=== PATIENT | male | born 2000 | race Caucasian/White ===

== ENCOUNTER 2020-04-12 01:48 | Emergency (ER) | payer OTHER ==
[~2020-04-12] VITALS: Ht 175.3 cm; Wt 77.1 kg
--- OUTSIDE RECORDS SUMMARY | ~2020-04-12 | XMS | Encounter Summary ---
Demographics + + + | Address | [address] | | | [place] [address] | + + + | Home Phone | | + + + | Preferred Language | Unknown | + + + | Marital Status | Single | + + + | Anabaptism Affiliation | Unknown | + + + | Race | White | + + + | Ethnic Group | Not or | + + + Author + + + | Author | [facility] | + + + | Organization | [facility] | + + + | Address | Unknown | + + + | Phone | Unavailable | + + + Support + + +---------+ + | Name | Relationship | Address | Phone | + + +---------+ + | Amanda Monique | ECON | Unknown | | + + +---------+ + | Sterling Radabah Sr. | ECON | Unknown | | + + +---------+ + | Soco Salguero | ECON | Unknown | | + + +---------+ + | Rhina Pleitez | ECON | Unknown | | + + +---------+ + Care Team Providers + +------+ + | Care Staff Rn Name | Role | Phone | + +------+ + | Lexx Schrader DO | PCP | | + +------+ + Reason for Visit + +--------+ + | Reason | Onset | Comments | | | Date | | + +--------+ + | Refill Request | 09/25/ | | | | 2017 | | + +--------+ + Encounter Details +--------+--------+ + + + | Date | Type | Department | Care Team | Description | +--------+--------+ + + + | 09/25/ | Refill | [facility] | Rosey Pope | Refill Request | | 2017 | | [facility] | [address] | | | | | [place] | [address] [place], | | | | | [address] | [place] [address] | | | | | [address] | | | | | | Mailcode: [id number] | | | | | | [facility] | | | | | | [address], | | | | | | [place] [address] | | | | | | [phone] | | | +--------+--------+ + + + Social History + +-------+ +--------+ + | Tobacco Use | Types | Packs/Day | Years | Date | | | | | Used | | + +-------+ +--------+ + | Former Smoker | | | | Quit: 04/06/2015 | + +-------+ +--------+ + + + +---------+ + | Alcohol Use | Drinks/Week | oz/Week | Comments | + + +---------+ + | Not Asked | 0 Standard drinks | 0.0 | | | | or equivalent | | | + + +---------+ + + + + | Sex Assigned at | Date Recorded | | | | + + + | Not on file | | + + + documented as of this encounter Plan of Treatment Not on filedocumented as of this encounter Visit Diagnoses Not on filedocumented in this encounter"
--- OUTSIDE RECORDS SUMMARY | ~2020-04-12 | XMS | Encounter Summary ---
Demographics + + + | Address | [address] | | | [place] [address] | + + + | Home Phone | | + + + | Preferred Language | Unknown | + + + | Marital Status | Single | + + + | Scientology Affiliation | Unknown | + + + | Race | White | + + + | Ethnic Group | Not or | + + + Author + + + | Author | [facility] | + + + | Organization | [facility] | + + + | Address | Unknown | + + + | Phone | Unavailable | + + + Support + + +---------+ + | Name | Relationship | Address | Phone | + + +---------+ + | Amanda Monique | ECON | Unknown | | + + +---------+ + | Brayden Monique Sr. | ECON | Unknown | | + + +---------+ + | Soco Salguero | ECON | Unknown | | + + +---------+ + | Rhina Pleitez | ECON | Unknown | | + + +---------+ + Care Team Providers + +------+ + | Care Entry Level Software Engineer Name | Role | Phone | + +------+ + | Lia Pérez | PCP | | + +------+ + Reason for Visit + + + | Reason | Comments | + + + | Diabetes mellitus | | | type 1 | | + + + Consultation (Routine) +--------+ + + + + + | Status | Reason | Specialty | Diagnoses / | Referred By | Referred To | | | | | Procedures | Contact | Contact | +--------+ + + + + + | Closed | Specialty | Endocrinology | Diagnoses | [facility], | [facility] | | | Services | Diabetes & | Type I | MD Saida | [facility] | | | Required | Metabolism | (juvenile | [address] | | | | | type) | [address] | | | | | diabetes | Street | Physician's | | | | | mellitus | [address] | [place], | | | | | without | [place], | [address] | | | | | mention of | [place] [address] | [place], [place] | | | | | complication | Phone: | [phone] | | | | | , not stated | [phone] | Phone: | | | | | as | Fax: | [phone] | | | | | uncontrolled | [phone] | Fax: | | | | | | | [phone] | +--------+ + + + + + Encounter Details +--------+---------+ + + + | Date | Type | Department | Care Team | Description | +--------+---------+ + + + | 11/17/ | Office | [facility] | Mindy Jaeger MD | Type I (juvenile | | 2014 | Visit | [facility] | | type) diabetes | | | | [facility] | | mellitus without | | | | [address] | | mention of | | | | [address] | | complication, not | | | | Physician[facility] | | stated as | | | | [address] | | uncontrolled | | | | [place], [place] | | (Primary Dx) | | | | [address] | | | | | | [phone] | | | +--------+---------+ + + + Social History + +-------+ +--------+------+ | Tobacco Use | Types | Packs/Day | Years | Date | | | | | Used | | + +-------+ +--------+------+ | Current Some Day | | | | | | Smoker | | | | | + +-------+ +--------+------+ + + +---------+ + | Alcohol Use | Drinks/Week | oz/Week | Comments | + + +---------+ + | Not Asked | | | | + + +---------+ + + + + | Sex Assigned at | Date Recorded | | | | + + + | Not on file | | + + + documented as of this encounter Last Filed Vital Signs + + + + + | Vital Sign | Reading | Time Taken | Comments | + + + + + | Blood Pressure | 124/83 | 11/17/2014 3:05 PM | | | | | PDT | | + + + + + | Pulse | 106 | 11/17/2014 3:05 PM | | | | | PDT | | + + + + + | Temperature | - | - | | + + + + + | Respiratory Rate | - | - | | + + + + + | Oxygen Saturation | - | - | | + + + + + | Inhaled Oxygen | - | - | | | Concentration | | | | + + + + + | Weight | 54.4 kg (119 lb 14.4 | 11/17/2014 3:05 PM | | | | oz) | PDT | | + + + + + | Height | 170.2 cm (5' 7") | 11/17/2014 3:05 PM | | | | | PDT | | + + + + + | Body Mass Index | 18.78 | 11/17/2014 3:05 PM | | | | | PDT | | + + + + + documented in this encounter Progress Notes Orestes Hawley MD - 11/18/2014 4:56 PM PDTPediatric Endocrinology Attending [facility] 11/17/2014 I have seen and examined patient with Dr. Jaeger. I agree with his note and plan. I have pa rticipated in patients care. ORESTES HAWLEY MD Professor, Pediatric Endocrinology [facility] [place] Chief, Division of Pediatric Endocrinology [facility] 4:5 6 PM PDTAdaMadeleine sheldon MA - 11/17/2014 3:05 PM PDT Finger stick performed by patient in clinic for capillary A1c test. indy Jaeger MD - 11/17/2014 3:01 PM PDTForma tting of this note might be different from the original. [facility] Clinic Note Clinic Date:11/17/14 Current Insulin Regimen: Lantus 35 units CR: 1 for 8 grams of carbohydrates High Blood Sugar Correction Factor: 150-200: 5 units 200-250: 6 units 251-300: 7 units 301-350: 8 units 351-400: 9 units > 400: 10 units Brayden is a 13 year 4 month male with Type 1 diabetes here for follow-up. His diabetes tolbert s been under very poor control with a HA1C > or just below 14. Interval History: Brayden is a 13 year 4 month male with Type 1 diabetes who presents today for ongoing foll ow-up. He is accompanied to clinic today by his mother. Brayden reports that he has been do ing well since his last visit. He has not had any significant illnesses, ketosis, or severe hypoglycemia requiring intervention with glucagon. Brayden has no new complaints at today's visit. He has not been checking blood sugar for a couple weeks as most of the time his glu cometer has not been working. He notes he has sometimes felt low at night but does not check his blood sugar and just empirically will eat or take in juice and go back to bed. He feels low at night a couple times a week. He counts carbohydrates at meals regularly by report. H e does not regularly correct his blood sugar unless he feels unwell and "knows" that it is h igh. He often feels like his blood sugar is "high" before bed and will randomly give about 1 0 units of insulin to correct his blood sugar before he goes to bed. Blood glucose monitoring: Brayden reports checking his blood sugar at least 0-6 times a day with no clear pattern of checking blood sugars consistently. He claims his glucometer is no t working and does not have any blood sugar data. Hypoglycemia: Brayden's target range for his glucose levels is 80-180. He reports 4 episodes of low blood sugars a week at night as discussed above. He states that he is frequently abl e to recognize these episodes. Brayden states that he has a current glucagon kit and has a [employer] dic alert bracelet which he currently wearing. Meal plan: He likes to eat meals in the middle of the night and often does not dose insulin at this guero. He often sleeps through the day and has an irregular daytime feeding pattern. Exercise: Brayden like to ride a dirt bike. He likes to ride his skateboard and scooter. He never takes an extra snack prior to vigorous exercise. ROS: Baryden denies any headaches or visual changes. He notes some diffuse chest pain which occurs and is relieved with ibuprofen and he notes that it rojas and it feels like he has so mething in his throat. He denies abdominal pain, constipation/diarrhea or dry skin. + signif icant polydipsia or polyuria. He notes nausea when his blood sugars are high. He reports a n ormal energy level. The review of systems is otherwise negative for all systems. Social history: Brayden lives at home with his mother. He feels like he has ADHD and family reports that his older brother was diagnosed with this condition. Of note his older brother committed suicide at 19 years of age. Dad lives in [place] and Mom and Dad are currentl y in the process of obtaining a divorce. Of note his DHS letter reports that Brayden has a hi story of making comments about committing suicide and overdosing himself on insulin. Mom and Brayden recently moved to [place], [place]. School: Brayden is not currently going to school. Mom notes he is generally refusing to alondra g to school. Mom notes he has been staying home night. Mom feels like he is also using less drugs. Health Care Maintenance: Last eye check: Eye check demonstrated retinopathy in May 2014 Last urine for microalbumin below: Results for BRAYDEN MONIQUE ( ) as of 07/29/2013 12:00 Ref. Range 06/17/2013 11:12 CREATININE, URINE No range found 25.50 MICROALBUMIN, URINE TIMED Latest Range: <=20 mg/L 9 MICROALBUMIN/CREAT RATIO Latest Range: <=30 mg/gm 35 (H) June 2013 Thyroid studies normal, negative celiac screen Lipids: High triglycerides noted Results for BRAYDEN MONIQUE ( ) as of 07/29/2013 12:00 Ref. Range 06/17/2013 15:58 CHOLESTEROL (LAB) Latest Range: <200 mg/dL 140 TRIGLYCERIDES Latest Range: <150 mg/dL 259 (H) HDL CHOLESTEROL Latest Range: >40 mg/dL 45 HDL CMNT No range found No Hemo LDL CHOLEST Latest Range: <100 mg/dL 43 VLDL CHOLESTEROL Latest Range: <31 mg/dL 52 (H) NON-HDL CHOLESTEROL Latest Range: <130 mg/dL 95 TSH Latest Range: 0.34 - 5.60 mcIU/mL 2.19 FREE T4, SERUM Latest Range: 0.6 - 1.2 ng/dL 1.0 Results for BRAYDEN MONIQUE ( ) as of 07/29/2013 12:00 Ref. Range 06/17/2013 15:58 TTG, IGA Latest Range: 0 - 19 Units 5 IGA SERUM Latest Range: 70 - 400 mg/dL 241 Vitals: There were no vitals taken for this visit.. General: well-appearing, no apparent distress. HEENT: NC/AT, PERRL, EOMI. OP clear, good dentition. neck: supple, no LAD. no thyromegaly. chest: CTA bilaterally. heart: RRR, no murmurs. Good perfusion abdomen: soft/NT/ND, no hepatosplenomegaly. normal BS. ext: feet well cared for with no ingrown toenails. skin: no rashes, no lipodystrophy at shot sites. neuro: grossly normal Laboratory studies: Lab Results Component Value Date A1C >14.0 06/17/2013 Results for BRAYDEN MONIQUE ( ) as of 11/17/2014 15:26 Ref. Range 04/21/2014 14:27 08/04/2014 14:38 11/17/2014 15:00 HEMOGLOBIN A1C Latest Range: 4.0 - 5.7 % 13.9 (H) 13.3 (A) >14.0 (A) Assessment: Type 1 diabetes under extremely poor control. HA1C > 14. He admitted that he i s missing about half of his Lantus doses, rarely checks his blood sugar (with no blood sugar today), low blood sugar at nights secondary to random insulin injections before bed, skips insulin doses at lunch and dinner about 40% of the time, and continues to use tobacco regula rly. 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 He does not check in with me between visits. [facility] is involved and it is my opinion that their involvement should be escalated to consider isaura reginald from his current home environement. I discussed this with our social work therapist who will sahil base with [facility]> I have discusse I am deeply concerned that Brayden is at significant risk of complications, including DKA and related morbidity and morality as well as high risk for early diabetes relates complications including vision loss, kidney disease, and neuropathy. Attempts are also going to be made to try to include him in [facility]. He was given new meters to day and lantus as he forgot to bring this with him and will not be returning home for a coup le days. The family has agree to check in with me with blood sugar numbers in two weeks. Recommendations: Lantus 35 units CR: 1 for 8 grams of carbohydrates High Blood Sugar Correction Factor: 150-200: 5 units 200-250: 6 units 251-300: 7 units 301-350: 8 units 351-400: 9 units > 400: 10 units -Do not randomly give insulin doses before dinner to avoid unsafe lows at night. -Will attempt to see if he can be added to JOELLEN -Continue Parent supervision for all Lantus doses, Give the Lantus dose within the same jus r each night. Do not use exercise to help his blood sugars come down, he should get a high b lood sugar correction as often as every three hours. -Always check ketones if his blood sugar is > 300 twice in a row. If he has moderate to lar ge ketones he needs to call the loss prevention specialist pediatric air pollution auditor to discuss management. -Obtain care with a local primary care doctor. -As much as possible avoid overnight meals, ensure that his snacks are about 15 grams or le ss in between meals. -Meet with Psychology at every visit -Follow up in in our clinic in 3 months and establish care with a new provider. The family has been offered the opportunity to call into our service between visits for ass istance in making insulin adjustments. MINDY JAEGER MD [facility] [address] [place] [address] [facility] [address], [facility] [address] [place] [address] documented in this encou nter Plan of Treatment Not on filedocumented as of this encounter Procedures + +--------+ + + + | Procedure Name | Priori | Date/Time | Associated Diagnosis | Comments | | | ty | | | | + +--------+ + + + | HEMOGLOBIN A1C, POC | Routin | 11/17/2014 | Type I (juvenile | Results for this | | | e | 3:00 PM | type) diabetes | procedure are in the | | | | PDT | mellitus without | results section. | | | | | mention of | | | | | | complication, not | | | | | | stated as | | | | | | uncontrolled | | + +--------+ + + + documented in this encounter Results HEMOGLOBIN A1C,POC (11/17/2014 3:00 PM PDT) + + + + + + | Component | Value | Ref Range | Performed | Pathologist | | | | | At | Signature | + + + + + + | HEMOGLOBIN | >14.0 (A) | 4.0 - 5.7 % | [facility] - | | | A1C,POC | | | [place] | | | | | | [facility] | | | | | | OF CARE | | | | | | TESTS | | + + + + + + + + | Specimen | + + | Blood | + + + + + + + | Performing | Address | City/State/Zipcode | Phone Number | | Organization | | | | + + + + + | [facility] | [address] | [place], [place] | | | [facility] | [address] | [address] | | | TESTS | | | | + + + + + documented in this encounter Visit Diagnoses + + | Diagnosis | + + | Type I (juvenile type) diabetes mellitus without mention of complication, not stated | | as uncontrolled - Primary | + + documented in this encounter
--- OUTSIDE RECORDS SUMMARY | ~2020-04-12 | XMS | Encounter Summary ---
Demographics + + + | Address | [address] | | | [place] [address] | + + + | Home Phone | | + + + | Preferred Language | Unknown | + + + | Marital Status | Single | + + + | Episcopal Affiliation | Unknown | + + + | Race | White | + + + | Ethnic Group | Not or | + + + Author + + + | Author | [facility] | + + + | Organization | [facility] | + + + | Address [...] Team Providers + +------+ + | Care Director Of Home Care Hospice Name | Role | Phone | + +------+ + | Lexx Schrader DO | PCP | | + +------+ + Reason for Visit + +--------+ + | Reason | Onset | Comments | | | Date | | + +--------+ + | Refill Request | 05/07/ | | | | 2018 | | + +--------+ + Encounter Details +--------+ + + + + | Date | Type | Department | Care Team | Description | +--------+ + + + + | 05/07/ | Telephone | [facility] | Orestes Quinn MD | Refill Request | | 2017 | | [facility] | [address] | | | | | [place] [facility] | [address] [facility], | | | | | [address] | [place] [address] | | | | | [address] | [phone] | | | | | Physician's | | | | | | [address] | | | | | | [place], [place] | | | | | | [address] | | | | | | [phone] | | | +--------+ + + + + Social History + +-------+ [...] + + documented as of this encounter Miscellaneous Notes Telephone Encounter - Ria Bravo MA - 05/07/2018 5:42 PM PDTSigned refill request for all prescriptions per Prescription authorized per [facility] Re fill Protocol [id number] Last Appointment in [facility] was on 09/25/17 at 10:10 am with Orestes Quinn MD. Next Appointment in [facility] is on 05/17/18 at 9:45 am with Orestes Quinn MD. elephone Encounter - Denise Etienne - 05/07/2018 4:22 PM PDTRobert Mario Monique : 2000 Last Appointment in [facility] was on 09/25/17 at 10:10 am with Orestes Quinn MD. Next Appointment in [facility] is on 05/17/18 at 9:45 am with Orestes Quinn MD. Medication: novolog flexpen Strength: Dose: Up to 150 units Quantity: 3 month Additional Medication: Yes Medication: Lantus pen Strength: Dose: Up to 34 units at night Quantity: 3 month Additional Medication: Yes Medication: Pen needles Strength: 4mm Dose: Up to 15 times a day Quantity: 3 month Additional Medication: Yes Medication: Glucagon kit Strength: Dose: 1 kit Quantity: 1 time only Additional Medication: Yes Medication: Contour next meter Strength: Dose: 1 meter Quantity: 1 time only Additional Medication: Yes Medication: Contour next test strips Strength: Dose: Up to 10 times day Quantity: 3 month Additional Medication: No Pharmacy Updated: [facility][id number] [address] [place] [address] Prescription Routing: Retail order: Fax or call in to pharmacy Patient/caller advised of department's 72 hour turnaround for refill requests Patient/caller advised of department's turnaround time for refill requests. Advised to fol low-up with pharmacy regarding status of refill. Electronically signed by Denise Patricia at 0 05/07/2018 4:30 PM PDTdocumented in this encounter Plan of Treatment Not on filedocumented as of this encounter Visit Diagnoses + + | Diagnosis | + + | Type 1 diabetes mellitus without complication (HCC) - Primary Type I (juvenile type) | | diabetes mellitus without mention of complication, not stated as uncontrolled | + + documented in this encounter"
--- OUTSIDE RECORDS SUMMARY | ~2020-04-12 | XMS | Encounter Summary ---
Demographics + + + | Address | [address] | | | [place] [address] | + + + | Home Phone | | + + + | Preferred Language | Unknown | + + + | Marital Status | Single | + + + | Quaker Affiliation | Unknown | + + + | Race | White | + + + | Ethnic Group | Not or | + + + Author + + + | Author | [facility] | + + + | Organization | [facility] | + + + | [...] Team Providers + +------+ + | Care Patient Information Coordinator Name | Role | Phone | + +------+ + | Saida Alegria MD | PCP | | + +------+ + Reason for Visit Other (Routine) +--------+--------+ + + + + | Status | Reason | Specialty | Diagnoses / | Referred By | Referred To | | | | | Procedures | Contact | Contact | +--------+--------+ + + + + | Closed | | Endocrinology | Diagnoses | Jaeger, | Dbt Diab Ed | | | | Diabetes & | Diabetes | MD Mark | [address] | | | | Metabolism | type 1, | [address] | [address] | | | | | uncontrolled | [address] | [address] | | | | | (HCC) | Rd | Mailcode: | | | | | Procedures | [place], [place] | [address] | | | | | CONSULT TO | [address] | Physician's | | | | | PEDS | | [address] | | | | | DIABETES - | | [address] | | | | | EDUCATION | | [place], [place] | | | | | AND | | [address] | | | | | NUTRITION | | Phone: | | | | | | | [phone] | | | | | | | Fax: | | | | | | | [phone] | +--------+--------+ + + + + Encounter Details +--------+---------+ + + + | Date | Type | Department | Care Team | Description | +--------+---------+ + + + | 06/17/ | Office | Marvin Singer | Karyna Kaufman, | Type I (juvenile | | 2012 | Visit | Diabetes Health | RD [address] | type) diabetes | | | | [facility] at [facility] | [facility] [address] | mellitus without | | | | [address] | [place], [place] | mention of | | | | [address] | [address] | complication, not | | | | Mailcode: [address] | | stated as | | | | [facility] | | uncontrolled | | | | [address] [place], | | (Primary Dx) | | | | [place] [address] | | | | | | [phone] | | | +--------+---------+ + + + Social History + +-------+ +--------+------+ | Tobacco Use | Types | Packs/Day | Years | Date | | | | | Used | | + +-------+ +--------+------+ | Never Smoker | | | | | + [...] + + documented as of this encounter Patient Instructions Patient Instructions Karyna Kaufman, RD - 06/17/2013 11:20 AM PSTFor: Sterling Monique Date: 06/17/2013 Thanks for coming in today Oliver. We will support you to your goal of blood herrera gars under 250 Sterling so you can feel better. Welcome to our clinic and enjoy the tram ride!! Blood Glucose Monitoring: Please continue to test blood sugars. Aim for always testing prior to meals, bedtime, when feeling signs of low blood sugar and post treatment of low blood sugar. Blood sugars should be checked overnight when at risk for Hypoglycemia. Change your lancet pokers every 1-2 days . Rinse your hands before testing. Check at 2 am only if: - If Lantus insulin is increased - You had a low blood sugar at bedtime or several lows that day - You were more active than usual that day - If Sick Record Keeping: Please consider keeping a daily record of your blood sugar, insulin and carbohydrate intake to bring to your next visit. Insulin: per Dr. Jaeger: Parent supervision for all Lantus doses and when possible supervising meal time insulin dos ing and blood sugar checks. Meals/Snack: 1 unit of Humalog/Novolog for every 10 grams of carbohydrate High blood sugar correction dose: 150-200: 5 units 200-250: 6 units 251-300: 7 units 301-350: 8 units 351-400: 9 units > 400: 10 units Lantus: 30 units aim at the same time each night within 1 hour and then get to sleep by 11p m. Make sure there is 2-3 hours between Humalog/Novolog doses. You may use a syringe only one time before putting in a safe place for sharps. Sites: Continue to use at least 2 different sites for injections. Meal Planning: Meals: continue the "flexible" meal plan where you eat what you like at each meal. There is no limit on the amount of carbohydrates to eat, but you have to cover them with Humalog/Nov olog. Snacks: make sure there is 2 hours between snacks and meals. You may have 15 grams of carbo hydrate or less at your snacks without Humalog/Novolog. For snacks >15 grams of carbohydrate you can dose your Humalog/Novolog insulin to carb ratio, but do not give a correction dose if has not been 3 hours since last meal. Activity/Play: Refer to your carbohydrate replacement handout. Low Blood Sugar: Treat blood sugars below 80 with fast-acting carbohydrate only to begin with: Use 6-8 oz regular soda or 6-8 ounces of juice or 20-30 grams of carbohydrate Recheck blood sugar in 15 minutes - If still below 80 treat again. Once above 80, if it is more than an hour to your next meal then you need to have a 15 gram carbohydrate + protein snack to keep blood sugars from dropping again. Urine Ketone Testing: Test for ketones whenever: - sick, nausea/vomiting, signs or symptoms of infection: Test every 4 hours - If blood sugar above 300 mg/dl for 2 routine tests If ketones are moderate or large contact the on-call diabetes doctor right away: [place] Prescriptions: Your Lantus, Ketone Strips and Glucagon will be ready for flower picker [facility]. Your strips, syringes, Lantus, Humalog, and 2nd Glucagon will be ordered today to [facility] in [place] as needed. School Orders: Dr. Jaeger updated your school orders. Enjoy being at school all day each school day! Resources: Read your new diabetes binder! Follow-up: Schedule an appt with Dr. Jaeger, an Educator and Dr. Lester in 6 weeks Nephrology consult: [phone] Evaluation by local doctor for consideration for likely ADHD Hawa documented in this encounter Progress Notes Karyna Kaufman, JENNIFER - 06/17/2013 11:41 AM PSTFormatting of this note might be different f rom the original. Progress Notes: Pediatric Diabetes Outpatient Clinic Appt Length: 90 minutes total; we did not complete all topics as they left during the visit for lunch and came back late Appt Type: Individual 11:05am : they expressed that they are starving and need to eat. Santa Gomez [employer] provide d meal cars and they were instructed to return to clinic within 30 minutes. Sterling asked how long they would be here today and when we told him ~4pm he said "I am not staying here unti l then.". As one 12:10pm they have not returned to clinic. Mom provided the following # for contact [phone]. 12:25pm: returned to clinic and Sterling's mood was improved. Identifying Information: Sterling Monique is a 12 y.o. male with Type 1 Diabetes diagnose d 08/2010. Sterling Monique is presenting to clinic today for diabetes management with his Mother, Amanda. Sterling Monique and his family were previously educated in [place]. He w as living with his Dad in [place] until 03/2013, when he moved to [place] with his Mom . He states he'd rather live in [place] and has been taking pictures while he has been here . His parents are currently in the process of getting a divorce. Mom states Dad is more savv y with his Medtronic pump and as they are not talking it makes it difficult to use the pump. The pump doses were not accurate and so he has been using the vial & syringe for the past 3 weeks. They brought the pump but it was not able to be downloaded. They state they have se en an Radar Engineer closer to home, but feels he needs a pediatric freight flow sales leader. Mom hayley aggarwalks from 5:30am-2:30pm, some days as late as 10:30pm. She works for [employer]. Of note, 3 weeks ago he went to a local doctor for a UTI and had +ketones. We recei barby a letter from both the principal of his school and [facility] prior to today's visit. Per MA: flu shot, A1c, vital and urinalysis Barriers to Learning: None identified and Psychosocial Method of Instruction: individual instruction, printed material and demonstration/return de monstration Home Glucose Monitoring: Sterling Monique is using the Accucheck Angela and the One Touch m eters (4 total) for testing blood sugars. Blood sugars are being tested ~4 times daily, prio r to meals bedtime and 2 am, with signs of low blood sugars and after treating low blood sug ars. They are not changing the lancet and were given a new lancet device. They are not keep ing daily records of BG, insulin and carbohydrates. The 4 meters were downloaded and is avai lable under the media tab. He states that he tests fasting ~40-50% of the time, before lunch 50% of the time, before dinner 25% of the time and "most of the time" HS. Mom states that h e "functions fine at high BGs in the 500s, as he plays, watches TV and climbs the stairs" Blood Sugar over the past 2 weeks show: Breakfast:138-"high" Lunch:63-"high" Dinner:335- "high" Bedtime:275--"high" 2 am:"high" when they tested once; Mom states they would test with any increases to insuli n and/or if "he was running high" Target Range: 80-180 A1C: %, 13 to 18 years: <7.5% 06/17/13: >14% 04/2013: 14.3% 08/2012: 10% Insulin Dosages: Sterling Monique and his Mom state that he is on a basal bolus insulin r egimen using Lantus and Humalog/Novolog (whatever they have been given sample of). They are using vial & syringe and he does not like pens. Humalog/Novolog is given after or prior to m eals or not at all. Current insulin doses are: Lantus: When I first asked Sterling his Lantus does he stated "I have no idea", then he and has Mom confirmed that it is 30 units between 6pm-12am; Mom reminds him to give it all adria shannon, but he doesn't want to give the injection; states he takes it 98% of the time; has o nly Levemir in his bag and has not in fact been taking Lantus Meals: Humalog/Novolog 1:10 High Blood Sugar Correction Factor: 150-200: 5 units 200-250: 6 units 251-300: 7 units 301-350: 8 units 351-400: 9 units > 400: 10 units Snacks < ? g carbohydrate are given without insulin. Insulin Draw and Inject: Sterling gives all of his own injections. Mom states that she would like him to resume the pump so that he would dose insulin when he eats in the middle of the night. He states that he doesn't want to as his site hurts, but will to make his Mom happy. He demonstrated insulin administration. He is not holding the syringe in after injection and leak back is happening. He was instructed to hold the syringe in for 5 seconds He states he uses each syringe five times and was told to use a syringe once only. Proper sharps disposa l was provided in writing. Injection Sites: Injection sites are consisting of: arms, legs and abdomen. Meal Plan: Sterling Monique is currently following a flexible meal plan. It seems that he responsible for calculating carbohydrates. Resources that he uses are primarily food label s and "guessing- which I am pretty good at". Sterling Monique states that he does not foll ow a schedule, as he "never stops eating". For example, he states that he wakes up at ~ 7:30 am, checks BG 40-50% of the time, has no idea what he carb intake is and may dose. He was ab le to state that he had 4 burritos today and figures that the tortillas are worth 2 slices o f bread each, ~ 30grams, for which he would dose a total of 12 units (120g carb). With the h igh BG correction he total dose was 14 units, which may be fairly accurate. When asked when he would eat next he states "5 minutes later". Mom reports sneaking food and eating all nigh t, including in his room. Growth: Vitals 06/17/2013 Weight 45.768 kg (100 lb 14.4 oz) Height (cm) 162.6 cm BMI 17.31 BMI/age 10-25%ile Noted per Dr. Jaeger that He notes that he feels fat and that he wants to be skinnier, but de nies intentionally keeping his blood sugars high in order to lose weight. Sterling did not men tion this during our visit. Exercise: Sterling like to ride a dirt bike. Carbohydrate replacement was not covered verball y. I provided information per binder and AVS. Hypoglycemia Management: not covered- but written out for them; provided a pink ID bracelet . Glucagon Emergency Kit: They do not have Glucagon and so it was ordered. Sick Day Management: When asked about ketones Mom said "I have never worried about that". S he stated that previous doctors had told them that it was " a waste of money" to test ketone s as if the BG is high you are just going to give more insulin. She states that he has never been hospitalized, even at diagnosis, but has +ketones. He had - ketones today, but did hav e urine glucose >1000. We reviewed basic sickday guidelines, signs, symptoms, and preventio n of Ketoacidosis. Sterling Monique have ketone strips. Reviewed when to be testing for k etones and when to contact MD for assistance. Ketone strips were provided today per our [facility]. School: Sterling Monique [employer] and is in the 8th grade. We recei barby a letter of concern from his principal, that as of 06/08/13 he had attended fewer than 3 days of school due to diabetes and his behavior. When I asked Sterling and his Mo about schoo l they state that the school will not allow him to be there with a BG>400. He states that ov er the past week he attended 1/2 day Thursday, 1 hour on Thursday, 1 hour on Thursday, none ye and is here today. When I asked who decides if he is to go home he states "the teach er". When he is not at school he is home alone most of the day. Prescriptions: Explained to Mom that we would order ketones strips to be covered per our do nor fund. , which were ordered to [facility]. Additional prescriptions will be ordered. Family Adaptation to Diabetes: Santa Gomez [employer] and Deepak Lester PhD both spent time with Elise linder and his Mom. There are multiple barriers to care, as evidenced by today's visit, and t he letter from both the principal of his school and [facility]. Assessment: Francs diabetes care is currently poorly managed in all areas. He was easily distracted during our visit and expressed his dissatisfaction with being here. He noman on de s arm and on scars, which his Mom continuously asked him to stop. When asked if his challeng es with focusing and paying attention have been addressed Sterling stated that he thinks he tolbert s ADHD. He stated that his friends with ADHD have told him what it feels like and he can rel ate to those symptoms such as "can't sit still and feeling jittery". He would like help with it. Mom states he is just "hyper" like her, her brother, his cousins and his broth nathaly- who had been on medication for ADHD. Mom states she is willing to discuss ADHD but is co ncerned about medications for Sterling. Coordinated care with Dr. Jaeger and Dr. Morrell and edvin jackson agree with their plan for increased supervision for Sterling at school and at home with [facility]. Recommendations/ Pt. Instructions per AVS (supplement to the Pediatric Diabetes Binder): For: Sterling Monique Date: 06/17/2013 Thanks for coming in today Oliver. We will support you to your goal of blood herrera gars under 250 Sterling so you can feel better. Welcome to our clinic and enjoy the tram ride!! Blood Glucose Monitoring: Please continue to test blood sugars. Aim for always testing prior to meals, bedtime, when feeling signs of low blood sugar and post treatment of low blood sugar. Blood sugars should be checked overnight when at risk for Hypoglycemia. Change your lancet pokers every 1-2 days . Rinse your hands before testing. Check at 2 am only if: - If Lantus insulin is increased - You had a low blood sugar at bedtime or several lows that day - You were more active than usual that day - If Sick Record Keeping: Please consider keeping a daily record of your blood sugar, insulin and carbohydrate intake to bring to your next visit. Insulin: per Dr. Jaeger: Parent supervision for all Lantus doses and when possible supervising meal time insulin dos ing and blood sugar checks. Meals/Snack: 1 unit of Humalog/Novolog for every 10 grams of carbohydrate High blood sugar correction dose: 150-200: 5 units 200-250: 6 units 251-300: 7 units 301-350: 8 units 351-400: 9 units > 400: 10 units Lantus: 30 units aim at the same time each night within 1 hour and then get to sleep by 11p m. Make sure there is 2-3 hours between Humalog/Novolog doses. You may use a syringe only one time before putting in a safe place for sharps. Sites: Continue to use at least 2 different sites for injections. Meal Planning: Meals: continue the "flexible" meal plan where you eat what you like at each meal. There is no limit on the amount of carbohydrates to eat, but you have to cover them with Humalog/Nov olog. Snacks: make sure there is 2 hours between snacks and meals. You may have 15 grams of carbo hydrate or less at your snacks without Humalog/Novolog. For snacks >15 grams of carbohydrate you can dose your Humalog/Novolog insulin to carb ratio, but do not give a correction dose if has not been 3 hours since last meal. Activity/Play: Refer to your carbohydrate replacement handout. Low Blood Sugar: Treat blood sugars below 80 with fast-acting carbohydrate only to begin with: Use 6-8 oz regular soda or 6-8 ounces of juice or 20-30 grams of carbohydrate Recheck blood sugar in 15 minutes - If still below 80 treat again. Once above 80, if it is more than an hour to your next meal then you need to have a 15 gram carbohydrate + protein snack to keep blood sugars from dropping again. Urine Ketone Testing: Test for ketones whenever: - sick, nausea/vomiting, signs or symptoms of infection: Test every 4 hours - If blood sugar above 300 mg/dl for 2 routine tests If ketones are moderate or large contact the on-call diabetes doctor right away: [place] Prescriptions: Your Lantus, Ketone Strips and Glucagon will be ready for flower picker [facility]. Your strips, syringes, Lantus, Humalog, and 2nd Glucagon will be ordered today to [facility] in [place] as needed. School Orders: Dr. Jaeger updated your school orders. Enjoy being at school all day each school day! Resources: Read your new diabetes binder! Follow-up: Schedule an appt with Dr. Jaeger, an Educator and Dr. Lester in 6 weeks Nephrology consult: [phone] Evaluation by local doctor for consideration for likely ADHD Hawa Kaufman MS, RD, LD, CDE Technical Communication Teacher, Dietitian [facility] Mail Code: [address] [place] [address] documented in this encounter Plan of Treatment Not on filedocumented as of this encounter Procedures + +--------+ + + + | Procedure Name | Priori | Date/Time | Associated Diagnosis | Comments | | | ty | | | | + +--------+ + + + | GA DIAB MANAGE TRN | Routin | 06/21/2013 | Type I (juvenile | | | PER INDIV | e | 4:24 PM | type) diabetes | | | | | PST | mellitus without | | | | | | mention of [...]
--- OUTSIDE RECORDS SUMMARY | ~2020-04-12 | XMS | Encounter Summary ---
Demographics + + + | Address | [address] | | | [place] [address] | + + + | Home Phone | | + + + | Preferred Language | Unknown | + + + | Marital Status | Single | + + + | Restoration Affiliation | Unknown | + + + | Race | White | + + + | Ethnic Group | Not or | + + + Author + + + | Author | [facility] | + + + | Organization | [facility] | + + + | [...] Team Providers + +------+ + | Care Clothing Sorter Name | Role | Phone | + +------+ + | Saida Alegria MD | PCP | | + +------+ + Reason for Visit Consultation (Routine) +--------+--------+ + + + + | Status | Reason | Specialty | Diagnoses / | Referred By | Referred To | | | | | Procedures | Contact | Contact | +--------+--------+ + + + + | Closed | | Pediatric | Diagnoses | Jaeger, | Ped | | | | Nephrology | Type I | MD Mark | Nephrology | | | | | (juvenile | [address] | [address] | | | | | type) | [facility] | [address] | | | | | diabetes | Rd | [place] | | | | | mellitus | [place], [place] | Children's | | | | | without | [address] | [address] | | | | | mention of | | floor | | | | | complication | | [place], [place] | | | | | , not stated | | [address] | | | | | as | | Phone: | | | | | uncontrolled | | [phone] | | | | | Procedures | | Fax: | | | | | CONSULT TO | | [phone] | | | | | PEDS | | | | | | | NEPHROLOGY | | | +--------+--------+ + + + + Encounter Details +--------+---------+ + + + | Date | Type | Department | Care Team | Description | +--------+---------+ + + + | 07/29/ | Office | Pediatric | Deb Duarn, | Microalbuminuria | | 2012 | Visit | Nephrology at | SCHOOL ADMINISTRATOR [address] [facility] | (Primary Dx); DM | | | | [place] | [address] | type 1 (diabetes | | | | [facility] | [place], [place] | mellitus, type 1) | | | | [address] | [address] | ([facility]); Adjustment | | | | [place] | [phone] | disorder with | | | | [facility], | | depressed mood | | | | 7th floor | | | | | | [place], [place] | | | | | | [address] | | | | | | [phone] | | | +--------+---------+ + + + [...] + + + | Blood Pressure | 108/67 | 07/29/2013 3:38 PM | | | | | PST | | + + + + + | Pulse | 89 | 07/29/2013 3:38 PM | | | | | PST | | + + + + + [...] + + + + | Weight | 47.4 kg (104 lb 8 | 07/29/2013 3:38 PM | | | | oz) | PST | | + + + + + | Height | 162.8 cm (5' 4.09") | 07/29/2013 3:38 PM | | | | | PST | | + + + + + | Body Mass Index | 17.88 | 07/29/2013 3:38 PM | | | | | PST | | + + + + + documented in this encounter Patient Instructions Patient Instructions Deb Duran FNP - 07/29/2013 4:03 PM PSTMasoodjung Martin has had Microa lbumin in his urine which could indicate some Effect of the diabetes on his kidney's. Do labs today. Will call you with results Thursday Please do a first morning urine to check for microablumin and take to [facility] Based on these results of the urine will help determine if he needs medication to help mireya t the microalbumin in his urine. Return in 6 months. documented in this encounter Progress Notes Roger Deb WellsWARREN - 08/01/2013 8:50 AM PSTCalled and left message Renal Function Panel N ormal. WARREN MELENDREZ rjazzy, Deb WellsWARREN - 07/27/2013 4:40 PM PST PEDIATRIC NEPHROLOGY CLINIC NEW PATIENT PROGRESS NOTE SUBJECTIVE: Today I had the pleasure of seeing Brayden Monique in our Pediatric Nephrolo gy clinic for evaluation of microscopic hematuria. Brayden is a 12 year 9 month male with t ype 1 diabetes. I reviewed the patient's records. Pertinent details include: History of Type 1 diabetes diagnosed 08/2010 without episodes of DKA since diagnosis. Recent ly moved to [facility] from [place] and established care with Endocrine. Not wagner ging his diabetes well and frequently misses glucose monitoring and poor understanding of hi s insulin. Has missed much of his school because of his elevated blood glucose During this visit UA done with Trace intact blood and Negative Protein. Glucose >1000 Urine Microalbumin/Creatinine ratio: 35 mg/gm (normal <30) INTERVAL: Normally prior to diagnosis of diabetes I in August 2010. 2 months ago while living and [facility] and 6 months ago when visiting in [place] diag nosed with a UTI with symptoms of urinary frequency, hematuria and urgency without fever. Re sponded to antibiotics with resolution of symptoms. No prior UTIs before this time. No prior history of HTN. Lives with Mom. Goes to middle school rarely. Identifies significant stressors over the last 2 years of being diagnosed with diabetes, br other committing suicide, sister having a premature child, and parents . Since the diagnosis of diabetes has not been attending school consistently and attributes this to his Diabetes. REVIEW OF SYSTEM: General: No constitutional symptoms of fatigue, fevers, dizziness. ENT: No nasal discharge or congestion. Respiratory: No cough, wheezing Cardiovascular: No high blood pressure, no chest pain. Gastrointestinal: No abdominal or flank pain, nausea or vomiting, or diarrhea. Genitourinary: No dysuria, no gross hematuria . Musculoskeletal: No joint pain or swelling. No back pain. Neurological: No numbness or headache. Psychological: No anxiety, depression, insomnia. SOCIAL HISTORY: he was accompanied by mom and Sister FAMILY HISTORY: No pertinent family history of Kidney Disease, dialysis or kidney transplan tation. ALLERGIES: Review of patient's allergies indicates no known allergies. Current Outpatient Prescriptions Medication Sig Acetone, Urine, Test (KETONE URINE TEST) Strip Test for ketones when blood sugar has be en >300 twice in a row and/or with illness. One bottle for home and one for school. Indicat ions: Diagnostic Test for Ketonuria glucagon 1 mg injection kit As directed insulin glargine (LANTUS) 100 unit/mL subcutaneous solution Inject 30 units at the same time each evening. Indications: TYPE 1 DIABETES MELLITUS insulin lispro (HUMALOG) 100 unit/mL subcutaneous solution For use at home and and scho ol, per insulin to carb ratio and high blood glucose correction. Indications: TYPE 1 DIABET ES MELLITUS Insulin Syringe-Needle U-100 (BD INSULIN SYRINGE HALF UNIT) 0.3 mL 31 x 5/16" syringe U se to administer insulin up to 5 per day. No current facility-administered medications for this visit. PHYSICAL EXAM: Ht 162.8 cm (5' 4.09") (52%, Z = 0.05), Wt 47.4 kg (104 lb 8 oz) (39%, Z = -0.27), BP 108/6 7, Pulse 89, BMI 17.88 kg/(m^2). BP percentile (39.0% systolic and 62.5% diastolic of BP percentile by age, sex, and height. ). Body surface area is 1.46 meters squared.. Pain Level 0 General: The patient is alert, active and in no apparent distress. Clothes are dirty, does not look like he has bathed recently. HEENT: Grossly within normal limits. Fundoscopic exam WNL. Neck:Supple without lymphadenopathy. Chest:Clear to auscultation bilaterally. CV:Heart has regular rate and rhythm with normal S1 and S2. No murmurs Abdomen: soft with no hepatosplenomegaly, no tender areas. Back:No CVAT Genitalia; deferred Extremities:Warm, well perfused, and without edema. Skin: Good turgor, no bruising or petechiae. LABS: Results for BRAYDEN MONIQUE ( ) as of 07/31/2013 16:44 Ref. Range 07/29/2013 16:29 SODIUM, PLASMA (LAB) Latest Range: 136-145 mmol/L 137 POTASSIUM, PLASMA (LAB) Latest Range: 3.4-5.0 mmol/L 4.1 POTASSIUM CMNT No range found No Hemo CHLORIDE, PLASMA (LAB) Latest Range: 97-108 mmol/L 100 TOTAL CO2, PLASMA (LAB) Latest Range: 21-32 mmol/L 31 ANION GAP No range found 6 ANION GAP(ALB CORRECTED) Latest Range: 4-11 mmol/L 6 BUN, PLASMA (LAB) Latest Range: 6-20 mg/dL 11 CREATININE PLASMA (LAB) Latest Range: 0.46-0.81 mg/dL 0.53 GLUCOSE, PLASMA (LAB) Latest Range: 60-99 mg/dL 163 (H) CALCIUM, PLASMA (LAB) Latest Range: 8.6-10.2 mg/dL 9.4 PHOSPHORUS, PLASMA (LAB) Latest Range: 2.5-5.0 mg/dL 5.1 (H) ALBUMIN, PLASMA (LAB) Latest Range: 3.5-4.7 g/dL 4.0 Results for BRAYDEN MONIQUE ( ) as of 07/29/2013 16:53 Ref. Range 06/17/2013 11:12 MICROALBUMIN/CREAT RATIO Latest Range: <=30 mg/gm 35 (H) IMAGING: US KIDNEY & BLADDER (no units) Date Value Range Status 07/29/2013 Final Value: EXAM: Renal/Bladder Ultrasound HISTORY: History of UTI COMPARISON: None FINDINGS: The kidneys are normal in location, morphology, and echogenicity. Corticomedullary differentiation is preserved. The right kidney measures 10.8 cm x 4.1 cm x 4.7 cm and has a volume of 108 mL. The left kidney measures 11.7 cm x 4.6 cm x 4.2 cm and has a volume of 120 mL. Right length is between 50th and 95th percentiles and left renal length above the 95th percentile for patient age. No renal stones, cysts, or solid masses are seen. No abnormal perinephric collections are evident. There is no pelvocaliectasis or ureterectasis. The bladder is unremarkable. Bladder volume measures up to 63 mL during the examination. Patient voided completely. IMPRESSION: Normal renal ultrasound. END IMPRESSION ASSESSMENT: Microalbminuria- Presence of elevated microalbuminuria creatinine ratio in the context of p oorly managed diabetes is concerning. Would like to repeat the urine microalbumin to creatin ine ratio on a first morning specimen to confirm presence. In the event he still is above ra nge in addition to glycemic control the use of an OZIEL inhibitor would be considered to preve nt the progression to increased albuminuria. Will wait for results of Urine before initiatin g treatment. Renal Function panel ordered today; Results WNL. Estimated Creatinine Clearance using the S chwartz formula (with K= 0.413) was 126 ml/min/ 1.73m2. Normal blood pressure and normal growth are reassuring for stable kidney function. Will attempt to get records from Treatment in [facility] 2 months ago for UTI. Would like to look at results of Urine culture to confirm he had a UTI. His renal Ultrasound is normal wi th complete bladder emptying which makes reflux less likely. Diabetes type I- Encouraged Brayden Martin to continue to work with Endocrine on managing his d iabetes and following through with the home treatment plans. Reiterated adequate diabetes co ntrol will help protect his kidneys. Depressed mood- Encouraged Mom and Brayden Martin to follow through with plans for counseling a ppointment next week. PLAN:as reviewed with family Brayden Martin has had Microalbumin in his urine which could indicate some Effect of the diabet es on his kidney's. Do labs today. Will call you with results Thursday Please do a first morning urine to check for microablumin and take to [facility] Based on these results of the urine will help determine if he needs medication to help mireya t the microalbumin in his urine. Return in 6 months. I've spent a total time of 40 minutes with the patient. More than 50% of this time was fo r counseling the patient and family regarding microalbuminuria, diabetes affect on kidney fu nction. If you have any questions or concerns related to Brayden medical issues including assessment & plan, please call the Pediatric Nephrology office at . WARREN MELENDREZ [facility] NEPHROLOGY [facility] Mailcode: [address] [place] [address] documented in this en counter Plan of Treatment Not on filedocumented as of this encounter Procedures + +--------+ + + + | Procedure Name | Priori | Date/Time | Associated Diagnosis | Comments | | | ty | | | | + +--------+ + + + | UA DIPSTICK 10 DIP | Routin | 07/29/2013 | DM type 1 | Results for this | | W/O MICRO | e | 3:46 PM | (diabetes mellitus, | procedure are in the | | (AUTOMATED), POC | | PST | type 1) ([facility]) | results section. | | | | | Adjustment disorder | | | | | | with depressed mood | | + +--------+ + + + documented in this encounter Results RENAL FUNCTION SET (NA,K,CL,CO2,BUN,CREAT,GLUC,CA,PHOS,ALB ) (07/29/2013 4:29 PM PST) + +---------+ + + + | Component | Value | Ref Range | Performed | Pathologist | | | | | At | Signature | + +---------+ + + + | GLUCOSE, | 163 (H) | 60 - 99 mg/dL | [facility] | | | PLASMA | | | LABORATORY | | | (LAB) | | | SERVICES, | | | | | | CORE | | + +---------+ + + + | BUN, PLASMA | 11 | 6 - 20 mg/dL | [facility] | | | (LAB) | | | LABORATORY | | | | | | SERVICES, | | | | | | CORE | | + +---------+ + + + | CREATININE | 0.53 | 0.46 - 0.81 | [facility] | | | PLASMA | | mg/dL | LABORATORY | | | (LAB) | | | SERVICES, | | | | | | CORE | | + +---------+ + + + | SODIUM, | 137 | 136 - 145 | [facility] | | | PLASMA | | mmol/L | LABORATORY | | | (LAB) | | | SERVICES, | | | | | | CORE | | + +---------+ + + + | POTASSIUM, | 4.1 | 3.4 - 5.0 | [facility] | | | PLASMA | | mmol/L | LABORATORY | | | (LAB) | | | SERVICES, | | | | | | CORE | | + +---------+ + + + | CHLORIDE, | 100 | 97 - 108 mmol/L | [facility] | | | PLASMA | | | LABORATORY | | | (LAB) | | | SERVICES, | | | | | | CORE | | + +---------+ + + + | TOTAL CO2, | 31 | 21 - 32 mmol/L | [facility] | | | PLASMA | | | LABORATORY | | | (LAB) | | | SERVICES, | | | | | | CORE | | + +---------+ + + + | CALCIUM, | 9.4 | 8.6 - 10.2 | [facility] | | | PLASMA | | mg/dL | LABORATORY | | | (LAB) | | | SERVICES, | | | | | | CORE | | + +---------+ + + + | ALBUMIN, | 4.0 | 3.5 - 4.7 g/dL | [facility] | | | PLASMA | | | LABORATORY | | | (LAB) | | | SERVICES, | | | | | | CORE | | + +---------+ + + + | PHOSPHORUS, | 5.1 (H) | 2.5 - 5.0 mg/dL | [facility] | | | PLASMA | | | LABORATORY | | | (LAB) | | | SERVICES, | | | | | | CORE | | + +---------+ + + + | POTASSIUM | No Hemo | | [facility] | | | CMNT | | | LABORATORY | | | | | | SERVICES, | | | | | | CORE | | + +---------+ + + + | ANION GAP | 6 | mmol/L | [facility] | | | | | | LABORATORY | | | | | | SERVICES, | | | | | | CORE | | + +---------+ + + + | ANION | 6 | 4 - 11 mmol/L | [facility] | | | GAP(ALB | | | LABORATORY | | | CORRECTED) | | | SERVICES, | | | | | | CORE | | + +---------+ + + + + + | Specimen | + + | Blood - Blood | + + + + + + + | Performing | Address | City/State/Zipcode | Phone Number | | Organization | | | | + + + + + | [facility] | [address] | [place] [address] | | | SERVICES, CORE | [address] | | | + + + + + UA 10 DIP POC (07/29/2013 3:46 PM PST) + + + + + + | Component | Value | Ref Range | Performed | Pathologist | | | | | At | Signature | + + + + + + | COLOR (UA | Yellow | | [facility] - | | | DIP), POC | | | [facility] | | | | | | [facility] | | | | | | OF CARE | | | | | | TESTS | | + + + + + + | APPEARANCE | Clear | | [facility] - | | | (UA DIP), | | | [facility] | | | POC | | | [facility] | | | | | | OF CARE | | | | | | TESTS | | + + + + + + | LEUKOCYTES | Negative | Negative | [facility] - | | | (UA DIP), | | | [facility] | | | POC | | | [facility] | | | | | | OF CARE | | | | | | TESTS | | + + + + + + | NITRITES | Negative | Negative | [facility] - | | | (UA DIP), | | | [facility] | | | POC | | | [facility] | | | | | | OF CARE | | | | | | TESTS | | + + + + + + | UROBILINOGE | 0.2 | 0.2 - 1.0 | [facility] - | | | N (UA DIP), | | E.U./dL | [facility] | | | POC | | | [facility] | | | | | | OF CARE | | | | | | TESTS | | + + + + + + | PROTEIN (UA | Negative | Neg - Trace | [facility] - | | | DIP), POC | | mg/dL | [facility] | | | | | | [place] | | | | | | OF CARE | | | | | | TESTS | | + + + + + + | PH (UA | 5.5 | 5.0 - 8.0 | [facility] - | | | DIP), POC | | | [facility] | | | | | | [place] | | | | | | OF CARE | | | | | | TESTS | | + + + + + + | BLOOD (UA | Negative | Negative | [facility] - | | | DIP), POC | | | [facility] | | | | | | [place] | | | | | | OF CARE | | | | | | TESTS | | + + + + + + | SPECIFIC | >=1.030 (A) | 1.005 - 1.030 | [facility] - | | | GRAVITY (UA | | | [facility] | | | DIP), POC | | | [place] | | | | | | OF CARE | | | | | | TESTS | | + + + + + + | KETONES (UA | Negative | Negative mg/dL | [facility] - | | | DIP), POC | | | [place] | | | | | | [place] | | | | | | OF CARE | | | | | | TESTS | | + + + + + + | BILIRUBIN | Negative | Negative | [facility] - | | | (UA DIP), | | | [facility] | | | POC | | | [place] | | | | | | OF CARE | | | | | | TESTS | | + + + + + + | GLUCOSE (UA | 500 (A) | Negative - 100 | [facility] - | | | DIP), POC | | mg/dL | [facility] | | | | | | [place] | | | | | | OF CARE | | | | | | TESTS | | + + + + + + + + | Specimen | + + | Urine - Urine | + + + + + + + | Performing | Address | City/State/Zipcode | Phone Number | | Organization | | | | + + + + + | [facility] | [address] | [place], [place] | | | [place] [place] [facility] [place] | [address] | [address] | | | TESTS | | | | + + + + + documented in this encounter Visit Diagnoses + + | Diagnosis | + + | Microalbuminuria - Primary Proteinuria | + + | DM type 1 (diabetes mellitus, type 1) ([facility]) Type I (juvenile type) diabetes mellitus | | without mention of complication, not stated as uncontrolled | + + | Adjustment disorder with depressed mood | + + documented in this encounter
--- OUTSIDE RECORDS SUMMARY | ~2020-04-12 | XMS | Encounter Summary ---
Demographics + + + | Address | [address] | | | [place] [address] | + + + | Home Phone | | + + + | Preferred Language | Unknown | + + + | Marital Status | Single | + + + | Mormonism Affiliation | Unknown | + + + | Race | White | + + + | Ethnic Group | Not or | + + + Author + + + | Author | [facility] | + + + | Organization | [facility] | + + + | Address | Unknown | + + + | Phone | Unavailable | + + + Support + + +---------+ + | Name | Relationship | Address | Phone | + + +---------+ + | Amanda Monique | ECON | Unknown | | + + +---------+ + | Sterling Monique Sr. | ECON | Unknown | | + + +---------+ + | Soco Salguero | ECON | Unknown | | + + +---------+ + | Rhina Pleitez | ECON | Unknown | | + + +---------+ + Care Team Providers + +------+ + | Care Rubber Moulding Machine Operator Name | Role | Phone | + +------+ + | Lia Pérez | PCP | | + +------+ + Reason for Visit + +--------+ + | Reason | Onset | Comments | | | Date | | + +--------+ + | Other | 05/07/ | | | | 2014 | | + +--------+ + | Advice About Blood | 05/07/ | | | Glucose Control | 2014 | | + +--------+ + Encounter Details +--------+ + + + + | Date | Type | Department | Care Team | Description | +--------+ + + + + | 05/07/ | Telephone | Pediatric | Ludy Diamond, | Other; Advice About | | 2014 | | Endocrinology at | MD Lucia [address] | Blood Glucose | | | | [place] | [address] | Control | | | [facility] | [place], [place] | | | | | [address] | [address] | | | | | [place] | [phone] | | | | | [place], [place] | | | | | | [address] | | | | | | [phone] | | | +--------+ + + + [...] this encounter Miscellaneous Notes Telephone Encounter - Lucia Huynh MD - 05/07/2015 4:07 PM PDTPt is in treatment facility for drug addiction [facility] (phone [phone]) and will stay there for at least 4 months. Mom calling to discuss care plan. Patient has limit of 75 units a day on his Humalog rx, and mom is concerned that is not enough. In the past, freeman mathews was not eating regularly and has not been using any particular dosing ratio. Mom thinks he needs 1:8g CHO ratio now that he is eating regularly. Right now he is on following insulin regimen: Lantus 33 before bed Humalog 20 units at meals, 15 units?snack time. [place] allegedly faxed numbers to review [facility], but I have not had a chance to see any. Plan: I will forward this message to Endo Refills Pool and Diabetes Educators Pool Refill: can approve up to 100 units of Humalog daily if needed Diab Educators: can review numbers if available; discuss with MD appropriate insulin adjust ment if deemed necessary. Lucia Diamond MD [facility] AT [address] Mailcode: [facility] [place] [address] documented in this encounter Plan of Treatment Not on filedocumented as of this encounter Visit Diagnoses Not on filedocumented in this encounter"
--- OUTSIDE RECORDS SUMMARY | ~2020-04-12 | XMS | Encounter Summary ---
Demographics + + + | Address | [address] | | | [place] [address] | + + + | Home Phone | | + + + | Preferred Language | Unknown | + + + | Marital Status | Single | + + + | Uatsdin Affiliation | Unknown | + + + | Race | White | + + + | Ethnic Group | Not or | + + + Author + + + | Author | [facility] | + + + | Organization | [facility] | + + + | Address [...] Team Providers + +------+ + | Care Customer Facilities Supervisor Name | Role | Phone | + +------+ + | Lexx Schrader DO | PCP | | + +------+ + Reason for Visit + +--------+ + | Reason | Onset | Comments | | | Date | | + +--------+ + | Refill Request | 04/15/ | annabellestyle litlyubov meter kit and strips | | | 2019 | | + +--------+ + Encounter Details +--------+--------+ + + + | Date | Type | Department | Care Team | Description | +--------+--------+ + + + | 04/15/ | Refill | Marvin Singer | Orestes Quinn MD | Refill Request | | 2019 | | Diabetes Health | [address] | (freestyle lite | | | | [facility] | [address] [place], | meter kit and | | | | [address] | [place] [address] | strips) | | | | [address] | [phone] | | | | | Physician's | | | | | | [address] | | | | | | [place], [place] | | | | | | [address] | | | | | | [phone] | | | +--------+--------+ + + + [...] Telephone Encounter - Ria Bravo MA - 04/18/2019 1:26 PM PDTIncoming refill request re ceived from pt via left VM. Pended refill request for freestyle lite meter kit and strips an d routed to MD to review. Last Appointment in [facility] was on 09/25/17 at 3:41 pm with Orestes Quinn MD. No future appointments scheduled in Endocrinology, Diabetes & Metabolism. No future appointments scheduled. Routing to END Scheduling Pool to please assist patient in scheduling return visit with pro vider or confirm transfer of care. elephone Encounter - Regis Leiva - 04/18/2019 1:02 PM PDTPt LVM requesting a Kit, a testing a kit because he hasn't been able to check his sugars. PAS LVM to have Pt call back to be more specific of his needs. elephone Encounter - Regis Leong - 04/18/2019 1 2:58 PM PDTLVM for Pt to call back documented in this enco unter Plan of Treatment Not on filedocumented as of this encounter Visit Diagnoses Not on filedocumented in this encounter"
--- OUTSIDE RECORDS SUMMARY | ~2020-04-12 | XMS | Encounter Summary ---
Demographics + + + | Address | [address] | | | [place] [address] | + + + | Home Phone | | + + + | Preferred Language | Unknown | + + + | Marital Status | Single | + + + | Sabianist Affiliation | Unknown | + + + [...] + +------+ + | Care Director Of Customer Acquisition Name | Role | Phone | + +------+ + | No Pcp Per Patient | PCP | Unavailable | + +------+ + Reason for Visit +--------+--------+ + | Reason | Onset | Comments | | | Date | | +--------+--------+ + | Other | 11/13/ | pump | | | 2020 | | +--------+--------+ + Encounter Details +--------+ + + + + | Date | Type | Department | Care Team | Description | +--------+ + + + + | 11/13/ | Telephone | Marvin Singer | Orestes Quinn MD | Other (pump) | | 2020 | | [facility] | [address] [facility] | | | | | [facility] | [facility], | | | | | [address] | [place] [address] | | | | | [address] | [phone] | | | | | Physician's | | | | | | [address] | | | | | | [place], [place] | | | | | | [address] | | | | | | [phone] | | | +--------+ + + + [...] this encounter Miscellaneous Notes Telephone Encounter - Orestes Quinn MD - 11/18/2019 5:02 PM PDTDiscussed pump therapy evette Katz. He has an old medtronic pump. I want to be sure that he is back on his feet agai n and that he reviews new pumps before going to pump therapy yet. Will get him set up with pump evaluation visit when the COVID dust clears... elephone Encounter - Rosey Pope - 11/14/2019 8:59 AM PDT This educator returned call to facility where Sterling is residing. Left message with his cou ncilor ?name. He reporting that Sterling was in class at the time I returned his call. He is aware they are needing to set up My Chart acct and asked them to contact the My Chart help line for assistance with that. Also, once they have set up My Chart account if they could take a photo of Wood logs the n Dr Quinn would have them for visit on Thursday. Hoop Bending Machine Operator was not aware of the visit on . Sterling also called asking to get back on to pump and sensor. This is something that will n eed to be discussed with Dr Quinn. Sterling has not been seen since September 2017. Routing to Dr Quinn so he is aware. Rosey Pope RN, CDE TTelephone Encounter - Donell Ruiz - 11/14/2019 8:23 AM PDTPt called clinic wanting to s peak with an educator about getting back on his pump, he needs assistance ordering his pump. Pt was advised to by his rehab to also order a CGM. He would love to discuss this please call [phone] signed by Donell Ruiz at 11/14/2019 8:25 AM PDTdocumented in this encounter Plan of Treatment Not on filedocumented as of this encounter Visit Diagnoses Not on filedocumented in this encounter"
--- OUTSIDE RECORDS SUMMARY | ~2020-04-12 | XMS | Encounter Summary ---
Demographics + + + | Address | [address] | | | [place] [address] | + + + | Home Phone | | + + + | Preferred Language | Unknown | + + + | Marital Status | Single | + + + | Episcopalian Affiliation | Unknown | + + + | Race | White | + + + | Ethnic Group | Not or | + + + Author + + + | Author | [facility] | + + + | Organization | [facility] | + + + | Address | [...] Team Providers + +------+ + | Care Manager Php Name | Role | Phone | + +------+ + | Lia Pérez | PCP | | + +------+ + Encounter Details +--------+------+ + + + | Date | Type | Department | Care Team | Description | +--------+------+ + + + | 06/26/ | Lab | [facility] at [facility] | | Diabetes type 1, | | 2014 | | [address] | | uncontrolled (HCC) | | | | Loop Physician's | | | | | | [address], 3rd floor | | | | | | [place], [place] | | | | | | [address] | | | | | | [phone] | | | +--------+------+ + + + Social History + +-------+ [...] | + +--------+ + + + | ALBUMIN URINE, | Routin | 06/26/2015 | Diabetes type 1, | Results for this | | RANDOM | e | 1:26 PM | uncontrolled (HCC) | procedure are in the | | | | PST | | results section. | + +--------+ + + + | TISSUE | Routin | 06/26/2015 | Diabetes type 1, | Results for this | | TRANSGLUTAMINASE | e | 1:26 PM | uncontrolled (HCC) | procedure are in the | | IGA, SERUM | | PST | | results section. | + +--------+ + + + | FREE T4 | Routin | 06/26/2015 | Diabetes type 1, | Results for this | | | e | 1:26 PM | uncontrolled (HCC) | procedure are in the | | | | PST | | results section. | + +--------+ + + + | TSH | Routin | 06/26/2015 | Diabetes type 1, | Results for this | | | e | 1:26 PM | uncontrolled (HCC) | procedure are in the | | | | PST | | results section. | + +--------+ + + + documented in this encounter Results ALBUMIN URINE, RANDOM (06/26/2015 1:26 PM PST) + +---------+ + + + | Component | Value | Ref Range | Performed | Pathologist | | | | | At | Signature | + +---------+ + + + | ALBUMIN | 302 (H) | <24 mg/L | [facility] | | | URINE, | | | LABORATORY | | | RANDOM | | | SERVICES, | | | | | | CORE | | + +---------+ + + + | CREATININE | 305.00 | mg/dL | [facility] | | | CONC UR | | | LABORATORY | | | | | | SERVICES, | | | | | | CORE | | + +---------+ + + + | ALBUMIN/CRE | 99 (H) | <=30 mg/gm | [facility] | | | ATININE | | | LABORATORY | | | RATIO, URI* | | | SERVICES, | | | | | | CORE | | + +---------+ + + + + + | Specimen | + + | Urine - Urine | | (substance) | + + + + + | Narrative | Performed At | + + + | Test now performed at [facility]. New method effective 01/24/2014. | [facility] | | | LABORATORY | | | SERVICES, CORE | + + + + + + + + | Performing | Address | City/State/Zipcode | Phone Number | | Organization | | | | + + + + + | [facility] | [address] | [place] [address] | | | SERVICES, CORE | [address] | | | + + + + + TISSUE TRANSGLUTAMINASE IGA, SERUM (06/26/2015 1:26 PM PST) + + + + + + | Component | Value | Ref Range | Performed | Pathologist | | | | | At | Signature | + + + + + + | TTG, IGA | 0Comment: INTERPRETIVE | 0 - 3 U/mL | [facility] | | | | INFORMATION: Tissue | | REG UNIV | | | | Transglutaminase (tTG) | | PTH - INT[facility] | | | | Antibody, IgA 3 U/mL or | | | | | | less: Negative4-10 U/mL: | | | | | | Weak Ceiregbg45 U/mL or | | | | | | greater: Positive | | | | | | Presence of the tissue | | | | | | transglutaminase (tTG) | | | | | | IgA antibody is | | | | | | associated with | | | | | | gluten-sensitive | | | | | | enteropathies such as | | | | | | celiac disease and | | | | | | dermatitis | | | | | | herpetiformis. tTG IgA | | | | | | antibody concentrations | | | | | | greater than 40 U/mL | | | | | | usually correlate with | | | | | | results of duodenal | | | | | | biopsies consistent with | | | | | | a diagnosis of celiac | | | | | | disease. For antibody | | | | | | concentrations greater | | | | | | than 3 U/mL but less | | | | | | than 41 U/mL, additional | | | | | | testing for endomysial | | | | | | (DEMARCUS) IgA concentrations | | | | | | may improve the | | | | | | positive predictive | | | | | | value for | | | | | | disease.Performed by | | | | | | [facility],[address] | | | | | [address], [facility] | | | | | | [address] | | | | | | [phone] | | | | | | Delon haney, | | | | | | , Lab. Director | | | | + + + + + + + + | Specimen | + + | Blood - Blood | + + + + + + + | Performing | Address | City/State/Zipcode | Phone Number | | Organization | | | | + + + + + | [facility] | [address] | [place], [place] | | | UNIV PTH - INTFC | | [address] | | + + + + + TSH (06/26/2015 1:26 PM PST) + +-------+ + + + | Component | Value | Ref Range | Performed | Pathologist | | | | | At | Signature | + +-------+ + + + | TSH | 2.08 | 0.40 - 3.98 | [facility] | | | | | mIU/L | LABORATORY | | | | | | SERVICES, | | | | | | CORE | | + +-------+ + + + + + | Specimen | + + | Blood - Blood | | (substance) | + + + + + | Narrative | Performed At | + + + | TSH reference ranges are influenced by a variety of environmental | [facility] | | influences, age, gender and ethnicity. The supplied reference limits | LABORATORY | | are based on published values utilizing a similar TSH assay, and | SERVICES, CORE | | should be interpreted with caution. | | + + + + + + + + | Performing | Address | City/State/Zipcode | Phone Number | | Organization | | | | + + + + + | [facility] | [address] | [place] [address] | | | SERVICES, CORE | [address] | | | + + + + + FREE T4 (06/26/2015 1:26 PM PST) + +-------+ + + + | Component | Value | Ref Range | Performed | Pathologist | | | | | At | Signature | + +-------+ + + + | FREE T4 | 0.8 | 0.6 - 1.2 ng/dL | [facility] | | | | | | LABORATORY | | | | | | SERVICES, | | | | | | CORE | | + +-------+ + + + + + | Specimen | + + | Blood - Blood | | (substance) | + + + + + + + | Performing | Address | City/State/Zipcode | Phone Number | | Organization | | | | + + + + + | [facility] | [address] | [place] [address] | | | SERVICES, CORE | [address] | | | + + + + + documented in this encounter Visit Diagnoses + + | Diagnosis | + + | Diabetes type 1, uncontrolled (HCC) Type I (juvenile type) diabetes mellitus without | | mention of complication, uncontrolled | + + documented in this encounter"
--- OUTSIDE RECORDS SUMMARY | ~2020-04-12 | XMS | Encounter Summary ---
Demographics + + + | Address | [address] | | | [place] [address] | + + + | Home Phone | | + + + | Preferred Language | Unknown | + + + | Marital Status | Single | + + + | Christian Affiliation | Unknown | + + + [...] | | + + +---------+ + | Streling Radabah Sr. | ECON | Unknown | | + + +---------+ + | Soco Salguero | ECON | Unknown | | + + +---------+ + | Rhina Pleitez | ECON | Unknown | | + + +---------+ + Care Team Providers + +------+ + | Care Computer Help Desk Specialist Name | Role | Phone | + +------+ + | Emmanuelle Noe MD | PCP | | + +------+ + Encounter Details +--------+ + + + + | Date | Type | Department | Care Team | Description | +--------+ + + + + | 11/13/ | MyChart | Marvin Singer | | Virtual Visit | | 2020 | Encounter | [facility] | | Instructions | | | | [facility] | | | | | | [address] | | | | | | [address] | | | | | | Physician's Pavilion | | | | | | [address] [place], | | | | | | [place] [address] | | | | | | [phone] | | | +--------+ + + + [...]
--- OUTSIDE RECORDS SUMMARY | ~2020-04-12 | XMS | Encounter Summary ---
Demographics + + + | Address | [address] | | | [place] [address] | + + + | Home Phone | | + + + | Preferred Language | Unknown | + + + | Marital Status | Single | + + + | Bahai Affiliation | Unknown | + + + | Race | White | + + + | Ethnic Group | Not or | + + + Author + + + | Author | [facility] | + + + | Organization | [facility] | + + + | Address [...] Team Providers + +------+ + | Care Change Control Specialist Name | Role | Phone | + +------+ + | Lexx Schrader DO | PCP | | + +------+ + Reason for Visit + +--------+ + | Reason | Onset | Comments | | | Date | | + +--------+ + | Refill Request | 07/25/ | Contour meter, test strips, microlet lancets | | | 2016 | | + +--------+ + Encounter Details +--------+--------+ + + + | Date | Type | Department | Care Team | Description | +--------+--------+ + + + | 07/25/ | Refill | Marvin Singer | Orestes Quinn MD | Refill Request | | 2015 | | [facility] | [address] | (Contour meter, test | | | | [facility] | [address] [place], | strips, microlet | | | | [address] | [place] [address] | lancets) | | | | [address] | [phone] | | | | | Physician's Pavilion | | | | | | [address] [place], | | | | | | [place] [address] | | | | | | [phone] | | | +--------+--------+ + + + [...] Telephone Encounter - Ria Bravo MA - 07/25/2016 1:34 PM PSTPended refill request for Contour meter, test strips, microlet lancets and routed to MD to review. Last Appointment in [facility] was on 11/23/15 at 1:[address]. No future appointments scheduled in Endocrinology, Diabetes & Metabolism. documented in this enco unter Plan of Treatment Not on filedocumented as of this encounter Visit Diagnoses Not on filedocumented in this encounter"
--- OUTSIDE RECORDS SUMMARY | ~2020-04-12 | XMS | Encounter Summary ---
Demographics + + + | Address | [address] | | | [place] [address] | + + + | Home Phone | | + + + | Preferred Language | Unknown | + + + | Marital Status | Single | + + + | Rastafari Affiliation | Unknown | + + + | Race | White | + + + | Ethnic Group | Not or | + + + Author + + + | Author | [facility] | + + + | Organization | [facility] | + + + | Address | [...] Team Providers + +------+ + | Care Hardening Machine Operator Name | Role | Phone | + +------+ + | Lia Pérez | PCP | | + +------+ + Encounter Details +--------+ + + + + | Date | Type | Department | Care Team | Description | +--------+ + + + + | 06/05/ | Telephone | Marvin Singer | Jeffry Rice, | | | 2014 | | [facility] | [address] | | | | | [facility] | [address] | | | | | [address] | [place], [place] | | | | | [address] | [address] | | | | | Mailcode: [id number] | | | | | | Physician's Pavilion | | | | | | [address], | | | | | | [place] [address] | | | | | | [phone] | | | +--------+ + + + [...] this encounter Miscellaneous Notes Telephone Encounter - Julieth Lilly RN - 06/05/2015 8:08 AM PDTFormatting of this no te might be different from the original. Pediatric Diabetes Care Coordination This educator spoke to Gissel, [facility] facility counselor who has been working with Sterling. She reported the following blood sugar, insulin doses and carb amounts. Sterling is currently taking 33 units Lantus at bedtime. He has not been using a specific ins ulin to carb ratio or HSC. Blood sugars: (BG=blood glucose; C=Carb Estimate; H=Humalog) Date Breakfast Lunch PM Snack Dinner Bedtime 05/26 BG 312 C ? H 20u BG 328 C 120g H 20u BG 210 C 50g H 6u BG ? C ? H 20u BG 206 C 40g H 5u 10:42pm BG 250 H 5u 05/27 BG 363 C ? H 16u BG ? C ? H 20u BG 396 C ? H 25u BG 90 C ? H 20u 05/28 BG 308 C ? H 20u BG 299 C ? H 20u BG 260 C ? H 10u 4:00pm BG 155 C ? H 12u 5:25pm BG 210 C ? H 20u BG 129 C ? H 10u 05/29 BG C H BG 340 C 120g H 15u BG 189 C ? H ? 4:30pm BG 314 C ? H 10u 7:00pm BG 332 C ? H 15u BG 219 C ? H 10u 05/30 BG 294 C 100g H 15u 268 BG 268 C 115g H 15u 4:00pm BG 209 C 80g H 10u 5:35pm BG 276 C 100g H 20u BG 138 C 60g H 7u 05/31 BG 294 C 150g H 20u 10:55am BG 427 H 10u BG 352 C 110g H 15u 3:45pm BG 237 C 70g H 10u BG 276 C 100g H 20u BG 171 C 70g H 10u 06/01 BG 355 C 130g H 20u BG 257 C 110g H 15u These numbers were discussed with Dr. Quinn who advised changes that resulted in new facil ity orders. Sterlingjean is scheduled in clinic on : currently not scheduled in clinic Reception Centre Manager [facility] documented in this encounter Plan of Treatment Not on filedocumented as of this encounter Visit Diagnoses Not on filedocumented in this encounter"
--- OUTSIDE RECORDS SUMMARY | ~2020-04-12 | XMS | Encounter Summary ---
Demographics + + + | Address | [address] | | | [place] [address] | + + + | Home Phone | | + + + | Preferred Language | Unknown | + + + | Marital Status | Single | + + + | Gnosticism Affiliation | Unknown | + + + | Race | White | + + + | Ethnic Group | Not or | + + + Author + + + | Author | [facility] | + + + | Organization | [facility] | + + + | [...] Team Providers + +------+ + | Care Records Analysis Manager Name | Role | Phone | + +------+ + | Lia Pérez | PCP | | + +------+ + Reason for Visit + +--------+ + | Reason | Onset | Comments | | | Date | | + +--------+ + | Referral to social | 04/23/ | | | worker | 2015 | | + +--------+ + Encounter Details +--------+ + + + + | Date | Type | Department | Care Team | Description | +--------+ + + + + | 04/23/ | Telephone | Marvin Singer | Santa Gomez, | Referral to social | | 2014 | | Diabetes [facility] | [facility] [address] | worker | | | | Center at Physicians | [facility] | | | | | [address] | [place], [place] | | | | | [address] | [address] | | | | | Physician's | [phone] | | | | | [address] | | | | | | [place], [place] | | | | | | [address] | | | | | | [phone] | | | +--------+ + + + [...] this encounter Miscellaneous Notes Telephone Encounter - Patricia Santa - 04/23/2015 1:23 PM Emerson Singer Diabetes [facility] ([facility]) health and social care teacher (FIDE) note: SW left a message with [employer] Salesperson (PO) Johanna Booker [phone] to get updates on [place] [address] and to coordinate diabetes care and follow up. No other SW needs identified at this time. Santa Gomez [facility] Diabetes clinic health and social care teacher pager [phone] documented in this encoun ter Plan of Treatment Not on filedocumented as of this encounter Visit Diagnoses Not on filedocumented in this encounter"
--- OUTSIDE RECORDS SUMMARY | ~2020-04-12 | XMS | Encounter Summary ---
Demographics + + + | Address | [address] | | | [place] [address] | + + + | Home Phone | | + + + | Preferred Language | Unknown | + + + | Marital Status | Single | + + + | Worship Affiliation | Unknown | + + + | Race | White | + + + | Ethnic Group | Not or | + + + Author + + + | Author | [facility] | + + + | Organization | [facility] | + + + | Address [...] Team Providers + +------+ + | Care Public Health Clinical Nurse Specialist Name | Role | Phone | + +------+ + | Saida Alegria MD | PCP | | + +------+ + Reason for Visit + +--------+ + | Reason | Onset | Comments | | | Date | | + +--------+ + | Refill Request | 07/29/ | | | | 2012 | | + +--------+ + Encounter Details +--------+--------+ + + + | Date | Type | Department | Care Team | Description | +--------+--------+ + + + | 07/29/ | Refill | Marvin Singer | Karyna Kaufman, | Refill Request | | 2012 | | [facility] | [address] | | | | | [facility] | [facility] | | | | | [address] | [place], [place] | | | | | [address] | [address] | | | | | Mailcode: [id number] | | | | | | Physician's Pavilion | | | | | | [address], | | | | | | [place] [address] | | | | | | [phone] | | | +--------+--------+ + + + [...]
--- OUTSIDE RECORDS SUMMARY | ~2020-04-12 | XMS | Encounter Summary ---
Demographics + + + | Address | [address] | | | [place] [address] | + + + | Home Phone | | + + + | Preferred Language | Unknown | + + + | Marital Status | Single | + + + | Oriental Orthodox Affiliation | Unknown | + + + | Race | White | + + + | Ethnic Group | Not or | + + + Author + + + | Author | [facility] | + + + | Organization | [facility] | + + + | [...] Team Providers + +------+ + | Care Shank Archer Name | Role | Phone | + +------+ + | Lia Pérez | PCP | | + +------+ + Encounter Details +--------+ + + + + | Date | Type | Department | Care Team | Description | +--------+ + + + + | 06/19/ | Telephone | Marvin Singer | Jeffry Rice, | | | 2014 | | Diabetes [facility] | [address] | | | | | [facility] | [address] | | | | | [address] | [place], [place] | | | | | [address] | [address] | | | | | Physician's | | | | | | [address] | | | | | | [place], [place] | | | | | | [address] | | | | | | [phone] | | | +--------+ + + + [...] Telephone Encounter - Julieth Lilly RN - 06/22/2015 5:02 PM PSTRoberts tevin, Amanda, returned this educators call from earlier today. An appt was originally scheduled for pt on for follow up. At the time, Mom stated s he would not be able to bring pt to the appt. It was then arranged to have pt's PO provide t ransportation to the appt. PO transportation isn't available on Fridays so the appt was eleuterio gary to with Dr. Quinn. Mom called today to say she can transport pt to an appt on but has to work and is u nable to come to the appt on . It was explained to Mom that there is no longer an ap pt available on . Mom agreed to have the PO transport pt to the appt on . This educator agreed to call Mom that afternoon to fill her in on how the appt went and any changes made. Julieth Rice RN, BSN, CDE Registered Nurse, Design Technology Professor elephone Julieth [facility] RN - 06/22/2015 9:47 AM PSTPhoned mom and left voicemail regarding Sterling's appt next week, . We are unable to reschedule this appt. Sterling's PO, Junaid gonzalez, stated they do not have medical transportation available on Fridays. I spoke with Benja' cage supervisor this morning to confirm Sterling will be here on for his appt. She confirmed he will be here. Sterling must be seen in order to establish with his new provider who will then be able to of emely guidance for care while Sterling is at [facility]. An appt can always be set up, to include m dianna, later on or when Sterling is back home. Msg for mom stated she is to ask for a peds educator or FIDE Hernandez. Julieth Rice RN, BSN, CDE Registered Nurse, Design Technology Professor eleIsael Soler MA - 06/19/2015 4:39 PM PSTRobjung's mother called, she can't get Masood ert to his appointment on Thursday, she can only do Thursday the . She asked that she be called back [phone]. documented in this encounter Plan of Treatment Not on filedocumented as of this encounter Visit Diagnoses Not on filedocumented in this encounter"
--- OUTSIDE RECORDS SUMMARY | ~2020-04-12 | XMS | Encounter Summary ---
Demographics + + + | Address | [address] | | | [place] [address] | + + + | Home Phone | | + + + | Preferred Language | Unknown | + + + | Marital Status | Single | + + + | Lutheran Affiliation | Unknown | + + + [...] Team Providers + +------+ + | Care Warp Knitter Helper Name | Role | Phone | + +------+ + | Lexx Schrader DO | PCP | | + +------+ + Reason for Visit +--------+--------+ + | Reason | Onset | Comments | | | Date | | +--------+--------+ + | Other | 12/04/ | facility order | | | 2017 | | +--------+--------+ + Encounter Details +--------+ + + + + | Date | Type | Department | Care Team | Description | +--------+ + + + + | 12/04/ | Telephone | Marvin Singer | Orestes Quinn MD | Other (facility | | 2017 | | [facility] | [address] | order) | | | | [facility] | [address] [place], | | | | | [address] | [place] [address] | | | | | [address] | [phone] | | | | | Physician's | | | | | | [address] | | | | | | [place], [place] | | | | | | [address] | | | | | | [phone] | | | +--------+ + + + [...] this encounter Miscellaneous Notes Telephone Encounter - Pavel Suazo MD - 12/04/2017 4:56 PM PDTReturned called at unsuccessfully. Let was faxed to [phone] with confirmation dosages based on Sterling' s last visit with Dr. Orestes Quinn on Sep 2017. Pavel Suazo MD Pediatric Endocrinology Fellow 12/04/17 elephone Encounter - Jada King - 12/04/2017 4:37 PM PDTPatient called to inform that they just started treat ment at [facility] in [place], [place]. Patient stated that they need a confir mation of their medication dosages for the program. There is no onsite nurse, so they will be self managing their diabetic medications. Patient will be kicked out of program if there is not a confirmation of their medication/dosages sent today. Contact at program Gissel Fong PH: [phone] FAX: [phone] Routing to provider and production control pegboard clerk in case anyone is unavailable. Paged Bowdon: PT Sterling Monique patient in facility, in need of urgent medication dose veri fication, please see routed encounter, also routing to production control pegboard clerk in case unavailable. Jada [id number] Paged Gabriele: PT Sterling Monique patient in facility, in need of urgent medication dose veri fication, please see routed encounter, routing to production control pegboard clerk in case their provider is unavaila ble due to urgency. Needed by end of day. Jada [id number] documented in this encou nter Plan of Treatment Not on filedocumented as of this encounter Visit Diagnoses Not on filedocumented in this encounter"
--- OUTSIDE RECORDS SUMMARY | ~2020-04-12 | XMS | Encounter Summary ---
Demographics + + + | Address | [address] | | | [place] [address] | + + + | Home Phone | | + + + | Preferred Language | Unknown | + + + | Marital Status | Single | + + + | Orthodox Affiliation | Unknown | + + + | Race | White | + + + | Ethnic Group | Not or | + + + Author + + + | Author | [facility] | + + + | Organization | [facility] | + + + | Address [...] Team Providers + +------+ + | Care Leasing Property Manager Name | Role | Phone | + +------+ + | No Pcp Per Patient | PCP | Unavailable | + +------+ + Reason for Visit + +--------+ + | Reason | Onset | Comments | | | Date | | + +--------+ + | Refill Request | 11/09/ | glucagon emergency kit | | | 2020 | | + +--------+ + Encounter Details +--------+--------+ + + + | Date | Type | Department | Care Team | Description | +--------+--------+ + + + | 11/09/ | Refill | Marvin Singer | BurlingtonOrestes MD | Refill Request | | 2020 | | [facility] | [address] | (glucagon emergency | | | | [facility] | [address]ana [address], | kit) | | | | [address] | [place] [address] | | | | | [address] | [phone] | | | | | Physician's | | | | | | [address] | | | | | | [place], [place] | | | | | | [address] | | | | | | [phone] | | | +--------+--------+ + + + [...] Telephone Encounter - Ria Bravo MA - 11/10/2019 11:31 AM PDTIncoming refill request re ceived from pt via inbound call. Pended refill request for glucagon kit and routed to to review. Last Appointment in [facility] was on 09/25/17 at 3:33 pm with Orestes Quinn MD. Next Appointment in [facility] is on 11/22/19 at 10:10 am with Orestes Quinn MD. elephone Encounter - Lester Davila - 11/10/2019 10:59 AM PDTPt requests 2 glucagon (GLUCAGON EMERGENCY KIT (HUMAN)) 1 mg injection kits be sent to [id number] - [place], [place] - [address] [phone] Pt phone [phone] [id number] signed by Lester York at 11/10/2019 11:01 AM PDTd ocumented in this encounter Plan of Treatment Not on filedocumented as of this encounter Visit Diagnoses Not on filedocumented in this encounter"
--- OUTSIDE RECORDS SUMMARY | ~2020-04-12 | XMS | Encounter Summary ---
Demographics + + + | Address | [address] | | | [place] [address] | + + + | Home Phone | | + + + | Preferred Language | Unknown | + + + | Marital Status | Single | + + + | Voodoo Affiliation | Unknown | + + + | Race | White | + + + | Ethnic Group | Not or | + + + Author + + + | Author | [facility] | + + + | Organization | [facility] | + + + | [...] Team Providers + +------+ + | Care Tanning Consultant Name | Role | Phone | + +------+ + | Lexx Schrader DO | PCP | | + +------+ + Reason for Visit +--------+--------+ + | Reason | Onset | Comments | | | Date | | +--------+--------+ + | Other | 10/25/ | insulin orders | | | 2019 | | +--------+--------+ + Encounter Details +--------+ + + + + | Date | Type | Department | Care Team | Description | +--------+ + + + + | 10/25/ | Telephone | Marvin Singer | Orestes Quinn MD | Other (insulin | | 2019 | | [facility] | [address] | orders) | | | | [facility] | [facility], | | | | | [address] | [place] [address] | | | | | [address] | [phone] | | | | | Physician's | | | | | | [address] | | | | | | [place], [place] | | | | | | [address] | | | | | | [phone] | | | +--------+ + + + [...] this encounter Miscellaneous Notes Telephone Encounter - Donell Ruiz - 11/04/2019 4:04 PM PDTPt called clinic requesting w e re-fax order, PAS faxed to [phone], Electronically signed by Donell Ruiz at 020 4:05 PM PDTTelephone Encounter - Jada Duran RN - 10/26/2019 4:23 PM PDTReturned call to Sterling at [phone]. He is currently at the [facility]. Last seen by Dr. Quinn on 09/25/2017 He states he needs orders that he can dose when he needs to. He states the facility physicadrian byrne wrote orders that state he can only dose before meals, which are 4 times a day. He says h lyubov is grazing between meals and they won't let him take insulin between meals which ends up c ausing him to have elevated BG. States he was in [facility] last week for DKA. Stephane hale he will be able to make the appointment on December 22. 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 Current Insulin Doses per Sterling: Lantus/Basaglar: 32 units Insulin to carb ratio: 1:7 High sugar correction: 2:50>150- He is not in agreement with this, states they made this ch jesus without his consent. He says they changed it to this because they thought it would help bring his blood sugar down from the extra carbs when he snacks. He states before he had been doing 1:50>150 Date Last Adjustment: unsure Plan: -Routed to and paged Sultana Bains MD for review and dose adjustments as she is flowers salesperson for Dr. Quinn. School orders will need to be updated if any changes. Clinic follow-up: Future Appointments 12/23/2019 1:35 PM Orestes Drain Jaad Duran, RN, BSN Pediatric Is Technician [facility] Pager #[phone] elephone Encounter - Lester York - 10/26/2019 4:04 PM PDTPt called and said he was at [facility]. He states that the center needs insulin orders for a sliding scales as well as TRN for novolog. He says that he wants to self administer with no limitations because he is type one, becaus e the Clinic he is at is limiting him. documented in this encounter Plan of Treatment Not on filedocumented as of this encounter Visit Diagnoses Not on filedocumented in this encounter"
--- OUTSIDE RECORDS SUMMARY | ~2020-04-12 | XMS | Encounter Summary ---
Demographics + + + | Address | [address] | | | [place] [address] | + + + | Home Phone | | + + + | Preferred Language | Unknown | + + + | Marital Status | Single | + + + | Buddhist Affiliation | Unknown | + + + | Race | White | + + + | Ethnic Group | Not or | + + + Author + + + | Author | [facility] | + + + | Organization | [facility] | + + + | Address [...] Team Providers + +------+ + | Care Wildlife Biology Technician Name | Role | Phone | + +------+ + | Emmanuelle Noe MD | PCP | | + +------+ + Encounter Details +--------+ + + + + | Date | Type | Department | Care Team | Description | +--------+ + + + + | 12/02/ | Pharmacy | [facility]patient [facility] | | | | 2014 | Visit | [facility] | | | | | | [address] | | | | | | [address] [place], [place] | | | | | | [address] | | | | | | [phone] | | | +--------+ + + + [...]
--- OUTSIDE RECORDS SUMMARY | ~2020-04-12 | XMS | Encounter Summary ---
Demographics + + + | Address | [address] | | | [place] [address] | + + + | Home Phone | | + + + | Preferred Language | Unknown | + + + | Marital Status | Single | + + + | Sikhism Affiliation | Unknown | + + + | Race | White | + + + | Ethnic Group | Not or | + + + Author + + + | Author | [facility] | + + + | Organization | [facility] | + + + | Address [...] Team Providers + +------+ + | Care Ed Manager Name | Role | Phone | + +------+ + | Saida Alegria MD | PCP | | + +------+ + Reason for Visit + + + | Reason | Comments | + + + | Consultation | | + + + Encounter Details +--------+---------+ + + + | Date | Type | Department | Care Team | Description | +--------+---------+ + + + | 07/29/ | Office | Marvin Singer | Deepak Lester, PhD | DM type 1 (diabetes | | 2012 | Visit | [facility] | [address] | mellitus, type 1) | | | | [facility] | [place], [place] | ([facility]) (Primary Dx); | | | | [address] | [address] | Adjustment disorder | | | | [address] | [phone] | with depressed mood | | | | Physician's | | | | | | [address] | | | | | | [place], [place] | | | | | | [address] | | | | | | [phone] | | | +--------+---------+ + + + [...] + + documented as of this encounter Progress Notes Deepak Lester, PhD - 08/29/2013 8:26 AM PST Clinic: Diabetes Discipline: Psychology Consultation/Treatment Note Pediatric Psychology Session: 1 Date: 07/29/2013 Duration: I spent 45 minutes providing direct face to face services to this patient Presentation and Psychosocial Status: Sterling Monique is a 12-year 8-month-old male with type 1 diabetes who presented at clinic accompanied by his mother (Amanda) and adult krystal bolivar. Sterling was referred by Dr. Mark Jaeger to assess and provide recommendations to optimize his adjustment to diagnosis and adherence to treatment recommendations. Sterling was alert and engaged and his affect appropriately varied from neutral to bright during the session. Masood feng smiled occasionally and seemed open and forthcoming during the assessment. Sterling was no isreal to be fidgety and easily distractible during the assessment. Pertinent Background & History: Sterling was diagnosed with diabetes at approximately 10 year s-of-age. He reported he has been only partially adherent to the insulin regimen, BGL testi ng, exercise recommendations, and the dietary plan. Sterling has been primarily responsible f or managing the treatment regimen. Sterling has a history of suboptimal control. Sterling hwang lived with his father in [place] until 03/22 when he moved to [place], [place] w ith his mother. Reportedly, Sterling's 19 year-old brother committed suicide, which had a sig nificant impact on the family. The family noted that Sterling's parents /seperated jc bessie 5 months ago. The family noted an immediate family history of Attention-Deficit/ Hyperactivity Disorder (ADHD). Laboratory studies: Component Latest Reference Range 08/201206/17/2013 HbA1C 3.9 - 5.8 % 10.0% 14.3% >14.0% Session Description: General and diabetes related functioning was discussed. Sterling reporte d symptoms of mild depression that included feeling sad, anhedonia, and being pandey and irri table. Sterling stated that he has experienced difficulty adjusting to the move to [place]. Masood feng endorsed symptoms congruent with ADHD, while his mother denied that Sterling has not exper ienced any notable prior difficulties with attention, focus, impulsivity, and distractibilit y. She related that Sterling has a history of being manipulative. Sterling acknowledged a histor y of illicit substance use (marijuana). A values-based discussion was conducted and an exerc ise recommended to help accelerate development of intrinsic motivation. Diabetes management was reframed to encourage acceptance of the diagnosis and it management. Recommendations wer e again provided to establish contact with a therapist/psychologist in their community. Alon tionally, means of addressing depression were reviewed i.e., behavioral activation and cogni tive reframing. Additional services to help the family improve family functioning and diabetes management w ere offered, i.e. pediatric psychological services. Diagnosis: Bentonia I 309.0 Adjustment Disorder with Depressed Mood Rule out: 314.01 Attention-Deficit/Hyperactivity Disorder Bentonia II No Diagnosis Bentonia III Type 1 Diabetes Mellitus (250.01) Bentonia IV Psychosocial problems related to having chronic medical condition. Bentonia V GAF = 64 Progress: Sterling and his mother expressed understanding of the materials presented and stat ed their intent to implement treatment recommendations. Plan: 1. Address barriers to diabetes management (i.e., depression and ADHD symptoms) Approach: Individual CBT to address maladaptive behaviors 2. Further discuss the value of an ADHD evaluation to optimize educational and psychosocia l outcomes Approach: Educational and functional (conduct the eval) 3. Facilitate Sterling's engagement in school. Approach: Provide the family education regarding the importance to Sterling's adjustment an d ultimate outcomes. 4. Increase family and social support around diabetes care. Approach: Communication training to increase family support to better manage diabetes. 5. Optimize adherence to the diabetes treatment regimen. Approach: Problem solving to improve diabetes care. 6. Improve adjustment to new environment, parental divorce, loss of a sibling. Approach: Individual therapy to optimize Sterling's adjustment and coping. 7. Rectify problems with "miscarried helping" related to diabetes management. Approach: Identify miscarried helping and establish new plan for helping. 6. Address non-diabetes problems that are impacting both diabetes management and health st atus. Approach: Training in cognitive, behavioral, psychological, social skills training. 7. Follow up with psychology during the next scheduled clinic appointment. Deepak Lester, Ph.D. Licensed Psychologist documented in this enc ounter Plan of Treatment Not on filedocumented as of this encounter Visit Diagnoses + + | Diagnosis | + + | DM type 1 (diabetes mellitus, type 1) (HCC) - Primary Type I (juvenile type) diabetes | | mellitus without mention of complication, not stated as uncontrolled | + + | Adjustment disorder with depressed mood | + + documented in this encounter
--- OUTSIDE RECORDS SUMMARY | ~2020-04-12 | XMS | Encounter Summary ---
Demographics + + + | Address | [address] | | | [place] [address] | + + + | Home Phone | | + + + | Preferred Language | Unknown | + + + | Marital Status | Single | + + + | Tenriism Affiliation | Unknown | + + + [...] Team Providers + +------+ + | Care Fur Machine Operator Name | Role | Phone | + +------+ + | Saida Alegria MD | PCP | | + +------+ + Reason for Visit + +--------+ + | Reason | Onset | Comments | | | Date | | + +--------+ + | Prescription | 08/18/ | needles | | | 2013 | | + +--------+ + Encounter Details +--------+ + + + + | Date | Type | Department | Care Team | Description | +--------+ + + + + | 08/18/ | Telephone | Marvin Singer | Mark Jaeger MD | Prescription | | 2013 | | [facility] | | (needles) | | | | [facility] | | | | | | [address] | | | | | | [address] | | | | | | Physician's | | | | | | [address] | | | | | | [place], [place] | | | | | | [address] | | | | | | [phone] | | | +--------+ + + + [...] this encounter Miscellaneous Notes Telephone Encounter - Mark Jaeger MD - 08/18/2013 3:15 PM PSTI left a detailed message w roxanne Oliveira. I indicated that his PCP would need to prescribe a medication for sleep and that if a medication was prescribed we could certainly review any issues related to taking the medi cation in the setting of his diabetes. I recommended that the family consider Melatonin whic h is over the counter prior to the use of other sleep agents which might run the risk of sed ating him to the point that he would not recognize a low overnight. elephone Encounter - Boyd Munoz MA - 08/18/19 12:28 PM PSTPended ultra-Fine Syringe/needle and routed to provider to review. Electronic ally signed by Boyd Munoz MA at 08/18/2013 12:30 PM PSTTelephone Encounter - Eugene Vernon - 08/18/2013 11:38 AM PSTPt is requesting new rx for finer gauge needle on rx for syringe needles, To [facility] on . documen isreal in this encounter Plan of Treatment Not on filedocumented as of this encounter Visit Diagnoses Not on filedocumented in this encounter"
--- OUTSIDE RECORDS SUMMARY | ~2020-04-12 | XMS | Encounter Summary ---
Demographics + + + | Address | [address] | | | [place] [address] | + + + | Home Phone | | + + + | Preferred Language | Unknown | + + + | Marital Status | Single | + + + | Jain Affiliation | Unknown | + + + | Race | White | + + + | Ethnic Group | Not or | + + + Author + + + | Author | [facility] | + + + | Organization | [facility] | + + + | [...] Team Providers + +------+ + | Care Tobacco Sorter Name | Role | Phone | + +------+ + | Saida Alegria MD | PCP | | + +------+ + Reason for Visit + +--------+ + | Reason | Onset | Comments | | | Date | | + +--------+ + | Referral to social | 09/30/ | | | worker | 2013 | | + +--------+ + Encounter Details +--------+ + + + + | Date | Type | Department | Care Team | Description | +--------+ + + + + | 09/30/ | Telephone | Marvin Singer | Santa Gomez, | Referral to social | | 2013 | | [facility] | [facility] [address] | worker | | | | Center at [facility] | [facility] | | | | | [address] | [place], [place] | | | | | [address] | [address] | | | | | Physician's | [phone] | | | | | [address] | | | | | | [place], [place] | | | | | | [address] | | | | | | [phone] | | | +--------+ + + + [...] this encounter Miscellaneous Notes Telephone Encounter - Santa Gomez - 09/30/2013 4:39 PM Madison Singer Diabetes [facility] note: Telephone SW left a message with both mother and DHS worker Samantha Sellers regarding Sterling being a no show for todays' appointment to the diabetes clinic. Dr. Jaeger is also concerned that there has been no communication, as previously requested, r jeri Wood' diabetes management. Plan: [facility] will coordinate with family and DHS to ensure follow up for Sterling's diabetes care. VEL Hernandez pager [phone] signed by Santa Gomez at 09/30/2013 4:44 PM PSTdocument ed in this encounter Plan of Treatment Not on filedocumented as of this encounter Visit Diagnoses Not on filedocumented in this encounter"
--- OUTSIDE RECORDS SUMMARY | ~2020-04-12 | XMS | Encounter Summary ---
Demographics + + + | Address | [address] | | | [place] [address] | + + + | Home Phone | | + + + | Preferred Language | Unknown | + + + | Marital Status | Single | + + + | Buddhism Affiliation | Unknown | + + + | Race | White | + + + | Ethnic Group | Not or | + + + Author + + + | Author | [facility] | + + + | Organization | [facility] | + + + | [...] Team Providers + +------+ + | Care Physical Testing Supervisor Name | Role | Phone | + +------+ + | Lia Pérez | PCP | | + +------+ + Reason for Visit + +--------+ + | Reason | Onset | Comments | | | Date | | + +--------+ + | Referral to social | 11/28/ | | | worker | 2016 | | + +--------+ + Encounter Details +--------+ + + + + | Date | Type | Department | Care Team | Description | +--------+ + + + + | 11/28/ | Telephone | Marvin Singer | Santa Gomez, | Referral to social | | 2015 | | [facility] | [facility] [address] | worker | | | | [facility] | [facility] | | | | | [address] | [place], [place] | | | | | [address] | [address] | | | | | Physician's | [phone] | | | | | [address] | | | | | | [place], [place] | | | | | | [address] | | | | | | [phone] | | | +--------+ + + + [...] Notes Telephone Encounter - Santa Gomez - 11/29/2015 4:25 PM Emerson Singer [facility] ([facility] Licensed Clinical Induction Machine Operator (FIREBOAT OPERATOR) note: telephone Mother called to request assistance with Tucker Blair. Application sent, and pending, and FIREBOAT OPERATOR reviewed 211 information helpline. No other FIREBOAT OPERATOR needs identified at this time. Santa Gomez LCSW Diabetes clinic social science instructor pager [phone] documented in this encoun ter Plan of Treatment Not on filedocumented as of this encounter Visit Diagnoses Not on filedocumented in this encounter"
--- OUTSIDE RECORDS SUMMARY | ~2020-04-12 | XMS | Encounter Summary ---
Demographics + + + | Address | [address] | | | [place] [address] | + + + | Home Phone | | + + + | Preferred Language | Unknown | + + + | Marital Status | Single | + + + | Hoahaoism Affiliation | Unknown | + + + | Race | White | + + + | Ethnic Group | Not or | + + + Author + + + | Author | [facility] | + + + | Organization | [facility] | + + + | Address | [...] Team Providers + +------+ + | Care Pillow Cleaner Name | Role | Phone | + +------+ + | Saida Alegria MD | PCP | | + +------+ + Reason for Visit + +--------+ + | Reason | Onset | Comments | | | Date | | + +--------+ + | Prior Authorization | 07/19/ | TS/AC:OPEN | | Request | 2012 | | + +--------+ + Encounter Details +--------+ + + + + | Date | Type | Department | Care Team | Description | +--------+ + + + + | 07/19/ | Telephone | Marvin Singer | Mark Jaeger MD | Prior Authorization | | 2012 | | [facility] | | Request (TS/AC:OPEN) | | | | [facility] | | | | | | [address] | | | | | | [address] | | | | | | Physician's | | | | | | [address] | | | | | | [place], [place] | | | | | | [address] | | | | | | [phone] | | | +--------+ + + + [...] this encounter Miscellaneous Notes Telephone Encounter - Fazal, Jessica - 07/25/2013 10:57 AM PSTForm completed and faxed. E lectronically signed by Jessica Diehl at 07/25/2013 10:57 AM PSTTelephone Encounter - Jessica Montalvo - 07/19/2013 2:20 PM PSTPA request received for: Medication: AccuChek Test strips PBM: [employer] Form: Completed and placed in MD folder for signature. documented in this encou nter Plan of Treatment Not on filedocumented as of this encounter Visit Diagnoses Not on filedocumented in this encounter"
--- OUTSIDE RECORDS SUMMARY | ~2020-04-12 | XMS | Encounter Summary ---
Demographics + + + | Address | [address] | | | [place] [address] | + + + | Home Phone | | + + + | Preferred Language | Unknown | + + + | Marital Status | Single | + + + | Nondenominational Affiliation | Unknown | + + + | Race | White | + + + | Ethnic Group | Not or | + + + Author + + + | Author | [facility] | + + + | Organization | [facility] | + + + | [...] Providers + +------+ + | Care Manager Pipeline Name | Role | Phone | + +------+ + | Saida Alegria MD | PCP | | + +------+ + Reason for Visit + +--------+ + | Reason | Onset | Comments | | | Date | | + +--------+ + | Refill Request | 06/22/ | | | | 2012 | | + +--------+ + Encounter Details +--------+--------+ + + + | Date | Type | Department | Care Team | Description | +--------+--------+ + + + | 06/22/ | Refill | Marvin Singer | Karyna Kaufman, | Refill Request | | 2012 | | [facility] | [address] | | | | | [place] [facility] | [facility] | | | | | [address] | [place], [place] | | | | | [address] | [address] | | | | | Mailcode: [id number] | | | | | | [facility] | | | | | | [address], | | | | | | [place] [address] | | | | | | [phone] | | | +--------+--------+ + + + [...]
--- OUTSIDE RECORDS SUMMARY | ~2020-04-12 | XMS | Encounter Summary ---
Demographics + + + | Address | [address] | | | [place] [address] | + + + | Home Phone | | + + + | Preferred Language | Unknown | + + + | Marital Status | Single | + + + | Religion Affiliation | Unknown | + + + [...] Team Providers + +------+ + | Care Land Acquisition Analyst Name | Role | Phone | + +------+ + | Lexx Schrader DO | PCP | | + +------+ + Reason for Visit + +--------+ + | Reason | Onset | Comments | | | Date | | + +--------+ + | Nursing Facility | 05/05/ | Rehab Facility | | Orders | 2018 | | + +--------+ + Encounter Details +--------+ + + + + | Date | Type | Department | Care Team | Description | +--------+ + + + + | 05/05/ | Telephone | Marvin Singer | Orestes Quinn MD | Nursing Facility | | 2018 | | [facility] | [address] | Orders (Rehab | | | | [facility] | [facility] [place], | Facility) | | | | [address] | [place] [address] | | | | | [address] | [phone] | | | | | Physician's | | | | | | [address] | | | | | | [place], [place] | | | | | | [address] | | | | | | [phone] | | | +--------+ + + + [...] this encounter Miscellaneous Notes Telephone Encounter - Adelita Brown RD - 05/05/2018 12:00 PM PDTEducator spoke with dior salguero and learned that [facility] will be staying there beginning today. Reviewed plan and will send diabetes orders to facility. Then, spoke with [facility] to confirm most recent doses. Discusse d with and sent orders to [facility]. [facility] may not have all supplies needed and will call back with a local pharmacy to send Rx to. Adelita Brown, MS, RD, LD, CDE Consumer Studies Professor [facility] elephone Encounter - Jimy Ruiz - 05/05/2018 10:22 AM PDTCare Facility or Home Health Order Request [facility] (pt) called requesting orders [facility] of facility[facility] What type of order is needed: facility orders When is order needed by: 05/05/18 at 1:00 pm Is this a secured voicemail, is it ok to leave a message? Yes documented in this encounter Plan of Treatment Not on filedocumented as of this encounter Visit Diagnoses Not on filedocumented in this encounter"
--- OUTSIDE RECORDS SUMMARY | ~2020-04-12 | XMS | Encounter Summary ---
Demographics + + + | Address | [address] | | | [place] [address] | + + + | Home Phone | | + + + | Preferred Language | Unknown | + + + | Marital Status | Single | + + + | Baptist Affiliation | Unknown | + + + | Race | White | + + + | Ethnic Group | Not or | + + + Author + + + | Author | [facility] | + + + | Organization | [facility] | + + + | [...] Team Providers + +------+ + | Care Internal Controls Analyst Name | Role | Phone | + +------+ + | Lia Pérez | PCP | | + +------+ + Reason for Visit + +--------+ + | Reason | Onset | Comments | | | Date | | + +--------+ + | [facility] | 12/09/ | | | Equipment (DME) | 2015 | | | Orders | | | + +--------+ + Encounter Details +--------+ + + + + | Date | Type | Department | Care Team | Description | +--------+ + + + + | 12/09/ | Telephone | Marvin Singer | Orestes Quinn MD | [facility] | | 2016 | | [facility] | [address] | Equipment (DME) | | | | [facility] | [address] [place], | Orders | | | | [address] | [place] [address] | | | | | [address] | [phone] | | | | | Physician's | | | | | | [address] | | | | | | [place] | | | | | | [address] | | | | | | [phone] | | | +--------+ + + + [...] this encounter Miscellaneous Notes Telephone Encounter - Boyd Munoz MA - 01/03/2016 8:14 AM PDTForm signed and faxed to [facility] at [phone] with last chart note. Completed form uploaded into pt chart. elephone Encounter - Katelyn Tate RD - 12/14/2015 11:52 AM PDTCalled mom today and left VM letting her know that I received her messages, got the lab work and other paperwork and have submitted for the TSLI M insulin pump. She should be hearing from the company next week and to call back if not. Asked her to call back if she has any other questions. Katelyn Dick RD, CDE Porcelain Enameling Supervisor, Dietitian [facility] Mail Code: [id number] [address] [place] [address] elephone Encounter - Rosey Willis - 12/10/2015 4:29 PM PDTCalled Mom back. Let her know Katelyn Dick will con tact her on to discuss. Rosey Pope RN, CDE elephone Encounter - Isael Pineda MA - 12/10/2015 4:21 PM PDTRobert's mother called f or an update in regards to where he is in the pump start process Call back at [phone] signed by Isael Pineda MA at 12/10/2015 4:22 PM PDTdocumented in this encounter Plan of Treatment Not on filedocumented as of this encounter Visit Diagnoses Not on filedocumented in this encounter"
--- OUTSIDE RECORDS SUMMARY | ~2020-04-12 | XMS | Encounter Summary ---
Demographics + + + | Address | [address] | | | [place] [address] | + + + | Home Phone | | + + + | Preferred Language | Unknown | + + + | Marital Status | Single | + + + | Hinduism Affiliation | Unknown | + + + | Race | White | + + + | Ethnic Group | Not or | + + + Author + + + | Author | [facility] | + + + | Organization | [facility] | + + + | Address | Unknown | + + + | Phone | Unavailable | + + + Support + + +---------+ + | Name | Relationship | Address | Phone | + + +---------+ + | Amanda Monique | ECON | Unknown | | + + +---------+ + | Brayden Radabah Sr. | ECON | Unknown | | + + +---------+ + | Soco Salguero | ECON | Unknown | | + + +---------+ + | Rhina Pleitez | ECON | Unknown | | + + +---------+ + Care Team Providers + +------+ + | Care Pharmaceutical Specialty Representative Name | Role | Phone | + +------+ + | Saida Alegria MD | PCP | | + +------+ + Reason for Referral Other (Routine) +--------+--------+ + + + + | Status | Reason | Specialty | Diagnoses / | Referred By | Referred To | | | | | Procedures | Contact | Contact | +--------+--------+ + + + + | Closed | | Endocrinology | Diagnoses | Jaeger, | [facility] | | | | Diabetes & | DM type 1 | MD Mindy | [facility] | | | | Metabolism | (diabetes | [address] | [address] | | | | | mellitus, | [place] | [address] | | | | | type 1) | Rd | Physician's | | | | | (HCC) | [place], [place] | [address], | | | | | Procedures | [address] | [address] | | | | | CONSULT TO | | [place], [place] | | | | | DIABETES | | [address] | | | | | CENTER | | Phone: | | | | | (PEDIATRIC) | | [phone] | | | | | | | Fax: | | | | | | | [phone] | +--------+--------+ + + + + Reason for Visit + + + [...] | | mellitus | [address] | [address], | | | | | without | [place], | [address] | | | | | mention of | [place] [address] | [place], [place] | | | | | complication | Phone: | [address] | | | | | , not stated | [phone] | Phone: | | | | | as | Fax: | [phone] | | | | | uncontrolled | [phone] | Fax: | | | | | | | [phone] | +--------+ + + + + + Encounter Details +--------+---------+ + + + | Date | Type | Department | Care Team | Description | +--------+---------+ + + + | 04/21/ | Office | Marvin Singer | Mindy Jaeger MD | DM type 1 (diabetes | | 2014 | Visit | [facility] | | mellitus, type 1) | | | | Center at [facility] | | ([facility]) (Primary Dx) | | | | [address] | | | | | | [address] | | | | | | Physician's | | | | | | [address] | | | | | | [place], [place] | | | | | | [address] | | | | | | [phone] | | | +--------+---------+ + + + [...] + + + | Blood Pressure | 125/94 | 04/21/2014 2:29 PM | | | | | PDT | | + + + + + | Pulse | 98 | 04/21/2014 2:29 PM | | | | | PDT [...] + + + + | Weight | 50 kg (110 lb 3.2 | 04/21/2014 2:29 PM | | | | oz) | PDT | | + + + + + | Height | 168.9 cm (5' 6.5") | 04/21/2014 2:29 PM | | | | | PDT | | + + + + + | Body Mass Index | 17.52 | 04/21/2014 2:29 PM | | | | | PDT | | + + + + + documented in this encounter Patient Instructions Patient Instructions Mindy Jaeger MD - 04/21/2014 3:20 PM PDT-Insulin: no changes -Continue parental supervision for all Lantus doses, Give the Lantus dose within the same h our each night. Do not use exercise to help his blood sugars come down, he should get a high blood sugar correction as often as every three hours. -As much as possible avoid overnight meals, ensure that his snacks are about 15 grams or le ss in between meals. -Please reduce your use of tobacco by half (try to smoke as few cigarettes as possible a da y) -Please check your blood sugar at least 3 times a day -Please have his eyes checked, this is a dilated exam where they look for signs of damage i n the back of the eye from diabetes. -Meet with Psychology and nutrition at next visits -Follow up in in our clinic in 2 months. Electronically signed by Mindy Jaeger MD at 04/21 3:20 PM PDT documented in this encounter Progress Notes Sultana Cortes MD - 04/21/2014 3:52 PM PDTI have seen and examined this patient. I have discussed the case with Dr. Jaeger and agree with the assessment and plan. I have participat ed in the care of this patient. SULTANA CORTES MD [facility] Pediatric Endocrinology [address] [place] [address] Mindy Huerta MD - 04/21/2014 8:51 AM PDT [facility] Clinic Note Clinic Date: 04/21/14 Current Insulin Regimen: Lantus 40 units CR: 1 for 10 grams of carbohydrates High Blood Sugar Correction Factor: 150-200: 5 units 200-250: 6 units 251-300: 7 units 301-350: 8 units 351-400: 9 units > 400: 10 units Brayden is a 13 year 4 month male with Type 1 diabetes here for follow-up. His diabetes tolbert s been under very poor control with a HA1C > 14. Interval History: Brayden is a 13 [...] complaints at today's visit. He has not yet started school, this starts next week. He will be starting 9th grade . He is somewhat excited to start but it worried it will be a lot of work. He missed a lot o f school during 8th grade and they are trying to make special accommodations for him. He not es he is now taking his lantus every morning. He notes that he has been struggling to check his blood sugar. He is sometimes only checking his blood sugar about once a week. He bases h is insulin doses on whether he "feels" high or low. [facility] is helping him to get counseling for his anger management and behavioral issues. He is also supposed to be getting psychological testing. Blood glucose monitoring: Brayden reports checking his blood sugar at least 0-2 times a day rarely. He has brought no written records, nor is a glucometer available to retrieve gluco se readings. In general, the records are sparse. Review of the records reveals blood suga r values as follows: Blood sugars all above target: He has check his blood sugar about 11 times in the past 14 d ays, so less than once a day on average. His blood sugars are typically in the 300-500+ rang e, with a very occasional 200. No morning checks. Random afternoon and evening checks which are all above target. Hypoglycemia: Brayden's target range for his glucose levels is 80-180. He reports 0-1 episod es of low blood sugars a week. He notes one low 2-3 weeks ago where he had a low and almost "passed out" and had a low blood sugar into the 30s after guessing his insulin dose at lunch . He states that he is frequently able to recognize these episodes. Brayden states that he h as a current glucagon kit and has a medic alert bracelet which he currently wearing. Meal plan: He likes to eat meals in the middle of the night and often does not dose insulin at this time. Mom reports that he is sneaking food and eating all night. He often sleeps th rough the day and has an irregular daytime feeding pattern. Exercise: Brayden like to ride a dirt bike. He likes to ride his skateboard and scooter. He never takes an extra snack prior to vigorous exercise. ROS: Brayden denies any headaches or visual changes. He [...] Brayden lives at home with his mother. H He feels like he has ADHD and angi mcfadden reports that his older brother was diagnosed with this condition. Of note his older broth er committed suicide at 19 years of age. Dad lives in [place] and Mom and Dad are curre ntly in the process of obtaining a divorce. Of note his DHS letter reports that Brayden has a history of making comments about committing suicide and overdosing himself on insulin. Mom and Brayden recently moved to [place], [place]. School: Brayden Monique will be starting [employer] in the 9th grade . See ad ditional discussion regarding school absence above. Health Care Maintenance: Last eye check: Eye check, not completed, Mom to complete next month by her report Last urine for microalbumin below: Results for BRAYDEN MONIQUE ( ) as of 07/29/2013 12:00 Ref. Range 06/17/2013 11:12 CREATININE, URINE No range found 25.50 MICROALBUMIN, URINE TIMED Latest Range: <=20 mg/L 9 MICROALBUMIN/CREAT RATIO Latest Range: <=30 mg/gm 35 (H) Repeat morning urine without protein Results for BRAYDEN MONIQUE ( ) as of 04/21/2014 15:35 Ref. Range 04/17/2014 00:00 UR COLLECTION TIME No range found random CREATININE CONC UR No range found 26 MICROALBUMIN, URINE TIMED No range found <0.5 PROTEIN CONC URINE No range found <4 PROTEIN/CREATININE RATIO No range found <0.15 URINE VOLUME(REF) No range found spot June 2013 Thyroid studies normal, negative celiac [...] Range: 70 - 400 mg/dL 241 Vitals: Filed Vitals 04/21/2014 2:33 PM Height: 168.9 cm (5' 6.5") (58%, Z = 0.19) Weight: 49.986 kg (110 lb 3.2 oz) (34%, Z = -0.41) BP: 125/94 Pulse: 98 PainSc: 0 - Zero BMI: 17.52 kg/(m^2) General: well-appearing, no apparent distress. HEENT: NC/AT, [...] for BRAYDEN MONIQUE ( ) as of 04/21/2014 15:09 Ref. Range 04/21/2014 14:27 HEMOGLOBIN A1C Latest Range: 4.0-5.7 % 13.9 (H) Assessment: Type 1 diabetes under extremely poor control, though he is at least taking his lantus more regularly and technically his HA1C has improved, though it unclear how much abo ve 14 his prior HA1C was. His BMI is down and I am concerned that Brayden is losing a lot of calories. He continues to have anger issues and drug abuse issues. I am very concerned that Brayden's future health is in jeopardy if his diabetes control does not improve. We tried to set achievable goals today with the hope that we can make incremental steps towards improvem ent. We are likely overdosing his basal insulin slightly to prevent him from going into DKA and I have emphasized the importance of checking his blood sugar when he feels low and in th e morning. Recommendations: -Insulin: no changes -Continue parental supervision for all Lantus doses, Give the Lantus dose within the same h our each night. Do not use exercise to help his blood sugars come down, he should get a high blood sugar correction as often as every three hours. -As much as possible avoid overnight meals, ensure that his snacks are about 15 grams or le ss in between meals. -Please reduce your use of tobacco by half (try to smoke as few cigarettes as possible a da y) -Please check your blood sugar at least 3 times a day -Please have his eyes checked, this is a dilated exam where they look for signs of damage i n the back of the eye from diabetes. -Meet with Psychology and nutrition at next visits -Follow up in in our clinic in 2 months. The family has been offered the opportunity to call into our service between visits for ass istance in making insulin adjustments. MINDY JAEGER MD [facility] [address] [facility] [place] [phone] documented in this en counter Miscellaneous Notes Addendum Note - Sultana Cortes MD - 04/21/2014 3:53 PM PDT Addended by: SULTANA CORTES MD on: 04/21/2014 03:53 PM Modules accepted: Level of Service documented in this encounter Plan of Treatment Not on filedocumented as of this encounter Procedures + +--------+ + + + | Procedure Name | Priori | Date/Time | Associated Diagnosis | Comments | | | ty | | | | + +--------+ + + + | HEMOGLOBIN A1C, POC | Routin | 04/21/2014 | DM type 1 | Results for this | | | e | 2:27 PM | (diabetes mellitus, | procedure are in the | | | | PDT | type 1) ([facility]) | results section. | + +--------+ + + + documented in this encounter Results HEMOGLOBIN A1C,POC (04/21/2014 2:27 PM PDT) + + + + + + | Component | Value | Ref Range | Performed | Pathologist | | | | | At | Signature | + + + + + + | HEMOGLOBIN | 13.9 (H) | 4.0 - 5.7 % | [facility] - | | | A1C,POC | | | [place] | | | [...] + + + + + | [facility] | [address] | [place], [place] | | | [address] | [address] | [address] | | | TESTS | | | | + + + + + documented in this encounter Visit Diagnoses + + | Diagnosis | + + | DM type 1 (diabetes mellitus, type 1) ([facility]) - Primary Type I (juvenile type) diabetes | | mellitus without mention of complication, not stated as uncontrolled | + + documented in this encounter
--- OUTSIDE RECORDS SUMMARY | ~2020-04-12 | XMS | Encounter Summary ---
Demographics + + + | Address | [address] | | | [place] [address] | + + + | Home Phone | | + + + | Preferred Language | Unknown | + + + | Marital Status | Single | + + + | Evangelical Affiliation | Unknown | + + + [...] | | + + +---------+ + | Rihna Pleitez | ECON | Unknown | | + + +---------+ + Care Team Providers + +------+ + | Care Expediter Name | Role | Phone | + +------+ + | No Pcp Per Patient | PCP | Unavailable | + +------+ + Reason for Visit + +--------+ + | Reason | Onset | Comments | | | Date | | + +--------+ + | Appointment | 01/15/ | | | | 2020 | | + +--------+ + Encounter Details +--------+ + + + + | Date | Type | Department | Care Team | Description | +--------+ + + + + | 01/15/ | Dylan | Marvin Singer | Orestes Quinn MD | 01/17 pre-visit check | | 2020 | Encounter | [facility] | [address] | in | | | | [facility] | [address] [place], | | | | | [address] | [place] [address] | | | | | [address] | [phone] | | | | | Physician's | | | | | | [address] | | | | | | [place], [place] | | | | | | [address] | | | | | | [phone] | | | +--------+ + + + [...]
--- OUTSIDE RECORDS SUMMARY | ~2020-04-12 | XMS | Encounter Summary ---
Demographics + + + | Address | [address] | | | [place] [address] | + + + | Home Phone [...] Author + + + | Author | [facility] | + + + | Organization | [facility] | + + + | Address | [...] | + + +---------+ + | Soco Salugero | ECON | Unknown | | + + +---------+ + | Rhina Pleitez | ECON | Unknown | | + + +---------+ + Care Team Providers + +------+ + | Care Seat Joiner Chainstitch Name | Role | Phone | + +------+ + | Lia Pérez | PCP | | + +------+ + Reason for Referral Consultation (Routine) + +--------+ + + + + | Status | Reason | Specialty | Diagnoses / | Referred By | Referred To | | | | | Procedures | Contact | Contact | + +--------+ + + + + | Canceled | | Endocrinology | Diagnoses | Kai | Laura Diab Ed | | | | Diabetes & | Diabetes | MD Orestes | [address] | | | | Metabolism | type 1, | [address] | Pavilion | | | | | uncontrolled | [place] [address] | Loop | | | | | (HCC) | Rd | Mailcode: | | | | | Procedures | [place], [place] | [address] | | | | | CONSULT TO | [address] | Physician's | | | | | PEDS | Phone: | [address] | | | | | DIABETES - | [phone] | [address] | | | | | EDUCATION | Fax: | [place], [place] | | | | | AND | [phone] | [address] | | | | | NUTRITION | | Phone: | | | | | | | [phone] | | | | | | | Fax: | | | | | | | [phone] | + +--------+ + + + + Reason for Visit + + + | Reason | Comments | + + + | Type 1 diabetes | | | mellitus | | + + + Office Visit - E/M Services (Routine) +--------+--------+ + + + + | Status | Reason | Specialty | Diagnoses / | Referred By | Referred To | | | | | Procedures | Contact | Contact | +--------+--------+ + + + + | Denied | | Endocrinology | Diagnoses | Elisa, | [place], | | | | Diabetes & | Type 1 | Lia Rawls, | MD Orestes | | | | Metabolism | diabetes | [place] [address] | [address] | | | | | mellitus | Mary [place]ma | [facility] | | | | | without | Chris, | [address] [place], | | | | | complication | [place] [address] | [place] | | | | | s | Phone: | [address] | | | | | | [phone] | Phone: | | | | | | Fax: | [phone] | | | | | | [phone] | Fax: | | | | | | | [phone] | +--------+--------+ + + + + Encounter Details +--------+---------+ + + + | Date | Type | Department | Care Team | Description | +--------+---------+ + + + | 11/22/ | Office | Marvin Singer | Orestes Quinn MD | Diabetes type 1, | | 2015 | Visit | [facility] | [address] | uncontrolled (HCC) | | | | [facility] | [address] [place], (Primary Dx) | | | | [address] | [place] [address] | | | | | [address] | [phone] | | | | | Physician's | | | | | | [address] | | | | | | [place], [place] | | | | | | [address] | | | | | | [phone] | | | +--------+---------+ + + + [...] + + + | Blood Pressure | 145/76 | 11/23/2015 12:33 PM | | | | | PDT | | + + + + + | Pulse | 99 | 11/23/2015 12:33 PM | | | | | PDT [...] + + + + | Weight | 71.9 kg (158 lb 8 | 11/23/2015 12:33 PM | | | | oz) | PDT | | + + + + + | Height | 172.7 cm (5' 8") | 11/23/2015 12:33 PM | | | | | PDT | | + + + + + | Body Mass Index | 24.1 | 11/23/2015 12:33 PM | | | | | PDT | | + + + + + documented in this encounter Patient Instructions Patient Instructions Orestes Quinn MD - 11/23/2015 1:07 PM PDTIncrease to 1 unit for ever y 5 grams CHO at breakfast. Continue 1 unit for every 7 grams CHO at lunch and dinner. Continue 38 units of lantus daily. Check at least 4 times a day but not within 2 hours of eating. documented in this encounter Progress Notes Orestes Quinn MD - 11/23/2015 12:40 PM PDT [facility] Clinic Note Clinic Date: 11/23/2015 Sterling is a 15 year 1 month male with Type 1 diabetes here for follow-up. Interval History: Sterling is a 15 year 1 month male with Type 1 diabetes who presents today for ongoing foll ow-up. He is accompanied to clinic today by his mother. Sterling has been doing well since his last visit. He has not had any significant illnesses, ketosis, or severe hypoglycemia r equiring intervention with glucagon. Sterling recently was released from rehabilitation. Heidi mcarthur in rehabilitation, he reports that his diabetes was very regimented and easier to control. He has more difficulty with diabetes out of rehab than he did in rehab. Skips lunch often as he doesn't like to eat in front of people. Will take an injection, however, in front of other people. Sterling was previously on an insulin pump prior to having issues with substance abuse. He was able to manage his diabetes very well while on a pump. He understands the stanley efits and risks of pump therapy well. Since entering rehabilitation, Sterling has done a very good job of diabetes management and is very motivated to maintaining good diabetes care. Patient Active Problem List Diagnosis Date Noted Adjustment disorder with depressed mood 07/29/2013 DM type 1 (diabetes mellitus, type 1) ([facility]) 07/29/2013 Insulin: He manages his diabetes with a Basal-bolus regimen as follows: Lantus 38 units prior to bedtime. Fbcovatavwwn-rx-ifwrzuy ratio of 1 unit Novolog for every 7 grams CHO at breakfast, lunch a nd dinner. He always takes his insulin shots before eating. Misses approximately 0/14 kitty kfast, 0/14 lunch and 2/14 dinner shots in past 2 weeks. If snack is over 7 grams, he takes shots with snacks. Misses 0 lantus shots per month. Correction factor of 1 unit for every 50 mg/dL > 150.. Blood glucose monitoring: Sterling checks his blood sugar at least 5 times a day most of the time. He has brought no written records, but does have a meter available to retrieve gluco se readings. See details of the blood sugars in the glucose records under media tab. Revi ew of meter download indicates 4.0 test per day with a summary of blood sugars 98/157/239 (2 5%ile/median/75%ile). ROS: Sterling denies any headaches or visual changes. He denies abdominal pain, constipati on/diarrhea or dry skin. No significant polydipsia or polyuria. He reports a normal energy level. The review of systems is otherwise negative for all systems. Social history: Sterling lives at home with his mother. Family does struggle socially. [employer] car broke down in [place] on the way to this clinic visit. However, they were able to ta [employer] transit to come to this visit as they felt this was an extremely important diabetes visit. Hypoglycemia: He reports 2-3 episodes of low blood sugars a week. He is always able to r ecognize these episodes. Sterling has a current glucagon kit and has a medic alert bracelet. Meal plan: Patient has a flexible meal plan using a carb to insulin ratio. In general, pat ient responsible for counting carbohydrates and generally seems to estimate well the actual amount. Health Care Maintenance: Last eye check 11/2015. Last urine for microalbumin 06/2015. Vitals: Ht 1.727 m (5' 8") (44 %*, Z = -0.14), Wt 71.895 kg (158 lb 8 oz) (81 %*, Z = 0.86) , Weight for age(%) 81% (Z=0.86) , BP 145/76, Pulse 99, BMI 24.11 kg/(m^2).. Blood pressure 99.6% systolic and 80.9% diastolic of BP percentile by age, sex, and height General: well-appearing, no apparent distress. HEENT: NC/AT, PERRL, EOMI. OP clear, good dentition. neck: supple, no LAD. no thyromegaly. chest: CTA bilaterally. heart: RRR, no murmurs. Good perfusion abdomen: soft/NT/ND, no hepatosplenomegaly. normal BS. ext: feet well cared for with no ingrown toenails. skin: no rashes. no lipodystrophy at abdomen injection sites. neuro: grossly normal Laboratory studies: Lab Results Component Value Date A1C 7.6* 11/23/2015 A1C 8.3* 06/26/2015 A1C >14.0* 11/17/2014 Assessment: Type 1 diabetes under excellent control. The current HbA1c is slightly more th an the ADA recommend HbA1c in High School/College students (less than 7.5%). Sterling has don e an outstanding job in managing his diabetes, particularly since leaving [facility] there is less supervision. I briefly reviewed his "pump knowledge" and feel that he could do a good job transitioning back to the insulin pump. However, his previous pump is rather o ld and needs updating. Recommendations: -Insulin: Increase to 1 unit for every 5 grams CHO at breakfast. Continue 1 unit for adria ry 7 grams CHO at lunch and dinner. Continue 38 units of lantus daily. -Check at least 4 times a day but not within 2 hours of eating. - Consults to diabetes education to review pump management and drafter assistant getting a new pump . -Follow up in in our clinic in 3-4 months. Orestes Quinn MD Professor, Pediatric Endocrinology Madeleine Francois MA - 12:33 PM PDT Finger stick performed by patient in clinic for capillary A1c test. documented in this encounter Plan of Treatment Not on filedocumented as of this encounter Procedures + +--------+ + + + | Procedure Name | Priori | Date/Time | Associated Diagnosis | Comments | | | ty | | | | + +--------+ + + + | LAB REPORTS | | 12/03/2015 | | Results for this | | | | 12:00 AM | | procedure are in the | | | | PDT | | results section. | + +--------+ + + + | HEMOGLOBIN A1C, POC | Routin | 11/23/2015 | Diabetes type 1, | Results for this | | | e | 12:41 PM | uncontrolled (HCC) | procedure are in the | | | | PDT | | results section. | + +--------+ + + + documented in this encounter Results LAB REPORTS (12/03/2015 12:00 AM PDT) + + + | Narrative | Performed At | + + + | | | + + + HEMOGLOBIN A1C,POC (11/23/2015 12:41 PM PDT) + +---------+ + + + | Component | Value | Ref Range | Performed | Pathologist | | | | | At | Signature | + +---------+ + + + | HEMOGLOBIN | 7.6 (A) | 4.0 - 5.7 % | [facility] - | | | A1C,POC | | | [facility] | | | | | | [facility] | | | | | | OF CARE | | | | | | TESTS | | + +---------+ + + + + + | Specimen | + + | Blood | + + + + + + + | Performing | Address | City/State/Zipcode | Phone Number | | Organization | | | | + + + + + | [facility] | [address] | [place], [place] | | | [facility] | [address] | [address] | | | TESTS | | | | + + + + + documented in this encounter Visit Diagnoses + + | Diagnosis | + + | Diabetes type 1, uncontrolled (HCC) - Primary Type I (juvenile type) diabetes | | mellitus without mention of complication, uncontrolled | + + documented in this encounter
--- OUTSIDE RECORDS SUMMARY | ~2020-04-12 | XMS | Encounter Summary ---
Demographics + + + | Address | [address] | | | [place] [address] | + + + | Home Phone [...] + + + | Author | [facility] | + + + | Organization | [facility] | + + + [...] Team Providers + +------+ + | Care Feller Operator Name | Role | Phone | + +------+ + | Lia Pérez | PCP | | + +------+ + Reason for Visit + +--------+ + | Reason | Onset | Comments | | | Date | | + +--------+ + | Refill Request | 08/06/ | Delores [place]o | | | 2014 | | + +--------+ + Encounter Details +--------+--------+ + + + | Date | Type | Department | Care Team | Description | +--------+--------+ + + + | 08/06/ | Refill | Marvin Singer | Orestes Quinn MD | Refill Request | | 2014 | | Diabetes [facility] | [address] | ([place]o) | | | | [facility] | [facility], | | | | | [address] | [place] [address] | | | | | [address] | [phone] | | | | | Physician's | | | | | | [address] [facility] | | | | | | [place], [place] | | | | | | [address] | | | | | | [phone] | | | +--------+--------+ + + + [...] this encounter Miscellaneous Notes Telephone Encounter - Annita Ricks - 08/08/2015 3:52 PM PSTPharmacy called and states pt is wanting to make sure this is done before the new year. elephone Encounter - Yamile Garrison MA - 08/06/2015 12 :24 PM PSTPended refill request for [facility] [place]o and routed to MD to review. Last Appointment in [facility] was on 06/26/15 at 12:00 pm with Julieth Rice RN. Next Appointment in [facility] is on 11/23/15 at 9:05 am with Orestes Quinn MD. documented in this enc ounter Plan of Treatment Not on filedocumented as of this encounter Visit Diagnoses Not on filedocumented in this encounter"
--- OUTSIDE RECORDS SUMMARY | ~2020-04-12 | XMS | Encounter Summary ---
Demographics + + + | Address | [address] | | | [place] [address] | + + + | Home Phone | | + + + | Preferred Language | Unknown | + + + | Marital Status | Single | + + + | Hindu Affiliation | Unknown | + + + | Race | White | + + + | Ethnic Group | Not or | + + + Author + + + | Author | [facility] | + + + | Organization | [facility] | + + + | Address [...] Team Providers + +------+ + | Care Prime Broker Name | Role | Phone | + [...] [address] | | | | | [place] [facility] | [address] [place], | | | | | [address] | [place] [address] | | | | | [address] | | | | | | Mailcode: [address]05 | | | | | | Physician's Pavilion | | | | | | [address], | | | | | | [place] [address] | | | | | | [phone] | | | +--------+--------+ + + + [...]
--- OUTSIDE RECORDS SUMMARY | ~2020-04-12 | XMS | Encounter Summary ---
Demographics + + + | Address | [address] | | | [place] [address] | + + + | Home Phone [...] Author + + + | Author | [facility] | + + + | Organization | [facility] | + + + | Address [...] Team Providers + +------+ + | Care Diesel Technician Mechanic Name | Role | Phone | + [...] | | | | | Procedures | [facility] [place] | [address] | | | | | CONSULT TO | [address] | Physician's | | | | | PEDS | | [address] | | | | | DIABETES - | | [address] | | | | | EDUCATION | | [place], [place] | | | | | AND | | [address] | | | | | NUTRITION | | Phone: | | | | | | | [phone] | | | | | | | Fax: | | | | | | | [phone] | +--------+--------+ + + + + Reason for Visit + +--------+ + | Reason | Onset | Comments | | | Date | | + +--------+ + | Refill Request | 06/21/ | | | | 2012 | | + +--------+ + Encounter Details +--------+--------+ + + + | Date | Type | Department | Care Team | Description | +--------+--------+ + + + | 06/21/ | Refill | Pediatric | Mark Jaeger MD | Refill Request | | 2012 | | Endocrinology at | | | | | | [place] | | | | | | [facility] | | | | | | [address] | | | | | | [place] | | | | | | [place], [place] | | | | | | [address] | | | | | | [phone] | | | +--------+--------+ + + + [...]
--- OUTSIDE RECORDS SUMMARY | ~2020-04-12 | XMS | Encounter Summary ---
Demographics + + + | Address | [address] | | | [place] [address] | + + + | Home Phone | | + + + | Preferred Language | Unknown | + + + | Marital Status | Single | + + + | Yazdanism Affiliation | Unknown | + + + | Race | White | + + + | Ethnic Group | Not or | + + + Author + + + | Author | [facility] | + + + | Organization | [facility] | + + + | Address [...] Team Providers + +------+ + | Care Batt Machine Operator Name | Role | Phone | + +------+ + | Saida Alegria MD | PCP | | + +------+ + Reason for Visit + +--------+ + | Reason | Onset | Comments | | | Date | | + +--------+ + | Referral to social | 06/14/ | | | worker | 2012 | | + +--------+ + Encounter Details +--------+ + + + + | Date | Type | Department | Care Team | Description | +--------+ + + + + | 06/14/ | Telephone | Marvin Singer | Santa Gomez, | Referral to social | | 2012 | | Diabetes Health | WHITE SUGAR PAN TANK OPERATOR [address] | worker | | | | Center at [facility] | [facility] | | | | | [address] | [place], [place] | | | | | [address] | [address] | | | | | Physician's | [phone] | | | | | [address] | | | | | | [place], [place] | | | | | | [address] | | | | | | [phone] | | | +--------+ + + + + Social History + +-------+ +--------+------+ | Tobacco Use | Types | Packs/Day | Years | Date | | | | | Used | | + +-------+ +--------+------+ | Never Assessed | | | | | + +-------+ +--------+------+ + + + | Sex Assigned at | Date Recorded | | | | + + + | Not on file | | + + + documented as of this encounter Miscellaneous Notes Telephone Encounter - Santa Gomez - 06/14/2013 9:29 AM [facility] FIDE note:telephone SW spoke with principal Adrian Diggs [phone] who is concerned about Sterling's health a nd missing school due to poor diabetes management. He also relayed challenging behaviors pa rticularly when his blood sugar level is high. Sterling is establishing care at the [facility] on 06/17/13 and will be meeting with Dr. Jaeger and bisi hassan RD CDE. FIDE also recommending psychology. Plan: FIDE will check in with family during their appointment to provide support, resource informat ion and to help determine a plan for school. [facility] pager [phone] signed by Santa Gomez at 06/14/2013 9:34 A M PSTdocumented in this encounter Plan of Treatment Not on filedocumented as of this encounter Visit Diagnoses Not on filedocumented in this encounter"
--- OUTSIDE RECORDS SUMMARY | ~2020-04-12 | XMS | Encounter Summary ---
Demographics + + + | Address | [address] | | | [place] [address] | + + + | Home Phone | | + + + | Preferred Language | Unknown | + + + | Marital Status | Single | + + + | Sikh Affiliation | Unknown | + + + | Race | White | + + + | Ethnic Group | Not or | + + + Author + + + | Author | [facility] | + + + | Organization | [facility] | + + + | Address [...] Team Providers + +------+ + | Care Vegetable Harvest Machine Operator Name | Role | Phone | + +------+ + | Emmanuelle Noe MD | PCP | | + +------+ + Reason for Visit + +--------+ + | Reason | Onset | Comments | | | Date | | + +--------+ + | Prior Authorization | 04/08/ | [facility] | | Request | 2019 | | + +--------+ + Encounter Details +--------+ + + + + | Date | Type | Department | Care Team | Description | +--------+ + + + + | 04/08/ | Telephone | Pediatric | Orestes Quinn MD | Prior Authorization | | 2018 | | Endocrinology at | [address] | Request (Delores | | | | [place] | [address], | [place]) | | | | [facility] | [place] [address] | | | | | [address] | [phone] | | | | | [place] | | | | | | [place], [place] | | | | | | [address] | | | | | | [phone] | | | +--------+ + + + [...] this encounter Miscellaneous Notes Telephone Encounter - Jada Solorzano MA - 04/12/2019 9:01 AM PDTEPA Through Cover My M eds states that [facility] is not the PA Processor for this patient. Redid ePA with CX and once again was guided to [facility] is no the PA proc essor. [facility] [place] [facility] [phone], line was busy . Will try to reach pharmacy again in between rooming patients. elephone Encounter - Jada Solorzano MA - 6:09 PM PDTPrior Authorization request received for: Medication: Lantus Solostar Insurance: [employer] Received Via: [employer] Form: Completed PA Faxed to Insurance via cover my meds documented in this encounter Plan of Treatment Not on filedocumented as of this encounter Visit Diagnoses Not on filedocumented in this encounter"
--- OUTSIDE RECORDS SUMMARY | ~2020-04-12 | XMS | Encounter Summary ---
Demographics + + + | Address | [address] | | | [place] [address] | + + + | Home Phone | | + + + | Preferred Language | Unknown | + + + | Marital Status | Single | + + + | Amish Affiliation | Unknown | + + + [...] Team Providers + +------+ + | Care Learning Coach Name | Role | Phone | + +------+ + | Saida Alegria MD | PCP | | + +------+ + Reason for Visit + +--------+ + | Reason | Onset | Comments | | | Date | | + +--------+ + | Referral to social | 06/02/ | | | worker | 2013 | | + +--------+ + Encounter Details +--------+ + + + + | Date | Type | Department | Care Team | Description | +--------+ + + + + | 06/02/ | Telephone | Marvin Singer | Santa Gomez, | Referral to social | | 2013 | | Diabetes Health | LUGGAGE MAKER [address] | worker | | | | Center at [facility] | [facility] | | | | | [address] | [place], [place] | | | | | [address] | [address] | | | | | Physician's | [phone] | | | | | [address] | | | | | | [place], [place] | | | | | | [address] | | | | | | [phone] | | | +--------+ + + + [...] Notes Telephone Encounter - Santa Gomez - 06/02/2014 12:29 PM Emerson Singer [facility] FIDE note: FIDE left a message for mother amanda Katz to return SW call, per Dr. Jaeger request. VEL Hernandez pager [phone] signed by Santa Gomez at 06/02/2014 12:30 PM PDTdocumented in this encounter Plan of Treatment Not on filedocumented as of this encounter Visit Diagnoses Not on filedocumented in this encounter"
--- OUTSIDE RECORDS SUMMARY | ~2020-04-12 | XMS | Encounter Summary ---
Demographics + + + | Address | [address] | | | [place] [address] | + + + | Home Phone | | + + + | Preferred Language | Unknown | + + + | Marital Status | Single | + + + | Holiness Affiliation | Unknown | + + + [...] Team Providers + +------+ + | Care Rig Site Engineer Name | Role | Phone | + +------+ + | Lia Pérez | PCP | | + +------+ + Encounter Details +--------+ + + + + | Date | Type | Department | Care Team | Description | +--------+ + + + + | 05/07/ | Documentati | Marvin Singer | Mark Jaeger MD | | | 2014 | on | Diabetes [facility] | | | | | | [place] at [facility] | | | | | | [address] | | | | | | [address] | | | | | | Physician's Pavilion | | | | | | [address] [place], | | | | | | [place] [address] | | | | | | [phone] | | | +--------+ + + + [...] Telephone Encounter - Boyd Munoz MA - 05/07/2015 8:42 AM PDTBlood [facility] logs [facility] into pt chart and routed to Dr. Quinn. documented in this encoun ter Plan of Treatment Not on filedocumented as of this encounter Visit Diagnoses Not on filedocumented in this encounter"
--- OUTSIDE RECORDS SUMMARY | ~2020-04-12 | XMS | Encounter Summary ---
Demographics + + + | Address | [address] | | | [place] [address] | + + + | Home Phone | | + + + | Preferred Language | Unknown | + + + | Marital Status | Single | + + + | Moravian Affiliation | Unknown | + + + [...] Team Providers + +------+ + | Care Supervisor [employer] Name | Role | Phone | + +------+ + | Saida Alegria MD | PCP | | + +------+ + Reason for Visit + + + | Reason | Comments | + + + | Prior Authorization | Accu check test strip | | Request | | + + + Encounter Details +--------+ + + + + | Date | Type | Department | Care Team | Description | +--------+ + + + + | 10/24/ | Documentati | Marvin Singer | Mark Jaeger MD | Prior Authorization | | 2014 | on | [facility] | | Request (Accu check | | | | [facility] | | test strip) | | | | [address] | | | | | | [address] | | | | | | Physician's | | | | | | [address] | | | | | | [place], [place] | | | | | | [address] | | | | | | [phone] | | | +--------+ + + + [...] Telephone Encounter - Boyd Munoz MA - 10/26/2014 9:46 AM PDTPA Approval letter received for Accu-Chek Smartview Test strips for effective dates of 10/25/2014-10/26/2015 Approval upl oaded into pt chart under media tab. Qty: 250/30 days elephon e Encounter - Holli Su - 10/24/2014 9:40 AM PDTPA for accu check ts initiated and faxe d to [facility] elephone Encounter - Holli Lauren - 10/24/2014 8:59 AM PDTPA for Accu check ts initiated and faxed placed in provider folder to be completed and signed. documented in this encounte r Plan of Treatment Not on filedocumented as of this encounter Visit Diagnoses Not on filedocumented in this encounter"
--- OUTSIDE RECORDS SUMMARY | ~2020-04-12 | XMS | Encounter Summary ---
Demographics + + + | Address | [address] | | | [place] [address] | + + + | Home Phone | | + + + | Preferred Language | Unknown | + + + | Marital Status | Single | + + + | Jainism Affiliation | Unknown | + + + | Race | White | + + + | Ethnic Group | Not or | + + + Author + + + | Author | [facility] | + + + | Organization | [facility] | + + + | Address [...] Team Providers + +------+ + | Care Transmitter Operator Name | Role | Phone | + +------+ + | Saida Alegria MD | PCP | | + +------+ + Reason for Visit + +--------+ + | Reason | Onset | Comments | | | Date | | + +--------+ + | Refill Request | 01/05/ | ACCU-CHEK | | | 2013 | | + +--------+ + Encounter Details +--------+--------+ + + + | Date | Type | Department | Care Team | Description | +--------+--------+ + + + | 01/05/ | Refill | Marvin Singer | Mark Jaeger MD | Refill Request | | 2013 | | [facility] | | (ACCU-CHEK) | | | | [place] [facility] | | | | | | [address] | | | | | | [address] | | | | | | Physician's | | | | | | [address] | | | | | | [place], [place] | | | | | | [address] | | | | | | [phone] | | | +--------+--------+ + + + [...] Telephone Encounter - Boyd Munoz MA - 01/05/2014 9:33 AM PDTLast Office Visit in [facility] was on 07/29/13 at 1:00 pm with Deepak Lester, PHD. No future appointments scheduled in Endocrinology, Diabetes & Metabolism. documented in this encou nter Plan of Treatment Not on filedocumented as of this encounter Visit Diagnoses Not on filedocumented in this encounter"
--- OUTSIDE RECORDS SUMMARY | ~2020-04-12 | XMS | Encounter Summary ---
Demographics + + + | Address | [address] | | | [place] [address] | + + + | Home Phone | | + + + | Preferred Language | Unknown | + + + | Marital Status | Single | + + + | Anglican Affiliation | Unknown | + + + [...] Team Providers + +------+ + | Care Naval Aircrewman Mechanical Name | Role | Phone | + +------+ + | Lexx Schrader DO | PCP | | + +------+ + Reason for Visit + + + | Reason | Comments | + + + | Letter Encounter To | No Show/Short Notice Letter | | Patient | | + + + Encounter Details +--------+ + + + + | Date | Type | Department | Care Team | Description | +--------+ + + + + | 02/16/ | Documentati | Marvin Singer | Orestes Quinn MD | Letter Encounter To | | 2018 | on | [facility] | [address] | Patient (No | | | | [facility] | [address] [place], | Show/Short Notice | | | | [address] | [place] [address] | Letter) | | | | [address] | [phone] | | | | | Physician's | | | | | | [address] | | | | | | [place], [place] | | | | | | [address] | | | | | | [phone] | | | +--------+ + + + [...]
--- OUTSIDE RECORDS SUMMARY | ~2020-04-12 | XMS | Encounter Summary ---
Demographics + + + | Address | [address] | | | [place] [address] | + + + | Home Phone [...] + + + | Author | [facility] | + + + | Organization | [facility] | + + + | [...] Team Providers + +------+ + | Care Clerk Television Production Name | Role | Phone | + +------+ + | Lia Pérez | PCP | | + +------+ + Reason for Visit + +--------+ + | Reason | Onset | Comments | | | Date | | + +--------+ + | Refill Request | 04/11/ | Lancets | | | 2014 | | + +--------+ + Encounter Details +--------+--------+ + + + | Date | Type | Department | Care Team | Description | +--------+--------+ + + + | 04/11/ | Refill | Marvin Singer | Salbador Resendiz MD | Refill Request | | 2014 | | [facility] | | (Lancets) | | | | [place] [facility] | | | | | | [address] | | | | | | [address] | | | | | | Physician's | | | | | | [address] | | | | | | [place], [place] | | | | | | [address] | | | | | | [phone] | | | +--------+--------+ + + + [...] this encounter Miscellaneous Notes Telephone Encounter - Madeleine Au MA - 04/11/2015 1:36 PM PDTLast Office Visit in [facility] was on 11/17/14 at 2:50 pm with Mark Jaeger MD. No future appointments scheduled in [facility]. documented in this enc ounter Plan of Treatment Not on filedocumented as of this encounter Visit Diagnoses Not on filedocumented in this encounter"
--- OUTSIDE RECORDS SUMMARY | ~2020-04-12 | XMS | Encounter Summary ---
Demographics + + + | Address | [address] | | | [place] [address] | + + + | Home Phone [...] Team Providers + +------+ + | Care Lithographic Plate Maker Name | Role | Phone | + +------+ + | Lia Pérez | PCP | | + +------+ + Reason for Visit + +--------+ + | Reason | Onset | Comments | | | Date | | + +--------+ + | Referral to social | 06/25/ | | | worker | 2015 | | + +--------+ + Encounter Details +--------+ + + + + | Date | Type | Department | Care Team | Description | +--------+ + + + + | 06/25/ | Telephone | Marvin Singer | Santa Gomez, | Referral to social | | 2014 | | [facility] | [facility] [address] | worker | | | | [facility] | [facility] | | | | | [address] | [place], [place] | | | | | [address] | [address] | | | | | Physician's | [phone] | | | | | [address] | | | | | | [place], [place] | | | | | | [address] | | | | | | [phone] | | | +--------+ + + + [...] this encounter Miscellaneous Notes Telephone Encounter - Patricia, Santa - 06/25/2015 11:18 AM Madison Singer [facility] public health social worker (SW) note: telephone PO J[place] confirmed appointment for tomorrow, and although mother can't attend this appointme nt, will ensure that next follow up in 3 months is a time that works for mother's schedule t oo. No other SW needs identified at this time. Santa Gomez [facility] Diabetes clinic public health social worker pager [phone] documented in this encoun ter Plan of Treatment Not on filedocumented as of this encounter Visit Diagnoses Not on filedocumented in this encounter"
--- OUTSIDE RECORDS SUMMARY | ~2020-04-12 | XMS | Encounter Summary ---
Demographics + + + | Address | [address] | | | [place] [address] | + + + | Home Phone | | + + + | Preferred Language | Unknown | + + + | Marital Status | Single | + + + | Yarsanism Affiliation | Unknown | + + + | Race | White | + + + | Ethnic Group | Not or | + + + Author + + + | Author | [facility] | + + + | Organization | [facility] | + + + | Address | [...] Team Providers + +------+ + | Care Product Distribution Specialist Name | Role | Phone | + +------+ + | Lia Pérez | PCP | | + +------+ + Encounter Details +--------+ + + + + | Date | Type | Department | Care Team | Description | +--------+ + + + + | 06/08/ | Telephone | Marvin Singer | Jeffry Rice, | | | 2014 | | [facility] | [address] | | | | | [facility] | [address] | | | | | [address] | [place], [place] | | | | | [address] | [address] | | | | | Mailcode: [id number] | | | | | | Phys[facility]ilion | | | | | | [address], | | | | | | [place] [address] | | | | | | [phone] | | | +--------+ + + + [...] this encounter Miscellaneous Notes Telephone Encounter - Luis E Bradford MD - 06/08/2015 3:38 PM PDTI attempted to call Gissel back. Would recommend checking 0200 sugar next couple days and call back with values to assess need for insulin changes. I was unable to leave message as there was no option to do so and I did not know the extension. Luis E Bradford MD Clinical Fellow Pediatric Endocrinology [facility] Pager [phone] elephone [facility] - Julieth Lilly RN - 06/08/2015 2:37 PM PDTFormatting of this note might be differ ent from the original. Pediatric Diabetes Care Coordination Patient Sterling is currently residing at [facility] for substanc e abuse treatment. >Please contact Gissel, facility counselor with any dosing changes: [phone] Insulin dosing: Lantus: 35 Units H/NL ICR: 1:8 H/NLHigh BG Correction: 1:50>150 Last dose change: Lantus increased from 33 units on 06/06 Blood sugars: Carb amounts are estimations, as the facility does not have access to this da ta. Date Breakfast Lunch PM Snack Dinner Bedtime 06/02 BG 310 Carb 100g Insulin 20u BG 259 Carb 100g Insulin 15u BG 254 Carb 50g Insulin 6u BG 154 Carb 120g Insulin 15u BG 96 Carb 50g Insulin 6u 06/03 BG 238 Carb 150g Insulin 20u BG 216 Carb 100g Insulin 15u BG 220 Carb 80g Insulin 15u BG 129 Carb ? Insulin 9 u 06/04 BG 294 Carb 100g Insulin 20u BG 318 Carb 80g Insulin 20u BG 278 Carb 60g Insulin 7u BG 300 Carb 70g Insulin 10u BG 282 Carb ? Insulin 12u 06/05 BG 379 Carb 130g Insulin 25u BG 324 Carb 100g Insulin 15u 12:30 took 7u more. Realized underdosed BG 120 Carb 30g Insulin 7u BG 130 Carb 180g Insulin 20u BG 126 Carb 60g Insulin 6u 06/06 BG 313 Carb 200g Insulin 25u BG 308 Carb 100g Insulin 16u BG 253 Carb 60u Insulin 7u BG 380 Carb 170g Insulin 25u BG 74 gave juice 27 mins later 111 Carb 60g Insulin 5u 06/07 BG 319 Carb 230g Insulin 30u BG 385 Carb 140g Insulin 22u Low Blood Sugars: Frequency: Once in the past several months Treatment: juice Routed to Luis E Bradford MD. Sterling's is scheduled in clinic on 06/29/[address] Resendiz. Clothing Patternmaker [facility] documented in this encounter Plan of Treatment Not on filedocumented as of this encounter Visit Diagnoses Not on filedocumented in this encounter"
--- OUTSIDE RECORDS SUMMARY | ~2020-04-12 | XMS | Encounter Summary ---
Demographics + + + | Address | [address] | | | [place] [address] | + + + | Home Phone | | + + + | Preferred Language | Unknown | + + + | Marital Status | Single | + + + | Islam Affiliation | Unknown | + + + [...] Team Providers + +------+ + | Care Talent Development Coordinator Name | Role | Phone | [...] | Specialty | Endocrinology | Diagnoses | Raji, | Ludy | | | Services | Diabetes & | Type I | MD Saida | Lucia Diamond, | | | Required | Metabolism | (juvenile | [address] | | | | | type) | [address] | | | | | diabetes | Street | [address] | | | | | mellitus | [facility] [address] | [place], [place] | | | | | without | [place], | [address] | | | | | mention of | [place] [address] | Phone: | | | | | complication | Phone: | [phone] | | | | | , not stated | [phone] | Fax: | | | | | as | Fax: | [phone] | | | | | uncontrolled | [phone] | | +--------+ + + + + + Encounter Details +--------+---------+ + + + | Date | Type | Department | Care Team | Description | +--------+---------+ + + + | 06/26/ | Office | Marvin Singer | Orestes Quinn MD | Diabetes type 1, | | 2014 | Visit | [facility] | [address] | uncontrolled (HCC) | | | | [facility] | [address] [place], | (Primary Dx) | | | | [address] | [place] [address] | | | | | [address] | [phone] | | | | | Physician's | | | | | | [address] | | | | | | [place], [place] | | | | | | [address] | | | | | | [phone] | | | +--------+---------+ + + + [...] + + + | Blood Pressure | 130/75 | 06/26/2015 11:05 AM | | | | | PST | | + + + + + | Pulse | 101 | 06/26/2015 11:05 AM | | | | | PST | [...] + + + + | Weight | 66.8 kg (147 lb 3.2 | 06/26/2015 11:05 AM | | | | oz) | PST | | + + + + + | Height | 171.2 cm (5' 7.42") | 06/26/2015 11:05 AM | | | | | PST | | + + + + + | Body Mass Index | 22.77 | 06/26/2015 11:05 AM | | | | | PST | | + + + + + documented in this encounter Patient Instructions Patient Instructions Fabiola Rg DO - 06/26/2015 11:51 AM PSTToday's recommendation s: Get Flu shot today Check urine microalbumin and Thyroid studies Dilated eye exam (this can be done at a local facility in [place], [place]) Recommendation for insulin regimen: Increase Lantus to 38 units every night Continue current carbohydrate ratio of 1 unit for 7 grams of carbohydrates High sugar correction: 1 unit : 40 > 160Electronically signed by Fabiola Rg DO at 1 08/26/2014 11:58 AM PST documented in this encounter Progress Notes Orestes Quinn MD - 06/27/2015 2:54 PM PSTPediatric Endocrinology Attending [facility] 06/26/2015 I have seen and examined patient with Dr. Rg. I agree with her note and plan. I have participated in patients care. Orestes Quinn MD Professor, Pediatric Endocrinology [facility] Ramey Chief, Division of Pediatric Endocrinology [facility] Fabiola Harrison DO - 06/26/2015 11:12 AM PST [facility] Pediatric Endocrinology Clinic Clinic Date: 06/26/2015 Identification: Sterling Monique is a 14 year 8 month old male with a past medical histor y of T1DM diagnosed in 2010, significant substance abuse history, and high risk social situa tion. Is here for pediatric endocrinology follow up of his T1DM. His last visit was on [address] Jaeger. Interval history: Sterling reports significant personal and medical improvement in the interi stating sobriety has made the biggest impact. States he is currently in an inpatient treat ment facility and has been sober for close to 80 days now. Was previously abusing drugs on a daily basis including methamphetamine, marijuana, prescription medication, etc. At last vis it, he was not routinely taking his insulin, would rarely check his blood sugar and myrna glover had a HbA1c in the double digits. Now that he is sober, Sterling has taken control of his medical management- is routinely checking his blood sugars and giving himself insulin . Is in a treatment program now- inpatient treatment facility ([facility]). Started pr lizbeth April 23. Has 2 months left. Blood glucose monitoring: reports target blood sugars of <200 (used to run in the 400-500s all day), still has highs but much less frequently. Blood sugars are usually under 200. [facility] angie blood sugars prior to eating and on an as needed basis(approximately 6-7 times per day) . Facility enforces this rule. Feels aggrevated, increased thirst when he is hyperglycemic. Hypoglycemia: reports incidences of hypoglycemia if he overcorrects for his carbs, thinks t his occurs a couple times per week. Typically in the 60's. Glucagon is up to date and always accessible. Insulin regimen: current regimen consists of a basal-bolus regimen. Was previously on an in sulin pump and is interested in this option in the future. Current regimen is as follows: Lantus 35 units at nighttime at 2000 1:7 carbohydrate coverage Corrects for high blood sugars at meal times, but cannot recall the exact numbers. Meal plan: is on a flexible meal plan, is always dosing prior to meals (10-15 minutes prior ). Exercise: works out at gym daily (thu-thu), runs on treadmill, bike HCM: last dilated eye exam was a year ago (had some retinopathy). Urine microalbumin, thyro id studies, and lipids checked in 2012. Past Medical History: -T1DM diagnosed in 2010 -history of polysubstance abuse -high risk social situation given the above Medications: Current Outpatient Prescriptions Medication Acetone, Urine, Test (KETONE URINE TEST) strip Blood Sugar Diagnostic (ACCU-CHEK SMARTVIEW TEST STRIP) strip Blood Sugar Diagnostic (FREESTYLE LITE STRIPS) strip FREESTYLE LANCETS 28 gauge misc Insulin Glargine (LANTUS SOLOSTAR) 100 unit/mL (3 mL) subcutaneous insulin pen Insulin Lispro, Human, (HUMALOG KWIKPEN) 100 unit/mL subcutaneous insulin pen insulin needles, Disposable, (BD ULTRA-FINE LUCILLE PEN NEEDLE 4 MM X 32 G) 32 gauge x 5/3 2" ndle insulin syr/ndl U100 half dulce maria (BD INSULIN SYRINGE HALF UNIT) 0.3 mL 31 x 15/64" syring e Lancets (ACCU-CHEK FASTCLIX) [facility] No current facility-administered medications for this visit. Allergies: NKDA Family History: No new family history. Mother denies any family history of thyroid disease or T1DM. Social history: Sterling lives [facility] in [place], [place]. Star isreal program April 23 and has approximately 2-3 additional months. Mother lives in [place], [place]. Does attend school at the facility is in his 10th grade, doing ok. Patient will b e returning to mother's home in [place] when he is discharged from the treatment facility. Physical Exam: Ht 171.2 cm (5' 7.42") (42 %*, Z = -0.19), Wt 66.769 kg (147 lb 3.2 oz) (73 %*, Z = 0.61), BMI 22.78 kg/(m^2). General: Alert, interactive, pleasant male in no distress. HEENT: Pupils equal, round, reactive to light. Extraoccular movements grossly intact. Muco us membranes moist with no mucosal lesions. Neck: Supple, with no lymphadenopathy or thyromegaly. Chest: Normal work of breathing without tachypnea, retractions, or accessory muscle use. Cl ear to auscultation bilaterally. CV: Regular rate and rhythm with no murmurs. Abdomen: Soft, nontender, nondistended. No masses or hepatosplenomegaly. Back: Normal contour. Extremities: warm, pink and well perfused. No edema or clubbing Skin: No rashes or lesions appreciated. Neurologic: alert, baseline mental status, no focal deficits. Laboratory Studies: Lab Results Component Value Date A1C 8.3 06/26/2015 A1C >14.0 11/17/2014 A1C 13.3 08/04/2014 A1C 13.9 04/21/2014 Impression: Sterling Monique is a 14 year 8 month old male with a past medical history of T1DM diagnosed in 2010, significant substance abuse history, and high risk social situation who is here for a diabetes follow up. Clinically, Sterling is doing very well and has made si gnificant changes in his personal life as well as his diabetes management. His hemoglobin A1 c is 8.3% and the lowest it has ever been since his diagnosis in 2010. Sterling identified hig her blood sugars in the morning when he first wakes up and thinks his lantus should be incre ased which is consistent with our recommendations- will increase by about 10% to 38 units ni ghtly. Will maintain the same carbohydrate ratio and high sugar correction. Even though he w as diagnosed with diabetes <5 years ago will still obtain urine microalbumin given abnormal results on last evaluation and will recommend a dilated eye exam in the setting of previous retinopathy findings. Plan: 1. Increase Lantus to 38 units nightly 2. Continue 1unit:7gram of carbohydrates 3. Recommend high sugar correction of 1unit: 40>160 4. Health maintenance and monitoring: *dilated eye exam (can be done in [place]) *Free T4, TSH *urine microalbumin *TTG, IgA 5. Seasonal flu shot today 6. Follow up in 4 months Fabiola Rg DO Pediatric Resident, PGY-2 Pager [phone] Madeleine Bragg MA - 06/26/2015 10:43 AM PST Finger stick performed by patient in clinic for capillary A1c test. The patient was screened for the following contraindications to influenza vaccine and respo nses were as follows: Febrile illness today? No Allergy to eggs? No Prior history of a reaction to flu vaccine? No Prior history of Guillain-Renwick syndrome? No (For patients receiving Fluarix): Allergy or sensitivity to Latex? Not applicable documented in this enc ounter Plan of Treatment Not on filedocumented as of this encounter Procedures + +--------+ + + + | Procedure Name | Priori | Date/Time | Associated Diagnosis | Comments | | | ty | | | | + +--------+ + + + | HEMOGLOBIN A1C, POC | Routin | 06/26/2015 | Diabetes type 1, | Results for this | | | e | 11:11 AM | uncontrolled (HCC) | procedure are in [...] | 99 (H) | <=30 mg/gm | [facility] | | | ATININE | | | [...] + + | Test now performed at [facility]. New method effective 01/24/2014. | [facility] | | | LABORATORY | | | [place] | + + + + + + + + | Performing | Address | City/State/Zipcode | Phone Number | | Organization | | | | + + + + + | [facility] | [address] | [place] [address] | | | [place] | [address] | | | + [...] | | | | | | Weak [id number] U/mL or | | | | | [...] by | | | | | | Splinter.[address] | | | | | | Shirley Faustino, [facility] | | | | | | [address] | | | | | | [phone]. | | | | | | Delon haney, | | | | | | Priyanka ANGULO. Director | | | | + + + + + + + + | Specimen | + + | Blood - Blood | + + + + + + + | Performing | Address | City/State/[facility] | Phone Number | | Organization | | | | + + + + + | [facility] | [address] | [place], [place] | | | [facility] | | [address] | | + + + + + [...] | + + + + + | [facility] | [address] | [place] [address] | | | [place] | [address] | | | + [...] | + + + + + | [facility] | [address] | [place] [address] | | | SERVICES, [facility] | [address] | | | + + + + + HEMOGLOBIN A1C,POC (06/26/2015 11:11 AM PST) + +---------+ + + + | Component | Value | Ref Range | Performed | Pathologist | | | | | At | Signature | + +---------+ + + + | HEMOGLOBIN | 8.3 (A) | 4.0 - 5.7 % | [facility] - | | | A1C,POC | | [...] | [address] | [place], [place] | | | ROXANNA MENON OF AXEL | [facility] | [address] | | | TESTS | | | | + + + + + documented in this encounter Visit Diagnoses + + | Diagnosis | + + | Diabetes type 1, uncontrolled (HCC) - Primary Type I (juvenile type) diabetes | | mellitus without mention of complication, uncontrolled | + + documented in this encounter
--- OUTSIDE RECORDS SUMMARY | ~2020-04-12 | XMS | Encounter Summary ---
Demographics + + + | Address | [address] | | | [place] [address] | + + + | Home Phone | | + + + | Preferred Language | Unknown | + + + | Marital Status | Single | + + + | Druze Affiliation | Unknown | + + + | Race | White | + + + | Ethnic Group | Not or | + + + Author + + + | Author | [facility] | + + + | Organization | [facility] | + + + | Address | [...] Team Providers + +------+ + | Care Group Leader Name | Role | Phone | + +------+ + | Lia Pérez | PCP | | + +------+ + Encounter Details +--------+ + + + + | Date | Type | Department | Care Team | Description | +--------+ + + + + | 05/22/ | Telephone | Marvin Singer | Jeffry Rice, | | | 2014 | | [facility] | [address] | | | | | [facility] | [address] | | | | | [address] | [place], [place] | | | | | [address] | [address] | | | | | Mailcode: [id number] | | | | | | [facility] | | | | | | [address], | | | | | | [place] [address] | | | | | | [phone] | | | +--------+ + + + [...] Telephone Encounter - Julieth Lilly RN - 05/22/2015 5:08 PM PDTLeft voicemail with Tonia mason, treatment facility counselor, to call and verify if Sterling will be able to attend his s cheduled appt tomorrow. Asked that she call clinic first thing tomorrow morning and ask for Kimmy Roper RN, CDE or myself. Julieth Rice RN, BSN, CDE Registered Nurse, [employer] [facility] Mail code [id number] [address] [facility] [place] [address] (tel) [phone] (fax) documented in this encounter Plan of Treatment Not on filedocumented as of this encounter Visit Diagnoses Not on filedocumented in this encounter"
--- OUTSIDE RECORDS SUMMARY | ~2020-04-12 | XMS | Encounter Summary ---
Demographics + + + | Address | [address] | | | [place] [address] | + + + | Home Phone [...] Author + + + | Author | [facility] | + + + | Organization | [facility] | + + + | [...] Team Providers + +------+ + | Care Quenching Car Operator Name | Role | Phone | + +------+ + | No Pcp Per Patient | PCP | Unavailable | + +------+ + Encounter Details +--------+ + + + + | Date | Type | Department | Care Team | Description | +--------+ + + + + | 01/19/ | Abstract | Pediatric | Orestes Quinn MD | | | 2020 | | Endocrinology at | [address] | | | | | [place] | [facility], | | | | | [facility] | [place] [address] | | | | | [address] | [phone] | | | | | [place] | | | | | | [place], [place] | | | | | | [address] | | | | | | [phone] | | | +--------+ + + + [...] + +--------+ + + + | LAB OTHER | Routin | 01/19/2020 | | Results for this | | | e | 7:11 AM | | procedure are in the | | | | PDT | | results section. | + +--------+ + + + | FREE T4 | Routin | 01/19/2020 | | Results for this | | | e | 7:11 AM | | procedure are in the | | | | PDT | | results section. | + +--------+ + + + | TSH | Routin | 01/19/2020 | | Results for this | | | e | 7:11 AM | | procedure are in the | | | | PDT | | results section. | + +--------+ + + + documented in this encounter Results LAB OTHER (01/19/2020 7:11 AM PDT) + +--------+ + + + | Component | Value | Ref Range | Performed | Pathologist | | | | | At | Signature | + +--------+ + + + | MICROALBUMI | 0.7 | 0.0 - 2.0 mg/L | [facility] | | | N URINE, | | | LAB - | | | POC | | | [place] | | + +--------+ + + + | CREATININE, | 114.67 | mg/dL | [facility] | | | URINE | | | LAB - | | | | | | [place] | | + +--------+ + + + + + | Specimen | + + | Urine | + + + + + + + | Performing | Address | City/State/Zipcode | Phone Number | | Organization | | | | + + + + + | [facility] - | [address] | [place], [place] | [phone] | | [place] | | | | + + + + + TSH (01/19/2020 7:11 AM PDT) + +-------+ + + + | Component | Value | Ref Range | Performed | Pathologist | | | | | At | Signature | + +-------+ + + + | TSH | 1.84 | 0.270 - 4.20 | [facility] | | | | | uIU/ml | LAB - | | | | | | [place] | | + +-------+ + + + + + | Specimen | + + | Blood - Blood | | (substance) | + + + + + + + | Performing | Address | City/State/Zipcode | Phone Number | | Organization | | | | + + + + + | [facility] - | [address] | [place], [place] | [phone] | | [place] | | | | + + + + + FREE T4 (01/19/2020 7:11 AM PDT) + +-------+ + + + | Component | Value | Ref Range | Performed | Pathologist | | | | | At | Signature | + +-------+ + + + | FREE T4, | 1.20 | 0.71 - 1.7 | [facility] | | | SERUM | | ng/dL | LAB - | | | | | | [place] | | + +-------+ + + + + + | Specimen | + + | Blood - Blood | | (substance) | + + + + + + + | Performing | Address | City/State/Zipcode | Phone Number | | Organization | | | | + + + + + | [facility] - | [address] | [place], [place] | [phone] | | [facility] | | | | + + + + + documented in this encounter Visit Diagnoses Not on filedocumented in this encounter"
--- OUTSIDE RECORDS SUMMARY | ~2020-04-12 | XMS | Encounter Summary ---
Demographics + + + | Address | [address] | | | [place] [address] | + + + | Home Phone | | + + + | Preferred Language | Unknown | + + + | Marital Status | Single | + + + | Taoist Affiliation | Unknown | + + + | Race | White | + + + | Ethnic Group | Not or | + + + Author + + + | Author | [facility] | + + + | Organization | [facility] | + + + | Address | Unknown | + + + | Phone | Unavailable | + + + Support + + +---------+ + | Name | Relationship | Address | Phone | + + +---------+ + | Amnada Monique | ECON | Unknown | | + + +---------+ + | Sterling Monique Sr. | ECON | Unknown | | + + +---------+ + | Soco Salguero | ECON | Unknown | | + + +---------+ + | Rhina Pleitez | ECON | Unknown | | + + +---------+ + Care Team Providers + +------+ + | Care Multiple Punch Press Operator Name | Role | Phone | + +------+ + | No Pcp Per Patient | PCP | Unavailable | + +------+ + Encounter Details +--------+--------+ + + + | Date | Type | Department | Care Team | Description | +--------+--------+ + + + | 11/17/ | Refill | Marvin Singer | Orestes Quinn MD | | | 2020 | | [facility] | [address] | | | | | [facility] | [facility], | | | | | [address] | [place] [address] | | | | | [address] | [phone] | | | | | Physician's | | | | | | [address] | | | | | | [place], [place] | | | | | | [address] | | | | | | [phone] | | | +--------+--------+ + + + [...] Telephone Encounter - Ria Bravo MA - 11/18/2019 4:52 PM PDTFormatting of this note mi ght be different from the original. MD Ria Hanson MA Can you check to see if his insurance needs prior auth or prescription for CGM G6? Insurance: [employer] [place] is under [employer] benefits program. [employer] allows pharmacy fill/coverag e for G6. Pended refill request for Dexcom G6 and routed to to review. Last Appointment in [facility] was on 09/25/17 at 3:33 pm with Orestes Quinn MD. Next Appointment in [facility] is on 12/23/19 at 1:15 pm with Orestes Quinn MD. documented in this enco unter Plan of Treatment Not on filedocumented as of this encounter Visit Diagnoses Not on filedocumented in this encounter"
--- OUTSIDE RECORDS SUMMARY | ~2020-04-12 | XMS | Encounter Summary ---
Demographics + + + | Address | [address] | | | [place] [address] | + + + | Home Phone | | + + + | Preferred Language | Unknown | + + + | Marital Status | Single | + + + | Adventism Affiliation | Unknown | + + + | Race | White | + + + | Ethnic Group | Not or | + + + Author + + + | Author | [facility] | + + + | Organization | [facility] | + + + | Address [...] Providers + +------+ + | Care Customer Strategy Manager Name | Role | Phone | + +------+ + | Saida Alegria MD | PCP | | + +------+ + Reason for Visit + + + | Reason | Comments | + + + | Referral To | Multiple episodes of UTI and trace blood on UA today, poorly | | Pediatric Nephrology | controlled type one diabetes | + + + Encounter Details +--------+ + + + + | Date | Type | Department | Care Team | Description | +--------+ + + + + | 06/21/ | Documentati | Pediatric | Shaan Del Angel | Referral To | | 2012 | on | Nephrology at | MD John [address] | Pediatric Nephrology | | | | [place] | [address] | (Multiple episodes | | | | [facility] | [place], [place] | of UTI and trace | | | | [address] | [address] | blood on UA today, | | | | [place] | [phone] | poorly controlled | | | | [facility], | | type one diabetes) | | | | 7th floor | | | | | | [place], [place] | | | | | | [address] | | | | | | [phone] | | | +--------+ + + + [...] this encounter Miscellaneous Notes Telephone Encounter - Samantha Cervantes RN - 06/22/2013 8:41 AM PSTReceived referral to [facility] from [facility] Endocrinology for 12yo male with trace hematuria, Type 1 DM (poorly c ontrolled), ADHD. h/o UTI 3wks ago. Recently moved from [place] where he was living wit h his father, now lives with his mother in [place]. (note: older brother committed suicide at age 19yo). 45.77Kg, 17.31 BMI UA 06/17/13 Neg pro, trace blood, glu >1000, SG 1.010 microalbumin 9 Creatinine 25.5 Labs: 06/17/13 TSH 2.19 T4 1 Trig 259 documented in this e ncounter Plan of Treatment Not on filedocumented as of this encounter Visit Diagnoses Not on filedocumented in this encounter"
--- OUTSIDE RECORDS SUMMARY | ~2020-04-12 | XMS | Encounter Summary ---
Demographics + + + | Address | [address] | | | [place] [address] | + + + | Home Phone [...] Team Providers + +------+ + | Care Case Management Associate Name | Role | Phone | + +------+ + | Saida Alegria MD | PCP | | + +------+ + Reason for Visit +--------+--------+ + | Reason | Onset | Comments | | | Date | | +--------+--------+ + | Other | 05/26/ | help paying a bill | | | 2013 | | +--------+--------+ + Encounter Details +--------+ + + + + | Date | Type | Department | Care Team | Description | +--------+ + + + + | 05/26/ | Telephone | Marvin Singer | Mark Jaeger MD | Other (help paying a | | 2013 | | [facility] | | bill) | | | | [facility] | | | | | | [address] | | | | [address] | | | | | | Physician's | | | | | | [address] | | | | | | [place], [place] | | | | | | [address] | | | | | | [phone] | | | +--------+ + + + [...] Telephone Encounter - Mark Jaeger MD - 06/12/2014 10:40 AM PSTI received a call from [place] office. He is nauseated, ill appearing, and breathing fast and deeply. He also s eems confused. Apparently he was at a local ED last night and was found to be in DKA but bec rambo combative and angry and refused treatment. He denies skipping his lantus dose but he als o indicated yesterday that he was not going to take care of his diabetes anymore. I indicate d that Sterling needed to get to the nearest emergency room as soon as possible. I discussed t he exigent urgency of the current situation with his sister who expressed understanding. Masood feng is currently willing to accept medical care by report. The family is currently heading t o a local emergency room. elephone Encounter - Holli Schulte - 05/26/2014 2:33 PM Mary stated that Dr. Jaeger told her at the last offic e visit to call us once she receives the bill for son's care and we will help her pay the re maining balance. I told her that I would get a message to [place] and have her call her back with the information. documented in this encounter Plan of Treatment Not on filedocumented as of this encounter Visit Diagnoses Not on filedocumented in this encounter"
--- OUTSIDE RECORDS SUMMARY | ~2020-04-12 | XMS | Encounter Summary ---
Demographics + + + | Address | [address] | | | [place] [address] | + + + | Home Phone | | + + + | Preferred Language | Unknown | + + + | Marital Status | Single | + + + | Latter Day Affiliation | Unknown | + + + | Race | White | + + + | Ethnic Group | Not or | + + + Author + + + | Author | [facility] | + + + | Organization | [facility] | + + + | [...] Team Providers + +------+ + | Care Elderly Caregiver Name | Role | Phone | + +------+ + | Lia Pérez | PCP | | + +------+ + Reason for Visit + +--------+ + | Reason | Onset | Comments | | | Date | | + +--------+ + | Nursing Facility | 04/18/ | | | Orders | 2015 | | + +--------+ + Encounter Details +--------+ + + + + | Date | Type | Department | Care Team | Description | +--------+ + + + + | 04/18/ | Telephone | Marvin Singer | Mark Jaeger MD | Nursing Facility | | 2014 | | [facility] | | Orders | | | | [facility] | | | | | | [address] | | | | | | [address] | | | | | | Physician's | | | | | | [address] | | | | | | [place], [place] | | | | | | [address] | | | | | | [phone] | | | +--------+ + + + [...] this encounter Miscellaneous Notes Telephone Encounter - Kimmy Roper CNS - 04/20/2015 2:28 PM PDTReturned call and erich young questions she had regarding orders sent.Electronically signed by SWETHA Anguiano at 04/20 2:28 PM PDTTelephone Encounter - Christiano Ernst MA - 04/19/2015 11:33 AM Mike called and would like to speak with Kimmy regarding diabetes care. Please call Sandra at [phone]. elephone Encounter - Kimmy Roper CNS - 04/18/2015 4:59 PM PDTFormatting of this note might be diff erent from the original. Contacted Sandra Garcia RN at the [facility] where Sterling has been incarcerated since 04/09/2015 and expected to be there until mid next week when he returns t o court. It is possible he will be released to home or return to the center Reason for Call: . Sandra is concerned with Sterling's blood sugars and wondering if insulin dose adjustments are needed. Per RN Sterling has had two hospitalizations in the [facility] for DKA in the last 6 months. Last Seen: 11/17/[address] Jaeger. Advised follow up with new provider (unspecified) in 4 months - no pending visits. Current Doses: Lantus 30 units taken at bedtime Humalog 1:10 grams carbohydrate at meals HBS Correction: using at meals, whenever blood sugar checked and high and bedtime 151 - 200 5 units 201 - 250 6 units 251 - 300 7 units 301 - 350 8 units 351 - 400 9 units >400 10 units Meal Plan: Meal trays are fixed at the facility and all detainees eat the same. RN unable to tell me how many grams of carbohydrate are on tray and kitchen facility does not provide carb counts. Getting a bedtime snack, but per report the carb content may vary from 15-45g ms (ie; full sandwich and milk or few crackers and cheese). Last evening snack was full adrian t sandwich and carton of milk, but night before cheese and crackers. Low Blood Sugar: Sterling has access to his meter, but not tx items. If feeling low tells s taff and they provide juice or milk. Current Blood Sugars: Not all insulin doses known at meals. Date 12-2am 3-5am Breakfast Post-Brkfst Lunch Mid-pm Dinner Post-dinner pre-snack Bedtime ~11pm 04/18/2015 53/82 tx juice 192 1030 158 118 04/17/2015 44/64/82 tx with juice 76 173 ? 152 had correction 5 units and snack 51/96 04/16/2015 56/83 87 51/134 147 155 had correction 5 units and snack 44/? 04/15/2015 55/85 207 202 74/120 147 131 45/53/[address] Morrell and facility orders drafted and faxed to RN at [facility]. Plan: Lantus decrease to 28 units Humalog 1:10 Correction: Change to 1:50 > 150 Left voicemail for Sandra Garcia RN to let her know orders were faxed as she had already le ft for the day. elephone Encounter - Jada Vernon - 04/18/2015 12:42 PM Sandra COY with [facility] mike gutierrez requesting facility orders for Sterling [place] [id number], phone [phone] ask [place] to medical [place] [id number] Paged Martha Flores to leave detailed msg if after 2 12: 44 PM PDTdocumented in this encounter Plan of Treatment Not on filedocumented as of this encounter Visit Diagnoses Not on filedocumented in this encounter"
--- OUTSIDE RECORDS SUMMARY | ~2020-04-12 | XMS | Encounter Summary ---
Demographics + + + | Address | [address] | | | [place] [address] | + + + | Home Phone | | + + + | Preferred Language | Unknown | + + + | Marital Status | Single | + + + | Catholic Affiliation | Unknown | + + + | Race | White | + + + | Ethnic Group | Not or | + + + Author + + + | Author | [facility] | + + + | Organization | [facility] | + + + | [...] Team Providers + +------+ + | Care Marketing Developer Name | Role | Phone | + +------+ + | Lia Pérez | PCP | | + +------+ + Reason for Visit + +--------+ + | Reason | Onset | Comments | | | Date | | + +--------+ + | blood sugar | 05/11/ | | | management | 2015 | | + +--------+ + Encounter Details +--------+ + + + + | Date | Type | Department | Care Team | Description | +--------+ + + + + | 05/11/ | Telephone | Marvin Singer | Ludy Diamond, | blood sugar | | 2015 | | [facility] | MD [address] | management | | | | [facility] | [facility] | | | | | [address] | [place], [place] | | | | | [address] | [address] | | | | | Physician's | [phone] | | | | | [address] | | | | | | [place], [place] | | | | | | [address] | | | | | | [phone] | | | +--------+ + + + [...] this encounter Miscellaneous Notes Telephone Encounter - Karyna Kaufman RD - 05/14/2015 2:34 PM PDTAdditional Information : - BG log is available under the media tab 05/07/15 - Team visit requested to be scheduled and will need to be confirmed with Gissel when she stacy ls back: Wednesday 05/23: Lo 12:30- 1pm Mandeep, return education: 1-2pm Ludy Diamond: 2:15 pm Hawa Kaufman MS, RD, LD, CDE [employer], Dietitian [facility] Mail Code: [id number] [address] [place] [address] elephone Encounter - Karyna Kaufman RD - 05/14/2015 2:14 PM PDTPediatric Diabetes: LM for Gissel to call back and speak with pediatric application integrator or attending religion teacher. Hawa Kaufman MS, RD, LD, CDE [employer], Dietitian [facility] Mail Code: [id number] [address] [place] [address] elephone Encounter - Annita Ricks - 05/11/2015 3:54 PM PDTGissel called again still waiting for a return ca ll. See message below. e lephone Encounter - Jada Vernon - 05/11/2015 1:14 PM PDTJotenisha with pt's treatment facilit y requesting call back to review cbg's and insulin dosage, previous note from Dr Ludy marshall refers pt to educators. Recent cbg logs were faxed to clinic on 05/04. Please call Gissel at [phone]. documented in this encounter Plan of Treatment Not on filedocumented as of this encounter Visit Diagnoses Not on filedocumented in this encounter"
--- OUTSIDE RECORDS SUMMARY | ~2020-04-12 | XMS | Encounter Summary ---
Demographics + + + | Address | [address] | | | [place] [address] | + + + | Home Phone [...] Team Providers + +------+ + | Care Geropsychologist Name | Role | Phone | + +------+ + | Lexx Schrader DO | PCP | | + +------+ + Reason for Visit + +--------+ + | Reason | Onset | Comments | | | Date | | + +--------+ + | Refill Request | 12/21/ | Novolog flexpenDelores | | | 2018 | | + +--------+ + Encounter Details +--------+--------+ + + + | Date | Type | Department | Care Team | Description | +--------+--------+ + + + | 12/21/ | Refill | Marvin Singer | Orestes Quinn MD | Refill Request | | 2017 | | [facility] | [address] | (Novolog flexpen, | | | | [facility] | [address] [place], | [place] [address]) | | | | [address] | [place] [address] | | | | | [address] | [phone] | | | | | Physician's | | | | | | [address], [address] [address] | | | | | | [place], [place] | | | | | | [address] | | | | | | [phone] | | | +--------+--------+ + + + [...] Telephone Encounter - Boyd Munoz MA - 12/22/2017 8:20 AM PDTLantus and Novolog Prescrip tion authorized per [facility] Urgent Out of Insulin Refill Pro tocol [id number] Last Appointment in [facility] was on 09/25/17 at 10:10 am with Orestes Quinn MD. Next Appointment in [facility] is on 01/22/18 at 3:20 pm with Orestes Quinn MD. elephone Encounter - Jada Golden - 12/21/2017 4:15 PM PDTPharmacy called to inform that patient is out of med ication. elephone Encounter - Ria Hernandez MA - 12/21/2017 11:10 AM PDTPended refill request for Novolog flexpen, Lantus S olostar and routed to to review. Last Appointment in [facility] was on 09/25/17 at 10:10 am with Orestes Quinn MD. Next Appointment in [facility] is on 01/22/18 at 3:20 pm with Orestes Quinn MD. elephone Encounter - P Jada thomas - 12/21/2017 10:11 AM PDTRobert Mario Monique : 2000 Pt is out of Novolog. Paged MAs Last Appointment in [facility] was on 09/25/17 at 10:10 am with Orestes Quinn MD. Next Appointment in [facility] is on 01/22/18 at 3:20 pm with Orestes Quinn MD. Medication: Novolog Pens Strength: Dose: Up to 200 units per day Quantity: 3 month Additional Medication: Yes Medication: Lantus Solostar Strength: Dose: 38 units per day Quantity: 3 month Additional Medication: No Pharmacy Updated: [facility] [place] Prescription Routing: Retail order: Fax or call in to pharmacy Patient/caller advised of department's 72 hour turnaround for refill requests documented in this enco unter Plan of Treatment Not on filedocumented as of this encounter Visit Diagnoses Not on filedocumented in this encounter"
--- OUTSIDE RECORDS SUMMARY | ~2020-04-12 | XMS | Encounter Summary ---
Demographics + + + | Address | [address] | | | [place] [address] | + + + | Home Phone | | + + + | Preferred Language | Unknown | + + + | Marital Status | Single | + + + | Yarsani Affiliation | Unknown | + + + [...] Team Providers + +------+ + | Care Mainspring Strip Gauger Name | Role | Phone | + +------+ + | Lexx Schrader DO | PCP | | + +------+ + Encounter Details +--------+ + + + + | Date | Type | Department | Care Team | Description | +--------+ + + + + | 05/07/ | Documentati | Marvin Singer | Orestes Quinn MD | | | 2018 | on | [facility] | [address] [facility] | | | | | [facility] | [facility], | | | | | [address] | [place] [address] | | | | | [address] | [phone] | | | | | Physician's | | | | | | [address] | | | | | | [place], [place] | | | | | | [address] | | | | | | [phone] | | | +--------+ + + + [...]
--- OUTSIDE RECORDS SUMMARY | ~2020-04-12 | XMS | Encounter Summary ---
Demographics + + + | Address | [address] | | | [place] [address] | + + + | Home Phone [...] Team Providers + +------+ + | Care Key Person Name | Role | Phone | + +------+ + | Lia Pérez | PCP | | + +------+ + Encounter Details +--------+ + + + + | Date | Type | Department | Care Team | Description | +--------+ + + + + | 06/28/ | Telephone | Marvin Singer | Jeffry Rice, | | | 2014 | | [facility] | S[address]U Clancy [address] | | | | | [facility] | [address] | | | | | [address] | [place], [place] | | | | | [address] | [address] | | | | | Mailcode: [id number] | | | | | | Physician's Pavilion | | | | | | [address], | | | | | | [place] [address] | | | | | | [phone] | | | +--------+ + + + [...] Telephone Encounter - Julieth Lilly RN - 06/28/2015 3:30 PM PSTLeft msg for Gissel to call paging double ending machine operator and ask to page me to discuss new facility orders sent today. Julieth Rice RN, BSN, CDE Registered Nurse, [place] documented in this encounter Plan of Treatment Not on filedocumented as of this encounter Visit Diagnoses Not on filedocumented in this encounter"
--- OUTSIDE RECORDS SUMMARY | ~2020-04-12 | XMS | Encounter Summary ---
Demographics + + + | Address | [address] | | | [place] [address] | + + + | Home Phone | | + + + | Preferred Language | Unknown | + + + | Marital Status | Single | + + + | Caodaism Affiliation | Unknown | + + + | Race | White | + + + | Ethnic Group | Not or | + + + Author + + + | Author | [facility] | + + + | Organization | [facility] | + + + | Address [...] Team Providers + +------+ + | Care Tube Room Cashier Name | Role | Phone | + +------+ + | Lexx Schrader DO | PCP | | + +------+ + Encounter Details +--------+ + + + + | Date | Type | Department | Care Team | Description | +--------+ + + + + | 05/18/ | Documentati | Marvin Singer | Orestes Quinn MD | | | 2018 | on | [facility] | [address] [facility] | | | | | [facility] | [facility], | | | | | [address] | [place] [address] | | | | | [address] | [phone] | | | | | Physician's | | | | | | [address] | | | | | | [place], [place] | | | | | | [address] | | | | | | [phone] | | | +--------+ + + + [...]
--- OUTSIDE RECORDS SUMMARY | ~2020-04-12 | XMS | Encounter Summary ---
Demographics + + + | Address | [address] | | | [place] [address] | + + + | Home Phone | | + + + | Preferred Language | Unknown | + + + | Marital Status | Single | + + + | Jewish Affiliation | Unknown | + + + | Race | White | + + + | Ethnic Group | Not or | + + + Author + + + | Author | [facility] | + + + | Organization | [facility] | + + + | Address [...] Team Providers + +------+ + | Care Oil Spreader Operator Name | Role | Phone | + +------+ + | Emmanuelle Noe MD | PCP | | + +------+ + Encounter Details +--------+ + + + + | Date | Type | Department | Care Team | Description | +--------+ + + + + | 06/17/ | Pharmacy | Outpatient Retail | | | | 2012 | Visit | [facility] | | | | | | [address] | | | | | | [place], [place] | | | | | | [address] | | | | | | [phone] | | | +--------+ + + + [...]
--- OUTSIDE RECORDS SUMMARY | ~2020-04-12 | XMS | Encounter Summary ---
Demographics + + + | Address | [address] | | | [place] [address] | + + + | Home Phone | | + + + | Preferred Language | Unknown | + + + | Marital Status | Single | + + + | Latter-Day Affiliation | Unknown | + + + | Race | White | + + + | Ethnic Group | Not or | + + + Author + + + | Author | [facility] | + + + | Organization | [facility] | + + + | Address [...] Team Providers + +------+ + | Care Fence Installer Name | Role | Phone | + +------+ + | Lia Pérez | PCP | | + +------+ + Encounter Details +--------+ + + + + | Date | Type | Department | Care Team | Description | +--------+ + + + + | 06/05/ | Documentati | [facility] | Jeffry Rice, | | | 2015 | on | [facility] | Julieth RN [address] | | | | | [facility] | [address] | | | | | [address] | [place], [place] | | | | | [address] | [address] | | | | | Mailcode: [id number] | | | | | | [facility] | | | | | | [address] [place], | | | | | | [place] [address] | | | | | | [phone] | | | +--------+ + + + [...]
--- OUTSIDE RECORDS SUMMARY | ~2020-04-12 | XMS | Encounter Summary ---
Demographics + + + | Address | [address] | | | [place] [address] | + + + | Home Phone [...] Author + + + | Author | [facility] | + + + | Organization | [facility] | + + + | Address [...] Team Providers + +------+ + | Care Clinical Cytopathologist Name | Role | Phone | + +------+ + | Lia Pérez | PCP | | + +------+ + Reason for Visit + + + | Reason | Comments | + + + | Diabetes patient | | | education type I | | + + + Other (Routine) +--------+--------+ + + + + [...] | | | | | Procedures | [place], [place] | [id number] | | | | | CONSULT TO | [address] | Physician's | | | | | PEDS | | [address] | | | | | DIABETES - | | [address] | | | | | EDUCATION | | [place], [place] | | | | | AND | | [address] | | | | | NUTRITION | | Phone: | | | | | | | [phone] | | | | | | | Fax: | | | | | | | [phone] | +--------+--------+ + + + + Encounter Details +--------+---------+ + + + | Date | Type | Department | Care Team | Description | +--------+---------+ + + + | 11/22/ | Office | [facility] | Kately[address] | Type 1 diabetes | | 2016 | Visit | [facility] | [address] | mellitus without | | | | [facility] | Ilana Dubon [place], | complication (HCC) | | | | [address] | [place] [address] | (Primary Dx) | | | | [address] | | | | | | Mailcode: [id number] | | | | | | [facility] | | | | | | [facility] [address] [place], | | | | | | [place] [address] | | | | | | [phone] | | | +--------+---------+ + + + [...] of this encounter Patient Instructions Patient Instructions Katelyn Dick RD - 01/31/2016 9:47 AM PDT documented in this encounter Progress Notes Katelyn Dick RD - 01/31/2016 10:04 AM PDTFormatting of this note might be different from t he original. [facility] Education Progress Note Diagnosis: Type 1 Diabetes Referring Provider: Dr. Quinn Visit type: MNT - New Length of visit: 60 minutes Appointment Type: Individual Type of Education: Comprehensive &/or Initial Notes Sterling is a 15 year 1 month male with Type 1 diabetes who presents today for ongoing follow -up/education and is accompanied to clinic today by his mother. Sterling recently was released from rehabilitation. While in rehabilitation, he reports that his diabetes was very regimen isreal and easier to control. He has more difficulty with diabetes out of rehab than he did in rehab. Sterling was previously on a Medtronic Revel insulin pump prior to having issues with s ubstance abuse. He was able to manage his diabetes very well while on a pump. He understands the benefits and risks of pump therapy well. Since entering rehabilitation, Sterling has done a very good job of diabetes management and is very motivated to maintaining good diabetes c are. He now lives at home with his mom. Nutrition/Routine: Sterling follows a flexible meal plan using ICR. He reports no issues in calculating his carbohydrates. An in depth look at his nutritional intake/routine/carbohydr ate counting skills was not done at today's visit. Insulin: He manages his diabetes with a Basal-bolus regimen as follows: Lantus 38 units prior to bedtime. Humalog - IC Ratio 1:7 all meals - takes insulin before eating Correction factor of 1 unit for every 50 mg/dL > 150. Snacks < 7 grams Blood glucose monitoring: Sterling checks his blood sugar at least 5 times a day most of the time. He has brought no written records, but does have a meter available to retrieve glucose readings. See details of the blood sugars in the glucose records under media tab. Target Range: 80-180 Target A1C: <7.5% Lab Results Component Value Date A1C 7.6 11/23/2015 A1C 8.3 06/26/2015 A1C >14.0 11/17/2014 Growth: Wt Readings from Last 2 Encounters: 11/23/15 71.895 kg (158 lb 8 oz) 06/26/15 66.769 kg (147 lb 3.2 oz) Ht Readings from Last 2 Encounters: 11/23/15 1.727 m (5' 8") (44 %*, Z = -0.14) 06/26/15 171.2 cm (5' 7.42") (42 %*, Z = -0.19) * Growth percentiles are based on [facility] 2-20 Years data. Last 2 Encounter BMI Readings: Date BMI 11/23/2015 24.11 kg/m2 06/26/2015 22.78 kg/m2 No unique date with height and weight on file. BMI/age: 75-85 %ile Notes: Sterling was on the Medtronic Revel pump before he was in rehab. His pump is now out of warranty and he has no supplies. Assessment Individuals Assessed: patient and mom Barriers:none identified. Learning Needs Assessed: Diabetes Disease Process, Nutritional Management, Physical Activit y, Medication, Monitoring BG, Acute complications, Chronic complications, Psychosocial Issue s and Promote Health & Behavior Change Learning Needs Evaluated: -- Pump readiness/evaluation: Sterling is not on pump therapy, but appears ready to learn abo ut pump therapy -- Pump Therapy: Identified areas for education Pump Initiation Process, Features and benef its of pumps, Documentation / Communication with Diabetes Care Team, Insulin on Board, Behav ior Change/Problem Solving, Acute Complications including hypo/hyperglycemia management on p ump therapy, Pump malfunction, Troubleshooting insulin pump, Product support contact informa tion and How to obtain insulin pump supplies/reorders. Education Intervention Commended patient/family for coming in today despite car issues. Learner: patient and mom Provided education using the following materials: Supporting pump materials for Me iman Martinez [place] -- Pump readiness/evaluation: Provided the following education: Pump Therapy: overview of i nsulin pump therapy, unique challenges with pump therapy age, features and benefits of pump therapy, integrated pump/CGM therapy and stand-alone CGM with pump, per the following techno logies Medtronic 530G with Enlite, Medtronic Revel, [place], Tslim and Tsli m with G4, reviewed infusion set options using the Inset infusion set with the following con siderations body type and activity, site uses, pump initiation process including general cos ts and initial/ongoing, insurance preauthorization, training visits required and expected co mmunication with the team via SpectraLinearhart Pump management considerations: Ketones/DKA: how/why ketones may develop, potential evoluti on to DKA if ketones left untreated, when to check ketones and when to contact the team Supplies: mail order/DME, how to obtain pump supplies vs. insulin and what to keep on hand Preferred pump choice: TSlim Preferred pump set: Inset -- Pump Therapy: Provided the following education: Pump Initiation Process, Features and be nefits of pumps, Documentation / Communication with Diabetes Care Team, Insulin on Board, Be havior Change/Problem Solving, Items to Carry, Acute Complications including hypo/hyperglyce kyrie management on pump therapy, Pump malfunction, Travel with pump, Troubleshooting insulin pump, Product support contact information and How to obtain insulin pump supplies/reorders. Evaluation of Learning Patient / Family Response to Teaching: Yes - Verbalizes understanding of education provided. Yes - Demonstrates ability to perform skill. Yes - Patient was active participant/motivated. Behavioral Goal Goal chosen by patient/family: Using Medications Safely. Goal Specific: To get back on pump therapy Behavior Change Objective: To better manage my blood glucose Progress towards the goal(s) the patient/family chose: Using Medications Safely 0% Education Plan Follow-Up Plan: MNT DSMT Pump: saline start, insulin start and follow up Additional education needed: Continued diabetes education; assessment of carbohydrate count ing skills; pump initiation/start once received Patient Instructions (AVS) Per Dr. Quinn. . . 1. Obtain cpeptide and fasting glucose labs so we can submit these along with your pump pa curtis paperwork, when you have decided on a pump 2. Review pump materials and let us know when you have decided on a pump. Right now, you are the most interested in the TSLIM pump. Once you have decided on a pump and have complet ed your labwork, we will submit your paperwork. 3. Start keeping a logbook with BG and dosing information. This will make your transition to pump logbooks easier. Katelyn Dick RD [facility] [address] [address] FLOOR [address] [facility] Mailcode: [id number] [place] [address] [phone] signed by Katelyn Dick RD at 01/31/2016 10:05 AM PDTdocumented i n this encounter Plan of Treatment Not on filedocumented as of this encounter Procedures + +--------+ + + + | Procedure Name | Priori | Date/Time | Associated Diagnosis | Comments | | | ty | | | | + +--------+ + + + | MA DIAB MANAGE TRN | Routin | 01/31/2016 | Type 1 diabetes | | | PER INDIV | e | 10:05 AM | mellitus without | | | | | PDT | complication (HCC) | | + +--------+ + + + documented in this encounter Visit Diagnoses + + | Diagnosis | + + | Type 1 diabetes mellitus without complication (HCC) - Primary Type I (juvenile type) | | diabetes mellitus without mention of complication, not stated as uncontrolled | + + documented in this encounter
--- OUTSIDE RECORDS SUMMARY | ~2020-04-12 | XMS | Encounter Summary ---
Demographics + + + | Address | [address] | | | [place] [address] | + + + | Home Phone [...] Team Providers + +------+ + | Care Clinic Business Manager Name | Role | Phone | + +------+ + | Saida Alegria MD | PCP | | + +------+ + Encounter Details +--------+ + + + + | Date | Type | Department | Care Team | Description | +--------+ + + + + | 09/18/ | Document-Sc | UNKNOWN DEPARTMENT | Unknown . | | | 2015 | anned | [address] | | | | | | [address] | | | | | | [place], [place] | | | | | | [address] | | | +--------+ + + + [...] documented as of this encounter Miscellaneous Notes Scan - Ghanshyam Mann - 09/19/2014 8:17 AM PSTElectronically signed by Ghanshyam Mann at 8:17 AM PSTdocumented in this encounter Plan of Treatment Not on filedocumented as of this encounter Visit Diagnoses Not on filedocumented in this encounter"
--- OUTSIDE RECORDS SUMMARY | ~2020-04-12 | XMS | Encounter Summary ---
Demographics + + + | Address | [address] | | | [place] [address] | + + + | Home Phone | | + + + | Preferred Language | Unknown | + + + | Marital Status | Single | + + + | Mandaeism Affiliation | Unknown | + + + | Race | White | + + + | Ethnic Group | Not or | + + + Author + + + | Author | [facility] | + + + | Organization | [facility] | + + + | Address | [...] Team Providers + +------+ + | Care Apartment Rental Agent Name | Role | Phone | + +------+ + | No Pcp Per Patient | PCP | Unavailable | + +------+ + Reason for Visit + +--------+ + | Reason | Onset | Comments | | | Date | | + +--------+ + | Medication Question | 12/05/ | insulin dosing | | | 2020 | | + +--------+ + Encounter Details +--------+ + + + + | Date | Type | Department | Care Team | Description | +--------+ + + + + | 12/05/ | Telephone | Marvin Singer | Orestes Quinn MD | Medication Question | | 2019 | | [facility] | [address] | (insulin dosing) | | | | Center at [facility] | [facility], | | | | | [address] | [place] [address] | | | | | [address] | [phone] | | | | | Physician's | | | | | | [address] | | | | | | [place], [place] | | | | | | [address] | | | | | | [phone] | | | +--------+ + + + [...] Telephone Encounter - Orestes Quinn MD - 12/07/2019 8:42 AM PDTFax orders to split dose.E lectronically signed by Orestes Quinn MD at 12/07/2019 8:42 AM PDTTelephone Encounter - Donell Vivar - 12/06/2019 10:04 AM PDTPt called clinic requesting that his insulin doses are "broken up into 2 different times" so it doesn't wear off overnight. Pt states he is waking up in the 300s and 400s every morning. Pt states he isn't comfortable with increasing the d ose just yet, he would rather split doses. Pt also says if it is ok to split doses, his [facility] facility will need order. Please call pt to advise. Call [phone] ext [phone] [id number] signed by Donell Ruiz at 12/06/2019 10:08 AM PDTdocumented in this encounter Plan of Treatment Not on filedocumented as of this encounter Visit Diagnoses Not on filedocumented in this encounter
--- OUTSIDE RECORDS SUMMARY | ~2020-04-12 | XMS | Encounter Summary ---
Demographics + + + | Address | [address] | | | [place] [address] | + + + | Home Phone | | + + + | Preferred Language | Unknown | + + + | Marital Status | Single | + + + | Presybeterian Affiliation | Unknown | + + + [...] Team Providers + +------+ + | Care Ophthalmic Medical Assistant Name | Role | Phone | + +------+ + | No Pcp Per Patient | PCP | Unavailable | + +------+ + Reason for Referral Consultation (Routine) +--------+--------+ + + + + | Status | Reason | Specialty | Diagnoses / | Referred By | Referred To | | | | | Procedures | Contact | Contact | +--------+--------+ + + + + | Closed | | | Diagnoses | Dewey, | Debbi, | | | | | Type 1 | MD Orestes | MD Jada | | | | | diabetes | [address] | [address] | | | | | mellitus | [facility] | | | | | | with | Rd | [address] | | | | | hyperglycemi | [place], [place] | [place] | | | | | miguel a ([facility]) | [address] | [address] | | | | | Procedures | Phone: | Phone: | | | | | CONSULT TO | [phone] | [phone] | | | | | NON - [facility] | Fax: | Fax: | | | | | PROVIDER | [phone] | [phone] | +--------+--------+ + + + + Reason for Visit + +--------+ + | Reason | Onset | Comments | | | Date | | + +--------+ + | Referral | 12/06/ | New Endo | | | 2020 | | + +--------+ + Encounter Details +--------+ + + + + | Date | Type | Department | Care Team | Description | +--------+ + + + + | 12/06/ | Telephone | Marvin Singer | Orestes Quinn MD | Referral (New Endo) | | 2020 | | [facility] | [address] [facility] | | | | | Center at [facility] | [facility], | | | | | [address] | [place] [address] | | | | | [address] | [phone] | | | | | Physician's | | | | | | [address] [facility] | | | | | | [place], [place] | | | | | | [address] | | | | | | [phone] | | | +--------+ + + + [...] this encounter Miscellaneous Notes Telephone Encounter - Connie Leongchavez - 12/07/2019 2:52 PM PDTPt requesting a referral to a new Journeyman Machinist due to distance. Please refer patient to: [facility] [address]. [place] Werner [phone] phone. Pt did not have fax number. documented in this encounter Plan of Treatment Not on filedocumented as of this encounter Visit Diagnoses + + | Diagnosis | + + | Type 1 diabetes mellitus with hyperglycemia (HCC) - Primary Type I (juvenile type) | | diabetes mellitus without mention of complication, not stated as uncontrolled | + + documented in this encounter"
--- OUTSIDE RECORDS SUMMARY | ~2020-04-12 | XMS | Encounter Summary ---
Demographics + + + | Address | [address] | | | [place] [address] | + + + | Home Phone | | + + + | Preferred Language | Unknown | + + + | Marital Status | Single | + + + | Restorationism Affiliation | Unknown | + + + | Race | White | + + + | Ethnic Group | Not or | + + + Author + + + | Author | [facility] | + + + | Organization | [facility] | + + + | Address [...] Team Providers + +------+ + | Care Pediatrics Teacher Name | Role | Phone | + +------+ + | No Pcp Per Patient | PCP | Unavailable | + +------+ + Encounter Details +--------+ + + + + | Date | Type | Department | Care Team | Description | +--------+ + + + + | 01/16/ | [facility] | Marvin Singer | Joyce Perez, | share blood sugar | | 2020 | Encounter | [facility] | [address] | data for appointment | | | | [facility] | [place] | tomorrow | | | | [address] | [place], [place] | | | | | [address] | [address] | | | | | Mailcode: [id number] | | | | | | [facility] | | | | | | [address] [place], | | | | | | [place] [address] | | | | | | [phone] | | | +--------+ + + + [...]
--- OUTSIDE RECORDS SUMMARY | ~2020-04-12 | XMS | Encounter Summary ---
Demographics + + + | Address | [address] | | | [place] [address] | + + + | Home Phone | | + + + | Preferred Language | Unknown | + + + | Marital Status | Single | + + + | Jehovah'S Witness Affiliation | Unknown | + + + [...] Team Providers + +------+ + | Care Seasonal Tax Preparer Name | Role | Phone | + +------+ + | Emmanuelle Noe MD | PCP | | + +------+ + Reason for Visit + +--------+ + | Reason | Onset | Comments | | | Date | | + +--------+ + | Care Questions | Called and let referring provider's office know that pt | | | 2019 | no showed his appt with Dr. Figueroa on 03/01/20. Was | | | | unable to get ahold of pt to confirm this appt. | + +--------+ + Encounter Details +--------+ + + + + | Date | Type | Department | Care Team | Description | +--------+ + + + + | Telephone | [facility] | Rickey Figueroa, | Care Questions | | 2019 | | [facility] | [address] | (Called and let | | | | Carissa [address] | [address] | referring provider's | | | | [facility] | [place], [place] | office know that pt | | | | Clinic [facility] [place], | [address] | no showed his appt | | | | [place] [address] | [phone] | with Dr. Figueroa on | | | | [phone] | | 03/01/20. Was | | | | | | unable to get ahold | | | | | | of pt to confirm | | | | | | this appt.) | +--------+ + + + + Social [...]
--- OUTSIDE RECORDS SUMMARY | ~2020-04-12 | XMS | Encounter Summary ---
Demographics + + + | Address | [address] | | | [place] [address] | + + + | Home Phone [...] Team Providers + +------+ + | Care Wet Cleaner Machine Name | Role | Phone | + +------+ + | Saida Alegria MD | PCP | | + +------+ + Encounter Details +--------+ + + + + | Date | Type | Department | Care Team | Description | +--------+ + + + + | 04/18/ | Abstract | Pediatric | Deb Duran Russell, | | | 2013 | | Nephrology at | PICKED EDGE SEWING MACHINE OPERATOR [address] [facility] | | | | | P[place]y | [facility] | | | | | [facility] | [place], [place] | | | | | [address] | [address] | | | | | [address]y | [phone] | | | | | [facility], | | | | | | [address] [place] [address] | | | | | | [place], [place] | | | | | | [address] | | | | | | [phone] | | | +--------+ + + + [...] | + +--------+ + + + | PED NEPHROLOGY | Routin | 04/17/2014 | | Results for this | | EXTERNAL RESULTS | e | | | procedure are in the | | PANEL | | | | results section. | + +--------+ + + + documented in this encounter Results PED NEPHROLOGY EXTERNAL RESULTS PANEL (04/17/2014) + +--------+ + + + | Component | Value | Ref Range | Performed | Pathologist | | | | | At | Signature | + +--------+ + + + | MICROALBUMI | <0.5 | mg/dL | [facility] | | | N URINE, | | | LAB - | | | POC | | | [place] | | + +--------+ + + + | PROTEIN | <4 | mg/dL | [facility] | | | CONC URINE | | | LAB - | | | | | | [place] | | + +--------+ + + + | CREATININE | 26 | mg/dL | [facility] | | | CONC UR | | | LAB - | | | | | | [place] | | + +--------+ + + + | PROTEIN/CRE | <0.15 | mg/mg | [facility] | | | ATININE | | | LAB - | | | RATIO | | | [place] | | + +--------+ + + + | UR | random | hr | [facility] | | | COLLECTION | | | LAB - | | | TIME | | | [place] | | + +--------+ + + + | URINE | spot | mL | [facility] | | | VOLUME(REF) | | | LAB - | | | | | | [place] | | + +--------+ + + + + + | Specimen | + + | Blood - Blood | + + + + + + + | Performing | Address | City/State/Zipcode | Phone Number | | Organization | | | | + + + + + | [facility] | [address] | [place] | [phone] | | [place] | | | | + + + + + documented in this encounter Visit Diagnoses Not on filedocumented in this encounter"
--- OUTSIDE RECORDS SUMMARY | ~2020-04-12 | XMS | Encounter Summary ---
Demographics + + + | Address | [address] | | | [place] [address] | + + + | Home Phone [...] + + + | Author | [facility] | + + + | Organization | [facility] | + + + | [...] Team Providers + +------+ + | Care Technology Services Manager Name | Role | Phone | + +------+ + | Saida Alegria MD | PCP | | + +------+ + Encounter Details +--------+------+ + + + | Date | Type | Department | Care Team | Description | +--------+------+ + + + | 06/17/ | Lab | [facility] at [facility] | | Type I (juvenile | | 2012 | | [address] | | type) diabetes | | | | Loop Physician's | | mellitus without | | | | [address], [address] floor | | mention of | | | | [place], [place] | | complication, not | | | | [address] | | stated as | | | | [phone] | | uncontrolled | +--------+------+ + + + Social History [...] + + | TISSUE | Routin | 06/17/2013 | Type I (juvenile | Results for this | | TRANSGLUTAMINASE | e | 3:58 PM | type) diabetes | procedure are in the | | IGA, SERUM | | PST | mellitus without | results section. | | | | | mention of | | | | | | complication, not | | | | | | stated as | | | | | | uncontrolled | | + +--------+ + + + | IGA, SERUM | Routin | 06/17/2013 | Type I (juvenile | Results for this | | | e | 3:58 PM | type) diabetes | procedure are in the | | | | PST | mellitus without | results section. | | | | | mention of | | | | | | complication, not | | | | | | stated as | | | | | | uncontrolled | | + +--------+ + + + | FREE T4 | Routin | 06/17/2013 | Type I (juvenile | Results for this | | | e | 3:58 PM | type) diabetes | procedure are in the | | | | PST | mellitus without | results section. | | | | | mention of | | | | | | complication, not | | | | | | stated as | | | | | | uncontrolled | | + +--------+ + + + | TSH | Routin | 06/17/2013 | Type I (juvenile | Results for this | | | e | 3:58 PM | type) diabetes | procedure are in the | | | | PST | mellitus without | results section. | | | | | mention of | | | | | | complication, not | | | | | | stated as | | | | | | uncontrolled | | + +--------+ + + + | LIPID SET (TRIG, T | Routin | 06/17/2013 | Type I (juvenile | Results for this | | CHOL, HDL, CALC LDL) | e | 3:58 PM | type) diabetes | procedure are in the | | | | PST | mellitus without | results section. | | | | | mention of | | | | | | complication, not | | | | | | stated as | | | | | | uncontrolled | | + +--------+ + + + documented in this encounter Results LIPID SET (TRIG, T CHOL, HDL, CALC LDL) (06/17/2013 3:58 PM PST) + +---------+ + + + | Component | Value | Ref Range | Performed | Pathologist | | | | | At | Signature | + +---------+ + + + | CHOLESTEROL | 140 | <200 mg/dL | [facility] | | | (LAB) | | | LABORATORY | | | | | | SERVICES, | | | | | | CORE | | + +---------+ + + + | TRIGLYCERID | 259 (H) | <150 mg/dL | [facility] | | | ES | | | LABORATORY | | | | | | SERVICES, | | | | | | CORE | | + +---------+ + + + | HDL | 45 | >40 mg/dL | [facility] | | | CHOLESTEROL | | | LABORATORY | | | | | | SERVICES, | | | | | | CORE | | + +---------+ + + + | HDL CMNT | No Hemo | | [facility] | | | | | | LABORATORY | | | | | | SERVICES, | | | | | | CORE | | + +---------+ + + + | LDL | 43 | <100 mg/dL | [facility] | | | CHOLESTEROL | | | LABORATORY | | | , | | | SERVICES, | | | CALCULATED | | | CORE | | + +---------+ + + + | VLDL | 52 (H) | <31 mg/dL | [facility] | | | CHOLESTEROL | | | LABORATORY | | | , | | | SERVICES, | | | CALCULATED | | | CORE | | + +---------+ + + + | NON-HDL | 95 | <130 mg/dL | [facility] | | | CHOLESTEROL | | | LABORATORY | | | | | | SERVICES, | | | | | | CORE | | + +---------+ + + + + + | Specimen | + + | Blood - Blood | + + + + + | Narrative | Performed At | + + + | Cholesterol Reference Range: Desirable: <200 | [facility] | | mg/dL Borderline High: 200 - 239 mg/dL | LABORATORY | | High: >=240 mg/dL LDL Cholesterol | SERVICES, CORE | | Reference Range: Optimal: <100 mg/dL | | | Near Optimal: 100-129 mg/dL Borderline High: 130-159 | | | mg/dL High: 160-189 mg/dL | | | Very High: >=190 mg/dL non-HDL Cholesterol Reference Range: | | | Optimal: <130 mg/dL Near Optimal: | | | 130-159 mg/dL Borderline High: 160-189 mg/dL | | | High: 190-209 mg/dL Very High: | | | >=210 mg/dL Triglyceride Reference Range: | | | Normal: <150 mg/dL Borderline High: 150-199 mg/dL | | | High: 200-499 mg/dL Very High: >=500 mg/dL | | | HDL Reference Range: High Risk: <40 mg/dL | | | Desirable: >=60 mg/dL | | + + + + + + + + | Performing | Address | City/State/Zipcode | Phone Number | | Organization | | | | + + + + + | [facility] | [address] | [place] [address] | | | SERVICES, CORE | [address] | | | + + + + + TISSUE TRANSGLUTAMINASE IGA, SERUM (06/17/2013 3:58 PM PST) + + + + + + | Component | Value | Ref Range | Performed | Pathologist | | | | | At | Signature | + + + + + + | TTG, IGA | 5Comment: INTERPRETIVE | 0 - 19 Units | [facility] | | | | INFORMATION: Tissue | | REG UNIV | | | | Transglutaminase | | PTH - INTFC | | | | (tTG)Antibody, IgA 19 | | | | | | Units or less: | | | | | | [id number] Units: | | | | | | Weak [id number] Units or | | | | | | greater: Moderate to | | | | | | Strong Positive Presence | | | | | | of the tissue | | | | | | transglutaminase (tTG) | | | | | | IgA antibodyis | | | | | | associated with | | | | | | gluten-sensitive | | | | | | enteropathies such | | | | | | asceliac disease and | | | | | | dermatitis | | | | | | herpetiformis. tTG | | | | | | IgAantibody | | | | | | concentrations greater | | | | | | than or equal to 100 | | | | | | Unitsusually correlate | | | | | | with results of duodenal | | | | | | biopsiesconsistent with | | | | | | a diagnosis of celiac | | | | | | disease. For | | | | | | antibodyconcentrations | | | | | | greater than 20 Units | | | | | | but less than 100Units, | | | | | | additional testing for | | | | | | endomysial (DEMARCUS) | | | | | | IgAconcentrations may | | | | | | improve the positive | | | | | | predictive valuefor | | | | | | disease.Performed by | | | | | | [facility],[address] | | | | | | [address], [facility] [place] | | | | | | [address] | | | | | | [phone].[employer]. | | | | | | Delon [...] [facility] | [address] | [place], [place] | | | UNIV PTH - INTFC | | [address] | | + + + + + IGA, SERUM (06/17/2013 3:58 PM PST) + +-------+ + + + | Component | Value | Ref Range | Performed | Pathologist | | | | | At | Signature | + +-------+ + + + | IGA SERUM | 241 | 70 - 400 mg/dL | [facility] | | | | | | [facility] - | | | | | | [place] | | + +-------+ + + + + + | Specimen | + + | Blood - Blood | + + + + + + + | Performing | Address | City/State/Zipcode | Phone Number | | Organization | | | | + + + + + | [facility] | [address] | [place] [address] | | | [place] | | | | + + + + + FREE T4, SERUM (06/17/2013 3:58 PM PST) + +-------+ + + + | Component | Value | Ref Range | Performed | Pathologist | | | | | At | Signature | + +-------+ + + + | FREE T4, | 1.0 | 0.6 - 1.2 ng/dL | [facility] | | | SERUM | | | [facility] | | | | | | [place] | | + +-------+ + + + + + | Specimen | + + | Blood - Blood | + + + + + + + | Performing | Address | City/State/Zipcode | Phone Number | | Organization | | | | + + + + + | [facility] | [address] | [place] [address] | | | [place] | | | | + + + + + TSH (06/17/2013 3:58 PM PST) + + + + + + | Component | Value | Ref Range | Performed | Pathologist | | | | | At | Signature | + + + + + + | TSH | 2.19Comment: Normal TSH | 0.34 - 5.60 | [facility] | | | | value in : | mcIU/mL | [facility] - | | | | 0.5-2.5. uIU/ml | | [facility] | | + + + + + + + + | Specimen | + + | Blood - Blood | + + + + + + + | Performing | Address | City/State/Zipcode | Phone Number | | Organization | | | | + + + + + | [facility] - | [address] | [place] [address] | | | [place] | | | | + + + + + documented in this encounter Visit Diagnoses + + | Diagnosis | + + | Type I (juvenile type) diabetes mellitus without mention of complication, not stated | | as uncontrolled | + + documented in this encounter"
--- OUTSIDE RECORDS SUMMARY | ~2020-04-12 | XMS | Encounter Summary ---
Demographics + + + | Address | [address] | | | [place] [address] | + + + | Home Phone | | + + + | Preferred Language | Unknown | + + + | Marital Status | Single | + + + | Mu-Ism Affiliation | Unknown | + + + [...] Team Providers + +------+ + | Care Disbursement Clerk Name | Role | Phone | + +------+ + | Lexx Schrader DO | PCP | | + +------+ + Reason for Visit + +--------+ + | Reason | Onset | Comments | | | Date | | + +--------+ + | Refill Request | 11/01/ | test strip | | | 2019 | | + +--------+ + | Prior Authorization | 11/01/ | Free Style Lite Test Strips | | Request | 2019 | | + +--------+ + | Refill Request | 11/08/ | | | | 2020 | | + +--------+ + Encounter Details +--------+--------+ + + + | Date | Type | Department | Care Team | Description | +--------+--------+ + + + | 11/01/ | Refill | Marvin Singer | Orestes Quinn MD | Refill Request (test | | 2020 | | [facility] | [address] | strip); Prior | | | | [facility] | [address] [place], | Authorization | | | | [address] | [place] [address] | Request (Free Style | | | | [address] | [phone] | Lite Test Strips ); | | | | Physician's | | Refill Request | | | | [address] | | | | | | [place], [place] | | | | | | [address] | | | | | | [phone] | | | +--------+--------+ + + + [...] Telephone Encounter - Jada Solorzano MA - 11/09/2019 4:44 PM PDT Called every # on file. Nothing is a working #. One work # was to a detox center and patilyle t is not there. The last # they had for patient I called and that led to a Neto. Neto then gave me a # to Selam who is apparently the caregiver at a facility where Sterling is at. Th at # is [phone]. She said Sterling was eating dinner and couldn't be bothered but would take a message. Asked that Sterling call clinic back and he needs to update his new insurance with registration and provided that #. el ephone Encounter - Jada Solorzano MA - 11/09/2019 8:59 AM PDT Prior Authorization request received for: Medication: Test strips Insurance: [facility] Received Via: pharmacy Form: Completed PA Faxed to Insurance via cover my meds Please note that patient hasn't been seen by provider in over 2 years. Chart notes from 09/11 018 were attached to PA. elephone Encounter - Boyd Barrow MA - 11/02/2019 2:23 PM PDTIncoming refill request received from Sterling via Telephone communication. Pended refill request for Freestyle Test strips (w/ qty increas e) and routed to MD to review. In regards to Gabapentin Rx - medication not current on med list routing to provider to adv ise if this is appropriate medication to prescribe and dosing. Last Appointment in [facility] was on 09/25/17 at 3:33 pm with Orestes Quinn MD. Next Appointment in [facility] is on 12/23/19 at 1:15 pm with Orestes Quinn MD. elephone Encounter - Lester York - 11/02/2019 1:58 PM PDTPt called in about Blood Sugar Diagnostic (FREESTYLE L ITE STRIPS) miscellaneous (misc) strip He states that he is trying to get his diabetes back under control, and test upwards of 10- 15 times per day. He states he is only approved for 4 times a day right now, and was wonderi ng if he could get approval for for a lot more test strips. He would like the strips sent to [id number] - [place], [place] - [address] [phone] He states he has test strips till Thursday Also: Pt says he is out of gabapentin (300mg three times a day) and was wondering if we could get a 90 day [facility] [place] [facility] pharmacyElectronically signed by Lester York at 2:03 PM PDTdocumented in this encounter Plan of Treatment Not on filedocumented as of this encounter Visit Diagnoses Not on filedocumented in this encounter"
--- OUTSIDE RECORDS SUMMARY | ~2020-04-12 | XMS | Encounter Summary ---
Demographics + + + | Address | [address] | | | [place] [address] | + + + | Home Phone [...] Team Providers + +------+ + | Care Aerophysics Engineer Name | Role | Phone | + +------+ + | Lia Pérez | PCP | | + +------+ + Reason for Visit + +--------+ + | Reason | Onset | Comments | | | Date | | + +--------+ + | Refill Request | 06/13/ | | | | 2014 | | + +--------+ + Encounter Details +--------+--------+ + + + | Date | Type | Department | Care Team | Description | +--------+--------+ + + + | 06/13/ | Refill | Marvin Singer | Ludy Diamond, | Refill Request | | 2014 | | [facility] | [address] | | | | | [facility] | [facility] | | | | | [address] | [place], [place] | | | | | [address] | [address] | | | | | Physician's | [phone] | | | | | [address] | | | | | | [place], [place] | | | | | | [address] | | | | | | [phone] | | | +--------+--------+ + + + [...] Telephone Encounter - Boyd Munoz MA - 06/13/2015 2:57 PM PSTPended refill request for F reestyle lite test strips, lancets and routed to MD to review. Last Appointment in [facility] was on 11/17/14 at 2:50 pm with Mark Jaeger MD. Next Appointment in [facility] is on 06/29/15 at 1:00 pm with Salbador Resendiz MD. elephone Encounter - Annita Morley - 06/13/2015 2:15 PM PSTRobert Mario Monique : 2000 Last Appointment in [facility] was on 11/17/14 at 2:50 pm with Mark Jaeger MD. Next Appointment in [facility] is on 06/29/15 at 1:00 pm with Salbador Resendiz MD. Medication: Free style lite test strips Dose: 8 times a day 750 strips Quantity: 3 month Additional Medication: Yes Medication: lancets Dose: 8 times a day testing Quantity: 1 month Additional Medication: No Pharmacy Updated: Pharmacy Preferences: [id number] [place] [address] Hours: 9am-8pm Mon-fri / 9am-6pm Sat / 10am-4pm Sun documented in this enco unter Plan of Treatment Not on filedocumented as of this encounter Visit Diagnoses Not on filedocumented in this encounter"
--- OUTSIDE RECORDS SUMMARY | ~2020-04-12 | XMS | Encounter Summary ---
Demographics + + + | Address | [address] | | | [place] [address] | + + + | Home Phone [...] Team Providers + +------+ + | Care Digital Solution Architect Name | Role | Phone | + +------+ + | Lexx Schrader DO | PCP | | + +------+ + Reason for Visit + +--------+ + | Reason | Onset | Comments | | | Date | | + +--------+ + | High Blood Sugar | 01/06/ | | | | 2017 | | + +--------+ + Encounter Details +--------+ + + + + | Date | Type | Department | Care Team | Description | +--------+ + + + + | 01/06/ | Telephone | Marvin Singer | Orestes Quinn MD | High Blood Sugar | | 2018 | | [facility] | [address] [facility] | | | | | [facility] | [place] [facility], | | | | | [address] | [place] [address] | | | | | [address] | [phone] | | | | | Physician's | | | | | | [address] | | | | | | [place], [place] | | | | | | [address] | | | | | | [phone] | | | +--------+ + + + [...] encounter Miscellaneous Notes Telephone Encounter - Jada Balbuena - 01/11/2018 1:52 PM PDTPt called clinic, states t hat CBGs have returned to Normal, states that he increased his Lantus from 38 to 40. Request ing new rx to reflect new dosage. Pt never received phone call from [facility] on Thu. Pt has a couple of days of Lantus left. Will also need new facility order reflecting change to dosage. [facility], fax [phone]. Pt phone [phone]. [facility] pharmacy in [place] elephone Encounter - Soco Olvera MA - 01/06/2018 2:25 PM PDTPatient is yony mckinley experiencing high blood glucose associated with no symptoms. Patient is on insulin pump: no Please recheck your blood and someone will call you back shortly. Paged: no Encounter routed to provider. Pt reports blood sugars have been bouncing from high to low. Requests call back at . documented in this encounter Plan of Treatment Not on filedocumented as of this encounter Visit Diagnoses Not on filedocumented in this encounter"
--- OUTSIDE RECORDS SUMMARY | ~2020-04-12 | XMS | Encounter Summary ---
Demographics + + + | Address | [address] | | | [place] [address] | + + + | Home Phone | | + + + | Preferred Language | Unknown | + + + | Marital Status | Single | + + + | Confucianism Affiliation | Unknown | + + + | Race | White | + + + | Ethnic Group | Not or | + + + Author + + + | Author | [facility] | + + + | Organization | [facility] | + + + | Address [...] Team Providers + +------+ + | Care Corporate Executive Chef Name | Role | Phone | + +------+ + | Lia Pérez | PCP | | + +------+ + Encounter Details +--------+ + + + + | Date | Type | Department | Care Team | Description | +--------+ + + + + | 12/12/ | Abstract | Pediatric | Ludy Diamond, | | | 2016 | | Endocrinology at | [address] | | | | | [address] | [address] | | | | | [facility] | [place], [place] | | | | | [address] | [address] | | | | | [place] | [phone] | | | | | [place], [place] | | | | | | [address] | | | | | | [phone] | | | +--------+ + + + [...] | + +--------+ + + + | C-PEPTIDE, SERUM | Routin | 12/03/2015 | Type 1 diabetes | Results for this | | | e | 7:50 AM | mellitus without | procedure are in the | | | | PDT | complication (HCC) | results section. | + +--------+ + + + | GLUCOSE, PLASMA | Routin | 12/03/2015 | Type 1 diabetes | Results for this | | | e | 7:50 AM | mellitus without | procedure are in the | | | | PDT | complication (HCC) | results section. | + +--------+ + + + documented in this encounter Results GLUCOSE, PLASMA (12/03/2015 7:50 AM PDT) + +---------+ + + + | Component | Value | Ref Range | Performed | Pathologist | | | | | At | Signature | + +---------+ + + + | GLUCOSE | 204 (A) | 70 - 100 mg/dL | [facility] | | | | | | LAB - | | | | | | [place] | | + +---------+ + + + + + | Specimen | + + | Blood - Blood | + + + + + + + | Performing | Address | City/State/Zipcode | Phone Number | | Organization | | | | + + + + + | [facility] - | [address] | [place], [place] | | | [place] | [address] | [address] | | + + + + + C-PEPTIDE, SERUM (12/03/2015 7:50 AM PDT) + +--------+ + + + | Component | Value | Ref Range | Performed | Pathologist | | | | | At | Signature | + +--------+ + + + | C-PEPTIDE, | <0.010 | 1.1 - 4.4 ng/mL | [facility] | | | SERUM | | | LAB - | | | | | | [place] | | + +--------+ + + + + + | Specimen | + + | Blood - Blood | + + + + + + + | Performing | Address | City/State/Zipcode | Phone Number | | Organization | | | | + + + + + | [facility] - | [address] | [place] | [phone] | | [place] | | | | + + + + + documented in this encounter Visit Diagnoses + + | Diagnosis | + + | Type 1 diabetes mellitus without complication (HCC) Type I (juvenile type) diabetes | | mellitus without mention of complication, not stated as uncontrolled | + + documented in this encounter"
--- OUTSIDE RECORDS SUMMARY | ~2020-04-12 | XMS | Encounter Summary ---
Demographics + + + | Address | [address] | | | [place] [address] | + + + | Home Phone | | + + + | Preferred Language | Unknown | + + + | Marital Status | Single | + + + | Church Affiliation | Unknown | + + + [...] Providers + +------+ + | Care Diesel Truck Crane Operator Name | Role | Phone | + +------+ + | Saida Alegria MD | PCP | | + +------+ + Encounter Details +--------+ + + + + | Date | Type | Department | Care Team | Description | +--------+ + + + + | 07/29/ | Hospital | Radiology at [facility] | | | | 2012 | Encounter | [address] | | | | | | [place] | | | | | | [facility], | | | | | | [address] [facility] | | | | | | [place], [place] | | | | | | [address] | | | | | | [phone] | | | +--------+ + + + [...] + + documented as of this encounter Medications at Time of Discharge + + + +---------+ + + | Medication | Sig | Dispensed | Refills | Start | End Date | | | | | | Date | | + + + +---------+ + + | Insulin | Use to administer | 200 | 11 | 06/22/20 | | | Syringe-Needle U-100 | insulin up to 5 per | each | | 13 | 3 | | (BD INSULIN SYRINGE | day. | | | | | | HALF UNIT) 0.3 mL | | | | | | | 31 x 12/23" syringe | | | | | | + + + +---------+ + + documented as of this encounter Plan of Treatment Not on filedocumented as of this encounter Procedures + +--------+ + + + | Procedure Name | Priori | Date/Time | Associated Diagnosis | Comments | | | ty | | | | + +--------+ + + + | KIDNEY & BLADDER | Routin | 07/29/2013 | History of urinary | Results for this | | | e | 3:28 PM | tract infection | procedure are in the | | | | PST | | results section. | + +--------+ + + + documented in this encounter Results US KIDNEY & BLADDER (07/29/2013 3:28 PM PST) + + + + + + | Component | Value | Ref Range | Performed | Pathologist | | | | | At | Signature | + + + + + + | US KIDNEY & | EXAM: Renal/Bladder | | | | | BLADDER | Ultrasound HISTORY: | | | | | | History of UTI | | | | | | COMPARISON: None | | | | | | FINDINGS:The kidneys are | | | | | | normal in location, | | | | | | morphology, and | | | | | | echogenicity.Corticomedu | | | | | | llary differentiation is | | | | | | preserved. The right | | | | | | kidney measures 10.8 cm | | | | | | x 4.1 cm x 4.7 cm and | | | | | | has a volume of 108 | | | | | | mL.The left kidney | | | | | | measures 11.7 cm x 4.6 | | | | | | cm x 4.2 cm and has a | | | | | | volume of 120 mL. Right | | | | | | length is between 50th | | | | | | and 95th percentiles and | | | | | | left renal length | | | | | | abovethe 95th percentile | | | | | | for patient age. No | | | | | | renal stones, cysts, or | | | | | | solid masses are seen. | | | | | | No abnormal | | | | | | perinephriccollections | | | | | | are evident. There is | | | | | | no pelvocaliectasis or | | | | | | ureterectasis. The | | | | | | bladder is unremarkable. | | | | | | Bladder volume | | | | | | measures up to 63 mL | | | | | | during theexamination. | | | | | | Patient voided | | | | | | completely. IMPRESSION: | | | | | | Normal renal ultrasound. | | | | | | END IMPRESSION | | | | | | Attending Radiologists: | | | | | | LUIS ANTONIO WINCHESTER MDAuthor: | | | | | | LUIS ANTONIO WINCHESTER MD I | | | | | | have personally viewed | | | | | | this procedure/exam, | | | | | | reviewed this report, | | | | | | and madechanges to it | | | | | | where appropriate. | | | | | | Final/Electronically | | | | | | signed / LUIS ANTONIO | | | | | | RANULFO 07/29/2013 15:29 | | | | | | PM | | | | + + + + + + + + | Specimen | + + | | + + + +---------+ + + | Performing | Address | City/State/Zipcode | Phone Number | | Organization | | | | + +---------+ + + | [facility] | | | | [facility] | | | | + +---------+ + + documented in this encounter Visit Diagnoses + + | Diagnosis | + + | History of urinary tract infection Personal history of urinary (tract) infection | + + documented in this encounter
--- OUTSIDE RECORDS SUMMARY | ~2020-04-12 | XMS | Encounter Summary ---
Demographics + + + | Address | [address] | | | [place] [address] | + + + | Home Phone | | + + + | Preferred Language | Unknown | + + + | Marital Status | Single | + + + | Alevism Affiliation | Unknown | + + + | Race | White | + + + | Ethnic Group | Not or | + + + Author + + + | Author | [facility] | + + + | Organization | [facility] | + + + | Address | [...] Team Providers + +------+ + | Care Grader Patrol Name | Role | Phone | + +------+ + | Saida Alegria MD | PCP | | + +------+ + Reason for Visit + + + | Reason | Comments | + + + | Referral to social | | | worker | | + + + Encounter Details +--------+ + + + + | Date | Type | Department | Care Team | Description | +--------+ + + + + | 07/15/ | Documentati | Marvin Singer | Santa Gomez, | Referral to social | | 2012 | on | Diabetes Health | [facility] [address] | worker | | | | [facility] | [facility] | | | | | [address] | [place], [place] | | | | | [address] | [address] | | | | | Physician's | [phone] | | | | | [address] | | | | | | [place], [place] | | | | | | [address] | | | | | | [phone] | | | +--------+ + + + [...] Notes Telephone Encounter - Santa Gomez - 07/15/2013 10:27 AM Madison Pratt [facility] SW note for 06/17/13: FIDE met with 12 year old Sterling and his mother who are here from [place] to establish care with Dr. Jaeger and the diabetes team. Social History: Sterling was diagnosed with type 1 diabetes August 2010. He was treated and educated in [facility] where they were living at the time. Israel' older brother committed suicide when [place] was 10, and he was wearing bracelets today in honor of his brother. Both Sterling and his mother were able to talk about positive memories of his brother. 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 He said he does practice some of the skills learned like taking a time out when he is mad. Parents are and Israel father is continuing to live in [place]. Sterling att ends [employer] (8th grade) and the principal has significant concerns about his poorly managed diabetes and lack of school attendance. [facility] is involved, and FIDE left a message with the [facility] worker Samantha Sellers [phone] [facility]. Sterling initially expressed frustration, and stated he was not going to stay at the clinic a ll day for the appointment. He was more cooperative following lunch and a break, although ирина mcarthur was easily distracted. He met with the psychologist Dr. Lester today today. Plan: Mother will communicate with Dr. Jaeger weekly to review blood sugar numbers and make insulin adjustments as needed. Sterling will attend counseling locally, and mother will contact if she needs assistance w [facility] resources. Sterling and his mother will follow up with the diabetes team and nephrology in July. FIDE will coordinate with [facility] and [facility] as needed. Santa Gomez [facility] Diabetes Clinic FIDE pager [phone] ter Plan of Treatment Not on filedocumented as of this encounter Visit Diagnoses Not on filedocumented in this encounter"
--- OUTSIDE RECORDS SUMMARY | ~2020-04-12 | XMS | Encounter Summary ---
Demographics + + + | Address | [address] | | | [place] [address] | + + + | Home Phone [...] + + + | Author | [facility] | + + + | Organization | [facility] | + + + | Address [...] Team Providers + +------+ + | Care Mold Press Operator Name | Role | Phone [...] | | | | | Procedures | [place], [place] | [address] | | | | | CONSULT TO | [address] | Physician's | | | | | PEDS | | [address] | | | | | DIABETES - | | [address] | | | | | EDUCATION | | [place], [place] | | | | | AND | | [address] | | | | | NUTRITION | | Phone: | | | | | | | [phone] | | | | | | | Fax: | | | | | | | [phone] | +--------+--------+ + + + + Encounter Details +--------+---------+ + + + | Date | Type | Department | Care Team | Description | +--------+---------+ + + + | 06/26/ | Office | Marvin Singer | Jeffry Rice, | Diabetes mellitus | | 2015 | Visit | Diabetes Health | Julieth, RN [address] | type 1, | | | | [place] [facility] | [address] | uncomplicated (HCC) | | | | [address] | [place], [place] | (Primary Dx) | | | | [address] | [address] | | | | | Mailcode: [address] | | | | | | Physician's Pavilion | | | | | | [address] [place], | | | | | | [place] [address] | | | | | | [phone] | | | +--------+---------+ + + + [...] of this encounter Patient Instructions Patient Instructions Julieth Lilly RN - 06/26/2015 12:23 PM PSTFormatting of this not e might be different from the original. For: Sterling Monique Date: 06/26/2015 Thanks for coming in today Shruthi Blood Glucose Monitoring: Continue to test blood sugars routinely: Prior to meals, bedtime, when feeling signs of low blood sugar and post treatment of low blood sugar. Blood sugars should be checked overnight when at risk for Hypoglycemia. Rinse and dry your hands before testing. Check at 2 am only if: - If Lantus insulin is increased - You had a low blood sugar at bedtime or several lows that day - You were more active than usual that day - If Sick HEMOGLOBIN A1C,POC (%) Date Value 06/26/2015 8.3* Record Keeping: Continue with the record keeping! Insulin: Meals/Snack: 1 unit Humalog per 7 grams of carbohydrate when you eat >15 grams of carbohyd rate, as long as it has been 2 hours since last dose High blood sugar correction: 1 unit of Humalog for every 50 points above 150 at meals, as long as it has been 3 hours since last dose and it is not bedtime. Lantus: 35 units each evening at bedtime. Sites: Continue to use at least 2 different sites for injections. Meal Planning: Meals: continue the "flexible" meal plan where you eat what you like at each meal. There is no limit on the amount of carbohydrates to eat. Snacks: make sure there is 2 hours between snacks and meals. You may have 15 grams of carbo hydrate or less at your snacks or dose Humalog for carbohydrates. Activity/Play: Enjoy being active! Refer to handout on Carbohydrate Replacement Low Blood Sugar: Treat blood sugars below 80 with fast-acting carbohydrate only to begin with: Use 4-6 ounces of juice or 15 grams of carbohydrate Recheck blood sugar in [...] 300 mg/dl for 2 routine tests If you have ketones contact the on-call diabetes doctor right away: [phone] Prescriptions: Your Freestyle Lite strips, lancets, syringes, pen needles, Lantus Pen, Kellee log Pens, Ketone Strips, Glucagon will be ordered today. School/Daycare Orders: Please let us know when you need new orders. Resources: Analyze your recipes by creating a free account with the [place] "My Food Navigator" HedgeChatter Cuco: www.Blackboard and book Camps: Basketball camp: [email or web address] registration starts 08/09/14 AliciaMyClasses Weld camp: [email or web address] Registration: August 2014 Follow-up: With Dr. Quinn in months. Increase Lantus from 35 to 38 units at bedtime No changes to your insulin to carb ratio Change your high blood sugar correction from 1 unit per 50 above 150 mg/dL to 1 unit per 40 above 160 mg/dL Great job on working to bring your A1C down!!! It was really nice meeting you and your mom today. Please make sure you are signed up for MyChart. If questions or concerns arise, please contact the [facility] at [phone] Julieth Rice RN, BSN, CDE Registered Nurse, Vice Principal [facility] Mail code [address] [place] [address] (tel) [phone] (fax) documented in this encounter Progress Notes Julieth Lilly RN - 07/20/2015 3:17 PM PST Progress Notes: Pediatric Diabetes Education Appt Length: 60 minutes Appt Type: Individual Provider: Orestes Quinn MD Identifying Information: Sterling Monique is a 14 y.o. male with Type 1 Diabetes diagnose d on 08/2010. Sterling is returning to clinic today for diabetes management with Dr. Quinn. Elise linder and his family were previously educated at [facility]. They also met with Orestes Quinn MD today. Barriers to Learning: None identified Method of Instruction: individual instruction Social: Sterling lives [facility] in [place], [place]. Started prog jeny April 23 and has approximately 2-3 additional months. Mother lives in [place] Does attend school at the facility is in his 10th grade, doing ok. Patient will be return ing to mother's home in [place] when he is discharged from the treatment facility. Home Glucose Monitoring: Sterling is using the Freestyle Lite meter for testing blood sugars. Blood sugars are being tested 5-7 times daily, prior to meals bedtime and 2 am if blood sug ar was low at bedtime, with signs of low blood sugars and after treating low blood sugars. Niurka webster are keeping daily records of BG, insulin and carbohydrates. The meter was not downloaded and is available under the media tab. Target Range: 80-180 A1C: <7.5% for children of all ages Lab Results Component Value Date A1C 8.3 06/26/2015 A1C >14.0 11/17/2014 A1C 13.3 08/04/2014 Insulin Dosages: Sterling is on a basal bolus insulin regimen using Humalog. Current insulin doses are: Lantus: 35 units at bedtime Meals: 1:7 High Blood Sugar Correction Factor: 1:50>150 Snacks < 15 g carbohydrate are given without insulin. Insulin Draw and Inject: They are using vial & syringe. Humalog is given prior to meals. I njection sites consist of arms, thighs and abdomen. Meal Plan: Sterling is currently following a flexible meal plan. Sterling os responsible for ca lculating carbohydrates with periodic assistance from facility staff. Resources used are [email or web address]. Sterling typically eats per the following schedule on a school day: Wake: 7:30 Breakfast: 8:00 am Lunch: 12:00 pm Snack: 3:30 pm Dinner: 5:30 pm Snack: 8:00 pm Bed:10:00 Physical Activity: Sterling currently lifts weights for an hour M-F. Sterling has infrequently experienced hypoglycemia with exercise. Hypoglycemia Management: Low blood sugars are occuring infrquently. Treatment includes 8 oz juice, with a recheck in 15 minutes, and is followed by a snack if not meal time. It typic ally takes 1-2 treatments to correct lows. Sterling was not wearing diabetes ID Glucagon Emergency Kit: Sterling has not had a severe low requiring intervention with glucag on. They have current kit(s). Ketones & Sick Day Management: Sterling has ketone strips. They test for ketones when BG > 3 00 x 2, with illness and vomiting. School: Sterling attends [employer] and is in the 10th grade. School orders are current. Prescriptions: Are current Additional Notes: None Interventions: Commended family for coming in today and to Sterling for his great change in a ttitude about caring for himself and managing his diabetes. He is doing much better than in the past . Provided eduction per the following areas per our pediatric diabetes notebook: - Home Glucose Monitoring: - Insulin: action, storage, dosing, sharps disposal and pattern management. Proper techniqu e was reviewed. - Meal Plan: flexible diet - Routine: continue with your routine and discussed the kumari points that need to be followed (Lantus at the same time daily, 3 hours between high BG correction & 2 hours between carb s nack and next meal time BG check) - Physical Activity: Carbohydrate replacement was reviewed. - School: N/A - Supplies: prescriptions are current. Coordinated care with our diabetes team. Recommendations/ Pt. Instructions: 1. Increase Lantus to 38 units nightly 2. Continue 1unit:7gram of carbohydrates 3. Recommend high sugar correction of 1unit: 40>160 4. Health maintenance and monitoring: *dilated eye exam (can be done in [place]) *Free T4, TSH *urine microalbumin *TTG, IgA 5. Seasonal flu shot today 6. Follow up in 4 months Hawa Kaufman MS, RD, LD, CDE Vice Principal, Dietitian [facility] Mail Code: [address] [place] [address] For: Sterling Martin [place]ne[place] Date: 06/26/2015 Thanks for coming in today Sterling! Blood Glucose Monitoring: Continue to test blood sugars routinely: Prior to meals, bedtime, when feeling signs of low blood sugar and post treatment of low blood sugar. Blood sugars should be checked overnight when at risk for Hypoglycemia. Rinse and dry your hands before testing. Check at 2 am only if: - If Lantus insulin is increased - You had a low blood sugar at bedtime or several lows that day - You were more active than usual that day - If Sick HEMOGLOBIN A1C,POC (%) Date Value 06/26/2015 8.3* Record Keeping: Continue with the record keeping! Insulin: Meals/Snack: 1 unit Humalog per 7 grams of carbohydrate when you eat >15 grams of carbohyd rate, as long as it has been 2 hours since last dose High blood sugar correction: 1 unit of Humalog for every 50 points above 150 at meals, as long as it has been 3 hours since last dose and it is not bedtime. Lantus: 35 units each evening at bedtime. Sites: Continue to use at least 2 different sites for injections. Meal Planning: Meals: continue the "flexible" meal plan where you eat what you like at each meal. There is no limit on the amount of carbohydrates to eat. Snacks: make sure there is 2 hours between snacks and meals. You may have 15 grams of carbo hydrate or less at your snacks or dose Humalog for carbohydrates. Activity/Play: Enjoy being active! Refer to handout on Carbohydrate Replacement Low Blood Sugar: Treat blood sugars below 80 with fast-acting carbohydrate only to begin with: Use 4-6 ounces of juice or 15 grams of carbohydrate Recheck blood sugar in [...] 300 mg/dl for 2 routine tests If you have ketones contact the on-call diabetes doctor right away: [phone] Prescriptions: Your Freestyle Lite strips, lancets, syringes, pen needles, Lantus Pen, Kellee log Pens, Ketone Strips, Glucagon will be ordered today. School/Daycare Orders: Please let us know when you need new orders. Resources: Analyze your recipes by creating a free account with the [employer] "My Food Navigator" Viblio: www.Blackboard and book Camps: Basketball camp: [email or web address] registration starts 08/09/14 [employer] Weld camp: [email or web address] Registration: August 2014 Follow-up: With Dr. Quinn in months. Increase Lantus from 35 to 38 units at bedtime No changes to your insulin to carb ratio Change your high blood sugar correction from 1 unit per 50 above 150 mg/dL to 1 unit per 40 above 160 mg/dL Great job on working to bring your A1C down!!! It was really nice meeting you and your mom today. Please make sure you are signed up for MyChart. If questions or concerns arise, please contact the [facility] at [phone] Julieth Rice, RN, BSN, CDE Registered Nurse, Vice Principal [facility] Mail code [address] [place] [address] (tel) [phone] (fax) documented in this encounter Plan of Treatment Not on filedocumented as of this encounter Procedures + +--------+ + + + | Procedure Name | Priori | Date/Time | Associated Diagnosis | Comments | | | ty | | | | + +--------+ + + + | [place] DIAB MANAGE TRN | Routin | 07/20/2015 | Diabetes mellitus | | | PER INDIV | e | 3:54 PM | type 1, | | | | | PST | uncomplicated (HCC) | | + +--------+ + + + documented in this encounter Visit Diagnoses + + | Diagnosis | + + | Diabetes mellitus type 1, uncomplicated (HCC) - Primary Type I (juvenile type) | | diabetes mellitus without mention of complication, not stated as uncontrolled | + + documented in this encounter
--- OUTSIDE RECORDS SUMMARY | ~2020-04-12 | XMS | Encounter Summary ---
Demographics + + + | Address | [address] | | | [place] [address] | + + + | Home Phone [...] Team Providers + +------+ + | Care Pottery Striper Name | Role | Phone | + +------+ + | Lia Pérez | PCP | | + +------+ + Encounter Details +--------+ + + + + | Date | Type | Department | Care Team | Description | +--------+ + + + + | 05/14/ | Telephone | Marvin Singer | Ludy Diamond, | | | 2014 | | Diabetes Health | MD Lucia [address] | | | | | [facility] | [address] | | | | | [address] | [place], [place] | | | | | [address] | [address] | | | | | Physician's | [phone] | | | | | [address] | | | | | | [place], [place] | | | | | | [address] | | | | | | [phone] | | | +--------+ + + + [...] Telephone Encounter - Lucia Huynh MD - 05/15/2015 3:[address] ated concerns with Julieth Rice. Patient has a long history of poor adherence to his diabetes care plan and of poor control (last A1c >14 in November of 2014). It is unclear what the appropriate dosing for him may be. The current facility lacks staff that is appropriately trained to assist with diabetes wagner yuan, and they were directed to ADA resources by Ms Jeffry Rice. I instructed her to fax the facility the standard set of orders, [facility]. Those orders should suffice for now, and I wi ll advise the staff with more specifics once I meet the patient at the appointment, which is scheduled for 05/23. Lucia Diamond MD [facility] [address] FLOOR [address] [place] [address] elephone Enc Julieth Zarco RN - 05/15/2015 1:52 PM PDTReturned call to crow Chauhan cou gabriel. Gissel states there is no medical staff on site. The facility is overseen by a medica l doctor, but he does not remain on site. They also do not have a nurse on site. The facilit y is across the street from an ER. Gissel reports brief hx that Sterling had been using meth for about 7 months. "He was taking so much (meth) that he almost ." His blood sugars had been running in the 600s and 700s pr ior to his being incarcerated in April. Sterling is currently located at the [facility] in [place], [place]. Facility pone: [phone]; facility fax: [phone] Gissel reports Sterling is taking 33 units Lantus before bed. Before breakfast, about 8:00 am, he checks blood sugar and takes insulin (it sounds like his doses are not really based on bl ood sugar or meal time carb amount). After breakfast Sterling goes to school at the facility. Routinely Sterling will come out of class and say he "feels funny," and checks his blood sugar , which is typically high. Sterling will then say he needs to correct his blood sugar. If [facility] staff tells him he cannot take insulin at that time he will "through a tantrum." Luis mcarthur facility staff is not knowledgeable about type 1 diabetes and do not want to manage the "t antrum" they will typically allow Sterling to take insulin. He typically takes about 30 units Humalog. At lunch time, 12:00, Sterling tells the staff he doesn't need to check his blood sug ar because he just took insulin and hour ago. He will then eat his lunch, which Gissel reports is typically 2-3 plates of food (we did not go into what he fills his plate with). Gissel expresses concern about [facility] ability to keep Sterling safe with regards to his diabe jeannie. She reports Sterling is fairly manipulative with his diabetes. Gissel also stated Sterling's insurance, [employer], won't allow Sterling to see an Informatics Nurse in the [facility] in which the facility is located. CDE advised Gissel to contact the ADA Safe at School Program to see if they have someone that can come out and do education with staff members. Tentative appts have been set up for Sterling on with Hawa Kaufman RD, CDE; Patric Lo, PhD; and Lucia Hernadez MD. Gissel stated it would be difficult to get him he re for that appt. She believes if he's given a pass to leave the facility he will "use again ." CDE suggested a staff member accompany Sterling to the clinic appt and the possibility of [employer] transportation drive them here; possibly having Mom meet then here for the jc t. Gissel is requesting new more detailed facility orders. She is requesting the orders spacific ally state when Sterling is supposed to be taking Humalog insulin and when he should not be ta angie Humalog insulin (e.g. 11:00am blood sugar check, one hour before lunch). Routing to Dr. Hernadez. Paging Dr. Hernadez to request she contact Gissel to hannah gorman further, the needs for facility orders. Julieth Rice, RN, BSN, CDE elephone Encounter - Faizan Jacob - 05/14/2015 4:27 PM Esau calling back . Says that you can call her tomorrow (05/15/15) after 10am documented in this encounter Plan of Treatment Not on filedocumented as of this encounter Visit Diagnoses Not on filedocumented in this encounter
--- OUTSIDE RECORDS SUMMARY | ~2020-04-12 | XMS | Encounter Summary ---
Demographics + + + | Address | [address] | | | [place] [address] | + + + | Home Phone | | + + + | Preferred Language | Unknown | + + + | Marital Status | Single | + + + | Restorationist Affiliation | Unknown | + + + [...] Team Providers + +------+ + | Care Tie Knitter Helper Name | Role | Phone | + +------+ + | Lexx Schrader DO | PCP | | + +------+ + Reason for Visit + +--------+ + | Reason | Onset | Comments | | | Date | | + +--------+ + | Refill Request | 07/11/ | Novolog | | | 2015 | | + +--------+ + Encounter Details +--------+--------+ + + + | Date | Type | Department | Care Team | Description | +--------+--------+ + + + | 07/11/ | Refill | Pediatric | Orestes Quinn MD | Refill Request | | 2015 | | Endocrinology at | [address] | (Novolog) | | | | [place] | [address] [facility] | | | | | [facility] | [place] [address] | | | | | [address] | [phone] | | | | | [place] | | | | | | [place], [place] | | | | | | [address] | | | | | | [phone] | | | +--------+--------+ + + + [...] this encounter Miscellaneous Notes Telephone Encounter - Soco Olvera MA - 07/11/2016 8:38 AM PSTPended refill request for Novolog and routed to MD to review. Ins. Formulary Switch No past encounter found in Pediatric Endocrinology. No future appointments scheduled in Pediatric Endocrinology. documented in this encounter Plan of Treatment Not on filedocumented as of this encounter Visit Diagnoses Not on filedocumented in this encounter"
--- OUTSIDE RECORDS SUMMARY | ~2020-04-12 | XMS | Encounter Summary ---
Demographics + + + | Address | [address] | | | [place] [address] | + + + | Home Phone [...] Team Providers + +------+ + | Care Ink Printer Name | Role | Phone | + [...] | +--------+ + + + + | 11/22/ | Documentati | Marvin Singer | Santa Gomez, | Referral to social | | 2016 | on | Diabetes Health | [facility] [address] | worker | | | | Center at Physicians | [facility] | | | | | [address] | [place], [place] | | | | | [address] | [address] | | | | | Physician's | [phone] | | | | | [address] | | | | | | [place], [place] | | | | | | [address] | | | | | | [phone] | | | +--------+ + + + [...] Notes Telephone Encounter - Santa Gomez - 11/23/2015 4:04 PM Emerson Singer Diabetes [facility] ([facility]) Licensed Clinical Process Improvement Consultant (ENGRAVER OPTICAL FRAMES) note: ENGRAVER OPTICAL FRAMES met with patient Sterling and his mother as part of the diabetes team. Sterling is doing well overall. His diabetes care has improved significantly, and both Sean mathews and mother report that they are doing well living together. Counseling and living in a [facility] has reportedly helped their relationship and keep him on the path of recovery. Mother's car broke down on the way to clinic this morning, but they took public transportat ion to be able make the appointment. ENGRAVER OPTICAL FRAMES positively reinforced how hard they have been wor angie, including today to make it to the appointment. ENGRAVER OPTICAL FRAMES reviewed support and resource information. Gas and meal cards provided (given by a pr ivate donor) due to the financial hardship of coming from out of town. No other ENGRAVER OPTICAL FRAMES needs identified at this time. Santa Gomez LCSW Diabetes clinic social work supervisor pager [phone] documented in this encoun ter Plan of Treatment Not on filedocumented as of this encounter Visit Diagnoses Not on filedocumented in this encounter"
--- OUTSIDE RECORDS SUMMARY | ~2020-04-12 | XMS | Encounter Summary ---
Demographics + + + | Address | [address] | | | [place] [address] | + + + | Home Phone [...] Author + + + | Author | [facility] | + + + | Organization | [facility] | + + + | Address | [...] Team Providers + +------+ + | Care Complex Case Manager Name | Role | Phone | + +------+ + | Saida Alegria MD | PCP | | + +------+ + Reason for Visit + +--------+ + | Reason | Onset | Comments | | | Date | | + +--------+ + | Referral to social | 07/03/ | | | worker | 2013 | | + +--------+ + Encounter Details +--------+ + + + + | Date | Type | Department | Care Team | Description | +--------+ + + + + | 07/03/ | Telephone | Marvin Singer | Santa Gomez, | Referral to social | | 2013 | | Diabetes Health | [facility] [address] | worker | | | | Center at [facility] | [facility] | | | | | [address] | [place], [place] | | | | | [address] | [address] | | | | | Physician's | [phone] | | | | | [address] | | | | | | [place], [place] | | | | | | [address] | | | | | | [phone] | | | +--------+ + + + [...] Notes Telephone Encounter - Santa Gomez - 07/03/2014 2:24 PM PSTSW returned phone call to frederic soares of Sterling and left a message. She had left a message for FIDE to call her regarding [place] assistance. Sterling was also a no show to his recent appointment with Dr. Jaeger, and Dr. Jaeger requested S W follow up to check in with family. Plan: FIDE left a message with mother to contact [facility] billing [phone] regarding out of pocket costs and patient assistance program. FIDE also recommended mother contact Dr. Jaeger, or provider contracts manager, to give update regarding diabetes care since Sterling has had a recent history of local hospital ED visits. FIDE left a message with DHS worker listed to determine if open case. FIDE will follow as needed. VEL Hernandez pager [phone] signed by Santa Gomez at 07/03/2014 2:32 PM PSTdocumented in this encounter Plan of Treatment Not on filedocumented as of this encounter Visit Diagnoses Not on filedocumented in this encounter"
--- OUTSIDE RECORDS SUMMARY | ~2020-04-12 | XMS | Encounter Summary ---
Demographics + + + | Address | [address] | | | [place] [address] | + + + | Home Phone | | + + + | Preferred Language | Unknown | + + + | Marital Status | Single | + + + | Gnosticist Affiliation | Unknown | + + + | Race | White | + + + | Ethnic Group | Not or | + + + Author + + + | Author | [facility] | + + + | Organization | [facility] | + + + | Address [...] Team Providers + +------+ + | Care Rehab Spec Name | Role | Phone | + +------+ + | Lia Pérez | PCP | | + +------+ + Reason for Visit + +--------+ + | Reason | Onset | Comments | | | Date | | + +--------+ + | Refill Request | 05/04/ | ACCU-[employer] SMARTVIEW TEST STRIP | | | 2014 | | + +--------+ + Encounter Details +--------+--------+ + + + | Date | Type | Department | Care Team | Description | +--------+--------+ + + + | 05/04/ | Refill | Marvin Singer | Mark Jaeger MD | Refill Request | | 2014 | | Diabetes Health | | (ACCU-CHEK SMARTVIEW | | | | [facility] | | TEST STRIP) | | | | [address] | | | | | | [address] | | | | | | Physician's | | | | | | [address] | | | | | | [place], [place] | | | | | | [address] | | | | | | [phone] | | | +--------+--------+ + + + [...] Notes Telephone Encounter - Annita Ricks - 05/04/2015 4:05 PM PDTPt Mom called and still bradley ting for pt refill to be done. elephone Encounter - Soco Olvera MA - 05/04/2015 1:43 PM PDTPended refill req uest for ACCU-CHEK SMARTVIEW TEST STRIP and routed to MD to review. Last Office Visit in [facility] was on 11/17/14 at 2:50 pm with Mark Jaeger MD. No future appointments scheduled in Endocrinology, Diabetes & Metabolism. documented in this encounter Plan of Treatment Not on filedocumented as of this encounter Visit Diagnoses Not on filedocumented in this encounter"
--- OUTSIDE RECORDS SUMMARY | ~2020-04-12 | XMS | Encounter Summary ---
Demographics + + + | Address | [address] | | | [place] [address] | + + + | Home Phone | | + + + | Preferred Language | Unknown | + + + | Marital Status | Single | + + + | Rastafarian Affiliation | Unknown | + + + [...] Team Providers + +------+ + | Care Airplane Gastank Liner Assembler Name | Role | Phone | + +------+ + | Lexx Schrader DO | PCP | | + +------+ + Reason for Visit + + + | Reason | Comments | + + + | Diabetes mellitus | | | type 1 | | + + + | Follow-up visit | | + + + Office Visit - E/M Services (Routine) +--------+--------+ + + + + | Status | Reason | Specialty | Diagnoses / | Referred By | Referred To | | | | | Procedures | Contact | Contact | +--------+--------+ + + + + | Closed | | Endocrinology | Diagnoses | Elisa, | Kai, | | | | Diabetes & | Type 1 | Lia Rawls, | MD Orestes | | | | Metabolism | diabetes | [place] [address] | [address] | | | | | mellitus | [address] | [address] | | | | | without | [address], | [address] [place], | | | | | complication | [place] [address] | [place] | | | | | s | Phone: | [address] | | | | | | [phone] | Phone: | | | | | | Fax: | [phone] | | | | | | [phone] | Fax: | | | | | | | [phone] | +--------+--------+ + + + + Encounter Details +--------+---------+ + + + | Date | Type | Department | Care Team | Description | +--------+---------+ + + + | 09/25/ | Office | Marvin Singer | UdellOrestes MD | Type 1 diabetes | | 2018 | Visit | Diabetes Health | [address] | mellitus without | | | | Center at Physicians | [address], | complication (HCC) | | | | [address] | [place] [address] | (Primary Dx) | | | | [address] | [phone] | | | | | Physician's | | | | | | [address] | | | | | | [place], [place] | | | | | | [address] | | | | | | [phone] | | | +--------+---------+ + + + [...] + + + | Blood Pressure | 131/80 | 09/25/2017 9:48 AM | | | | | PST | | + + + + + | Pulse | 108 | 09/25/2017 9:48 AM | | | | | PST [...] + + + + | Weight | 63.3 kg (139 lb 8 | 09/25/2017 9:48 AM | | | | oz) | PST | | + + + + + | Height | 175 cm (5' 8.9") | 09/25/2017 9:48 AM | | | | | PST | | + + + + + | Body Mass Index | 20.66 | 09/25/2017 9:48 AM | | | | | PST | | + + + + + documented in this encounter Patient Instructions Patient Instructions Orestes Quinn MD - 09/25/2017 10:10 AM PSTGoals for next visit 1) Take ALL lantus doses 2) Use correction factor for meals 3) Check blood sugar a minimum of 3 times a day. documented in this encounter Progress Notes Orestes Quinn MD - 09/25/2017 10:10 AM PST [facility] Clinic Note Clinic Date: 09/25/2017 Sterling is a 16 year 11 month male with Type 1 diabetes here for follow-up. Interval History: Sterling is a 16 year 11 month male with Type 1 diabetes who presents today for ongoing fol low-up. He is accompanied to clinic today by his mother. Sterling has struggled since his l ast visit on 06/26/15. Sterling has struggled with his diabetes since that time. Reports poo r compliance. States that he will take extra insulin and drink a lot of water when his bloo d sugars are high and he is nauseous. He has had admissions this past year for substance ab use and self harm. Relapsed recently but states he has been clean for 2 weeks. He would lik e to get back on a pump but realizes he has work to do. Patient Active Problem List Diagnosis Date Noted Adjustment disorder with depressed mood 07/29/2013 DM type 1 (diabetes mellitus, type 1) ([facility]) 07/29/2013 Insulin: He manages his diabetes with a Basal-bolus regimen as follows: Lantus 38 units prior to bedtime. Bnagoswgdsgx-ir-nfjdbvg ratio of 1 unit Novolog for every 7 grams CHO at breakfast, lunch a nd dinner. Misses approximately 0 breakfast, 0 lunch and 0 dinner shots in past 2 weeks. Rarely takes shots with snacks. Misses about 25 lantus shots per month. Correction factor of 1 unit for every 50 mg/dL > 150.. Blood glucose monitoring: Sterling checks his blood sugar rarely. Does not have a meter tod ay. ROS: Sterling denies any headaches or visual changes. He denies abdominal pain, constipati on/diarrhea or dry skin. No significant polydipsia or polyuria. He reports a normal energy level. The review of systems is otherwise negative for all systems. Social history: Sterling lives at home with his mother. Has struggled with drug use. Hypoglycemia: He reports no episodes of low blood sugars a week. Sterling has a current glucagon kit and does not have a medic alert bracelet. Meal plan: Patient has a flexible meal plan using a carb to insulin ratio. Has occasional s nacks. In general, patient responsible for counting carbohydrates and generally seems to b e unreliable at determining the actual amount. Vitals: Ht 1.75 m (5' 8.9") (44 %, Z= -0.16)*, Wt 63.3 kg (139 lb 8 oz) (35 %, Z= -0.37)*, Weight for age(%) 35% (Z=-0.37) , BP 131/80, Pulse 108, BMI 20.66 kg/(m^2).. Blood pressure -1.0% systolic and 0.0% diastolic of BP percentile by age, sex, and height General: well-appearing, no apparent distress. HEENT: NC/AT, PERRL, EOMI. OP clear, good dentition. neck: supple, no LAD. no thyromegaly. chest: CTA bilaterally. heart: RRR, no murmurs. Good perfusion abdomen: soft/NT/ND, no hepatosplenomegaly. normal BS. ext: feet well cared for with no ingrown toenails. skin: no rashes. no lipodystrophy at injection sites. neuro: grossly normal Laboratory studies: Lab Results Component Value Date A1C 13.0 (A) 09/25/2017 A1C 7.6 (A) 11/23/2015 A1C 8.3 (A) 06/26/2015 Assessment: Type 1 diabetes under poor control. The current HbA1c is significantly more th an the ADA recommend HbA1c in High School/College students (less than 7.5%). Sterling has bee n skipping lantus doses an this is reflected in his high A1c. He also is exhibiting risky b ehavior in regards to treatment of high blood sugar and likely ketoacidosis by treating at [facility]. He has expressed a desire to improve diabetes management and blood sugar control. Emp hasized importance of getting all of his insulin and to not miss doses. Also expressed conc erns about treating probable ketosis at home. Recommendations: -Insulin: Take all lantus doses. Continue at current doses until he obtains more blood herrera gar information to guide changes. -Encouraged checking blood glucose readings at least 3 to 4 times/day and observe for tren ds at different times of day. However, addressed importance of ALWAYS getting his insulin e tu if he doesn't check his blood sugar. - Check ketones if his blood sugar is high. Call or go to ER for large ketones and nausea. -Follow up in in our clinic in 3 months. I have spent 50 minutes with >50% of this time in counseling and instructing the patient an d family. Orestes Quinn MD Professor, Pediatric Endocrinology Boyd Jeffrey MA - 09/10 9:45 AM PST Finger stick performed by patient [...] | HEMOGLOBIN A1C, POC | Routin | 09/25/2017 | Type 1 diabetes | Results for this | | | e | 9:50 AM | mellitus without | procedure are in the | | | | PST | complication (HCC) | results section. | + +--------+ + + + documented in this encounter Results HEMOGLOBIN A1C,POC (09/25/2017 9:50 AM PST) + + + + + + | Component | Value | Ref Range | Performed | Pathologist | | | | | At | Signature | + + + + + + | HEMOGLOBIN | 13.0 (A) | 4.0 - 5.7 % | [...] | [address] | [place], [place] | | | [facility] | [address] | [address] | | | TESTS | | | [...]
--- OUTSIDE RECORDS SUMMARY | ~2020-04-12 | XMS | Encounter Summary ---
Demographics + + + | Address | [address] | | | [place] [address] | + + + | Home Phone [...] + + + | Author | [facility] | + + + | Organization | [facility] | + + + | [...] Team Providers + +------+ + | Care Svp Name | Role | Phone | + +------+ + | Lexx Schrader DO | PCP | | + +------+ + Reason for Visit + + + | Reason | Comments | + + + | Prior Authorization | Accu-chek guide strips | | Request | | + + + Encounter Details +--------+ + + + + | Date | Type | Department | Care Team | Description | +--------+ + + + + | 09/29/ | Documentati | Marvin Singer | Orestes Quinn MD | Prior Authorization | | 2018 | on | Diabetes Health | [address] | Request (Accu-chek | | | | [facility] | [address], | guide strips) | | | | [address] | [place] [address] | | | | | [address] | [phone] | | | | | Physician's | | | | | | [address] | | | | | | [place], [place] | | | | | | [address] | | | | | | [phone] | | | +--------+ + + + [...] Telephone Encounter - Ria Bravo MA - 2017 8:06 AM PSTIncoming fax received from [employer] with message: This member does not have coverage through [employer]. elephone Encounter - Ria Bravo MA - 10/05/2017 3:28 PM PS TPA faxed to [employer] @ F:[phone] with pertinent chart notes and saved to media. elephone Encounter - Ria Mayo MA - 09/29/2017 2:23 PM PSTIncoming fax received from [employer] with message: Please send new rx for pt for freestyle lite meter, strips, lancets. Pt can not afford othe r strips and machine. Pended refill request for Freestyle lite meter, strips, lancets and routed to MD to review. Last Appointment in [facility] was on 09/25/17 at 10:10 am with Orestes Quinn MD. Next Appointment in [facility] is on 01/22/18 at 3:20 pm with Orestes Quinn MD. elephone Encounter - Ria Mayo MA - 09/29/2017 2:20 PM PSTPA request received for: Medication: Accu-chek guide strips Insurance: BCBS OUT OF STATE Received Via: [facility] Form: Completed and placed in MD folder for signature. Last Appointment in [facility] was on 09/25/17 at 10:10 am with Orestes Quinn MD. Next Appointment in [facility] is on 01/22/18 at 3:20 pm with Orestes Quinn MD. documented in this enco unter Plan of Treatment Not on filedocumented as of this encounter Visit Diagnoses Not on filedocumented in this encounter"
--- OUTSIDE RECORDS SUMMARY | ~2020-04-12 | XMS | Encounter Summary ---
Demographics + + + | Address | [address] | | | [place] [address] | + + + | Home Phone [...] Providers + +------+ + | Care Patient Services Representative Name | Role | Phone | + +------+ + | Lexx Schrader DO | PCP | | + +------+ + Reason for Visit + +--------+ + | Reason | Onset | Comments | | | Date | | + +--------+ + | Prior Authorization | 07/16/ | Humalog | | Request | 2015 | | + +--------+ + Encounter Details +--------+ + + + + | Date | Type | Department | Care Team | Description | +--------+ + + + + | 07/16/ | Telephone | Pediatric | Orestes Quinn MD | Prior Authorization | | 2015 | | Endocrinology at | [address] | Request (Humalog) | | | | [place] | [address] [facility] | | | | | [facility] | [place] [address] | | | | | [address] | [phone] | | | | | [address] | | | | | | [place], [place] | | | | | | [address] | | | | | | [phone] | | | +--------+ + + + [...] this encounter Miscellaneous Notes Telephone Encounter - Yamile Garrison MA - 07/16/2016 3:16 PM PSTPA request for Humalog. N ovolog is preferred. Ok to switch? documented in this encounter Plan of Treatment Not on filedocumented as of this encounter Visit Diagnoses Not on filedocumented in this encounter"
--- OUTSIDE RECORDS SUMMARY | ~2020-04-12 | XMS | Encounter Summary ---
Demographics + + + | Address | [address] | | | [place] [address] | + + + | Home Phone | | + + + | Preferred Language | Unknown | + + + | Marital Status | Single | + + + | Methodist Affiliation | Unknown | + + + [...] Team Providers + +------+ + | Care Community Center Director Name | Role | Phone | + +------+ + | Lia Pérez | PCP | | + +------+ + Reason for Visit +--------+--------+ + | Reason | Onset | Comments | | | Date | | +--------+--------+ + | Other | 06/05/ | new meter | | | 2014 | | +--------+--------+ + Encounter Details +--------+ + + + + | Date | Type | Department | Care Team | Description | +--------+ + + + + | 06/05/ | Telephone | Marvin Singer | Ludy Diamond, | [facility] | | 2014 | | Diabetes Health | MD [address] | | | | | Center [facility] | [address] | | | | | [address] | [place], [place] | | | | | [address] | [address] | | | | | Physician's | [phone] | | | | | [address] | | | | | | [place], [place] | | | | | | [address] | | | | | | [phone] | | | +--------+ + + + [...] Telephone Encounter - Boyd Munoz MA - 06/06/2015 7:02 AM PDTPended refill request for A ccu-check Carlos Meter and routed to MD to review. Last Appointment in [facility] was on 11/17/14 at 2:50 pm with Mark Jaeger MD. No future appointments scheduled in Endocrinology, Diabetes & Metabolism. Pt does not have a F/U appointment scheduled, routed to schedulers pool to contact pt for a ppointment. elephone Encounter - Faizan Ravi - 06/05/2015 4:49 PM PDTRx for Accu-check carlos meter. States that if you send rx for meter to pharmacy the insurance will pay for it. documented in this encounter Plan of Treatment Not on filedocumented as of this encounter Visit Diagnoses Not on filedocumented in this encounter"
--- OUTSIDE RECORDS SUMMARY | ~2020-04-12 | XMS | Encounter Summary ---
Demographics + + + | Address | [address] | | | [place] [address] | + + + | Home Phone | | + + + | Preferred Language | Unknown | + + + | Marital Status | Single | + + + | Yazidism Affiliation | Unknown | + + + [...] | + + +---------+ + | Amanda Phipps | ECON | Unknown | | + + +---------+ + | Brayden Radabah Sr. | ECON | Unknown | | + + +---------+ + | Soco Salguero | ECON | Unknown | | + + +---------+ + | Rhina Pleitez | ECON | Unknown | | + + +---------+ + Care Team Providers + +------+ + | Care Glazier Supervisor Name | Role | Phone | [...] | Type I | MD Saida | [facility] | | | Required | Metabolism | (juvenile | [address] | | | | | type) | [address] | | | | | diabetes | Street | Physician's | | | | | mellitus | [address] | [place], | | | | | without | [place], | [address] | | | | | mention of | [place] [address] | [place], [place] | | | | | complication | Phone: | [phone] | | | | | , not stated | [phone] | Phone: | | | | | as | Fax: | [phone] | | | | | uncontrolled | [phone] | Fax: | | | | | | | [phone] | +--------+ + + + + + Encounter Details +--------+---------+ + + + | Date | Type | Department | Care Team | Description | +--------+---------+ + + + | 08/04/ | Office | Marvin Singer | Mindy Jaeger MD | Type I (juvenile | | 2013 | Visit | [facility] | | type) diabetes | | | | [facility] | | mellitus without | | | | [address] | | mention of | | | | [address] | | complication, not | | | | Physician's | | stated as | | | | [address] | | uncontrolled | | | | [place], [place] | | (Primary Dx) | | | | [address] | | | | | | [phone] | | | +--------+---------+ + + + [...] + + + | Blood Pressure | 122/72 | 08/04/2014 2:35 PM | | | | | PST | | + + + + + | Pulse | 105 | 08/04/2014 2:35 PM | | | | | PST [...] + + + + | Weight | 52.6 kg (115 lb 14.4 | 08/04/2014 2:35 PM | | | | oz) | PST | | + + + + + | Height | 170 cm (5' 6.93") | 08/04/2014 2:35 PM | | | | | PST | | + + + + + | Body Mass Index | 18.19 | 08/04/2014 2:35 PM | | | | | PST | | + + + + + documented in this encounter Patient Instructions Patient Instructions Mindy Jaeger MD - 08/04/2014 3:29 PM PSTInsulin: Lantus 33 units CR: 1 for 8 grams of carbohydrates High Blood Sugar Correction Factor: 150-200: 5 units 200-250: 6 units 251-300: 7 units 301-350: 8 units 351-400: 9 units > 400: 10 units -Continue Parent supervision for all Lantus doses, [...] ge ketones he needs to call the mechanical commissioning engineer pediatric talent director to discuss management. documented in this encounter Progress Notes Lucia Huynh MD - 08/04/2014 3:49 PM PSTPediatric Endocrinology Attending Marcelino Lema 08/04/2014 I have seen and examined patient with Dr. Jaeger. I agree with his note and plan. I have pa rticipated in patients care. LUCIA VICTORIA MD [facility] [address]ST FLOOR [address] [address] ely Stacy - 08/04/2014 2:33 PM PST Finger stick performed by patient in clinic for capillary A1c test. The patient was screened for the following contraindications to influenza vaccine and respo nses were as follows: Febrile illness today? No Allergy to eggs? No Prior history of a reaction to flu vaccine? No Prior history of Guillain-Houston syndrome? No (For patients receiving Fluarix): Allergy or sensitivity to Latex? Not applicable Mindy Bright MD - 12:03 PM PST [facility] Clinic Note Clinic Date: 08/04/14 Current Insulin Regimen : Lantus 30 units CR: 1 for 10 grams of [...] has no new complaints at today's visit. Brayden continues to struggle and was recently diagnosed with DKA and two since his last visit. His last DKA event was about one month ago. He gets care at [facility]. Coty rodriguez social worker aide is working on OHP. He also notes he is done with needles and wants to b e on a pump. Blood glucose monitoring: Brayden reports checking his blood sugar at least 3-5 times a day most of the time. He has brought no written records, but does have a meter available to re trieve glucose readings. In general, the records are lacking occasional readings, however still interpretable. Review of the records reveals blood sugar values as follows: Mornin,439,467, high,420,460,346 Lunch:478,352,326,454,524,590,296,476 Dinner: 302,259,325,324,407,408 Bedtime: 430,563,591 Hypoglycemia: Brayden's target range for his glucose levels is 80-180. He reports 0-2 episod es of low blood sugars a week. He states that he is frequently able to recognize these episo skyler. Brayden states that he has a current glucagon kit and has a medic alert bracelet which h e currently wearing. Meal plan: He likes to [...] 18 years of age. Dad lives in [place] and Mom and Dad are currentl y in the process of obtaining a divorce. Of note his DHS letter reports that Brayden has a hi story of making comments about committing suicide and overdosing himself on insulin. Mom and Brayden recently moved to [place], [place]. School: Brayden Phipps is not attending school. See additional discussion regarding luigi ool absence above. Health Care Maintenance: Last eye check: Eye check in May 2014, he needs corrective lenses and had some retinopa thy noted in his right eye Last urine for microalbumin below: Results for BRAYDEN PHIPPS ( ) as of 07/29/2013 12:00 Ref. Range 06/17/2013 11:12 CREATININE, URINE No range found 25.50 MICROALBUMIN, URINE TIMED Latest Range: <=20 mg/L 9 MICROALBUMIN/CREAT RATIO Latest Range: <=30 mg/gm 35 (H) June 2013 Thyroid studies normal, negative celiac screen Lipids: High triglycerides noted Results for BRAYDEN PHIPPS ( ) as of 07/29/2013 12:00 Ref. [...] - 1.2 ng/dL 1.0 Results for BRAYDEN PHIPPS ( ) as of 07/29/2013 12:00 Ref. Range 06/17/2013 15:58 TTG, IGA Latest Range: 0 - 19 Units 5 IGA SERUM Latest Range: 70 - 400 mg/dL 241 Filed Vitals 08/04/2014 2:38 PM Height: 170 cm (5' 6.93") (55%, Z = 0.12) Weight: 52.572 kg (115 lb 14.4 oz) (39%, Z = -0.29) BP: 122/72 Pulse: 105 PainSc: 0 - Zero BMI: 18.19 kg/(m^2) General: well-appearing, no apparent distress. Strong smell of tobacco smoke. Shirt is dirt y. HEENT: NC/AT, PERRL, EOMI. OP clear, good dentition. neck: supple, no LAD. no thyromegaly. chest: CTA bilaterally. heart: RRR, no murmurs. Good perfusion abdomen: soft/NT/ND, no hepatosplenomegaly. normal BS. ext: feet well cared for with no ingrown toenails. skin: no rashes, no lipodystrophy at shot sites. Some spots on lower leg with scarring/scab s from insulin shots (i have indicated that he should never given insulin shots in his lower legs). neuro: grossly normal Laboratory studies: Lab Results Component Value Date A1C >14.0 06/17/2013 HA1C: 13.9 Results for BRAYDEN PHIPPS ( ) as of 08/04/2014 15:05 Ref. Range 08/04/2014 14:38 HEMOGLOBIN A1C Latest Range: 4.0-5.7 % 13.3 (A) Assessment: Type 1 diabetes under poor but slightly improving control. I am encouraged rosalee bisi Katz has started to check his blood sugars much more regularly and this is very useful i n helping to make some insulin adjustments today. He is clearly still missing doses and evid enced by his two most recent DKA admissions. I have asked that without exception that Mom wi tness the Lantus shot daily to ensure he never misses his Lantus. Overall, Brayden seems cortney vated more than previously to improve his glycemic control. We discussed also cutting back o n smoking and the importance of attending school. I am hopeful that Brayden may now be more w illing to care for himself and his diabetes more closely. I have asked them to please check in with me in two weeks so we can continue to make insulin adjustments. They are to check 2A M blood sugars for a week the Lantus change to watch for lows, though this seems unlikely gi tu that blood sugars are in the 400s. Recommendations: -Insulin: Lantus 33 units CR: 1 for 8 grams of carbohydrates High Blood Sugar Correction Factor: 150-200: 5 units 200-250: 6 units 251-300: 7 units 301-350: 8 units 351-400: 9 units > 400: 10 units -Continue Parent supervision for all Lantus doses, [...] ge ketones he needs to call the mechanical commissioning engineer pediatric talent director to discuss management. -Obtain care with a local primary care doctor. -Flu shot today -As much as possible avoid overnight meals, ensure that his snacks are about 15 grams or le ss in between meals. -Meet with Psychology at every visit -Urine microalbumin, lipids -Follow up in in our clinic in 4 months. The family has been offered the opportunity to ca ll into our service between visits for assistance in making insulin adjustments. MINDY JAEGER MD [facility] 1ST FLOOR [address] [facility] [address] [facility] [address] [place] [address] documented in this encou nter Plan of Treatment Not on filedocumented as of this encounter Procedures + +--------+ + + + | Procedure Name | Priori | Date/Time | Associated Diagnosis | Comments | | | ty | | | | + +--------+ + + + | HEMOGLOBIN A1C, POC | Routin | 08/04/2014 | Type I (juvenile | Results for this | | | e | 2:38 PM | type) diabetes | procedure are [...] documented in this encounter Results HEMOGLOBIN A1C,POC (08/04/2014 2:38 PM PST) + + + + + + | Component | Value | Ref Range | Performed | Pathologist | | | | | At | Signature | + + + + + + | HEMOGLOBIN | 13.3 (A) | 4.0 - 5.7 % | [...] + + + + | [facility] | [address] | [place], [place] | | | [facility] | [address] | [address] | | | TESTS | | | | + + + + + documented in this encounter Visit Diagnoses + + | Diagnosis | + + | Type I (juvenile type) diabetes mellitus without mention of complication, not stated | | as uncontrolled - Primary | + + documented in this encounter
--- OUTSIDE RECORDS SUMMARY | ~2020-04-12 | XMS | Encounter Summary ---
Demographics + + + | Address | [address] | | | [place] [address] | + + + | Home Phone | | + + + | Preferred Language | Unknown | + + + | Marital Status | Single | + + + | Protestant Affiliation | Unknown | + + + [...] Team Providers + +------+ + | Care Manufacturing Systems Engineer Name | Role | Phone | [...] + + + + | 06/28/ | Documentati | Marvin Singer | Santa Gomez, | Referral to social | | 2015 | on | Diabetes Health | [facility] [address] | worker | | | | [facility] | [facility] | | | | | [address] | [place], [place] | | | | | [address] | [address] | | | | | Physician's | [phone] | | | | | [address] | | | | | | [place], [place] | | | | | | [address] | | | | | | [phone] | | | +--------+ + + + [...] Notes Telephone Encounter - Santa Gomez - 06/28/2015 2:41 PM [facility]) social insurance analyst (FIDE) note for 04/26/15: SW met with 14 year old patient and his mother as part of the diabetes team. SW reviewed progress Sterling has made in his treatment facility and better managing his diab etes. SW also acknowledged mother being able to change her work schedule to attend [facility], and both reported that having more structure has been helpful. SW provided meal cards (given by a private donor) so they could eat before the medical transportation brings them b ack. FIDE left a message with ECTOR Quiroga regarding the progress Sterling has made with the treatment st aff around managing his diabetes. No other SW needs identified at this time. Santa Gomez [facility] Diabetes clinic social insurance analyst pager [phone] documented in this encoun ter Plan of Treatment Not on filedocumented as of this encounter Visit Diagnoses Not on filedocumented in this encounter"
--- OUTSIDE RECORDS SUMMARY | ~2020-04-12 | XMS | Encounter Summary ---
Demographics + + + | Address | [address] | | | [place] [address] | + + + | Home Phone [...] + + + | Author | [facility] | + + + | Organization | [facility] | + + + | [...] Team Providers + +------+ + | Care Crisis Nurse Name | Role | Phone | + +------+ + | No Pcp Per Patient | PCP | Unavailable | + +------+ + Encounter Details +--------+ + + + + | Date | Type | Department | Care Team | Description | +--------+ + + + + | 01/17/ | Telephone-S | Marvin Singer | Orestes Quinn MD | | | 2020 | rafael | Diabetes Health | [address] [facility] | | | | | [facility] | [facility], | | | | | [address] | [place] [address] | | | | | [address] | [phone] | | | | | Physician's | | | | | | [address] | | | | | | [place], [place] | | | | | | [address] | | | | | | [phone] | | | +--------+ + + + [...] documented as of this encounter Progress Notes Orestes Quinn MD - 01/18/2020 1:45 PM PDT Patient agrees to a telephone encounter for today's visit. They understand they may be resp onsible for the balance after insurance processes the claim. The visit took place via telephone with the provider located at the distant site of [facility]. T he patient stated they were located at the originating site of home and were in the state of [place] at the time of the telephone visit. The names of all persons participating in the alda agosto visit and their roles are: Sterling Time spent on the call: 33 min. (call started 1:48 PM , call ended 2:21 PM ). Total time sp ent on patient care today including visit, reviewing chart, documenting and communicating wi providers is 47 minutes. The patients encounter was accomplished via a telephone call today due to COVID-19 precauti onary measures to limit the patient's unnecessary exposure. [facility] Clinic Note Clinic Date: 01/18/2020 Sterling is a 19 year male with Type 1 diabetes here for follow-up. Interval History: Sterling is a 19 year male with Type 1 diabetes who presents today for ongoing follow-up. Evelyn rock has been doing well since his last visit. He has not had any significant illnesses, k etosis, or severe hypoglycemia requiring intervention with glucagon. Sterling states that his blood sugars are much better with his renewed focus on taking care of himself. He is inter ested in switching back to the pump. He is honest when saying that the only reason he switc hed to shots off of his pump was to gain access to syringes. He would like to switch back t o pump therapy as soon as he is able to do so. Patient Active Problem List Diagnosis Date Noted Adjustment disorder with depressed mood 07/29/2013 DM type 1 (diabetes mellitus, type 1) ([facility]) 07/29/2013 Insulin: He manages his diabetes with a Basal-bolus regimen as follows: Lantus 19 units prior to breakfast and bedtime. Fcqpazggvgap-ac-blnncnf ratio of 1 unit Novolog for every 7 grams CHO at breakfast, lunch a nd dinner. Correction factor of 1 unit for every 50 mg/dL > 150.. Blood glucose monitoring: Sterling monitors his blood sugar using a Dexcom G6 CGM. Uses a r eceiver because he doesn't have access to cell phone. In the past 3 months, he used his CGM more than 50% of the time. Will send PDF of his blood sugars. ROS: Sterling denies any headaches or visual changes. He denies abdominal pain, constipati on/diarrhea or dry skin. No significant polydipsia or polyuria. He reports a normal energy level. The review of systems is otherwise negative for all systems. Social history: Sterling is currently in rehab. Hypoglycemia: He reports 0-2 episodes of low blood sugars a week. He is always able to r ecognize these episodes. Sterling has a current glucagon kit and does not have a medic alert bracelet. Meal plan: Patient has a flexible meal plan using a carb to insulin ratio. In general, pat ient responsible for counting carbohydrates and generally seems to grossly estimate the act ual amount. Health Care Maintenance: Last eye check a long time ago. Scheduled in a few weeks.. Last urine for microalbumin over a year ago. Vitals: Facility age limit for growth percentiles is 18 years.. Blood pressure Growth per centile SmartLinks can only be used for patients less than 18 years old. General: well-appearing, no apparent distress. The exam deferred as this is a telehealth visit. Laboratory studies: Recent A1c approximately 9% per Sterling. Lab Results Component Value Date A1C 13.0 (A) 09/25/2017 A1C 7.6 (A) 11/23/2015 A1C 8.3 (A) 06/26/2015 Lab Results Component Value Date TSH 2.08 06/26/2015 Lab Results Component Value Date FREET4 0.8 06/26/2015 Lab Results Component Value Date MICROALBUMIN 302 (H) 06/26/2015 URCREATCONC 305.00 06/26/2015 MICROALBCRE 99 (H) 06/26/2015 No results found for: TTGIGA Lab Results Component Value Date CHOL 140 06/17/2013 LDL 43 06/17/2013 HDL 45 06/17/2013 TRI 259 06/17/2013 Assessment: Type 1 diabetes under fair and improving control. Sterling is taking considerabl y better care of his diabetes. No recent blood sugar data to review but will have him send data. I support transition back to pump but with re-education on the new pump. He did very well previously with pump therapy and can achieve this again. He is also in the process of transitioning to adult care. Would be ideal if he could transition first then work with sean hardy diabetes provider to get educated in the new pump but consistent with their care protocols . Discussed pump options. He had already decided on the Tslim pump based on previous discu ssions. Recommendations: -Insulin: No changes. -Continue using your CGM at least 50% of the time. All the time if not using CBG's for back up glucose management. -Assist with transitioning to adult care provider. If this isn't able to happen within nex t few months, work with local Diab educator to order and restart pump. -Obtain free T4, TSH, Tissue transglutaminase IgA -Ordered spot urine for microalbumin to screen for diabetic nephropathy. If positive, will confirm with an overnight sample. -Needs eye exam -Follow up in in our clinic in 4 months if he hasn't transitioned to adult care. Orestes Quinn MD Professor, Pediatric Endocrinology Ovi Hollis MA - 05/2020 1:45 PM PDTTelephone call placed to Sterling Monique in preparation of virtual vi sit scheduled on 01/17. Unable to reach patient at this time. Left Voicemail for pt to retur n call. If pt returns call please contact OVI BRAVO MA directly to complete pre-charting . If OVI BRAVO MA is not available please contact Program Project Analyst, if Program Project Analyst is not available take a message and route to MA team. Patient was contacted via telephone on 01/15 in preparation of virtual visit. Rooming Patient reported Vitals: Reviewed Allergies: NONE Medications reconciled: YES Pharmacy confirmed: [id number] - [place], [place] - [address] [phone] Refills pended: Testing blood glucose frequency: Changing Sensor Frequency: NA Changing Infusion set Frequency: NA Downloads Meter downloaded/CBG reporting: Sensor Downloaded: NA Pump Downloaded: NA Supplier Receives testing supplies from: pharmacy Receives pump supplies from: NA Receives sensor supplies from: NA Any current issues with receiving supplies? None Virtual visit preparation: This patient care assistant has reminded the patient to follow the preparation link provided via [employer] for their visit. Patient is aware to be available 20 min prior to visit and 20 min after appointment start time in the event of provider delays. This Senior Java Web Application Developer has rem inded the patient that while the Virtual Visit is conducted if any technical issues arise, t he provider may flip the visit into a phone visit and will call the patient. Informed the pa tient they will be financially responsible for any non-covered services as usual. OVI BRAVO MA documented in this enco unter Plan of [...]
--- OUTSIDE RECORDS SUMMARY | ~2020-04-12 | XMS | Encounter Summary ---
Demographics + + + | Address | [address] | | | [place] [address] | + + + | Home Phone | | + + + | Preferred Language | Unknown | + + + | Marital Status | Single | + + + | Scientologist Affiliation | Unknown | + + + [...] Team Providers + +------+ + | Care Mapping Editor Name | Role | Phone | + +------+ + | Saida Alegria MD | PCP | | + +------+ + Reason for Visit + +--------+ + | Reason | Onset | Comments | | | Date | | + +--------+ + | Referral to social | 07/31/ | | | worker | 2013 | | + +--------+ + Encounter Details +--------+ + + + + | Date | Type | Department | Care Team | Description | +--------+ + + + + | 07/31/ | Telephone | Marvin Singer | Santa Gomez, | Referral to social | | 2013 | | Diabetes Health | CUSTOMER RESOLUTION SPECIALIST [address] | worker | | | | Center at [facility] | [facility] | | | | | [address] | [place], [place] | | | | | [address] | [address] | | | | | Physician's | [phone] | | | | | [address] | | | | | | [place], [place] | | | | | | [address] | | | | | | [phone] | | | +--------+ + + + [...] encounter Miscellaneous Notes Telephone Encounter - Jada Vernon - 08/22/2014 2:49 PM PSTSamantha called back, requesting call back to update on visit on 08/04. Requesting call back from either Santa or Dr Jaeger . [phone] signed by Jada Saulo at 08/22/2014 2:51 PM PSTTelephone Enco zachary - Patricia Santa - 07/31/2014 5:08 PM [facility] worker Samantha [phone] contacted regarding patient Sterling. [facility] is helping Sterling's mother by giving gas money so she can bring him to the appointment on Thursday with Dr. Jaeger. [facility] worker states that Sterling continues to decline despite [facility] and [facility] counseling invo lvement. He is currently not in school, was recently admitted in DKA, and will often stay o ut all night with friends. Both mother and older adult sister are struggling with his behav iors, and mother is also having financial difficulties. School is requiring ketostix but mo ther reportedly states she cannot afford them and doesn't understand whey they would be help ful. She is reportedly frustrated that they are using too many test strips. [facility] is assisti ng to determine if he qualifies for OHP. Plan: will review with Dr. Jaeger. recommends Sterling and his mother follow up with psycholog y during Fridays appointment, and possibly coordinate with [facility]. will provide resource information and access to any applicable coupons for supplies/medi cations. VEL Hernandez pager [phone] signed by Santa Gomez at 07/31/2014 5:26 PM PSTdocumented in this encounter Plan of Treatment Not on filedocumented as of this encounter Visit Diagnoses Not on filedocumented in this encounter"
--- OUTSIDE RECORDS SUMMARY | ~2020-04-12 | XMS | Encounter Summary ---
Demographics + + + | Address | [address] | | | [place] [address] | + + + | Home Phone [...] Team Providers + +------+ + | Care Senior Dynamics Crm Developer Name | Role | Phone | + +------+ + | Lia Pérez | PCP | | + +------+ + Reason for Visit +--------+--------+ + | Reason | Onset | Comments | | | Date | | +--------+--------+ + | Other | 05/04/ | rx change | | | 2014 | | +--------+--------+ + Encounter Details +--------+ + + + + | Date | Type | Department | Care Team | Description | +--------+ + + + + | 05/04/ | Telephone | Marvin Singer | Mark Jaeger MD | Other (rx change) | | 2014 | | [facility] | | | | | | [facility] | | | | | | [address] | | | | | | [address] | | | | | | [facility] | | | | | | [address], | | | | | | [place] [address] | | | | | | [phone] | | | +--------+ + + + [...] Encounter - Lucia Huynh MD - 05/07/2015 1:58 PM PDTCalled back on 9/2 8, for further clarification. Left message for mom to see if her concerns have been addresse d. elephone Enco zachary - Annita Ricks - 05/04/2015 4:34 PM PDTPt mom called back returning and states pt will be in treatment for next 4 months and just started is not able to come into clinic. Mom wants to know if the cap does can be taken off on his current rx. [phone] elephone En counter - Lucia Huynh MD - 05/04/2015 4:17 PM PDTLeft message for mom. No appoin tment scheduled for Sterling; we need to see him before adjusting dosing. His provider, Dr Thomas young is no longer available, so will need to set up appointment with another provider.Scott garg signed by Lucia Diamond MD at 05/04/2015 4:20 PM PDTTelephone Encounter - Annita Smiht - 05/04/2015 4:07 PM PDTPt is in treatment center and wanting to know if the insulin dosages to be changes where he can take more than 75units/day. Mom is going to have treatment center send over his blood sugars sent over. [phone] Jaeger do cumented in this encounter Plan of Treatment Not on filedocumented as of this encounter Visit Diagnoses Not on filedocumented in this encounter"
--- OUTSIDE RECORDS SUMMARY | ~2020-04-12 | XMS | Encounter Summary ---
Demographics + + + | Address | [address] | | | [place] [address] | + + + | Home Phone [...] Team Providers + +------+ + | Care Medical Sales Specialist Name | Role | Phone | + +------+ + | Lexx Schrader DO | PCP | | + +------+ + Reason for Visit + +--------+ + | Reason | Onset | Comments | | | Date | | + +--------+ + | Refill Request | 11/08/ | pen needles, test strips, Lantus | | | 2019 | | + +--------+ + Encounter Details +--------+--------+ + + + | Date | Type | Department | Care Team | Description | +--------+--------+ + + + | 11/08/ | Refill | Pediatric | Orestes Quinn MD | Refill Request (pen | | 2019 | | Endocrinology at | [address] | needles, test | | | | Dob[facility] | Ilana Lawrence, | strips, Lantus) | | | | [facility] | [place] [address] | | | | | [address] | [phone] | | | | | [place] | | | | | | [place], [place] | | | | | | [address] | | | | | | [phone] | | | +--------+--------+ + + + [...] this encounter Miscellaneous Notes Telephone Encounter - Ailyn Parsons MA - 11/08/2018 12:18 PM PDTIncoming refill request received from Sterling via telephone. Pended refill request for pen needles, test strips, Lant us and routed to MD to review. Last Appointment in [facility] was on 09/25/17 at 3:41 pm with Orestes Quinn MD. No future appointments scheduled. Patient has not been seen in over a year. EMERGENCY REFILL REQUEST: Paged Provider clinical nutritionist Dinesh Avila with the following message: Sterling Monique [phone] needs Rx to inject insulin. Please sign for pen needles CISCO. S ee routed encounter. [place] [phone] documented in this en counter Plan of Treatment Not on filedocumented as of this encounter Visit Diagnoses Not on filedocumented in this encounter"
--- OUTSIDE RECORDS SUMMARY | ~2020-04-12 | XMS | Encounter Summary ---
Demographics + + + | Address | [address] | | | [place] [address] | + + + | Home Phone [...] Team Providers + +------+ + | Care Copying Machine Mechanic Name | Role | Phone | + +------+ + | Lia Pérez | PCP | | + +------+ + Encounter Details +--------+ + + + + | Date | Type | Department | Care Team | Description | +--------+ + + + + | 06/13/ | Telephone | Marvin Singer | Jeffry Rice, | | | 2014 | | Diabetes [facility] | SONU Clancy [address] | | | | | [facility] | [address] | | | | | [address] | [place], [place] | | | | | [address] | [address] | | | | | Mailcode: [id number] | | | | | | [facility] | | | | | | [address], | | | | | | [place] [address] | | | | | | [phone] | | | +--------+ + + + [...] Telephone Encounter - Julieth Lilly RN - 06/13/2015 2:06 PM PSTLeft message with Mom regarding the following appt: Sterling has been scheduled for follow up appt on Thursday at 11:[address] Kai grady nd 12:00 with educator. This educator spoke with Israel Machado [facility] officer at [phone] to coordinate transportation for Sterling to the appt. Mom needs to call Mr. Yousif to coordinate her being at this appt. This is the only appt t carlton available until into 2016. It is important that Mom understand she must be at this visit . [place] to [place] [phone] Routing to FIDE Hernandez, RN, BSN, CDE Registered Nurse, Ladies Locker Room Attendant documented in this encounter Plan of Treatment Not on filedocumented as of this encounter Visit Diagnoses Not on filedocumented in this encounter"
--- OUTSIDE RECORDS SUMMARY | ~2020-04-12 | XMS | Encounter Summary ---
Demographics + + + | Address | [address] | | | [place] [address] | + + + | Home Phone | | + + + | Preferred Language | Unknown | + + + | Marital Status | Single | + + + | Muslim Affiliation | Unknown | + + + | Race | White | + + + | Ethnic Group | Not or | + + + Author + + + | Author | [facility] | + + + | Organization | [facility] | + + + | [...] Team Providers + +------+ + | Care Med Peds Name | Role | Phone | + +------+ + | No Pcp Per Patient | PCP | Unavailable | + +------+ + Reason for Visit Office Visit - E/M Services (Routine) + +--------+ + + + + | Status | Reason | Specialty | Diagnoses / | Referred By | Referred To | | | | | Procedures | Contact | Contact | + +--------+ + + + + | Authorized | | Endocrinology | Diagnoses | Elisa, | [place], | | | | Diabetes & | Type 1 | Lia Rawls, | MD Orestes | | | | Metabolism | diabetes | [place] [address] | [address] | | | | | mellitus | Mary Palma | [facility] | | | | | without | Chris, | [address] [place], | | | | | complication | [place] [address] | [place] | | | | | s | Phone: | [phone] | | | | | Procedures | [phone] | Phone: | | | | | [place] NEW | Fax: | [phone] | | | | | PATIENT | [phone] | Fax: | | | | | LEVEL V OK | | [phone] | | | | | EST PATIENT | | | | | | | LEVEL V | | | + +--------+ + + + + Encounter Details +--------+ + + + + | Date | Type | Department | Care Team | Description | +--------+ + + + + | 11/17/ | Video/TeleH | Marvin Singer | Orestes Quinn MD | | | 2020 | ea-Sched | Diabetes Health | [address] [facility] | | | | uled | [facility] | [address] [place], | | | | | [address] | [place] [address] | | | | | [address] | [phone] | | | | | Physician's | | | | | | [address] | | | | | | [place], [place] | | | | | | [address] | | | | | | [phone] | | | +--------+ + + + [...] encounter Progress Notes Orestes Quinn MD - 11/18/2019 3:40 PM PDT The visit took place via Telemedicine. Patient location is rehab facility. Patient was leah bach in the state [facility] at the time of the visit. Telepresenter (relative and/or caretake r) was not used during the visit. [facility] Clinic Note Clinic Date: 11/18/2019 Sterling is a 19 year male with Type 1 diabetes here for follow-up. Interval History: Sterling is a 19 year male with Type 1 diabetes who presents today for ongoing follow-up. He is accompanied to clinic today by a caregiver. Sterling was struggling with multiple issues since his last visit. Was having issues with drugs. Is currently in rehab. Blood sugars a re doing a lot better. Except in the mornings. Is waking up high in the morning. Would li gabriel to get back on a pump but hasn't had a pump on since an old medtronic pump. Patient Active Problem List Diagnosis Date Noted Adjustment disorder with depressed mood 07/29/2013 DM type 1 (diabetes mellitus, type 1) ([facility]) 07/29/2013 Insulin: He manages his diabetes with a Basal-bolus regimen as follows: Lantus 32 units prior to breakfast. Wrnuctztgyzh-mg-owjdxsl ratio of 1 unit Novolog for every 7 grams CHO at breakfast, lunch a nd dinner. He always takes his insulin shots before eating. Correction factor of 1 unit for every 50 mg/dL > 150.. Blood glucose monitoring: Sterling monitors his blood sugar using a Glucometer Recall of rec ords reveals: Breakfast: 250 to 350 Lunch: 190 to 230 Dinner: 140 to 240 3 AM: 150 to 290 ROS: Sterling denies any headaches or visual changes. He denies abdominal pain, constipati on/diarrhea or dry skin. No significant polydipsia or polyuria. He reports a normal energy level. The review of systems is otherwise negative for all systems. Social history: Sterling is currently in rehab. Hypoglycemia: He reports 0 episodes of low blood sugars a week. He is always able to rec ognize these episodes. Sterling has a current glucagon kit and does not have a medic alert b racelet. Meal plan: Patient has a flexible meal plan using a carb to insulin ratio. In general, pat ient responsible for counting carbohydrates and generally seems to grossly estimate the act ual amount. The rest of the exam deferred as this is a telehealth visit. Laboratory studies: Lab Results Component Value Date [...] 259 06/17/2013 Assessment: Type 1 diabetes under poor overall, but recently improving control. In past we ek, he has improved his blood sugars from the 300's to the 200's. Still needs more basal bu t is doing generally better. He is interested in getting on a sensor and in an insulin pump . Recommended starting the sensor first then looking at options for the pump since pump the rapy has changed significantly since his last pump. Needs health maintenance labs. Recommendations: -Insulin: Increase lantus to 35 units for 5 to 7 days. If blood sugars still high, then g o to 38 units. -Continue to check blood glucose readings at least 4 times/day and observe for trends at d ifferent times of day. -Obtain an HBA1c, FT4, TSH, TTG IgA, urine microalbumin. -obtain authorization for a CGM. -Follow up in in our clinic in 4 months. I have spent 45 minutes in counseling and instructing the patient and health care facility including documentation. Orestes Quinn MD Professor, Pediatric Endocrinology documented in this enc ounter Plan of [...]
--- OUTSIDE RECORDS SUMMARY | ~2020-04-12 | XMS | Encounter Summary ---
Demographics + + + | Address | [address] | | | [place] [address] | + + + | Home Phone [...] Team Providers + +------+ + | Care Knot Tying Operator Name | Role | Phone | + +------+ + | Lia Pérez | PCP | | + +------+ + Reason for Visit + +--------+ + | Reason | Onset | Comments | | | Date | | + +--------+ + | Refill Request | 06/04/ | | | | 2014 | | + +--------+ + Encounter Details +--------+--------+ + + + | Date | Type | Department | Care Team | Description | +--------+--------+ + + + | 06/04/ | Refill | Marvin Singer | Karyna Kaufman, | Refill Request | | 2014 | | Diabetes [facility] | [address] [facility] | | | | | [facility] | [address] | | | | | [address] | [place], [place] | | | | | [address] | [address] | | | | | Mailcode: [id number] | | | | | | [facility] | | | | | | [address] [place], | | | | | | [place] [address] | | | | | | [phone] | | | +--------+--------+ + + + [...]
--- OUTSIDE RECORDS SUMMARY | ~2020-04-12 | XMS | Encounter Summary ---
Demographics + + + | Address | [address] | | | [place] [address] | + + + | Home Phone | | + + + | Preferred Language | Unknown | + + + | Marital Status | Single | + + + | Congregational Affiliation | Unknown | + + + [...] Providers + +------+ + | Care Marketing Communications Coordinator Name | Role | Phone | [...] | | | | | Procedures | [place], [place] | PPV05 | | | | | CONSULT TO | [address] | Physician's | | | | | PEDS | | [address] | | | | | DIABETES - | | [address] | | | | | EDUCATION | | [place], [place] | | | | | AND | | [address] | | | | | NUTRITION | | Phone: | | | | | | | [phone] | | | | | | | Fax: | | | | | | | [phone] | +--------+--------+ + + + + Encounter Details +--------+---------+ + + + | Date | Type | Department | Care Team | Description | +--------+---------+ + + + | 07/29/ | Office | Marvin Singer | Karyna Kaufman, | Type I (juvenile | | 2012 | Visit | Diabetes [facility] | [address] | type) diabetes | | | | [facility] at [facility] | [facility] | mellitus without | | | | [address] | [place], [place] | mention of | | | | [address] | [address] | complication, | | | | Mailcode: [id number] | | uncontrolled | | | | [facility] | | (Primary Dx) | | | | [address] [place], | | | | | | [place] [address] | | | | | | [phone] | | | +--------+---------+ + + + [...] documented as of this encounter Progress Notes Karyna Kaufman, RD - 08/30/2013 3:05 PM PSTFormatting of this note might be different f rom the original. Progress Notes: Pediatric Diabetes Outpatient Clinic Appt Length: 75 minutes Appt Type: Individual Identifying Information: Sterling Moniqeu is a 12 y.o. male with Type 1 Diabetes diagnose d on 08/2010. Sterling Monique is returning to clinic today for diabetes management with hi s Mom (Amanda) and older sister (Soco, 26yo) . Sterling Monique and his family were previously educated at [facility] 06/17/13. They also met with Deepak Lester PhD, Dr. Jaeger and Gil Gomez FOOD AND BEVERAGE ASSISTANT MANAGER today. Barriers to Learning: Psychosocial and Lack of desire/motivation to learn Method of Instruction: individual instruction, printed material and demonstration/return de monstration Home Glucose Monitoring: Blood sugars are being tested 0-4 times daily. In regards to his B Gs, he states "I don't pay attention to that". They are are not keeping daily records. His m eter was downloaded and is available under the media tab. Recent BGs were interpreted per John Jaeger to be as follows: Mornin-562 Lunch: 64(one low, see above)-504, checked very rarely Dinner: 147-high Bedtime: 195-451, almost no checks since his last visit Target Range: 80-180 A1C: 13 to 18 years: <7.5% 06/17/13: >14% 04/2013: 14.3% 08/2012: 10% Insulin Dosages: Sterling Monique is on a basal bolus insulin regimen using Lantus and No volog. Current regimen reportedly is: Lantus: 30 units at bedtime, which Mom states is given as she watches 95% of the time Meals: 1 for 10 grams of carbohydrates High Blood Sugar Correction Factor: 08/11: 50 >150 starting at 5 units Snacks < 15 g carbohydrate are given without insulin. Meal Plan: Sterling Monique is currently following a flexible meal plan, but it does not seem that he is calculating carbohydrates or dosing Novolog consistently. He checked his blo od sugar here before lunch and it was 409. He went to bed at 4am this morning and woke up at 5am. He was "high" on his meter this morning and took 10 units of Novolog. He went to [facility] and got a large drink and two burritos and he did not dose for his breakfast, even thou gh he was with his mother and sister at the time. He typically stays up all night, snacking and sneaking out to roam the neighborhood. He currently does not have a day time routine. Vitals 06/17/2013 07/29/2013 Weight 45.768 kg (100 lb 14.4 oz) 47.9 kg (105 lb 9.6 oz) Height (cm) 162.6 cm 164 cm BMI 17.88 17.31 BMI/age 10-25%ile 25-50%ile School: He has severe school avoidance. Sterling has attended 4 full days of school since [employer] n[employer]giving, when he was staying with his sister. His Mom and sister state that he is now chec angie his ketones excessively in order to attempt to test positive so that he does not have t o stay at school. He had one episode of hypoglycemia, which the family feels was done intent ionally in order to be sent home. He is wearing a Diabetes ID. Sick Day Management: We reviewed basic sickday guidelines, signs, symptoms, and prevention of Ketoacidosis. Sterling Monique does have ketone strips now . Reviewed when to be testi ng for ketones and when to contact MD for assistance. Family Adaptation to Diabetes: Commended Sterling for taking his Lantus and wearing his diabe jeannie ID. Santa Gomez FOOD AND BEVERAGE ASSISTANT MANAGER and Deepak Lester PhD both spent time with Sterling and his Mom. [facility] h as set up counseling visits next week for both Mom and Sterling next week to try to help with his behavioral issues. There are multiple barriers to care, as evidenced by today's visit, miguel a evans the letter from both the principal of his school and [facility]. He is taking melatonin for his sleep issues. His sister has offered for him to live with her, where there is structure, bu t he does not want to. Santa and Dr. Lester addressed sleep, school, routine and resources for proper sharps disposal. Recommendations/ Pt. Instructions (AVS given per Dr. Jaeger): -Please sign up for mychart today! -Insulin: No insulin changes -Continue to check blood glucose readings 4 times/day and observe for trends at different times of day. -School order modified so that he can stay at school with moderate to large ketones if he is otherwise well appearing and not symptomatic. Ketone corrections will be made with the arabella ahmadi in conjunction with Pediatric Endocrinology at [facility] when ketones are moderate or grea ter. -Continue Parent supervision for all Lantus doses, Give the Lantus dose within the same ho ur each night. Do not use exercise to help his blood sugars come down, he should get a high blood sugar correction as often as every three hours. -Check your blood sugar when you take your lantus at night -Always check ketones if his blood sugar is > 300 twice in a row. If he has moderate to la rge ketones he needs to call the filtration plant operator pediatric janitor helper to discuss management. -Obtain care with a local primary care doctor. -As much as possible avoid overnight meals, ensure that his snacks are about 15 grams or l ess in between meals. -We sent new school orders. He may stay at school as long as he is not sick with ketones. -Please make an appointment to see the eye doctor before your next visit --Follow up in in our clinic in 8 weeks. Please call into our service between visits for a ssistance in making insulin adjustments. For now please call me to report his blood sugars on a WEEKLY BASIS via my chart. This is mandatory. Call during business hours between 8-5 P M Thursday through Thursday for issues with ketones. -Follow up in in our clinic in 2 months. The family has been offered the opportunity to ca ll into our service between visits for assistance in making insulin adjustments. Hawa Kaufman MS, RD, LD, CDE Metal Ceiling Hanger, Dietitian [facility] Mail Code: [id number] [address] [place] [address] documented in this encounter Plan of Treatment Not on filedocumented as of this encounter Procedures + +--------+ + + + | Procedure Name | Priori | Date/Time | Associated Diagnosis | Comments | | | ty | | | | + +--------+ + + + | MD ROBERTO MNG TRN FOLUP | Routin | 08/30/2013 | Type I (juvenile | | | (INDIV X 30 MIN) | e | 3:37 PM | type) diabetes | | | | | PST | mellitus without | | | | | | mention of | | | | | | complication, | | | | | | uncontrolled | | + +--------+ + + + documented in this encounter Visit Diagnoses + + | Diagnosis | + + | Type I (juvenile type) diabetes mellitus without mention of complication, uncontrolled | | - Primary | + + documented in this encounter
--- OUTSIDE RECORDS SUMMARY | ~2020-04-12 | XMS | Encounter Summary ---
Demographics + + + | Address | [address] | | | [place] [address] | + + + | Home Phone [...] Author + + + | Author | [facility] | + + + | Organization | [facility] | + + + | [...] Team Providers + +------+ + | Care Asbestos Coverer Name | Role | Phone | + +------+ + | Lia Pérez | PCP | | + +------+ + Reason for Visit + +--------+ + | Reason | Onset | Comments | | | Date | | + +--------+ + | Referral to social | 05/22/ | | | worker | 2015 | | + +--------+ + Encounter Details +--------+ + + + + | Date | Type | Department | Care Team | Description | +--------+ + + + + | 05/22/ | Telephone | Marvin Singer | Santa Gomez, | Referral to social | | 2014 | | Diabetes [facility] | [facility] [address] | worker | | | | Center at Phys[facility] | [facility] | | | | | [address] | [place], [place] | | | | | [address] | [address] | | | | | Physician's | [phone] | | | | | [address] | | | | | | [place], [place] | | | | | | [address] | | | | | | [phone] | | | +--------+ + + + [...] Notes Telephone Encounter - Santa Gomez - 05/22/2015 5:26 PM Emerson Singer Diabetes [facility] ([facility]) social worker school ([employer]) note: telephone SW contacted mother regarding follow up for Israel' diabetes care. Mother stated that she is not able to bring him to [place] at this time, as it would compr omise his substance abuse treatment, but she has been coordinating with the facility on his diabetes related care since they do not have a nurse on staff. [facility] RN CDE's Martha Roper and Julieth Rice have both been in contact with the luzmarialyubov Chauhan at [facility] to try and ensure that staff receive more training an d information. Mother is requesting updated school orders for the facility, and SW relayed to RN CDE. SW spoke with commissioned police officer who stated that at this time, mother would be responsible for bringing him to any out of town medical appointments. Plan: SW will review with provider to determine a plan for follow up. Santa Gomez [facility] Diabetes clinic social worker school pager [phone] documented in this encoun ter Plan of Treatment Not on filedocumented as of this encounter Visit Diagnoses Not on filedocumented in this encounter"
--- OUTSIDE RECORDS SUMMARY | ~2020-04-12 | XMS | Encounter Summary ---
Demographics + + + | Address | [address] | | | [place] [address] | + + + | Home Phone [...] Author | [facility] | + + + | Organization | [facility] | + + + | Address | [...] Team Providers + +------+ + | Care Flight Control Manager Name | Role | Phone | + +------+ + | Saida Alegria MD | PCP | | + +------+ + Reason for Visit + +--------+ + | Reason | Onset | Comments | | | Date | | + +--------+ + | Follow-up Plan | 06/12/ | | | | 2013 | | + +--------+ + Encounter Details +--------+ + + + + | Date | Type | Department | Care Team | Description | +--------+ + + + + | 06/12/ | Telephone | Pediatric | Salbador Resendiz MD | Follow-up Plan | | 2013 | | Hipolito babb | | | | | | [place] | | | | | | [facility] | | | | | | [address] | | | | | | [place] | | | | | | [place], [place] | | | | | | [address] | | | | | | [phone] | | | +--------+ + + + [...] this encounter Miscellaneous Notes Telephone Encounter - Salbador Resendiz MD - 06/12/2014 3:57 PM [facility]I [facility] this morning for concern of DKA and had not yet heard any thing. Spoke with ED physician who cared for him and he had initial bicarb 19 that improved to 23 with IV fluid. His initial symptoms of hyperventilation and tachycardia improved with calming methods and felt to be anxiety related. Tolerated lunch that was covered with subcut aneous insulin. ED provider noted that he has no PCP (though we list one in EPIC) and that ирина mcarthur has mental health needs. Will inform clinic SW and primary diabetes provider. Salbador Resendiz MD Fellow, Pediatric Endocrinology [facility] Endocrinology Diabetes documented in this encounte r Plan of Treatment Not on filedocumented as of this encounter Visit Diagnoses Not on filedocumented in this encounter"
--- OUTSIDE RECORDS SUMMARY | ~2020-04-12 | XMS | Encounter Summary ---
Demographics + + + | Address | [address] | | | [place] [address] | + + + | Home Phone [...] Author + + + | Author | [facility] | + + + | Organization | [facility] | + + + | [...] + +------+ + | Care Director Of Recruitment Name | Role | Phone | + +------+ + | Lia Pérez | PCP | | + +------+ + Encounter Details +--------+ + + + + | Date | Type | Department | Care Team | Description | +--------+ + + + + | 05/22/ | Documentati | Marvin Singer | Jeffry Rice, | | | 2015 | on | [facility] | Julieth RN [address] | | | | | [facility] | [address] | | | | | [address] | [place], [place] | | | | | [address] | [address] | | | | | Mailcode: [id number] | | | | | | [facility] | | | | | | [address] [place], | | | | | | [place] [address] | | | | | | [phone] | | | +--------+ + + + [...]
--- OUTSIDE RECORDS SUMMARY | ~2020-04-12 | XMS | Encounter Summary ---
Demographics + + + | Address | [address] | | | [place] [address] | + + + | Home Phone [...] Team Providers + +------+ + | Care Irrigation Flume Layer Name | Role | Phone | + +------+ + | Saida Alegria MD | PCP | | + +------+ + Encounter Details +--------+ + + + + | Date | Type | Department | Care Team | Description | +--------+ + + + + | 06/08/ | Documentati | Marvin Singer | Mark Jaeger MD | | | 2012 | on | [facility] | | | | | | [facility] | | | | | | [address] | | | | | | [address] | | | | | | Physician's | | | | | | [address] | | | | | | [place], [place] | | | | | | [address] | | | | | | [phone] | | | +--------+ + + + [...] this encounter Miscellaneous Notes Telephone Encounter - Jessica Diehl - 06/08/2013 12:25 PM PDTLetter received from pt segundo [place] regarding attendance and health concerns. Pt is new to clinic and has an appt with Dr Juan Jaeger and Karyna. I've providedd Santa ELIZALDE and Karyna with this letter. Routing to Dr. Jaeger as an FYI. Letter uploaded into [address] under media tab. Electronically signed by Jessica Diehl at 05/12 12:27 PM PDTdocumented in this encounter Plan of Treatment Not on filedocumented as of this encounter Visit Diagnoses Not on filedocumented in this encounter"
--- OUTSIDE RECORDS SUMMARY | ~2020-04-12 | XMS | Encounter Summary ---
Demographics + + + | Address | [address] | | | [place] [address] | + + + | Home Phone [...] Author + + + | Author | [facility] | + + + | Organization | [facility] | + + + | Address [...] Team Providers + +------+ + | Care Tire Worker Name | Role | Phone | + [...] + + + + | 07/29/ | Documentati | Marvin Singer | Santa Gomez, | Referral to social | | 2012 | on | Diabetes Health | [facility] [address] | worker | | | | [facility] | [facility] | | | | | [address] | [place], [place] | | | | | [address] | [address] | | | | | Physician's | [phone] | | | | | [address] | | | | | | [place], [place] | | | | | | [address] | | | | | | [phone] | | | +--------+ + + + [...] Notes Telephone Encounter - Santa Gomez - 07/29/2013 3:40 PM [facility] FIDE note: SW met with Sterling, his mother and his adult sister. Sterling is here for regular follow up with Dr. Jaeger and the diabetes team, including psychologist Dr. Lester. Sterling continues to struggle with challenges of going to school. Mother has to be at work before he wakes up, and if he isn't up, he is often oversleeping because he has been up late . His sister will sometimes come over and help him get up, or he will stay at her house. Mother has increased her supervision around night time lantus, and Sterling reports checking for ketones more. Sister reported challenges with trying to reach a provider to discuss num bers, so reviewed the process. Plan: FIDE left a message for [employer] worker Samantha Cárdenas [phone] to coordinate care. FIDE will also contact school counselor to coordinate care as sister identified her as helpfu l. Mother states he is starting counseling with a local provider next week. FIDE will follow as needed. [facility] pager [phone] signed by Santa Gomez at 07/29/2013 4:00 P M PSTdocumented in this encounter Plan of Treatment Not on filedocumented as of this encounter Visit Diagnoses Not on filedocumented in this encounter"
--- OUTSIDE RECORDS SUMMARY | ~2020-04-12 | XMS | Encounter Summary ---
Demographics + + + | Address | [address] | | | [place] [address] | + + + | Home Phone | | + + + | Preferred Language | Unknown | + + + | Marital Status | Single | + + + | Pentecostal Affiliation | Unknown | + + + | Race | White | + + + | Ethnic Group | Not or | + + + Author + + + | Author | [facility] | + + + | Organization | [facility] | + + + | [...] Providers + +------+ + | Care Case Investigator Name | Role | Phone | + +------+ + | Lexx Schrader DO | PCP | | + +------+ + Reason for Visit + +--------+ + | Reason | Onset | Comments | | | Date | | + +--------+ + | Nursing Facility | 12/21/ | | | Orders | 2018 | | + +--------+ + Encounter Details +--------+ + + + + | Date | Type | Department | Care Team | Description | +--------+ + + + + | 12/21/ | Telephone | Marvin Singer | Orestes Quinn MD | Nursing Facility | | 2018 | | [facility] | [address] | Orders | | | | [facility] | [facility], | | | | | [address] | [place] [address] | | | | | [address] | [phone] | | | | | Physician's | | | | | | [address] | | | | | | [place], [place] | | | | | | [address] | | | | | | [phone] | | | +--------+ + + + [...] this encounter Miscellaneous Notes Telephone Encounter - Nubia Gimenez MD - 12/21/2017 10:29 AM PDTSpoke to counselor Ysabel. Patient snacking frequently and taking lots of extra insulin outside of meal times. [facility] Attn: Ysabel Ponce Reviewed that additional insulin doses for carbohydrate coverage is very appropriate, parti cularly with age appropriate diet in 17 year old adolescent. - If more than 1.5 hours, appropriate to check CBG and dose for high sugar correction in ad dition to carb coverage. - Will send full "school orders" to facility as requested. Nubia Gimenez MD Pediatric Endocrinology Fellow elephone Encounter - Jada Balbuena - 12/21/2017 10:16 AM PDTPt requesting more specific directions on facilit y orders, current orders only allow for 3 meals per day, requesting to allow for additional meals/snacks and clarification on insulin ratios. ext [phone] ask for Ysabel Ponce or Travis Ljzvnjqcezhotc signed by Jada Balbuena at 12/21/2017 10:20 AM PDTdocusadia bach in this encounter Plan of Treatment Not on filedocumented as of this encounter Visit Diagnoses Not on filedocumented in this encounter
--- OUTSIDE RECORDS SUMMARY | ~2020-04-12 | XMS | Encounter Summary ---
Demographics + + + | Address | [address] | | | [place] [address] | + + + | Home Phone [...] Author + + + | Author | [facility] | + + + | Organization | [facility] | + + + | Address [...] Team Providers + +------+ + | Care Frozen Pie Maker Name | Role | Phone | [...] | Nephrology | Type I | MD Mindy | Nephrology | | | | | (juvenile | [address] | [address] | | | | | type) | [facility] | [address] | | | | | diabetes | Rd | Patsy | | | | | mellitus | [place], [place] | Children's | | | | | without | [address] | [address] | | | | | mention of | | floor | | | | | complication | | [place], [place] | | | | | , not stated | | [address] | | | | | as | | Phone: | | | | | uncontrolled | | [phone] | | | | | Procedures | | Fax: | | | | | CONSULT TO | | [phone] | | | | | PEDS | | | | | | | NEPHROLOGY | | | +--------+--------+ + + + + Reason for Visit + + + | Reason | Comments | + + + | New patient | | | consultation | | + + + Other (Routine) +--------+--------+ + + + + | Status | Reason | Specialty | Diagnoses / | Referred By | Referred To | | | | | Procedures | Contact | Contact | +--------+--------+ + + + + | Closed | | Endocrinology | Diagnoses | Raji | Dbt Diab Ed | | | | Diabetes & | Type I | MD Saida | [address] | | | | Metabolism | (juvenile | [address] | [address] | | | | | type) | [address] | | | | | diabetes | Street | Mailcode: | | | | | mellitus | [id number] | [id number] | | | | | without | [place], | Physician's | | | | | mention of | [place] [address] | [facility] | | | | | complication | Phone: | [address] | | | | | , not stated | [phone] | [place], [place] | | | | | as | Fax: | [address] | | | | | uncontrolled | [phone] | Phone: | | | | | | | [phone] | | | | | | | Fax: | | | | | | | [phone] | +--------+--------+ + + + + Encounter Details +--------+---------+ + + + | Date | Type | Department | Care Team | Description | +--------+---------+ + + + | 06/17/ | Office | Marvin Singer | Mindy [...] | stated as | | | | [address] | | uncontrolled | | | | [place], [place] | | (Primary Dx) | | | | [address] | | | | | | [phone] | | | +--------+---------+ + + + [...] + + + | Blood Pressure | 110/60 | 06/17/2013 3:03 PM | | | | | PST | | + + + + + | Pulse | - | - | | + [...] + + + + | Weight | 45.8 kg (100 lb 14.4 | 06/17/2013 3:03 PM | | | | oz) | PST | | + + + + + | Height | 162.6 cm (5' 4") | 06/17/2013 3:03 PM | | | | | PST | | + + + + + | Body Mass Index | 17.32 | 06/17/2013 3:03 PM | | | | | PST | | + + + + + documented in this encounter Patient Instructions Patient Instructions Mindy Jaeger MD - 06/17/2013 2:51 PM PST-Insulin: No change in insul in regimen today, only use Lantus for long lasting insulin and give 30 units daily. (Do not use Levemir) We need additional blood sugar data to make meaningful changes to help improve his blood sugars. -Parent supervision for all Lantus doses and when possible supervising meal time insulin do sing and blood sugar checks. Give the Lantus dose within the same hour each night. Do not us e exercise to help his blood sugars come down, he should get a high blood sugar correction a s often as every three hours. -Always check ketones if his blood sugar is > 300 twice in a row. If he has moderate to lar ge ketones he needs to call the operations support specialist pediatric pulp house supervisor to discuss management. -Check blood sugar at school for breakfast and lunch and have these meals at school with sherwin jeffries supervision. -Obtain care with a local primary care doctor. -No overnight meals, ensure that his snacks are about 15 grams or less in between meals. -We sent new school orders. He may stay at school as long his ketones are negative or small to trace. -New prescriptions sent -Please check blood glucose readings 4 times/day and observe for trends at different times of day. -Screening labs: TSH, Free T4, IgA, TTG, microalbumin, lipid panel. We will call you with these results. Please get his blood drawn today and leave a urine sample here in clinic. -Follow up in in our clinic in 6 weeks. Please call into our service between visits for as sistance in making insulin adjustments. For now please call me to report his blood sugars on a WEEKLY BASIS. This is mandatory. Call during business hours between 8-5 PM Thursday through Thursday, afternoons are best. Leave your phone number and I will get back to you within the same business day. documented in this encounter Progress Notes Jessica Morrell MD - 06/20/2013 3:04 PM PSTI performed a history and physical examinatio n of the patient and discussed his management with the resident. I reviewed the resident s note and agree with the documented findings and plan of care. I spent 30 minutes with the patient. Greater than 50% of the time was spent counseling the patient and his mother regarding compliance, care, and follow up. JESSICA MORRELL MD [facility] [address] [facility] [place] [facility] [address] [place] [address] Mindy Bright MD - 1 08/17/2012 12:[address] [facility] Clinic Note Clinic Date: June 17, 2013 Current Insulin Regimen: Levemir or Lantus 30 units 6PM-12AM on "most nights", unclear how often he is taking this m edication CR: 1 for 10 grams of carbohydrates, it was noted in clinic that he did not cover his carbo hydrates for lunch and only gave himself a high blood sugar correction. He appeared to have deficits in his ability to attend to the task of giving him his insulin. High Blood Sugar Correction Factor: 150-200: 5 units 200-250: 6 units 251-300: 7 units 301-350: 8 units 351-400: 9 units > 400: 10 units Brayden is a 12 year 8 month male with Type 1 diabetes here to establish care with a histo ry of poorly controlled type one diabetes. Dr. Serna used to see them in the [facility]. He was diagnosed September 092010. He has not had any episodes of DKA since diagnosis. Interval History: Brayden Phipps is a 12 y.o. male with Type 1 Diabetes diagnosed 08/2010. Brayden hernandez is presenting to clinic today for diabetes management with his Mother, Amanda. Brayden Phipps and his family were previously educated in [place]. He was living with his Dad in [place] until 03/2013, when he moved to [place] with his Mom. He states he'd rather l nayan in [place] and has been taking pictures while he has been here. They are currently in t he process of getting a divorce. Mom states Dad is more savvy with his Medtronic pump, and a s they are not talking it makes it difficult to use the pump. The pump doses were not accura te and so he has been using the vial & syringe for the past 3 weeks. They brought the pump b ut it was not able to be downloaded. They state they have seen an Corporate Security Officer closer to home but felt he needs a pediatric pulp house supervisor. Mom works from 5:30am-2:30pm, some days as late ad 10:30pm. She works for [employer]. Of note, 3 weeks ago he mary lou t to a local doctor for a UTI and had +ketones. We received a letter from both the principal of his school and [facility] prior to today's visit. (see media tab and discussion below). Mom kolby d "he functions fine at high blood sugars in the 500s because he plays, he watches TV, and h e goes up and down stairs." Family notably does not have ketone strips and has not been chec angie ketones at home. Mom was unaware how to check his ketones. Mom reports that his HA1C le vels have been 10-17, most recently 14 one month ago. Of note he had a UTI 3 weeks ago and this was treated with an antibiotic. He notes feeling well today with complete resolution of his symptoms. Home Glucose Monitoring: Brayden Phipps is using the Accucheck Angela and the One Touch m eters (4 total) for testing blood sugars. Blood sugars are being tested ~4 times daily, prio r to meals bedtime and 2 am, with signs of low blood sugars and after treating low blood sug ars. They are not changing the lancet on a daily basis as is recommended. They are not keepi ng daily records of BG, insulin and carbohydrates. The 4 meters were downloaded and is avail able under the media tab. He states that he tests fasting ~50% of the time, before lunch 50% of the time, before dinner 25% of the time and "most of the time" HS. Mom states that he "f unctions fine at high BGs in the 500s, as he plays, watches TV and climbs the stairs" Blood Sugar over the past 2 weeks: Breakfast:138-"high" Lunch:63-"high" Dinner:335- "high" Bedtime:275--"high" 2 am:"high" when they tested once; Mom states they would test with any increases to insulin and/or if "he was running Insulin: He manages his diabetes with basal/bolus Insulin injections are generally given by patient at sites that include arms, thighs and ab domen. Hypoglycemia: Brayden's target range for his glucose levels is 80-180. He reports 0 episod es of low blood sugars a week. He states that he is frequently able to recognize these epis odes. Brayden states that he has a current glucagon kit and has a medic alert bracelet. Meal plan: Usually the patient has three meals a day and denies skipping meals. He likes to eat meals in the middle of the night and often does not dose insulin at this time. [facility] es that he uses are primarily food labels and "guessing- which I am pretty good at". Brayden Phipps states that he does not follow a schedule, as he "never stops eating". For examp christal, he states that he wakes up at ~ 7:30am, checks BG 50% of the time, has no idea what he c arb intake is and may dose. He was able to state that he had 4 burritos today and figures th at the tortillas are worth 2 slices of bread each, ~ 30grams, for which he would dose a tota l of 12 units (120g carb). With the high BG correction he total dose was 14 units. When aske d when he would eat next he states "5 minutes later". Mom reports sneaking food and eating a ll night, including in his room. He notes that he feels fat and that he wants to be skinnier . He denies intentionally keeping his blood sugars high in order to lose weight. Exercise: Brayden like to ride a dirt bike. He likes to ride his skateboard and scooter. He never takes an extra snack prior to vigorous exercise. ROS: Brayden denies any headaches or visual changes. He notes some diffuse chest pain whic h occurs and is relieved with ibuprofen and he notes that it rojas and it feels like he has something in his throat. He denies abdominal pain, constipation/diarrhea or dry skin. + si gnificant polydipsia or polyuria. He notes nausea when his blood sugars are high. He report s a normal energy level. The review of systems is otherwise negative for all systems. Social history: Brayden lives at home with his mother. He is now in the 8th grade, but is not attending school. He feels like he has ADHD and family reports that his older brother wa s diagnosed with this condition. Of note his older brother committed suicide at 19 years of age. Dad lives in [place] and Mom and Dad are currently in the process of obtaining a d ivorce. Of note his [facility] letter reports that Brayden has a history of making comments about co mmitting suicide and overdosing himself on insulin. Mom and Brayden recently moved to [place], [place]. School: Brayden Phipps attends [employer] and is in the 8th grade. We recei barby a letter of concern from his principal, that as of 06/08/13 he had attended fewer than 3 days of school due to diabetes and his behavior. When I asked Brayden and his Mo about schoo l they state that the school will not allow him to be there with a BG>400. He states that ov er the past week he attended 1/2 day Thursday, 1 hour on Thursday, 1 hour on Thursday, none and is here today. When I asked who decides if he is to go home he states "the teach er". When he is not at school he is home alone most of the day. He needs new school orders. [facility] Involvement, see media tab: In brief, Brayden is in the 8th grade, but has essentially n ot attended school do to blood sugar levels consistinly higher than 300-500. Family has dagmar mmended that the school use exercise to help him when he is "high." He used to be on a pump, but the family had difficulty with this and he is now back on a basal/bolus regimen with in sulin injections. Brayden was noted to have significant emotional and behavioral issues. Santo douglas's brother committed suicide in 2010. He is frequently sent home from school due to his hi gh blood sugar levels. Health Care Maintenance: Last eye check Is due for an eye exam and has scheduled an appointment to be done in the sd xt couple weeks. He notes he has had some issues with his vision and has had difficulty with seeing things that are far away. He notes he often has blurry vision. Last urine for microalbumin: needs to be obtained He had a flu shot in clinic today. Vitals: Ht 162.6 cm (5' 4") (56%, Z = 0.14), Wt 45.768 kg (100 lb 14.4 oz) (35%, Z = -0.39) , BP 110/60, BMI 17.31 kg/(m^2).. General: well-appearing, no apparent distress. HEENT: NC/AT, PERRL, EOMI. OP clear, good dentition. neck: supple, no LAD. no thyromegaly. chest: CTA bilaterally. heart: RRR, no murmurs. Good perfusion abdomen: soft/NT/ND, no hepatosplenomegaly. normal BS. ext: feet well cared for with no ingrown toenails. 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 neuro: grossly normal Laboratory studies: No results found for this basename: a1c Results for BRAYDEN PHIPPS ( ) as of 06/17/2013 12:58 Ref. Range 06/17/2013 11:26 PH(UR) Latest Range: 5.0-8.0 5.5 COLOR(UR) No range found Yellow APPEARANCE No range found Clear GLUCOSE(UR) Latest Range: Negative - 100 mg/dL >=1000 (A) BILIRUBIN Latest Range: Negative Negative KETONES Latest Range: Negative mg/dL Negative SPECIFIC GRAVITY Latest Range: 1.005-1.030 1.010 BLOOD Latest Range: Negative Trace-intact (A) PROTEIN(LAB) Latest Range: Neg - Trace mg/dL Negative UROBILINOGEN Latest Range: 0.2-1.0 E.U./dL 0.2 NITRITES Latest Range: Negative Negative LEUKOCYTE ESTERASE Latest Range: Negative Negative Assessment: Type 1 diabetes under poor control. Brayden is not managing his diabetes well. He frequently is missing blood sugar checks, indicating that he is unaware of how much insul in he should be giving. He is skipping insulin doses including both meal time insulin and l antus. He has also been switching between Lantus and Levemir for his meal time insulin and t hese are not interchangeable as Levemir often lasts for only about 12 hours. He also had a g reat deal of difficulty with concentration through out the visit and actually forgot to add insulin for his lunch during his office visit and only gave himself a high blood sugar corre ction. His most recently HA1C was 14 which is very high and above his target JACKSON! Of < 7.5. M om appears to be very motivated to help Brayden both attend school and improve his home blood sugar management. She has committed to help him have supervised lantus dosing every evening at a regular time. We have also decided that he should have breakfast and lunch at school a nd have supervised dosing of his blood sugar checks and insulin at these times. We have sent new school orders explaining that he may remain at school if his blood sugar is high and he has negative or trace ketones. Detailed instructions were given to the family. Also, he not es a history of two UTI's and had trace blood on his UA today. We are going to refer the fam bita to nephrology. We are going to have weekly discussions with the family to make ongoing i nsulin changes. He denied suicidal thoughts or depression symptoms today. He notably appeare d to have severe issues with concentration and likely needs to be evaluated for ADHD. Deepak Lester will evaluate this today. The family met with our personal development educator who provided a revi ew of essential diabetes management with them. Recommendations: -Insulin: No change in insulin regimen today, only use Lantus for long lasting insulin and give 30 units daily. (Do not use Levemir) We need additional blood sugar data to make cj boyer changes to help improve his blood sugars. -Parent supervision for all Lantus doses and when possible supervising meal time insulin do sing and blood sugar checks. Give the Lantus dose within the same hour each night. Do not us e exercise to help his blood sugars come down, he should get a high blood sugar correction a s often as every three hours. -Always check ketones if his blood sugar is > 300 twice in a row. If he has moderate to lar ge ketones he needs to call the operations support specialist pediatric pulp house supervisor to discuss management. -Check blood sugar at school for breakfast and lunch and have these meals at school with sherwin jeffries supervision. -Obtain care with a local primary care doctor. -No overnight meals, ensure that his snacks are about 15 grams or less in between meals. -We sent new school orders. He may stay at school as long his ketones are negative or small to trace. -New prescriptions sent -Please check blood glucose readings 4 times/day and observe for trends at different times of day. -Screening labs: TSH, Free T4, IgA, TTG, microalbumin, lipid panel. We will call you with these results. Please get his blood drawn today and leave a urine sample here in clinic. -Follow up in in our clinic in 6 weeks. Please call into our service between visits for as sistance in making insulin adjustments. For now please call me to report his blood sugars on a WEEKLY BASIS. This is mandatory. Call during business hours between 8-5 PM Thursday through Thursday, afternoons are best. Leave your phone number and I will get back to you within the same business day. -Rotate shot sites to avoid lipodystrophy -Nephrology consult -Evaluation by local PCP for consideration for likely ADHD MINDY JAEGER MD [address] [facility] [place], [facility] [address] [place] [address] documented in this encou nter Miscellaneous Notes Addendum Note - Mindy Jaeger MD - 06/17/2013 3:45 PM PST Addended by: MINDY JAEGER MD on: 06/17/2013 03:45 PM Modules accepted: Orders can - Ghanshyam Mann - 06/17/2013 10:48 AM PST do cumented in this encounter Plan of Treatment Not on filedocumented as of this encounter Procedures + +--------+ + + + | Procedure Name | Priori | Date/Time | Associated Diagnosis | Comments | | | ty | | | | + +--------+ + + + | UA DIPSTICK 10 DIP | Routin | 06/17/2013 | Type I (juvenile | Results for this | | W/O MICRO | e | 11:26 AM | type) diabetes | procedure are in the | | (AUTOMATED), POC | | PST | mellitus without | results section. | | | | | mention of | | | | | | complication, not | | | | | | stated as | | | | | | uncontrolled | | + +--------+ + + + | MICROALBUMIN/CREATIN | Routin | 06/17/2013 | Type I (juvenile | Results for this | | INE RATIO (RANDOM | e | 11:12 AM | type) diabetes | procedure are in the | | URINE) | | PST | mellitus without | results section. | | | | | mention of | | | | | | complication, not | | | | | | stated as | | | | | | uncontrolled | | + +--------+ + + + | HEMOGLOBIN A1C, POC | Routin | 06/17/2013 | Type I (juvenile | Results for this | | | e | 10:28 AM | type) diabetes | procedure are in [...] | + + + + + | [facility] | [address] | [place] [address] | | | SERVICES, CORE | LARISA [...] less: | | | | | | [id number] Units: | | | | | | Weak [id number] Units or | | | | | [...] | | | | | [place], [place] | | | | | | [address] | | | | | | [phone]. | | | | | | Delon [...] | + + + + + | [facility] | [address] | [place], [place] | | | [facility] | | [address] | | + + + + + [...] + | [facility] | [address] | [place] [address] | | | [place] | | | [...] + | [facility] | [address] | [place] [address] | | | [place] | | | [...] | | | 0.5-2.5. uIU/ml | | [place] | | + + + + + + + + | Specimen | + + | Blood - Blood | + + + + + + + | Performing | Address | City/State/Zipcode | Phone Number | | Organization | | | | + + + + + | [facility] | [address] | [place] [address] | | | [place] | | | | + + + + + UA 10 LUCERO YUAN (06/17/2013 11:26 AM PST) + + + + + + | Component | Value | Ref Range | Performed | Pathologist | | | | | At | Signature | + + + + + + | COLOR (UA | Yellow | | [facility] - | | | DIP), POC | | | [facility] | | | | | | [place] | | | | | | OF CARE | | | | | | TESTS | | + + + + + + | APPEARANCE | Clear | | [facility] - | | | (UA DIP), | | | [facility] | | | POC | | | [place] | | | | | | OF CARE | | | | | | TESTS | | + + + + + + | LEUKOCYTES | Negative | Negative | [facility] - | | | (UA DIP), | | | [facility] | | | POC | | | [place] | | | | | | [...] | | | POC | | | [place] | [...] + + + | BLOOD (UA | Trace-intact (A) | Negative | [facility] - | | | DIP), POC | | | [facility] | | | | | | [place] [place] | | | | | | OF CARE | | | | | | TESTS | | + + + + + + | SPECIFIC | 1.010 | 1.005 - 1.030 | [facility] - | | | GRAVITY (UA | | | [facility] | | | DIP), POC | | | [place] [place] | | | | | | OF CARE | | | | | | TESTS | | + + + + + + | KETONES (UA | Negative | Negative mg/dL | [facility] - | | | DIP), POC | | | [place] | | | | | | [place] [place]INT | | | | | | OF CARE | | | | | | TESTS | | + + + + + + | BILIRUBIN | Negative | Negative | [facility] - | | | (UA DIP), | | | [facility] | | | POC | | | [place] | | | | | | OF CARE | | | | | | TESTS | | + + + + + + | GLUCOSE (UA | >=1000 (A) | Negative - 100 | [facility] [...] | [address] | [place], [place] | | | [place] CARE | [address] | [address] | | | TESTS | | | | + + + + + MICROALBUMIN/CREATININE RATIO (RANDOM URINE) (06/17/2013 11:12 AM PST) + +--------+ + + + | Component | Value | Ref Range | Performed | Pathologist | | | | | At | Signature | + +--------+ + + + | MICROALBUMI | 9 | <=20 mg/L | [facility] | | N, | | | [facility] - | | | URINE-RANDO | | | [place] | | | M | | | | | + +--------+ + + + | URINE | 25.50 | mg/dL | [facility] | | | CREATININE | | | [facility] - | | | | | | [place] | | + +--------+ + + + | MICROALBUMI | 35 (H) | <=30 mg/gm | [facility] | | | N/CREAT | | | [facility] - | | | RATIO | | | [place] | | + +--------+ + + + + + | Specimen | + + | Urine - Urine | + + + + + + + | Performing | Address | City/State/Zipcode | Phone Number | | Organization | | | | + + + + + | [facility] | [address] | [place] [address] | | | [place] | | | | + + + + + HEMOGLOBIN A1C,POC (06/17/2013 10:28 AM PST) + + + + + + | Component | Value | Ref Range | Performed | Pathologist | | | | | At | Signature | + + + + + + | HEMOGLOBIN | >14.0 (H) | 4.0 - 5.7 % | [...] + + | [facility] | [address] | [place], [place] | | | ROXANNA MENON OF [facility] | [facility] | [address] | | | TESTS | | | | + + + + + documented in this encounter Visit Diagnoses + + | Diagnosis | + + | Type I (juvenile type) diabetes mellitus without mention of complication, not stated | | as uncontrolled - Primary | + + documented in this encounter
--- OUTSIDE RECORDS SUMMARY | ~2020-04-12 | XMS | Encounter Summary ---
Demographics + + + | Address | [address] | | | [place] [address] | + + + | Home Phone | | + + + | Preferred Language | Unknown | + + + | Marital Status | Single | + + + | Jew Affiliation | Unknown | + + + [...] Team Providers + +------+ + | Care Economic Developer Name | Role | Phone | [...] [address] | | | | | [facility] | [address] | | | | | [address] | [place], [place] | | | | | [address] | [address] | | | | | Mailcode: [id number] | | | | | | [facility] | | | | | | [address], | | | | | | [place] [address] | | | | | | [phone] | | | +--------+ + + + [...] this encounter Miscellaneous Notes Telephone Encounter - Lilia Hair MD - 06/13/2015 12:38 PM PSTCalled facility trying to reach Gissel Fong, facility counselor. Left voice message: ICR to be changed to 1 unit for every 7 carbs with all meals. Lilia Hair MD Fellow, Pediatric Endocrinology [facility] Endocrinology Diabetes elephone Encounter - Julieth Lilly RN - 06/13/2015 10:26 AM PSTFormatting of this note might be differen t from the original. Pediatric Diabetes Care Coordination Patient: Sterling Monique Spoke with: Gissel Fong, facility counselor - [phone]. Frequency of telephone contact: This educator is calling weekly to get blood sugar records for possible insulin dose adjustments. Insulin dosing: Lantus: 35 units at bedtime H/NL ICR: 1:8 H/NLHigh BG Correction: 1:50>150 Blood sugars: Date 2am Breakfast Lunch Dinner Bedtime 06/09 7:45am 263 160g 20 units` 11:50AM 238 170g 23 uints 3:03pm 172 30g 3 units 5:21 183 230g 28 units 7:00 61 juice 7:20 77 juice 8:00 96 50 g 5 units No Lantus 06/10 12:10am 340 35 units Lantus given 7:45am 274 No breakfast Didn't feel well 5 units 9:30am 394 120g 15 units 12:00pm 227 130g 15 units 5:26pm 216 140g 15 units 7:25pm 346 No snack No Humalog 8:00pm 35 units Lantus 11/2 7:45am 269 200g 20 units 12:00pm 296 120g 12 units 3:45pm 222 50g 5 units 5:30pm 351 100g 15 units 9:27pm No blood sugar 7 units 35 units Lantus 11/3 2:00am 89 7:45am 179 200g 20 units 12:00pm 270 140g 15 units 6:10pm 237 160g 18 units 8:10pm 255 No Humalog 35 units Lantus 11/4 2:07am 236 7:22am 269 100g 12 units 9:40am 425 +100 13 units Underestimated breakfast carbs Low Blood Sugars: Frequency: Infrequently Treatment: Juice School: Facility orders are currently up to date. Any dose adjustments will require new ord ers to be sent. Supplies: Up to date. Adaptation to Diabetes/Other: Sterling appears to be more compliant with diabetes management. Per report from Gissel, facility counselor, he has been more compliant with regularly checkin g blood sugar and not taking insulin outside of meal or snack time. He did recently get upse t with a staff member because Sterling wanted to write his blood sugar number on the records l og; the staff member refused. Gissel spoke with Sterling about this and explained he is not allo wed to manage his own records while in the rehab facility. Gissel also reports Sterling has been agitated about how long he will have to remain at the facility. It is unclear at this time how long he will be there. It appears at least 2 more months and likely longer, depending on how his recovery progresses. Thursday, 2014, Sterling was complaining of "stuffy" nose, chills, temp 99.7. Has al so been complaining of teeth pain. Facility has made several requests to Mom to transfer den jessie insurance to dentist local to the rehab facility. Mom got this done on Monday 06/11. [place] saw the dentist on 06/11 on an emergent basis. Was found to need 3 root canals and was put on Amoxicillin. Root canals will be done in the near future. Questions and Concerns: None at this time. Plan: Routing to office nurse practitioner Fellow for possible dose adjustment. Routed to Lilia Hair MD. Sterling's is currently scheduled with Dr. Resendiz in clinic on 06/29/2015. This time is being ad justed as Sterling's parol officer, Junaid, will be transporting him to clinic and they do not h ave medical transportation on Fridays. Mounter Smoking Pipe [facility] documented in this encounter Plan of Treatment Not on filedocumented as of this encounter Visit Diagnoses Not on filedocumented in this encounter
--- OUTSIDE RECORDS SUMMARY | ~2020-04-12 | XMS | Encounter Summary ---
Demographics + + + | Address | [address] | | | [place] [address] | + + + | Home Phone [...] Team Providers + +------+ + | Care Natural Gas Plant Supervisor Name | Role | Phone | + +------+ + | Saida Alegria MD | PCP | | + +------+ + Encounter Details +--------+ + + + + | Date | Type | Department | Care Team | Description | +--------+ + + + + | 02/09/ | Residential Recycle Driver | Pediatric | Deb Duran, | DM type 1 (diabetes | | 2013 | | Nephrology at | COIL INSPECTOR [address] | mellitus, type 1) | | | | [address] | [address] | ([facility]) (Primary Dx) | | | | [facility] | [place], [place] | | | | | [address] | [address] | | | | | [place]y | [phone] | | | | | [facility], | | | | | | [address] [place] [address] | | | | | | [place], [place] | | | | | | [address] | | | | | | [phone] | | | +--------+ + + + [...] type 1 (diabetes mellitus, type 1) ([facility]) - Primary Type I (juvenile type) diabetes | | mellitus without mention of complication, not stated as uncontrolled | + + documented in this encounter"
--- OUTSIDE RECORDS SUMMARY | ~2020-04-12 | XMS | Encounter Summary ---
Demographics + + + | Address | [address] | | | [place] [address] | + + + | Home Phone [...] Team Providers + +------+ + | Care Small Kick Press Operator Name | Role | Phone | + +------+ + | Saida Alegria MD | PCP | | + +------+ + Reason for Visit + +--------+ + | Reason | Onset | Comments | | | Date | | + +--------+ + | Referral to social | 08/24/ | | | worker | 2015 | | + +--------+ + Encounter Details +--------+ + + + + | Date | Type | Department | Care Team | Description | +--------+ + + + + | 08/24/ | Telephone | Marvin Singer | Santa Gomez, | Referral to social | | 2014 | | Diabetes Health | DIRECTOR HYDROGEN STORAGE ENGINEERING [address] | worker | | | | Center at [facility] | [facility] | | | | | [address] | [place], [place] | | | | | [address] | [address] | | | | | Physician's | [phone] | | | | | [address] | | | | | | [place], [place] | | | | | | [address] | | | | | | [phone] | | | +--------+ + + + [...] Notes Telephone Encounter - Santa Gomez - 08/24/2014 11:09 AM PSTSW returned call to [facility] work er Samantha OchoaStu [phone] and left a VM. Per [facility] request, FIDE faxed ([phone]) 08/04/[address] Jaeger. FIDE also requesting update on [facility] assisting family with access to [facility] to decrease out of poc ket healthcare costs for mother, as well as access to regular mental health treatment. No other needs at this time. VEL Hernandez pager [phone] documented in this encoun ter Plan of Treatment Not on filedocumented as of this encounter Visit Diagnoses Not on filedocumented in this encounter"
--- OUTSIDE RECORDS SUMMARY | ~2020-04-12 | XMS | Encounter Summary ---
Demographics + + + | Address | [address] | | | [place] [address] | + + + | Home Phone [...] Team Providers + +------+ + | Care Live Out Nanny Name | Role | Phone | + +------+ + | Saida Alegria MD | PCP | | + +------+ + Reason for Visit + +--------+ + | Reason | Onset | Comments | | | Date | | + +--------+ + | Scheduling | 07/19/ | | | | 2012 | | + +--------+ + Encounter Details +--------+ + + + + | Date | Type | Department | Care Team | Description | +--------+ + + + + | 07/19/ | Telephone | Pediatric | Deb Duran, | Scheduling | | 2012 | | Nephrology at | INCOMING INSPECTOR [address] [facility] | | | | | [address] | [address] | | | | | [facility] | [place], [place] | | | | | [address] [facility] | [address] | | | | | [place]y | [phone] | | | | | [facility], | | | | | | [address] [place] [address] | | | | | | [place], [place] | | | | | | [address] | | | | | | [phone] | | | +--------+ + + + [...] Telephone Encounter - Samantha Cervantes RN - 07/19/2013 12:08 PM PSTPlaced a call to Sterling Cook's sister, to see if they have a local lab where they can have Sterling's ultrasoun d done. Soco gave me Shelbi's phone number to try later (Sterling's mother). Attempted to call the cell phone number Soco gave me ([phone]) but after ringing 10 times, I was disconnected. I tried the number twice. Placed call back to Soco, Sterling's sister, and asked her to have Amanda call me when available to see where Sterling can have his ultrasound locally. I will also send Amanda an e mail. documented in th is encounter Plan of Treatment Not on filedocumented as of this encounter Visit Diagnoses Not on filedocumented in this encounter"
--- OUTSIDE RECORDS SUMMARY | ~2020-04-12 | XMS | Encounter Summary ---
Demographics + + + | Address | [address] | | | [place] [address] | + + + | Home Phone | | + + + | Preferred Language | Unknown | + + + | Marital Status | Single | + + + | Adventist Affiliation | Unknown | + + + [...] Team Providers + +------+ + | Care Body Design Checker Name | Role | Phone | + +------+ + | Lia Pérez | PCP | | + +------+ + Reason for Visit +--------+--------+ + | Reason | Onset | Comments | | | Date | | +--------+--------+ + | Other | 04/23/ | school order questions | | | 2014 | | +--------+--------+ + Encounter Details +--------+ + + + + | Date | Type | Department | Care Team | Description | +--------+ + + + + | 04/23/ | Telephone | Marvin Singer | Mark Jaeger MD | Other (school order | | 2014 | | Diabetes Health | | questions) | | | | Center at [facility]icians | | | | | | [address] | | | | | | [address] | | | | | | Physician's | | | | | | [address] | | | | | | [place], [place] | | | | | | [address] | | | | | | [phone] | | | +--------+ + + + [...] Telephone Encounter - Karyna Kaufman RD - 04/23/2015 12:51 PM PDTFormatting of this not e might be different from the original. Pediatric Diabetes Care Coordination Sandra Garcia RN at the [facility] where Sterling has been incarcera isreal, called to provide diabetes management details as he discharged home this morning to [facility]. Insulin dosing: Lantus: 28 units H/NL ICR: 1:10 H/NLHigh BG Correction: 1:50 >150; Sterling has been requesting high BG correction in between meals Snacks: up to 15 grams of carb Blood sugars: Date 2am Breakfast 6am Lunch 10:30am Snack 2pm Dinner 4:30pm Bedtime 8pm 04/23/15 150 8am 383 04/22 131 1025 am 256 119pm: 250 4pm 308 6pm 223 8pm 240 & 82 10:75dv425 04/21 136am 47 151am 57 205am 75 80 1025 am 126 118pm 82 2pm 109 427pm 179 7pm 183 8pm 242 919pm 159 1037pm 47 11pm 54 1121pm 87 04/20 949pm 246 1025 am 200 2:14pm 108 106 717 pm 110 8pm 80 Questions and Concerns: - Went home to [facility] today with plan of going to drug & ETOH treatment in a few days. Stephane kumar states their facility felt challenged to care for Sterling. Sandra states that there is no contact information for Ana Rosa and that his sister is the contact, but Sandra does not h ave her contact information. His Commanding Officer Traffic Division is Johanna Booker, with [facility]. Plan: Routed to Santa Patricia [facility] Sterling is not scheduled in clinic and needs a pediatric alumni relations manager, as his previous pr ovider was Dr. Jaeger . Hawa Kaufman MS, RD, LD, CDE Locomotive Mechanic Apprentice, Dietitian [facility] Mail Code: [id number] [address] [place] [address] elephone Encounter - Rosey Pope - 04/23/2015 12:42 PM PDTReturned call and left voicemail to call back to speak with Pediatric Educator if there are still questions. Rosey Pope, RN, CDE Telephone Encounter - Annita Ricks - 04/23/2015 12:08 PM PDTSchool RN, didn't leave her name [facility] saying she has questions on current school orders. [phone] robb d by Annita Ricks at 04/23/2015 12:09 PM PDTdocumented in this encounter Plan of Treatment Not on filedocumented as of this encounter Visit Diagnoses Not on filedocumented in this encounter"
--- OUTSIDE RECORDS SUMMARY | ~2020-04-12 | XMS | Encounter Summary ---
Demographics + + + | Address | [address] | | | [place] [address] | + + + | Home Phone [...] Team Providers + +------+ + | Care Pomologist Name | Role | Phone | + +------+ + | Lia Pérez | PCP | | + +------+ + Reason for Visit + +--------+ + | Reason | Onset | Comments | | | Date | | + +--------+ + | Refill Request | 06/27/ | | | | 2014 | | + +--------+ + Encounter Details +--------+--------+ + + + | Date | Type | Department | Care Team | Description | +--------+--------+ + + + | 06/27/ | Refill | Marvin Singer | Orestes Quinn MD | Refill Request | | 2014 | | Diabetes Health | [address] [facility] | | | | | [place] at Physicians | [address], | | | | | [address] | [place] [address] | | | | | [address] | [phone] | | | | | Physician's | | | | | | [address] | | | | | | [place], [place] | | | | | | [address] | | | | | | [phone] | | | +--------+--------+ + + + [...]
--- OUTSIDE RECORDS SUMMARY | ~2020-04-12 | XMS | Encounter Summary ---
Demographics + + + | Address | [address] | | | [place] [address] | + + + | Home Phone [...] Providers + +------+ + | Care Senior Microsoft Consultant Name | Role | Phone | + +------+ + | Emmanuelle Noe MD | PCP | | + +------+ + Encounter Details +--------+ + + + + | Date | Type | Department | Care Team | Description | +--------+ + + + + | 11/17/ | Pharmacy | Outpatient Retail | | | | 2014 | Visit | [facility] | | | | | | [address] | | | | | | Loop [place], [place] | | | | | | [address] | | | | | | [phone] | | | +--------+ + + + [...]
--- OUTSIDE RECORDS SUMMARY | ~2020-04-12 | XMS | Encounter Summary ---
Demographics + + + | Address | [address] | | | [place] [address] | + + + | Home Phone [...] + + + | Author | [facility] | + + + | Organization | [facility] | + + + | [...] Team Providers + +------+ + | Care Sound Effects Manager Name | Role | Phone | + +------+ + | Saida Alegria MD | PCP | | + +------+ + Reason for Visit + +--------+ + | Reason | Onset | Comments | | | Date | | + +--------+ + | Ultrasound | 07/13/ | | | | 2012 | | + +--------+ + Encounter Details +--------+ + + + + | Date | Type | Department | Care Team | Description | +--------+ + + + + | 07/13/ | Telephone | Pediatric | Shaan Del Angel | Ultrasound | | 2012 | | Nephrology at | MD John [address] [facility] | | | | | [place] | [address] | | | | | [facility] | [place], [place] | | | | | [address] [facility] | [address] | | | | | [place]y | [phone] | | | | | [facility], | | | | | | [address] [place] [address] | | | | | | [place], [place] | | | | | | [address] | | | | | | [phone] | | | +--------+ + + + [...] Telephone Encounter - Samantha Cervantes RN - 07/13/2013 4:01 PM PSTPlaced a phone call to Sterling's mother, Soco, letting her know we can schedule his nephrology appointment on t he same day as his other [facility] appointments. It would be very helpful if he completed his Renal US locally, in [place], before July 29. Soco's phone does not accept messages, so I will try calling again.Electronically sign ed by Samantha Cervantes RN at 07/13/2013 4:05 PM PSTdocumented in this encounter Plan of Treatment Not on filedocumented as of this encounter Visit Diagnoses Not on filedocumented in this encounter"
--- OUTSIDE RECORDS SUMMARY | ~2020-04-12 | XMS | Encounter Summary ---
Demographics + + + | Address | [address] | | | [place] [address] | + + + | Home Phone [...] Team Providers + +------+ + | Care Oracle Fusion Consultant Name | Role | Phone | + +------+ + | Lexx Schrader DO | PCP | | + +------+ + Reason for Visit + + + | Reason | Comments | + + + | Refill Request | novolog flexpen | + + + Encounter Details +--------+--------+ + + + | Date | Type | Department | Care Team | Description | +--------+--------+ + + + | 08/09/ | Refill | Marvin Singer | Orestes Quinn MD | Refill Request | | 2019 | | Diabetes Health | [address] [facility] | (novolog flexpen) | | | | Center at Physicians | [facility], | | | | | [address] | [place] [address] | | | | | [address] | [phone] | | | | | Physician's | | | | | | [address] | | | | | | [place], [place] | | | | | | [address] | | | | | | [phone] | | | +--------+--------+ + + + [...] this encounter Miscellaneous Notes Telephone Encounter - Jaymie Joaquin MA - 08/09/2019 2:49 PM PSTIncoming refill requ est received from [employer] via [employer]. Pended refill request for Novolog Flexpen and routed to MD to review. Last Appointment in [facility] P[facility] was on 09/25/17 at 3:41 pm with Orestes Quinn MD. No future appointments scheduled in Endocrinology, Diabetes & Metabolism. PAS - please follow up on transfer of care documented in thi s encounter Plan of Treatment Not on filedocumented as of this encounter Visit Diagnoses Not on filedocumented in this encounter"
--- OUTSIDE RECORDS SUMMARY | ~2020-04-12 | XMS | Encounter Summary ---
Demographics + + + | Address | [address] | | | [place] [address] | + + + | Home Phone [...] Phone | + + +---------+ + | Aamnda Monique | ECON | Unknown | | + + +---------+ + | Sterling Radabah Sr. | ECON | Unknown | | + + +---------+ + | Soco Salguero | ECON | Unknown | | + + +---------+ + | Rhina Pleitez | ECON | Unknown | | + + +---------+ + Care Team Providers + +------+ + | Care Electrical Logging Engineer Name | Role | Phone | + +------+ + | Lexx Schrader DO | PCP | | + +------+ + Reason for Visit + +--------+ + | Reason | Onset | Comments | | | Date | | + +--------+ + | Update On Condition | 03/19/ | | | | 2015 | | + +--------+ + Encounter Details +--------+ + + + + | Date | Type | Department | Care Team | Description | +--------+ + + + + | 03/19/ | Telephone | Marvin Singer | Orestes Quinn MD | Update On Condition | | 2015 | | Diabetes Health | [address] [facility] | | | | | [place] [facility] | [address] [place], | | | | | [address] | [place] [address] | | | | | [address] | [phone] | | | | | Physician's | | | | | | [address] | | | | | | [place], [place] | | | | | | [address] | | | | | | [phone] | | | +--------+ + + + [...] Telephone Encounter - Soco Olvera MA - 03/19/2016 12:07 PM PDTOnset of New Symptoms Is this a general message or do you need a call back from your provider? Please call Have you contacted your PCP? NO -- List symptoms: Itchy arches on feet and numbness of toes Date symptoms started: 02/17/16 Treatment given if any: Nothing unchanged Name: Sterling, documented in this encounter Plan of Treatment Not on filedocumented as of this encounter Visit Diagnoses Not on filedocumented in this encounter"
--- OUTSIDE RECORDS SUMMARY | ~2020-04-12 | XMS | Encounter Summary ---
Demographics + + + | Address | [address] | | | [place] [address] | + + + | Home Phone [...] Team Providers + +------+ + | Care Gravity Prospecting Observer Helper Name | Role | Phone | + +------+ + | Emmanuelle Noe MD | PCP | | + +------+ + Reason for Visit +--------+--------+ + | Reason | Onset | Comments | | | Date | | +--------+--------+ + | Other | 10/12/ | Behavorial Health Concern | | | 2017 | | +--------+--------+ + Encounter Details +--------+ + + + + | Date | Type | Department | Care Team | Description | +--------+ + + + + | 10/12/ | Telephone | Marvin Singer | Orestes Quinn MD | Other (Behavorial | | 2017 | | Diabetes Health | [address] | Health Concern ) | | | | Center at [facility] | [address] [place], | | | | | [address] | [place] [address] | | | | | [address] | [phone] | | | | | Physician's | | | | | | [address] | | | | | | [place] | | | | | | [address] | | | | | | [phone] | | | +--------+ + + + [...] Notes Telephone Encounter - Santa Gomez - 10/12/2017 5:18 PM PSTLCSW was unable to reach Masood feng or his mother but left VM on phone # provided that if there are safety concerns bring hi m to the local ED or contact the [facility] Crisis line [phone]. No additional CUSTOMER PROGRAM SPECIALIST follow up needed at this time. Santa Gomez, LCSW ekriss villagomez Encounter - Denise Patricia - 10/12/2017 2:56 PM PSTPt mom called, stated that pt took 15 pills of gabapentin the weekend before his birthday, reported Thursday. Pt mom said that she is concerned, pt is experiencing some symptoms. Told mom that pt can go to ER to be checked. Will notify Interactive Web Developer PAS asked if pt was attempting to take his own life, pt mom said that "When Sterling gets ups et, he does that" Pt went to [facility] in [facility] Pt mom: [phone] - Amanda P M PSTdocumented in this encounter Plan of Treatment Not on filedocumented as of this encounter Visit Diagnoses Not on filedocumented in this encounter
--- OUTSIDE RECORDS SUMMARY | ~2020-04-12 | XMS | Encounter Summary ---
Demographics + + + | Address | [address] | | | [place] [address] | + + + | Home Phone [...] Team Providers + +------+ + | Care Manpower Development Advisor Name | Role | Phone | + +------+ + | Emmanuelle Noe MD | PCP | | + +------+ + Reason for Visit + +--------+ + | Reason | Onset | Comments | | | Date | | + +--------+ + | Medication Question | 08/18/ | | | | 2013 | | + +--------+ + Encounter Details +--------+ + + + + | Date | Type | Department | Care Team | Description | +--------+ + + + + | 08/18/ | Telephone | Marvin Singer | Mark Jaeger MD | Medication Question | | 2013 | | Diabetes Health | | | | | | [facility] | | | | | | [address] | | | | | | [address] | | | | | | Physician's | | | | | | [address] | | | | | | [place], [place] | | | | | | [address] | | | | | | [phone] | | | +--------+ + + + [...] Telephone Encounter - Boyd Munoz MA - 08/18/2013 12:27 PM PSTRouted to provider to revie w and/or advise. elephon e Encounter - Jada Vernon - 08/18/2013 11:34 AM PSTPt's mother, is requesting advise and possibly a prescription for a sleep medication as pt has been having extreme difficulty with falling asleep at night, pt's PCP Dr Alegria will not write this rx as pt has not been seen in over a year, James, mom, also would like to make sure that she is requesting a medication t hat is compatible with his diabetes. Please advise. [phone] signed by Jada Vernon at 08/18/2013 11:37 AM PSTdocumented in this encounter Plan of Treatment Not on filedocumented as of this encounter Visit Diagnoses Not on filedocumented in this encounter"
--- OUTSIDE RECORDS SUMMARY | ~2020-04-12 | XMS | Encounter Summary ---
Demographics + + + | Address | [address] | | | [place] [address] | + + + | Home Phone [...] Team Providers + +------+ + | Care Editorial Director Name | Role | Phone | + +------+ + | Saida Alegria MD | PCP | | + +------+ + Reason for Visit + +--------+ + | Reason | Onset | Comments | | | Date | | + +--------+ + | Referral to social | 03/13/ | | | worker | 2013 | | + +--------+ + Encounter Details +--------+ + + + + | Date | Type | Department | Care Team | Description | +--------+ + + + + | 03/13/ | Telephone | Marvin Singer | Santa Gomez, | Referral to social | | 2013 | | Diabetes Health | NETWORK OPERATIONS CENTER TECHNICIAN [address] | worker | | | | Center at [facility] | [facility] | | | | | [address] | [place], [place] | | | | | [address] | [address] | | | | | Physician's | [phone] | | | | | [address] | | | | | | [place], [place] | | | | | | [address] | | | | | | [phone] | | | +--------+ + + + [...] Notes Telephone Encounter - Santa Gomez - 03/13/2014 2:33 PM Emerson Singer Diabetes [facility] ([facility]) FIDE note: telephone SW called emergency contacts in an attempt to coordinate care for Sterling's diabetes: SW was not able to reach mother of Sterling. Father relayed that Sterling hasn't lived with him for several months, but confirmed mother's phone number. [facility] states that case is closed at this time. Adult sister Soco returned call to FIDE to relay that they could not attend recent appoi ntment with Dr. Jaeger because it was on the anniversary of their brother's . Grandfathe osmel was also in serious car accident that same day, but they are hoping for his recovery. They are trying to schedule Israel' follow up at the [facility] on the same day they are schedu led with [facility] nephrology in April. Plan: SW will assist with coordinating appointments, and encouraged sister to relay to her mother that Dr. Jaeger is also available by phone for consultation if needed prior to next appointme nt. VEL Hernandez pager [phone] signed by Santa Gomez at 03/13/2014 2:48 PM PDTdocumented in this encounter Plan of Treatment Not on filedocumented as of this encounter Visit Diagnoses Not on filedocumented in this encounter"
--- OUTSIDE RECORDS SUMMARY | ~2020-04-12 | XMS | Encounter Summary ---
Demographics + + + | Address | [address] | | | [place] [address] | + + + | Home Phone | | + + + | Preferred Language | Unknown | + + + | Marital Status | Single | + + + | Pentecostalism Affiliation | Unknown | + + + [...] Team Providers + +------+ + | Care Enrollment Representative Name | Role | Phone | + +------+ + | Lexx Schrader DO | PCP | | + +------+ + Reason for Visit + +--------+ + | Reason | Onset | Comments | | | Date | | + +--------+ + | Refill Request | 05/11/ | Ben lópez meter and strips | | | 2017 | | + +--------+ + | Prior Authorization | 05/11/ | | | Request | 2018 | | + +--------+ + Encounter Details +--------+--------+ + + + | Date | Type | Department | Care Team | Description | +--------+--------+ + + + | 05/11/ | Refill | Marvin Singer | Orestes Quinn MD | Refill Request | | 2017 | | Diabetes Health | [address] | (Katiayle litlyubov | | | | [facility] | [address] [place], | meter and strips); | | | | [address] | [place] [address] | Prior Authorization | | | | [address] | [phone] | Request | | | | Physician's | | | | | | [address] | | | | | | [place], [place] | | | | | | [address] | | | | | | [phone] | | | +--------+--------+ + + + [...] Telephone Encounter - Soco Olvera MA - 09/01/2018 2:29 PM PSTePA attempted w/ no re sponse from insurance. Called pharmacy to verify insurance as the one we have on file is a [facility] reported that he [facility] [place] and that the insurance the y have on file may also be old. Called the preferred number on pts chart however it went straight to which has not been set up so unable to leave VM. Called the Facility that was last on file, however pt no longe r there. Took them off the list at their request. Called the 541 number on chart and left VM to call back. Pt needs to update/verify insurance. If pt is insured through [employer] he may need to be seen by a [employer] provider to receive Rx's. He also may need to only use a [employer] pharmacy Pt was last seen almost a year ago and has no follow up appt scheduled. Electronically sign ed by Soco Olvera MA at 09/01/2018 2:34 PM PSTTelephone Encounter - Ria Bravo MA - 05/11/2018 12:10 PM PDTIncoming fax [facility] message: Insurance wants freestyle lite test strips and meter. Signed refill request for Freestyle lite meter and test strips per [id number] Last Appointment in [facility] was on 09/25/17 at 10:10 am with Orestes Quinn MD. Next Appointment in [facility] is on 05/17/18 at 9:45 am with Orestes Quinn MD. documented in [...]
--- OUTSIDE RECORDS SUMMARY | ~2020-04-12 | XMS | Encounter Summary ---
Demographics + + + | Address | [address] | | | [place] [address] | + + + | Home Phone | | + + + | Preferred Language | Unknown | + + + | Marital Status | Single | + + + | Temple Affiliation | Unknown | + + + [...] Team Providers + +------+ + | Care Filter Changing Technician Name | Role | Phone | + +------+ + | Emmanuelle Noe MD | PCP | | + +------+ + Encounter Details +--------+ + + + + | Date | Type | Department | Care Team | Description | +--------+ + + + + | 06/01/ | Telephone | Marvin Singer | Ludy Diamond, | | | 2014 | | Diabetes Health | MD Lucia [address] | | | | | [facility] | [address] | | | | | [address] | [place], [place] | | | | | [address] | [address] | | | | | Physician's | [phone] | | | | | [address] | | | | | | [place], [place] | | | | | | [address] | | | | | | [phone] | | | +--------+ + + + [...]
--- OUTSIDE RECORDS SUMMARY | ~2020-04-12 | XMS | Encounter Summary ---
Demographics + + + | Address | [address] | | | [place] [address] | + + + | Home Phone [...] Team Providers + +------+ + | Care Quality Assurance Clerk Name | Role | Phone | + +------+ + | Emmanuelle Noe MD | PCP | | + +------+ + Encounter Details +--------+ + + + + | Date | Type | Department | Care Team | Description | +--------+ + + + + | 11/09/ | Documentati | Marvin Singer | Orestes Quinn MD | | | 2020 | on | Diabetes Health | [address] [facility] | | | | | [facility] | [facility], | | | | | [address] | [place] [address] | | | | | [address] | [phone] | | | | | Physician's | | | | | | [address] | | | | | | [place], [place] | | | | | | [address] | | | | | | [phone] | | | +--------+ + + + [...]
--- OUTSIDE RECORDS SUMMARY | ~2020-04-12 | XMS | Encounter Summary ---
Demographics + + + | Address | [address] | | | [place] [address] | + + + | Home Phone | | + + + | Preferred Language | Unknown | + + + | Marital Status | Single | + + + | Faith Affiliation | Unknown | + + + [...] Providers + +------+ + | Care Public Address Technician Name | Role | Phone | [...] Closed | | Endocrinology | Diagnoses | [place], | Dbt Diab Ed | | | | Diabetes & | Diabetes | MD Orestes | [address] | | | | Metabolism | type 1, | [address] | [address] | | | | | uncontrolled | [address] | [address] | | | | | (HCC) | Rd | Mailcode: | | | | | Procedures | [place], [place] | [address] | | | | | CONSULT TO | [address] | Physician's | | | | | PEDS | Phone: | [address] | | | | | DIABETES - | [phone] | [address] | | | | | EDUCATION | Fax: | [place], [place] | | | | | AND | [phone] | [address] | | | | | NUTRITION | | Phone: | | | | | | | [phone] | | | | | | | Fax: | | | | | | | [phone] | +--------+--------+ + + + + Encounter Details +--------+---------+ + + + | Date | Type | Department | Care Team | Description | +--------+---------+ + + + | 09/25/ | Office | Marvin Singer | Rosey Pope | Diabetes mellitus | | 2018 | Visit | Diabetes Health | [address] | type 1, | | | | [facility] | [address] [place], | uncontrolled, | | | | [address] | [place] [address] | without | | | | [address] | | complications (HCC) | | | | Mailcode: [address] | | (Primary Dx) | | | | Physician's Pavilion | | | | | | [address] [place], | | | | | | [place] [address] | | | | | | [phone] | | | +--------+---------+ + + + [...] of this encounter Patient Instructions Patient Instructions Rosey Pope - 09/25/2017 9:20 AM Yas ELIZALDE will be i n touch with you next week 1 - Your goal today is to check your blood sugar when you eat so that you can accurately ap ply your correction 1 unit per 50 mg/dl over 150 2- If you are feeling like you are still having higher blood sugars then please call - but I would need to know what your blood sugars are looking like - so write them down before satcy noonan 3 - Make sure that you get your lantus in every day!!! 4 - Your new meter will take Accu Chek GUIDE test strips, new prescription sent to your [facility] today along with Glucagon documented in this encounter Progress Notes Rosey Pope - 09/25/2017 9:20 AM PST Patient Instructions There are no Patient Instructions on file for this visit. Diagnosis: Type 1 Diabetes Reason for Visit: DSMT - Return Time: 60 minutes Individual, Comprehensive &/or Initial Initial/last yearly assessment date: 11-23-2015 Barriers: Substance use in the past Sterling Monique is a 16 y.o. male with Type 1 Diabetes diagnosed on 08/2010 in [facility] . Sterling is returning to clinic today with his mom for follow-up. Sterling called in to [facility] a few days ago and spoke with Educator Julieth Rice regarding needing to be seen s oon for follow-up care for his diabetes. He has not been seen since spring. Family met with this educator and Orestes Quinn MD today. Sterling has been living with his grandpar ents. He has lived in residential treatment centers in the past. He has been with grandpare nts since . He reports being clean for the last 2 weeks. Monitoring- Sterling is using an accu check meter for testing blood sugars, however lost his meter 3 days ago and can't find it. He is able to verbalize when to test for blood sugars an d the need to be able to correct elevated BG at meals with the information Target Range: 80-180 Target A1C: <7.5% Lab Results Component Value Date A1C 13.0 09/25/2017 A1C 7.6 11/23/2015 A1C 8.3 06/26/2015 Intervention: Introduced new BG meter Accuchek Guide. Set up new meter and provided ba ck up. Send in RX for new test strips for this meter. Evaluation: Verbalized understanding. Medications- Sterling is on a basal bolus insulin regimen using Novolog and Lantus. Current i nsulin doses are: Lantus: 38 units - he gets his most days Meals: 1:7 High Blood Sugar Correction Factor: 1 per 50 over 150 but tends to just give 3-4 units ext ra when he feels high. Intervention: Reviewed need for dosing using ICR and correction when he eats, discusse d timing between fast acting insulin.. Emphasized need to get lantus dose in everyday to pre vent DKA Evaluation: Verbalized understanding Nutrition- Sterling follows a flexible meal plan using ICR. Sterling calculates the carbohydra jeannie utilizing the following resources:food labels and google. Sterling reports no problems fin ding out carb information. Intervention: none Evaluation: N/A Acute Complications- Low blood sugars occuring infrequently. Sterling is able to recognize sy mptoms, which include feeling shaky and irritable. Treatment includes regular soda or a sni ckers. He reports typically checking when he feels low if he has his meter. Sterling has not had a severe low requiring intervention with glucagon. They have ki t(s). Sterling's ketone strips are not current. He typically does not test for ketones and will jus t give extra insulin if he is feeling bad. Intervention: Reviewed what ketones are, how they develop and how DKA occurs. When to test for ketones and when to call for help, treatment for DKA. DKA prevention. Recommended using the Reg soda for treating lows as opposed to the snickers bar since the s nickers is slower to digest in the body, but this is great for a follow-up snack after treat ing the low. Evaluation: verbalizes but will need re-inforcement Readiness for Health/Behavior Change- Sterling came up with goal of checking blood sugar when he eats so that he can use his high blood sugar correction. Intervention: None Evaluation: N/A Behavioral Goal Today's goal: Monitoring : Check my blood sugars when I eat Previous goal: Progress towards ALL goals: Monitoring 0% He lost his meter so has been unable to test Support Plan: Education Plan Follow-Up Plan: Routine follow-up 3-4 months and to call with any concerns should they Mario [facility] 1ST FLOOR [address] [facility] Mailcode: [facility] [place] [address] documented in this enco unter Plan of Treatment Not on filedocumented as of this encounter Procedures + +--------+ + + + | Procedure Name | Priori | Date/Time | Associated Diagnosis | Comments | | | ty | | | | + +--------+ + + + | [place] DIAB MANAGE TRN | Routin | 09/30/2017 | Diabetes mellitus | | | PER INDIV | e | 1:20 PM | type 1, | | | | | PST | uncontrolled, | | | | | | without | | | | | | complications (HCC) | | + +--------+ + + + documented in this encounter Visit Diagnoses + + | Diagnosis | + + | Diabetes mellitus type 1, uncontrolled, without complications - Primary | + + documented in this encounter"
--- OUTSIDE RECORDS SUMMARY | ~2020-04-12 | XMS | Encounter Summary ---
Demographics + + + | Address | [address] | | | [place] [address] | + + + | Home Phone [...] Team Providers + +------+ + | Care Hog Raiser Name | Role | Phone | + +------+ + | Saida Alegria MD | PCP | | + +------+ + Encounter Details +--------+ + + + + | Date | Type | Department | Care Team | Description | +--------+ + + + + | 06/14/ | Documentati | Marvin Singer | Mark Jaeger MD | | | 2012 | on | Diabetes Health | | | | | | [facility] | | | | | | [address] | | | | | | [address] | | | | | | Physician's | | | | | | [address] | | | | | | [place], [place] | | | | | | [address] | | | | | | [phone] | | | +--------+ + + + [...] Notes Telephone Encounter - Jessica Diehl - 06/14/2013 11:55 AM PSTUrgent letter received from [facility]. Letter uploaded into [employer] and routed to Dr. Jaeger. documented in this encounter Plan of Treatment Not on filedocumented as of this encounter Visit Diagnoses Not on filedocumented in this encounter"
--- OUTSIDE RECORDS SUMMARY | ~2020-04-12 | XMS | Encounter Summary ---
Demographics + + + | Address | [address] | | | [place] [address] | + + + | Home Phone [...] Team Providers + +------+ + | Care Functional Mental Disability Teacher Name | Role | Phone | + +------+ + | Lexx Schrader DO | PCP | | + +------+ + Encounter Details +--------+ + + + + | Date | Type | Department | Care Team | Description | +--------+ + + + + | 11/14/ | Telephone | Marvin Singer | Kimmy Roper, INJECTION SPECIALIST | | | 2015 | | Diabetes Health | [address] [facility] | | | | | [facility] | [address] [place], | | | | | [address] | [place] [address] | | | | | [address] | [phone] | | | | | Physician's | | | | | | [address] | | | | | | [place], [place] | | | | | | [address] | | | | | | [phone] | | | +--------+ + + + [...] Telephone Encounter - Kimmy Roper CNS - 11/19/2015 7:37 AM PDTSpoke with [employer] rep t o let them know that patient has not been seen for a pre-pump eval and this is premature. T here have not been any discussions with provider. Message sent to Dr. Quinn on 11/08/2015 r egarding this initial request from [employer] without response. Advised [employer] that this would be discussed at routine follow-up. Will contact parent to explain process. Martha Roper RN INJECTION SPECIALIST-PP CDE Pediatric Diabetes Clinical Nurse Specialist elephone Encounter - Isael Silva MA - 11/15/2015 3:11 PM PDTRobjung's mother called, she is trying to get R kailash an insulin pump, but he needs to have a c-peptide and fasting glucose done so his insu malathi carrier will cover the cost of his supplies. She is trying to have these labs done today so he can be back on his pump before his visit with on 11/22 (it was unclear if she wanted help setting up Sterling's pump at his vi sit on 11/22) [facility] in [place] Call Fabienne back at [phone] signed by Isael Pineda MA at 11/15/2015 3:16 PM PDTdocumented in this encounter Plan of Treatment Not on filedocumented as of this encounter Visit Diagnoses Not on filedocumented in this encounter"
--- OUTSIDE RECORDS SUMMARY | ~2020-04-12 | XMS | Encounter Summary ---
Demographics + + + | Address | [address] | | | [place] [address] | + + + | Home Phone [...] Author + + + | Author | [facility] | + + + | Organization | [facility] | + + + | [...] Team Providers + +------+ + | Care Engineering Test Specialist Name | Role | Phone | + +------+ + | Saida Alegria MD | PCP | | + +------+ + Reason for Visit + +--------+ + | Reason | Onset | Comments | | | Date | | + +--------+ + | Referral to social | 10/06/ | | | worker | 2013 | | + +--------+ + Encounter Details +--------+ + + + + | Date | Type | Department | Care Team | Description | +--------+ + + + + | 10/06/ | Telephone | Marvin Singer | Santa Gomez, | Referral to social | | 2013 | | Diabetes Health | MACHINE STAPLER [address] | worker | | | | Center at [facility] | [facility] | | | | | [address] | [place], [place] | | | | | [address] | [address] | | | | | Physician's | [phone] | | | | | [address] | | | | | | [place], [place] | | | | | | [address] | | | | | | [phone] | | | +--------+ + + + [...] Notes Telephone Encounter - Santa Gomez - 10/06/2013 3:50 PM Madison Singer Diabetes [facility] FIDE note: telephone SW contacted [facility] worker Maylin Lopez [phone], who relayed that Sterling is now living with his father Sterling Monique Sr. in [facility] for a two month trial visit. SW relayed concern that he has not had follow up for his diabetes care as recommended by Dr Juan Jaeger at his July 2013 visit, and there were significant concerns due to Israel' diabe jeannie care being extremely poor, and both mother and school reports of concerning behaviors. When FIDE asked if Sterling has established with a diabetes care provider where he is now saroj wilkinson, the [employer] worker said the case is now closed and there is nothing she can do. She did prov ided SW with father's phone number. SW left a message with father (Sterling Monique Sr. [phone]). SW also left a message with mother to see if SW can offer any support or resource informati on to assist Sterling or family. Plan: FIDE will relay above information to Dr. Jaeger and follow as needed. VEL Hernandez pager [phone] signed by Santa Gomez at 10/06/2013 4:09 PM PSTdocument ed in this encounter Plan of Treatment Not on filedocumented as of this encounter Visit Diagnoses Not on filedocumented in this encounter"
--- OUTSIDE RECORDS SUMMARY | ~2020-04-12 | XMS | Encounter Summary ---
Demographics + + + | Address | [address] | | | [place] [address] | + + + | Home Phone | | + + + | Preferred Language | Unknown | + + + | Marital Status | Single | + + + | Shinto Affiliation | Unknown | + + + [...] Team Providers + +------+ + | Care Criminal Justice Lawyer Name | Role | Phone | + +------+ + | Saida Alegria MD | PCP | | + +------+ + Encounter Details +--------+ + + + + | Date | Type | Department | Care Team | Description | +--------+ + + + + | 05/25/ | Abstract | [facility] | Saida Alegria MD | | | 2012 | | Department | [address] | | | | | | [place] [address] | | | | | | [place] [address] | | | | | | [phone] | | | | | | | | +--------+ + + + [...]
--- OUTSIDE RECORDS SUMMARY | ~2020-04-12 | XMS | Encounter Summary ---
Demographics + + + | Address | [address] | | | [place] [address] | + + + | Home Phone [...] Team Providers + +------+ + | Care Surg Rn Name | Role | Phone | + +------+ + | Lia Pérez | PCP | | + +------+ + Reason for Visit + +--------+ + | Reason | Onset | Comments | | | Date | | + +--------+ + | Refill Request | 05/04/ | | | | 2014 | | + +--------+ + Encounter Details +--------+--------+ + + + | Date | Type | Department | Care Team | Description | +--------+--------+ + + + | 05/04/ | Refill | Marvin Singer | Mark Jaeger MD | Refill Request | | 2014 | | Diabetes Health | | | | | | [facility] | | | | | | [address] | | | | | | [address] | | | | | | Physician's | | | | | | [address] | | | | | | [place], [place] | | | | | | [address] | | | | | | [phone] | | | +--------+--------+ + + + [...] Encounter - Boyd Munoz MA - 05/07/2015 8:12 AM PDTPended refill request for L antus, Humalog and routed to MD to review. Last Office Visit in [facility] was on 11/17/14 at 2:50 pm with Mark Jaeger MD. No future appointments scheduled in Endocrinology, Diabetes & Metabolism. Routed to Attending (Dr. Quinn) at last appointment. Needs appointment. Electronically sig augustine by Boyd Munoz MA at 05/07/2015 8:15 AM PDTTelephone Encounter - Annita Ricks - 4:38 PM PDTRobert Mario Monique : 2000 Pt is running very low on his insulin Last Office Visit in [facility] was on 11/17/14 at 2:50 pm with Mark Jaeger MD. No future appointments scheduled in Endocrinology, Diabetes & Metabolism. Medication: lantus Dose: 33 units Quantity: 1 month Additional Medication: Yes Medication: humalog Dose: 125 units Quantity: 1 month Additional Medication: No Pharmacy Updated: CONFIRMED Pharmacy Preferences: documented in this encou nter Plan of Treatment Not on filedocumented as of this encounter Visit Diagnoses Not on filedocumented in this encounter"
--- OUTSIDE RECORDS SUMMARY | ~2020-04-12 | XMS | Encounter Summary ---
Demographics + + + | Address | [address] | | | [place] [address] | + + + | Home Phone | | + + + | Preferred Language | Unknown | + + + | Marital Status | Single | + + + | Mormon Affiliation | Unknown | + + + [...] Team Providers + +------+ + | Care Circular Tank Cooper Name | Role | Phone | + +------+ + | Saida Alegria MD | PCP | | + +------+ + Encounter Details +--------+ + + + + | Date | Type | Department | Care Team | Description | +--------+ + + + + | 07/26/ | Completions Manager | Pediatric | Deb Duran, | History of urinary | | 2012 | | Nephrology at | RN POOL [address] [facility] | tract infection | | | | [place] | [address] | (Primary Dx) | | | | [facility] | [place], [place] | | | | | [address] | [address] | | | | | [place] | [phone] | | | | | [facility], | | | | | | 7th floor | | | | | | [place], [place] | | | | | | [address] | | | | | | [phone] | | | +--------+ + + + [...] Not on filedocumented as of this encounter Results [facility]NEY [facility]ADDER (07/29/2013 3:28 PM PST) [...] | | + +---------+ + + | [facility] DEPARTMENT OF | | | | | RADIOLOGY | | | | + +---------+ + + documented in this encounter Visit Diagnoses + + | Diagnosis | + + | History of urinary tract infection - Primary Personal history of urinary (tract) | | infection | + + documented in this encounter"
--- OUTSIDE RECORDS SUMMARY | ~2020-04-12 | XMS | Encounter Summary ---
Demographics + + + | Address | [address] | | | [place] [address] | + + + | Home Phone [...] Team Providers + +------+ + | Care Stevedore Dock Name | Role | Phone | + +------+ + | Lia Pérez | PCP | | + +------+ + Reason for Visit + +--------+ + | Reason | Onset | Comments | | | Date | | + +--------+ + | Referral to social | 05/15/ | | | worker | 2015 | | + +--------+ + Encounter Details +--------+ + + + + | Date | Type | Department | Care Team | Description | +--------+ + + + + | 05/15/ | Telephone | Marvin Singer | Santa Gomez, | Referral to social | | 2014 | | Diabetes Health | [facility] [address] | worker | | | | [facility] | [facility] | | | | | [address] | [place], [place] | | | | | [address] | [address] | | | | | Physician's | [phone] | | | | | [address] | | | | | | [place], [place] | | | | | | [address] | | | | | | [phone] | | | +--------+ + + + [...] Notes Telephone Encounter - Santa Gomez - 05/15/2015 3:53 PM Emerson Singer Diabetes [facility] certified social workers in health care (FIDE) note: telephone Patient Sterling is currently residing at [facility] [facility]. RN AROLDO Mccabe is coordinating with staff at [facility] to assist with school order s and coordinating upcoming appointment on 05/23/15 with the diabetes team (Dr. Lo, JENNIFER Jordan, and Dr. Hernadez). [facility] does not have a RN on staff or anyone trained in type 1 diabetes management, and they are uncertain as to who is responsible for getting him to his appointment. SW contacted [facility] [phone] and spoke to Ria Higgins, who confirmed there is no ope n [facility] case as this time. SW reviewed above concerns, and [facility] recommending SW contact PO. Plan: SW left a message with [employer] (PO) Junaid Yousif [phone] regarding above concer ns and to determine who will be bringing Sterling to his upcoming appointment. SW will follow as needed. Santa Gomez [facility] Diabetes clinic certified social workers in health care pager [phone] documented in this encoun ter Plan of Treatment Not on filedocumented as of this encounter Visit Diagnoses Not on filedocumented in this encounter"
--- OUTSIDE RECORDS SUMMARY | ~2020-04-12 | XMS | Encounter Summary ---
Demographics + + + | Address | [address] | | | [place] [address] | + + + | Home Phone | | + + + | Preferred Language | Unknown | + + + | Marital Status | Single | + + + | Christianity Affiliation | Unknown | + + + [...] Team Providers + +------+ + | Care Traffic Observer Name | Role | Phone | + [...] 06/17/ | Office | Marvin Singer | Deepak Lester, PhD | Type I (juvenile | | 2012 | Visit | Diabetes Health | [address] | type) diabetes | | | | Center [facility] | [facility] [place] | mellitus without | | | | [address] | [address] | mention of | | | | [address] | [phone] | complication, not | | | | Physician's | | stated as | | | | [address] | | uncontrolled | | | | [place], [place] | | (Primary Dx); | | | | [address] | | Adjustment disorder | | | | [phone] | | with depressed mood | +--------+---------+ + + + Social History [...] encounter Progress Notes Deepak Lester, PhD - 07/29/2013 7:59 AM PST Clinic: Diabetes Discipline: Psychology Consultation/Treatment Note Pediatric Psychology Session: 1 Date: 06/17/2013 Duration: I spent 45 minutes providing direct face to face services to this patient Presentation and Psychosocial Status: Sterling Monique is a 12-year 8-month-old male with type 1 diabetes who presented at clinic accompanied by his mother. Sterling was referred by John Jaeger to assess and provide recommendations to optimize his adjustment to diagnosis and adherence to treatment recommendations. Sterling was alert and engaged and his affect jc ropriately varied from neutral to bright during the session. Sterling smiled occasionally and seemed open and forthcoming during the assessment. Sterling was tearful at times during the a ssessment. Pertinent Background & History: Sterling was diagnosed with diabetes at approximately 10 year s-of-age. He reported he has been only partially adherent to the insulin regimen, BGL testi ng, exercise recommendations, and the dietary plan. Sterling has been primarily responsible f or managing the treatment regimen. Sterling has a history of suboptimal control. Sterling prev iously lived with his father in [place] until 03/22 when he moved to [facility] ith his mother. The family noted that Sterling's parents /seperated approximately 4 m onths ago. Reportedly, Sterling's 19 year-old brother committed suicide. The family noted an immediate family history of Attention-Deficit/Hyperactivity Disorder (ADHD). Laboratory studies: Component Latest Reference Range 08/201206/17/2013 HbA1C 3.9 - 5.8 % 10.0% 14.3% >14.0% Session Description: General functioning was discussed. Sterling reported that he has experie nced difficulty adjusting to the recent changes in his life. He reported distress at being from his friends and his father. Sterling endorsed symptoms of depression that incl uded feeling sad, anhedonia, irritability and moodiness, and changes in sleeping and eating. Sterling denied that he has experianced any suicidal or homicidal thoughts, intent, or plan. Sterling endorsed that he has experienced difficulty with sustained focus and attention, is easily distractible, and often impulsive. The potential value of completing an evaluation to determine whether Sterling meets criteria for ADHD was discussed. Adjustment processes a round significant changes were discussed. Recommendations were provided to establish contac t with a therapist/psychologist in their community. Additionally, means of addressing depr ession were introduced and discussed i.e., behavioral activation and cognitive reframing. Diabetes functioning was discussed. The specific focus was on optimizing Sterling's adherenc e and improving adjustment to diagnosis. The family noted there has been ongoing parent-chil d conflict regarding diabetes management. Sterling reported having diabetes has been a bad experience and that he has become less likely to manage his diabetes well over time. T he family reported having negative and punitive reactions to elevated blood glucose readings . The focus was on changing cognitive distortions. The potential impact of diabetes on Masood ert s life was reframed for the family in the positive. The potential value of parenting using a collaborative and supportive approach was discussed with the family. Also presente d and discussed was seeing all numbers as good numbers. Principles of behavioral learning w ere presented to the family as inoculating against or contributing to diabetes burnout over time. Related discussion included the value of consistently pairing good outcomes with diab etes management tasks over time. Additional services to help the family improve family functioning and diabetes management w ere offered, i.e. pediatric psychological services. Diagnosis: Harwick I 309.0 Adjustment Disorder with Depressed Mood Rule out: 314.01 Attention-Deficit/Hyperactivity Disorder Harwick II No Diagnosis Harwick III Type 1 Diabetes Mellitus (250.01) Harwick IV Psychosocial problems related to having chronic medical condition. Harwick V GAF = 64 Progress: Sterling and [...] | + +--------+ + + + | PA [facility]AL & [facility]AV | Routin | 07/29/2013 | Type I (juvenile | | | INTERV,EA 15 MIN,FAM | e | 8:44 AM | type) diabetes | | | W/* | | PST | mellitus without | | | | | | mention of | | | | | | complication, not | | | | | | stated as | | | | | | uncontrolled | | | | | | Adjustment disorder | | | | | | with depressed mood | | + +--------+ + + + documented in this encounter Visit Diagnoses + + | Diagnosis | + + | Type I (juvenile type) diabetes mellitus without mention of complication, not stated | | as uncontrolled - Primary | + + | Adjustment disorder with depressed mood | + + documented in this encounter
--- OUTSIDE RECORDS SUMMARY | ~2020-04-12 | XMS | Encounter Summary ---
Demographics + + + | Address | [address] | | | [place] [address] | + + + | Home Phone [...] Team Providers + +------+ + | Care Retail Warehouse Supervisor Name | Role | Phone | [...] [address] | | | | | [facility] | [address] | | | | | [address] | [place], [place] | | | | | [address] | [address] | | | | | Physician's | [phone] | | | | | [address] | | | | | | [place], [place] | | | | | | [address] | | | | | | [phone] | | | +--------+ + + + [...] this encounter Miscellaneous Notes Telephone Encounter - Faizan Jacob - 06/05/2015 4:45 PM Tee Batista called asking that a lab order be placed for an A1C at [facility] in [facility]. She states that she will no longer be in contact with Dr. Remy and that you are aware of this. She has been told that she should contact you for all of Sterling's ne eds. You can call mom at [phone] if you have questions. barry in this encounter Plan of Treatment Not on filedocumented as of this encounter Visit Diagnoses Not on filedocumented in this encounter"
--- OUTSIDE RECORDS SUMMARY | ~2020-04-12 | XMS | Encounter Summary ---
Demographics + + + | Address | [address] | | | [place] [address] | + + + | Home Phone [...] Team Providers + +------+ + | Care Atomic Process Engineer Name | Role | Phone | + +------+ + | No Pcp Per Patient | PCP | Unavailable | + +------+ + Reason for Visit + + + | Reason | Comments | + + + | Refill Request | | + + + Encounter Details +--------+--------+ + + + | Date | Type | Department | Care Team | Description | +--------+--------+ + + + | 01/15/ | Refill | Marvin Singer | Orestes Quinn MD | Refill Request | | 2020 | | Diabetes Health | [address] [facility] | | | | | [place] [facility] | [facility], | | | | | [address] | [place] [address] | | | | | [address] | [phone] | | | | | Physician's | | | | | | [address] [facility] | | | | | | [place], [place] | | | | | | [address] | | | | | | [phone] | | | +--------+--------+ + + + [...] Telephone Encounter - Ria Bravo MA - 01/16/2020 8:18 AM PDTIncoming refill request re ceived from pt via inbound call. Pended refill request for Novolog flexpen, basaglar padmajaikpen and routed to MD to review. Last Appointment in [facility] was on 09/25/17 at 3:33 pm with Orestes Quinn MD. No future appointments scheduled in Endocrinology Diabetes & Metabolism. Last Appointment in [facility] was on 09/25/17 at 3:33 pm with Orestes Quinn MD. No future appointments scheduled. Routing to END Scheduling Pool to please assist patient in scheduling return visit with pro vider or confirm transfer of care. PAGED PROVIDER: URGENT: Pt Sterling Monique [id number] is out of all insulin, please see routed encounter. Ria ext [phone]. A M PDTTelephone Encounter - Donell Ruiz - 01/16/2020 8:10 AM PDTRobert Mario Eneida MRN: [id number] : [id number] PT is out of both insulins Medication: Novolog Dose: 150 units Quantity: 1 month Additional Medication: Yes Medication: Basaglar Dose: unsure Quantity: 1 month Additional Medication: No Pharmacy Updated: [facility] [id number] [place] [id number] Hours: 9am-7pm Mon-fri / 9am-6pm Sat / 10am-5pm Sun E-Prescribing: Yes E-Prescribing Control Substances: Yes Prescription Routing: Retail order: Fax or call in to pharmacy Paged TIN Group: Sterling Monique [phone] Kai pt is out of insulin. Donell [phone] documented in this encount er Plan of Treatment Not on filedocumented as of this encounter Visit Diagnoses Not on filedocumented in this encounter"
--- OUTSIDE RECORDS SUMMARY | ~2020-04-12 | XMS | Clinical Summary ---
Demographics + + + | Address | [address] | | | [place] [address] | + + + | Home Phone [...] Author + + + | Author | [facility] | + + + | Organization | [facility] | + + + | Address | [...] Team Providers + +------+ + | Care Brand Mgr Name | Role | Phone | + +------+ + | Emmanuelle Noe MD | PCP | | + +------+ + Source Comments MAGALY is fully live on both [facility] and [facility] Allergies No Known Allergies Medications + + + +---------+------+------+-------+ | Medication | Sig | Dispensed | Refills | Star | End | Statu | | | | | | t | Date | s | | | | | | Date | | | + + + +---------+------+------+-------+ | traZODone 100 mg | | | 1 | 04/1 | | Activ | | oral tablet | | | | /20 | | e | | | | | | 16 | | | + + + +---------+------+------+-------+ | lamoTRIgine 100 mg | | | 1 | 03/2 | | Activ | | oral tablet | | | | 20 | | e | | | | | | 16 | | | + + + +---------+------+------+-------+ | Acetone (Urine) | Test for ketones | 50 each | 1 | 05/1 | | Activ | | Test (KETONE URINE | when blood sugar has | | | / | | e | | TEST) | been >300 twice in | | | 17 | | | | stripIndications: | a row and/or with | | | | | | | diagnostic test for | illness. One bottle | | | | | | | ketonuria | for home and one for | | | | | | | | school. | | | | | | | | Indications: | | | | | | | | Diagnostic Test for | | | | | | | | Ketonuria | | | | | | + + + +---------+------+------+-------+ | sertraline 100 mg | Take 100 mg by mouth | | 0 | | | Activ | | oral tablet | once daily. | | | | | e | + + + +---------+------+------+-------+ | Lancets (MICROLET | Use as directed 10 | 150 | 3 | 06/2 | | Activ | | LANCET) misc | times daily | each | | 3/20 | | e | | | | | | 18 | | | + + + +---------+------+------+-------+ | Blood-Glucose | Use as directed. | 1 each | 0 | 09/2 | | Activ | | Meter (CONTOUR NEXT | | | | 8/20 | | e | | METER) misc | | | | 18 | | | + + + +---------+------+------+-------+ | insulin glargine | Inject up to 40 | 15 mL | 3 | 04/0 | | Activ | | (LANTUS SOLOSTAR | units of Lantus at | | | 1/20 | | e | | U-100 INSULIN) 100 | bedtime as directed. | | | 19 | | | | unit/mL (3 mL) | Indications: type 1 | | | | | | | subcutaneous insulin | diabetes mellitus | | | | | | | penIndications: | | | | | | | | type 1 diabetes | | | | | | | | mellitus | | | | | | | + + + +---------+------+------+-------+ | insulin needles, | Inject 1 Dose under | 300 | 11 | 04/0 | | Activ | | Disposable, (BD | the skin (SUBC) as | each | | 1/20 | | e | | ULTRA-FINE LUCILLE PEN | needed. Up to 5 | | | 19 | | | | NEEDLE 4 MM X 32 G) | times daily | | | | | | | 32 gauge x 5/32" | Indications: type 1 | | | | | | | ndleIndications: | diabetes mellitus | | | | | | | type 1 diabetes | | | | | | | | mellitus | | | | | | | + + + +---------+------+------+-------+ | Blood Sugar | Use as directed to | 1350 | 3 | 04/0 | | Activ | | Diagnostic | test blood glucose | each | | 2/20 | | e | | (FREESTYLE LITE | up to 15 times daily | | | 20 | | | | STRIPS) | | | | | | | | miscellaneous (misc) | | | | | | | | strip | | | | | | | + + + +---------+------+------+-------+ | glucagon 1 mg | Inject 1.0 mg prn | 2 kit | 0 | 04/0 | | Activ | | injection kit | severe hypoglycemia | | | 2/20 | | e | | | | | | 20 | | | + + + +---------+------+------+-------+ | DEXCOM G6 JAVA CORE DEVELOPER | 1 unit per 365 days | 1 each | 0 | 04/1 | | Activ | | miscellaneous | | | | 0/20 | | e | | (misc) misc | | | | 20 | | | + + + +---------+------+------+-------+ | DEXCOM G6 SENSOR | Replace sensor every | 9 each | 3 | 04/1 | | Activ | | miscellaneous (misc) | 10 days | | | 0/20 | | e | | device | | | | 20 | | | + + + +---------+------+------+-------+ | DEXCOM G6 | Replace transmitter | 1 each | 3 | 04/1 | | Activ | | TRANSMITTER | every 90 days | | | 0/20 | | e | | miscellaneous (misc) | | | | 20 | | | | device | | | | | | | + + + +---------+------+------+-------+ | insulin aspart | Inject with meals | 60 mL | 2 | 06/0 | | Activ | | U-100 (NOVOLOG | and snacks - up to | | | 8/20 | | e | | FLEXPEN U-100 | 150 units per day. | | | 20 | | | | INSULIN) 100 unit/mL | | | | | | | | (3 mL) subcutaneous | | | | | | | | insulin pen | | | | | | | + + + +---------+------+------+-------+ | BASAGLAR KWIKPEN | Inject 40 Units | 15 mL | 2 | 06/0 | | Activ | | U-100 INSULIN 100 | under the skin | | | 8/20 | | e | | unit/mL (3 mL) | (SUBC) once daily at | | | 20 | | | | subcutaneous insulin | bedtime. | | | | | | | penIndications: | Indications: type 1 | | | | | | | type 1 diabetes | diabetes mellitus | | | | | | | mellitus | | | | | | | + + + +---------+------+------+-------+ Active Problems + + + | Problem | Noted Date | + + + | Adjustment disorder with depressed mood | 07/29/2013 | + + + | DM type 1 (diabetes mellitus, type 1) | 07/29/2013 | + + + Encounters +--------+ + + + + | Date | Type | Specialty | Care Team | Description | +--------+ + + + + | 03/01/ | Telephone | Ophthalmology | Rickey Figueroa, | Care Questions | | 2019 | | | MD | (Called and let | | | | | | referring provider's | | | | | | office know that pt | | | | | | no showed his appt | | | | | | with Dr. Figueroa on | | | | | | 03/01/20. Was | | | | | | unable to get ahold | | | | | | of pt to confirm | | | | | | this appt.) | +--------+ + + + + | 01/24/ | Abstract | Pediatric | Orestes Quinn MD | | | 2019 | | Endocrinology | | | +--------+ + + + + | 01/19/ | Abstract | Pediatric | Orestes Quinn MD | | | 2019 | | Endocrinology | | | +--------+ + + + + | 01/17/ | Telephone-S | Endocrinology | Orestes Quinn MD | | | 2020 | cheduled | Diabetes & | | | | | | Metabolism | | | +--------+ + + + + | 01/16/ | MyChart | Endocrinology | Joyce Perez, | share blood sugar | | 2019 | Encounter | Diabetes & | RD | data for appointment | | | | Metabolism | | tomorrow | +--------+ + + + + | 01/15/ | MyChart | Endocrinology | Orestes Quinn MD | 01/17 pre-visit check | | 2020 | Encounter | Diabetes & | | in | | | | Metabolism | | | +--------+ + + + + | 01/15/ | Refill | Endocrinology | Orestes Quinn MD | Refill Request | | 2020 | | Diabetes & | | | | | | Metabolism | | | +--------+ + + + + from Last 3 Months Immunizations + + + + | Name | Administration Dates | Next Due | + + + + | Influenza, | 06/26/2015, 08/04/2014, 06/17/2013 | | | injectable, | | | | quadrivalent, | | | | preservative free | | | | (IIV4) | | | + + + + Social History + [...] on file | | + + + Last Filed Vital Signs + + + [...] | | + + + + + Plan of Treatment + + + + + | Health Maintenance | Due Date | Last | Comments | | | | Done | | + + + + + | Monofilament foot | | | | | exam | 0 | | | + + + + + | Pneumococcal | | | | | vaccination (1 of | 6 | | | | - PPSV23) | | | | + + + + + | Diabetic eye exam | | | | | | 0 | | | + + + + + | Creatinine | | 04/17/20 | | | | 5 | 14, | | | | | 07/29/20 | | | | | 13 | | + + + + + | Medical attention | | 06/26/20 | | | for nephropathy | 6 | 15, | | | | | 06/17/20 | | | | | 13 | | + + + + + | Hemoglobin A1c | | 09/25/19 | | | | 8 | 18, | | | | | 11/23/19 | | | | | 16, | | | | | 06/26/20 | | | | | 15, | | | | | Addition | | | | | al | | | | | history | | | | | exists | | + + + + + | Cholesterol | | 06/17/20 | | | screening | 8 | 13 | | + + + + + | Influenza (Flu) | | 10/23/19 | | | vaccination (#1) | 0 | 20, | | | | | 06/26/20 | | | | | 15, | | | | | 08/04/20 | | | | | 14, | | | | | Addition | | | | | al | | | | | history | | | | | exists | | + + + + + | Diabetes | | 10/23/19 | | | self-management | 1 | 20, | | | education | | 10/22/19 | | | | | 20, | | | | | 05/24/20 | | | | | 19, | | | | | Addition | | | | | al | | | | | history | | | | | exists | | + + + + + Procedures + +--------+ + + + | [...] + +--------+ + + + | CREATININE, URINE | Routin | 01/19/2020 | | Results for this | | | e | | | procedure are in the | | | | | | results section. | + +--------+ + + + | CREATININE, URINE | Routin | 01/19/2020 | | Results for this | | | e | | | procedure are in the | | | | | | results section. | + +--------+ + + + | ALBUMIN, PLASMA | Routin | 01/19/2020 | | Results for this | | | e | | | procedure are in the | | | | | | results section. | + +--------+ + + + from Last 3 Months Results LAB OTHER (01/19/2020 7:11 AM PDT) [...] [address] | [place], [place] | [phone] | | [place] | | | | [...] + | [facility] - | [address] | [place], [place] | [phone] | | [place] | | | | [...] + + | [facility] - | [address] | [place], [place] | [phone] | | [place] | | | | + + + + + ALBUMIN, PLASMA (01/19/2020) + +-------+ + + + | Component | Value | Ref Range | Performed | Pathologist | | | | | At | Signature | + +-------+ + + + | MICROALBUMI | <0.7 | 0.0 - 2.0 mg/dL | [facility] | | | N, | | | LAB - | | | URINE-RANDO | | | [place] | | | M | | | | | + +-------+ + + + + + | Specimen | + + | Blood - Blood | | (substance) | + + + + + + + | Performing | Address | City/State/Zipcode | Phone Number | | Organization | | | | + + + + + | [facility] - | [address] | [place] [address] | [phone] | | [place] | [address] | | | + + + + + CREATININE, URINE (01/19/2020)Only the most recent of 2 results within the time period is i ncluded. + + + + + + | Component | Value | Ref Range | Performed | Pathologist | | | | | At | Signature | + + + + + + | MICROALBUMI | Comment: No value | | [facility] | | | N/CREAT | provided/see uploaded | | LAB - | | | RATIO | copy of labs | | [place] | | + + + + + + + + | Specimen | + + | Urine - Urine | | (substance) | + + + + + + + | Performing | Address | City/State/Zipcode | Phone Number | | Organization | | | | + + + + + | [facility] - | [address] | [place] [address] | [phone] | | [place] | [address] | | | + + + + + from Last 3 Months Insurance + +--------+ +--------+-------+---------+--------+ | Payer | Benefi | Subscriber | Effect | Phone | Address | Type | | | t Plan | ID | nayan | | | | | | / | | Dates | | | | | | Group | | | | | | + +--------+ +--------+-------+---------+--------+ | SECURITY CONTROL CENTER OPERATOR MEDICAID | SECURITY CONTROL CENTER OPERATOR | [id number] | | | | Medica | | | [place] | | 019-Pr | | | id | | | [place] | | esent | | | | + +--------+ +--------+-------+---------+--------+ + +--------+ +--------+ + + | Guarantor Name | Accoun | Relation to | Date | Phone | Billing Address | | | t Type | Patient | of | | | | | | | | | | + +--------+ +--------+ + + | Sterling Monique | Person | Self [birth year] [address] | | | al/Fam | | 2001 | [phone] | [place] [address] | | | bita | | | [phone] | | | | | | | (Home) | | + +--------+ +--------+ + +
--- OUTSIDE RECORDS SUMMARY | ~2020-04-12 | XMS | Encounter Summary ---
Demographics + + + | Address | [address] | | | [place] [address] | + + + | Home Phone [...] Team Providers + +------+ + | Care Food Safety Scientist Name | Role | Phone | + [...] | | | | [place] | [facility], | | | | | [facility] | [place] [address] | | | | | [address] | [phone] | | | | | [place] | | | | | | [place], [place] | | | | | | [address] | | | | | | [phone] | | | +--------+ + + + [...] + + documented in this encounter Results CREATININE, URINE (01/19/2020) + + + + + + | Component | Value | Ref Range | Performed | Pathologist | | | | | At | Signature | + + + + + + | MICROALBUMI | Comment: No value | | [facility] | | | N/CREAT | provided/see uploaded | | LAB - | | | RATIO | copy of labs | | [place] | | + + + + + + + + | Specimen | + + | Urine - Urine | | (substance) | + + + + + + + | Performing | Address | City/State/Zipcode | Phone Number | | Organization | | | | + + + + + | [facility] - | [address] | [place] [address] | [phone] | | [place] | [address] | | | + + + + + CREATININE, URINE (01/19/2020) + + + + + + | Component | Value | Ref Range | Performed | Pathologist | | | | | At | Signature | + + + + + + | CREATINE, | 114.67Comment: No RR | mg/dL | [facility] | | | URINE | provided | | LAB - | | | | | | [place] | | + + + + + + + + | Specimen | + + | Urine - Urine | | (substance) | + + + + + + + | Performing | Address | City/State/Zipcode | Phone Number | | Organization | | | | + + + + + | [facility] - | [address] | [place] [address] | [phone] | | [place] | 200 | | | + + [...] | | | URINE-RANDO | | | [place] | | | M | | | [...] | [address] | [place] [address] | [phone] | | [place] | 200 | | | + + + + + documented in this encounter Visit Diagnoses Not on filedocumented in this encounter"
--- OUTSIDE RECORDS SUMMARY | ~2020-04-12 | XMS | Encounter Summary ---
Demographics + + + | Address | [address] | | | [place] [address] | + + + | Home Phone | | + + + | Preferred Language | Unknown | + + + | Marital Status | Single | + + + | Judaism Affiliation | Unknown | + + + | Race | White | + + + | Ethnic Group | Not or | + + + Author + + + | Author | [facility] | + + + | Organization | [facility] | + + + | Address [...] Team Providers + +------+ + | Care Assistant Golf Professional Name | Role | Phone | + +------+ + | Lexx Schrader DO | PCP | | + +------+ + Reason for Visit + +--------+ + | Reason | Onset | Comments | | | Date | | + +--------+ + | High Blood Sugar | 09/21/ | | | | 2018 | | + +--------+ + Encounter Details +--------+ + + + + | Date | Type | Department | Care Team | Description | +--------+ + + + + | 09/21/ | Telephone | Marvin Singer | Orestes Quinn MD | High Blood Sugar | | 2018 | | [facility] | [address] | | | | | [facility] | [facility], | | | | | [address] | [place] [address] | | | | | [address] | [phone] | | | | | Physician's | | | | | | [address] | | | | | | [place], [place] | | | | | | [address] | | | | | | [phone] | | | +--------+ + + + [...] Telephone Encounter - Julieth Lilly RN - 09/21/2017 4:50 PM PSTPt returned call stat ing he needs to get in to see a doctor this Thursday. Pt said he has not been feeling well lat zuleyka. He also reports he will be turning 17 yrs old soon and his mother will no longer be abl e to take off work to drive him to appts. Educator explained it would be difficult to get pt in with a provider on such short notice. Educator offered to see what was available and stacy l pt back. Educator was able to schedule pt with Rosey Pope RN, CDE for a 9:30am appt this Thursday , . Dr. Quinn will be staffing and will be able to check in with pt and educator to review numbers and make dosing recommendations. CINDY HernandezW also informed that pt is in need of assistance with finding an adult provider in his local area. As well as assist with information regarding pt getting set up with [facility] once he turns 17 yrs old. Julieth Rice RN, BSN, CDE Registered Nurse, Ultrasound Sonographer elephone Encounte r - Julieth Lilly RN - 09/21/2017 3:22 PM PSTReturned call to pt who was not availabl e. Left message on unidentified voicemail. Pt last seen in clinic by Dr. Quinn 11/2015. As of 04/2017 note pt was in residential [facility] ent facility. Julieth Rice RN, BSN, CDE Registered Nurse, Ultrasound Sonographer elephone Encounte r Jimy Alvarado - 09/21/2017 12:48 PM PSTPatient is experiencing high blood glucose asso ciated with other no symptoms. Patient is on insulin pump: no Paged: no Encounter routed to educator. Sterling: [phone] signed by Jimy Morin at 09/21/2017 12:49 PM PSTdocum ented in this encounter Plan of Treatment Not on filedocumented as of this encounter Visit Diagnoses Not on filedocumented in this encounter"
--- OUTSIDE RECORDS SUMMARY | ~2020-04-12 | XMS | Encounter Summary ---
Demographics + + + | Address | [address] | | | [place] [address] | + + + | Home Phone | | + + + | Preferred Language | Unknown | + + + | Marital Status | Single | + + + | Congregation Affiliation | Unknown | + + + [...] Team Providers + +------+ + | Care Risk Adjustment Specialist Name | Role | Phone | + +------+ + | Saida Alegria MD | PCP | | + +------+ + Encounter Details +--------+------+ + + + | Date | Type | Department | Care Team | Description | +--------+------+ + + + | 07/29/ | Lab | Lab Center at | | DM type 1 (diabetes | | 2012 | | [place] | | mellitus, type 1) | | | | [facility] | | ([facility]); | | | | [address] | | Microalbuminuria | | | | [place] | | | | | | [facility] | | | | | | 7th Floor [place], | | | | | | [place] [address] | | | | | | [phone] | | | +--------+------+ + + + [...] | + +--------+ + + + | RENAL FUNCTION SET | Routin | 07/29/2013 | DM type 1 | Results for this | | (NA,K,CL,CO2,BUN,CRE | e | 4:29 PM | (diabetes mellitus, | procedure are in the | | AT,GLUC,CA,PHOS,ALB | | PST | type 1) ([facility]) | results section. | | ) | | | Microalbuminuria | | + +--------+ + + + [...] + + + + + | [facility] | [address] | [place] [address] | | | SERVICES, CORE | [address] | | | + + + + + documented in this encounter Visit Diagnoses + + | Diagnosis | + + | DM type 1 (diabetes mellitus, type 1) (HCC) Type I (juvenile type) diabetes mellitus | | without mention of complication, not stated as uncontrolled | + + | Microalbuminuria Proteinuria | + + documented in this encounter"
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
--- OUTSIDE RECORDS SUMMARY | ~2020-04-12 | XMS | Encounter Summary ---
Demographics + + + | Address | [address] | | | [place] [address] | + + + | Home Phone [...] Team Providers + +------+ + | Care Animal Physiology Teacher Name | Role | Phone | + +------+ + | Lexx Schrader DO | PCP | | + +------+ + Reason for Visit + + + | Reason | Comments | + + + | Outside Records | | | Received | | + + + Encounter Details +--------+ + + + + | Date | Type | Department | Care Team | Description | +--------+ + + + + | 08/02/ | Abstract | Marvin Singer | Orestes Quinn MD | Outside Records | | 2018 | | [facility] | [address] | Received | | | | [facility] | [address] [place], | | | | | [address] | [place] [address] | | | | | [address] | [phone] | | | | | Physician's | | | | | | [address] [facility] | | | | | | [place], [place] | | | | | | [address] | | | | | | [phone] | | | +--------+ + + + [...]
--- OUTSIDE RECORDS SUMMARY | ~2020-04-12 | XMS | Encounter Summary ---
Demographics + + + | Address | [address] | | | [place] [address] | + + + | Home Phone [...] Team Providers + +------+ + | Care Horse Show Manager Name | Role | Phone | + +------+ + | Saida Alegria MD | PCP | | + +------+ + Encounter Details +--------+ + + + + | Date | Type | Department | Care Team | Description | +--------+ + + + + | 06/22/ | Orders Only | Marvin Singer | Karyna Kaufman, | | | 2012 | | [facility] | [address] | | | | | [facility] | [place] | | | | | [address] | [place], [place] | | | | | [address] | [address] | | | | | Mailcode: [id number] | | | | | | Physician's Pavilion | | | | | | [address] [place], | | | | | | [place] [address] | | | | | | [phone] | | | +--------+ + + + [...]
--- OUTSIDE RECORDS SUMMARY | ~2020-04-12 | XMS | Encounter Summary ---
Demographics + + + | Address | [address] | | | [place] [address] | + + + | Home Phone | | + + + | Preferred Language | Unknown | + + + | Marital Status | Single | + + + | Baptism Affiliation | Unknown | + + + [...] Team Providers + +------+ + | Care Deicer Repairer Electric Name | Role | Phone | + +------+ + | Lexx Schrader DO | PCP | | + +------+ + Reason for Visit + +--------+ + | Reason | Onset | Comments | | | Date | | + +--------+ + | High Cbg | 12/26/ | | | | 2016 | | + +--------+ + Encounter Details +--------+ + + + + | Date | Type | Department | Care Team | Description | +--------+ + + + + | 12/26/ | Telephone | Marvin Singer | Orestes Quinn MD | High Cbg | | 2016 | | [facility] | [address] | | | | | [facility] | [address] [facility] | | | | | [address] | [place] [address] | | | | | [address] | [phone] | | | | | Physician's | | | | | | [address] | | | | | | [place], [place] | | | | | | [address] | | | | | | [phone] | | | +--------+ + + + [...] documented as of this encounter Miscellaneous Notes Addendum Note - Sultana Bains MD - 12/26/2016 11:48 AM PDT Addended by: SULTANA BAINS MD on: 12/26/2016 11:48 AM Modules accepted: Orders elephone Encounter - Sultana Bains MD - 12/26/2016 11:10 AM PDTSpoke with Sterling and his mother to follow u p on CDE phone call. Sterling's primary concern is to understand how to manage his high blood sugars with 70/30 on board. He has picked up Novolog but does not know what to do next. Clar ified with him that he took the 70/30 mix at about 1 am. As of our conversation at 11 am, I assured him that most of that 70/30 should be out of his system and he can resume normal ins ulin dosing. He says he has ketones strips but has not checked yet. Asked him to please [facility] when we got off the phone and call us for assistance if ketones moderate or large. Will se nd new prescription to preferred pharmacy ([facility]) for Novolog, as well as Lantus and other supplies. Reminded Sterling and his mother that we can only provide a short-term re fill since he has not been seen in clinic since November 2015. Mom reports that he has been will ing out of state with Dad but is now back with her full-time. Will have PAS staff call to sherwin cesar. Additionally, Sterling asking to speak with Dr. Quinn when he returns to the office next conchis king to understand how the prescription confusion happened. Assured him that I will pass along the message. elephone Encounter - Adelita Brown, RD - 12/26/2016 10:33 AM PDTRobert ran out of rapid-acting insulin yesterday . He picked up his insulin yesterday and reports the prescription was written for Novolog 70 /30. He didn't take any yesterday, but took his Lantus last night. Nausea and vomiting this morning with high BG. Provided dose of Novolog 70/30 this morning. Drinking fluids, last vomited 30 minutes ago. Has not checked for ketones. Very concerned a bout why prescription written for 70/30. Routing to Orestes Quinn MD for recommendations. Adelita Brown, MS, RD, LD, CDE Field Mechanic/Site Lead [facility] elephone Encounter - Soco Bonner MA - 12/26/2016 10:03 AM PDTPt reports vomiting as well as anxiety about in sulin problems. Pt has been out of insulin for two days. Paging EOD URGENT HIGH CBG WITH NAUSEA AND VOMITING. OUT OF INSULIN Sterling [place] [phone]. Call pt a t [phone]. Monae T [id number] signed by Soco Olvera MA at 12/26/2016 10: 05 AM PDTTelephone Encounter - Jada Balbuena - 12/26/2016 9:12 AM PDTPatient is experie ncing high blood glucose associated with nausea. Patient is on insulin pump: no Paged: no Encounter routed to educator. Pt's mom Amanda states that wrong insulin (Novolog Mix 70/30 was sent to pharmacy) [phone] documented in this enco unter Plan of Treatment Not on filedocumented as of this encounter Visit Diagnoses Not on filedocumented in this encounter"
--- OUTSIDE RECORDS SUMMARY | ~2020-04-12 | XMS | Encounter Summary ---
Demographics + + + | Address | [address] | | | [place] [address] | + + + | Home Phone [...] Author + + + | Author | [facility] | + + + | Organization | [facility] | + + + | Address [...] Team Providers + +------+ + | Care Interrelated Special Education Teacher Name | Role | Phone | [...] + + + + | 11/17/ | Documentati | Marvin Singer | Santa Gomez, | Referral to social | | 2015 | on | [facility] | [facility] [address] | worker | | | | [facility] | [facility] | | | | | [address] | [place], [place] | | | | | [address] | [address] | | | | | Physician's | [phone] | | | | | [address] | | | | | | [place], [place] | | | | | | [address] | | | | | | [phone] | | | +--------+ + + + [...] Notes Telephone Encounter - Patricia Santa - 11/17/2014 4:06 PM Emerson Singer [facility] rn social services ([facility]) note: 14 year old patient Sterling attended appointment with Dr. Jaeger, accompanied by his mother. Mother reported they could not stay for the recommended appointment with psychologist Dr. Servin. Sterling continues to struggle with poor diabetes management (A1c is 14 and he reports missin g about half his insulin). Mother struggles with partnering with Sterling with his diabetes m anagement. Due to increased medical concerns, SW left a message with [facility] worker Samantha Sellers [phone] to relay above information and request increased [facility] follow up and assistance with angi mcfadden. No other SW needs identified at this time. Santa Gomez DEPOSIT CLERK Diabetes clinic rn social services pager [phone] documented in this encoun ter Plan of Treatment Not on filedocumented as of this encounter Visit Diagnoses Not on filedocumented in this encounter"
--- OUTSIDE RECORDS SUMMARY | ~2020-04-12 | XMS | Encounter Summary ---
Demographics + + + | Address | [address] | | | [place] [address] | + + + | Home Phone [...] Team Providers + +------+ + | Care Plastics Engineering Teacher Name | Role | Phone | + +------+ + | Emmanuelle Noe MD | PCP | | + +------+ + Reason for Visit + +--------+ + | Reason | Onset | Comments | | | Date | | + +--------+ + | Refill Request | 07/18/ | | | | 2012 | | + +--------+ + Encounter Details +--------+ + + + + | Date | Type | Department | Care Team | Description | +--------+ + + + + | 07/18/ | Telephone | Marvin Singer | Mark Jaeger MD | Refill Request | | 2012 | | [facility] | | | | | | [facility] | | | | | | [address] | | | | | | [address] | | | | | | Physician's | | | | | | [address] | | | | | | [place], [place] | | | | | | [address] | | | | | | [phone] | | | +--------+ + + + [...] this encounter Miscellaneous Notes Telephone Encounter - Munoz BoydTIN - 07/18/2013 3:17 PM PSTLast Office Visit in [facility] was on 06/17/13 at 10:[address] Next Appointment in [facility] is on 07/29/13 at 2:00 pm with Mark Jaeger MD. elephone Encounter - Jada Mandujano - 07/18/2013 3:12 PM PSTPt's mother, Alejandro requesting rx for Lifestyle test strips and Accucheck Smartview, testing 8x/day, to be sent to [facility] on , [place] request re ceived in right fax today, rx not on medlist (uses Accucheck primarily but would like Lifestyle as a backup as pharmacy regularly is out of Accucheck) documented in this encounter Plan of Treatment Not on filedocumented as of this encounter Visit Diagnoses Not on filedocumented in this encounter"
--- OUTSIDE RECORDS SUMMARY | ~2020-04-12 | XMS | Encounter Summary ---
Demographics + + + | Address | [address] | | | [place] [address] | + + + | Home Phone [...] Team Providers + +------+ + | Care Educational Program Director Name | Role | Phone | + +------+ + | Lia Pérez | PCP | | + +------+ + Encounter Details +--------+ + + + + | Date | Type | Department | Care Team | Description | +--------+ + + + + | 11/22/ | Monogram And Letter Paster | Marvin Singer | Ludy Diamond, | Type 1 diabetes | | 2016 | | [facility] | MD [address] | mellitus without | | | | [facility] | [address] | complication (HCC) | | | | [address] | [place], [place] | (Primary Dx) | | | | [address] | [address] | | | | | Physician's | [phone] | | | | | [address] | | | | | | [place], [place] | | | | | | [address] | | | | | | [phone] | | | +--------+ + + + [...] on filedocumented as of this encounter Results GLUCOSE, PLASMA (12/03/2015 7:50 [...] - | | | | | | [place] | | + +---------+ + + + + + | Specimen | + + | Blood - Blood | + + + + + + + | Performing | Address | City/State/Zipcode | Phone Number | | Organization | | | | + + + + + | [facility] - | [address] | [place], [place] | | | [place] | [address] | [address] | | + + + + + [...] + + | [facility] - | [address] | [place] | [phone] | | [place] | | | | [...]
--- OUTSIDE RECORDS SUMMARY | ~2020-04-12 | XMS | Encounter Summary ---
Demographics + + + | Address | [address] | | | [place] [address] | + + + | Home Phone [...] Team Providers + +------+ + | Care Tractor Engine Mechanic Name | Role | Phone | + +------+ + | Emmanuelle Noe MD | PCP | | + +------+ + Reason for Visit + +--------+ + | Reason | Onset | Comments | | | Date | | + +--------+ + | High Blood Sugar | 06/29/ | | | | 2012 | | + +--------+ + Encounter Details +--------+ + + + + | Date | Type | Department | Care Team | Description | +--------+ + + + + | 06/29/ | Telephone | Marvin Singer | Mark Jaeger MD | High Blood Sugar | | 2012 | | [facility] | | | | | | Center Physicians | | | | | | [address] | | | | | | [address] | | | | | | Physician's | | | | | | [address] | | | | | | [place] | | | | | | [address] | | | | | | [phone] | | | +--------+ + + + [...] Notes Telephone Encounter - Jada Vernon - 06/29/2013 10:06 AM tevin Parks for Robe rt [place] [id number], large ketones, sugar over 400, stomach pain, Paged Dr Jaeger to call back Telephone Encounter - Jada Vernon - 06/29/2013 10:00 AM PSTSoco, mom, holding for Ro pranav Radabah [id number], large ketones Paged Dr Guzmand documented in this encounter Plan of Treatment Not on filedocumented as of this encounter Visit Diagnoses Not on filedocumented in this encounter"
--- OUTSIDE RECORDS SUMMARY | ~2020-04-12 | XMS | Encounter Summary ---
Demographics + + + | Address | [address] | | | [place] [address] | + + + | Home Phone [...] Providers + +------+ + | Care Staff Writer Name | Role | Phone | + +------+ + | Lexx Schrader DO | PCP | | + +------+ + Reason for Visit + +--------+ + | Reason | Onset | Comments | | | Date | | + +--------+ + | Refill Request | 01/29/ | [facility] | | | 2017 | | + +--------+ + Encounter Details +--------+--------+ + + + | Date | Type | Department | Care Team | Description | +--------+--------+ + + + | 01/29/ | Refill | Marvin Singer | Orestes Quinn MD | Refill Request | | 2017 | | [facility] | [address] | (Lancets) | | | | Center at Physicians | [facility], | | | | | [address] | [place] [address] | | | | | [address] | [phone] | | | | | Physician's | | | | | | [address] | | | | | | [place], [place] | | | | | | [address] | | | | | | [phone] | | | +--------+--------+ + + + [...] Telephone Encounter - Ria Bravo MA - 01/29/2018 8:42 AM PDTPended refill request for Lancets and routed to MD to review. Last Appointment in [facility] was on 09/25/17 at 10:10 am with Orestes Quinn MD. No future appointments scheduled in Endocrinology, Diabetes & Metabolism. elephone Encounter - Jada Keita - 01/29/2018 8:14 AM PDTRobert Mario Monique : 2000 Pt is out of Lancets Last Appointment in [facility] was on 09/25/17 at 10:10 am with Orestes Quinn MD. No future appointments scheduled in Endocrinology, Diabetes & Metabolism. Medication: Lancets for Contour next lancing device Strength: Dose: Up to 10x/day Quantity: 1 month Additional no Pharmacy Updated: [facility] Prescription Routing: Retail order: Fax or call in to pharmacy Patient/caller advised of department's 72 hour turnaround for refill requests documented in this enco unter Plan of Treatment Not on filedocumented as of this encounter Visit Diagnoses Not on filedocumented in this encounter"
--- OUTSIDE RECORDS SUMMARY | ~2020-04-12 | XMS | Encounter Summary ---
Demographics + + + | Address | [address] | | | [place] [address] | + + + | Home Phone | | + + + | Preferred Language | Unknown | + + + | Marital Status | Single | + + + | Advent Affiliation | Unknown | + + + [...] Team Providers + +------+ + | Care Part Time Name | Role | Phone | + +------+ + | Saida Alegria MD | PCP | | + +------+ + Reason for Visit + + + | Reason | Comments | + + + | Diabetes mellitus | | | type 1 | | + + + Encounter Details +--------+---------+ + + + | Date | Type | Department | Care Team | Description | +--------+---------+ + + + | 07/29/ | Office | Marvin Singer | Mindy Jaeger MD | DM type 1 (diabetes | | 2012 | Visit | [facility] | | mellitus, type 1) | | | | Center at [facility] | | ([facility]) (Primary Dx) | | | | [address] | | | | | | [address] | | | | | | Physician's | | | | | | [address] | | | | | | [place], [place] | | | | | | [address] | | | | | | [phone] | | | +--------+---------+ + + + [...] + + + | Blood Pressure | 133/62 | 07/29/2013 10:25 AM | | | | | PST | | + + + + + | Pulse | 90 | 07/29/2013 10:25 AM | | | | | PST [...] + + + + | Weight | 47.9 kg (105 lb 9.6 | 07/29/2013 10:25 AM | | | | oz) | PST | | + + + + + | Height | 164 cm (5' 4.57") | 07/29/2013 10:25 AM | | | | | PST | | + + + + + | Body Mass Index | 17.81 | 07/29/2013 10:25 AM | | | | | PST | | + + + + + documented in this encounter Patient Instructions Patient Instructions Mindy Jaeger MD - 07/29/2013 1:03 PM PST-Please sign up for mychart today! -Insulin: No insulin changes -Continue to check blood glucose readings 4 times/day and observe for trends at different t imes of day. -School order modified so that he can stay at school with moderate to large ketones if he i s otherwise well appearing and not symptomatic. Ketone corrections will be made with the [facility] ool in conjunction with Pediatric Endocrinology at [facility] when ketones are moderate or greater . -Continue Parent supervision for all Lantus doses, [...] ge ketones he needs to call the secondary art teacher pediatric sleeve turner to discuss management. -Obtain care with a local primary care doctor. -As much as possible avoid overnight meals, ensure that his snacks are about 15 grams or le ss in between meals. -We sent new school [...] Call during business hours between 8-5 PM M on through Thursday for issues with ketones. -Follow up in in our clinic in 2 months. The family has been offered the opportunity to ca ll into our service between visits for assistance in making insulin adjustments. documented in this encounter Progress Notes Yamile Rico MD - 08/02/2013 2:03 PM PSTPediatric Endocrinology Attending [facility] July 29, 2013 I have seen and examined this patient. I have discussed this case with Dr. Jaeger and agree w ith the assessment and plan. I have participated in the care of this patient. Yamile Rico MD Coronary Clinical Specialist Pediatric Endocrinology [facility] Division of Pediatric Endocrinology Mindy Bright MD - 1 09/29/2012 11:38 AM PST [facility] Clinic Note Clinic Date: July 29, 2013 Current Insulin Regimen: Levemir or Lantus 30 units CR: 1 for 10 grams of carbohydrates High Blood Sugar Correction Factor: 150-200: 5 units 200-250: 6 units 251-300: 7 units 301-350: 8 units 351-400: 9 units > 400: 10 units Brayden is a 12 year 9 month male with Type 1 diabetes under very poor control here for fo llow-up. Interval History: Brayden is a 12 year 9 month male with Type 1 diabetes who presents today for ongoing foll ow-up. He is accompanied to clinic today by his Mother and his older sister who is an adult . Brayden reports that he has been doing poorly since his last visit. He has had four insta nces of large ketones since his last visit, for which he gave himself a ketone correction, h owever he did not consistently check his ketones to ensure they cleared. He continues to hav e other instances of intermittent ketones during the day secondary to missing insulin doses with meals and snacks. He has severe school avoidance. He has only had four days of school since his last visit, u nder the supervision of his older sister. On review it appears he is now checking his ketone s excessively in order to attempt to test positive so that he does not have to stay at [facility]. This is allowing him to leave school whenever his ketones are moderate to large. He had o ne instance of a low during one of his four days at school which the family feels was done i ntentionally in order to be sent home. He is snacking all night long and tends to eat snacks all night which he does not cover wit h insulin and tends to sleep through much of the day. He gave an example of eating an entire box of fruit snacks since his last visit. He leaves his house at night and roams the [employer] borhood. He is taking melatonin for his sleep issues. [facility] has set up counseling visits next week for both Tee and Brayden next week to try to help with his behavioral issues. He current ly does not have a day time routine. Some positive changes have occurred. Taking Lantus 95% of the time under his Mom's supervis ion. This was a new goal instituted at his last visit. He is also wearing his type one diabe jeannie bracelet, which was another goal he has kept since his last visit. The family also notes he is doing better at keeping his diabetes supplies with him. He checked his blood sugar here before lunch and it was 409. He went to bed at 4AM today an d woke up at 5AM. He was "high" on his meter this morning and took 10 units. He went to [employer] and got a large drink and two burritos and he did not dose for his breakfast even thou gh he was with his mother and sister at the time. He has a history of recurrent UTI and trace blood in his urine for which he was referred to Nephrology. He has a kidney US today and has ongoing evaluation. He admits ongoing polysubstance abuse, including alcohol, tobacco, and likely marijuana. He was unwilling to discuss the use of other drugs. Blood glucose monitoring: Brayden reports checking his blood sugar at least 0-4 times a day with significant variation. He has brought no written records, but does have a meter avail able to retrieve glucose readings. In general, the records are sparse. Review of the dagmar rds reveals blood sugar values as follows: Extremely limited CBG data, several days with no data Mornin-562 Lunch: 64(one low, see above)-504, checked very rarely Dinner: 147-high Bedtime: 195-451, almost no checks since his last visit Insulin: He manages his diabetes with basal/bolus Insulin injections are generally given by patient at sites that include arms and thighs. Hypoglycemia: Brayden's target range for his glucose levels is 80-180. He reports 0 episod es of low blood sugars a week. He states that he is frequently able to recognize these epis odes. Brayden states that he has a current glucagon kit and has a medic alert bracelet whic h he currently wearing. Meal plan: He likes [...] now in the 8th grade, but is no t attending school. He feels like he has ADHD and family reports that his older brother was diagnosed with this condition. Of note his older brother committed suicide at 19 years of ag e. Dad lives in [place] and Mom and Dad are currently in the process of obtaining a div orce. Of note his DHS letter reports that Brayden has a history of making comments about comm itting suicide and overdosing himself on insulin. Mom and Brayden recently moved to [place], [place]. School: Brayden Monique attends [employer] and is in the 8th grade. See momo mccord discussion regarding school absence above. Health Care Maintenance: Last eye check: Eye check not completed Last urine for microalbumin below: Results for [...] Latest Range: 70 - 400 mg/dL 241 [employer] Involvement, see media tab: In brief, Brayden [...] to his hi gh blood sugar levels. Vitals: Ht 164 cm (5' 4.57") (58%, Z = 0.20), Wt 47.9 kg (105 lb 9.6 oz) (41%, Z = -0.22), BP 133/62, Pulse 90, BMI 17.81 kg/(m^2).. General: well-appearing, no apparent distress. HEENT: NC/AT, PERRL, EOMI. OP clear, good dentition. neck: supple, no LAD. no thyromegaly. chest: CTA bilaterally. heart: RRR, no murmurs. Good perfusion abdomen: soft/NT/ND, no hepatosplenomegaly. normal BS. ext: feet well cared for with no ingrown toenails. skin: no rashes, + lipodystrophy at shot sites in bilateral thighs. neuro: grossly normal Laboratory studies: Lab Results Component Value Date A1C >14.0 06/17/2013 Assessment: Type 1 diabetes under poor control. His last HA1C was 14.0 at his last visit. He has managed to improve in some areas, most importantly in taking his Lantus regularly und er his Mom's supervision. He is also now wearing his ID bracelet. We have continued to work hard with Brayden and his family to improve his diabetes management. He met with our it infrastructure engineer and with our psychologist. Please see their respective notes for additional docume ntation. Overall, Brayden still has a long ways to go in improving his diabetes control. The most critical thing he needs is structure, with regular school attendance and regular meals during the day with cessation of snacking and eating at night without insulin coverage. This will be difficult to achieve given Brayden's personal bad habits of staying up at night and his notable school avoidance. Notably [facility] is setting the family up for family and individual counseling which we wholeheartedly support. His ongoing polysubstance abuse is very concern ing. Given these issues, I discussed risks related to these substances for individual's with type one diabetes and gave him handouts as well as a reference at home. Overall, I remain v abdelrahman concerned Recommendations: -Please sign up for mychart today! -Insulin: No insulin changes given a paucity of data and very poor adherence to current reg imen. -Continue to check blood glucose readings 4 times/day and observe for trends at different t imes of day. -School order modified so that he can stay at school with moderate to large ketones if he i s otherwise well appearing and not symptomatic. Ketone corrections will be made with the [facility] in conjunction with Pediatric Endocrinology at [facility] when ketones are moderate or greater . -Continue Parent supervision for all Lantus doses, [...] ge ketones he needs to call the secondary art teacher pediatric sleeve turner to discuss management. -Obtain care with a local primary care doctor. -As much as possible avoid overnight meals, ensure that his snacks are about 15 grams or le ss in between meals. -We sent new school [...] Call during business hours between 8-5 PM M on through Thursday for issues with ketones. -Follow up in in our clinic in 2 months. The family has been offered the opportunity to ca ll into our service between visits for assistance in making insulin adjustments. MINDY JAEGER MD [facility] [address] Physicians [address] [address] documented in this encou nter Plan of Treatment Not on filedocumented as of this encounter Visit Diagnoses + + | Diagnosis | + + | DM type 1 (diabetes mellitus, type 1) ([facility]) - Primary Type I (juvenile type) diabetes | | mellitus without mention of complication, not stated as uncontrolled | + + documented in this encounter
--- OUTSIDE RECORDS SUMMARY | ~2020-04-12 | XMS | Encounter Summary ---
Demographics + + + | Address | [address] | | | [place] [address] | + + + | Home Phone [...] Team Providers + +------+ + | Care Brusher Machine Name | Role | Phone | + +------+ + | No Pcp Per Patient | PCP | Unavailable | + +------+ + Reason for Visit + +--------+ + | Reason | Onset | Comments | | | Date | | + +--------+ + | Other | 11/08/ | insurance switch | | | 2020 | | + +--------+ + | Refill Request | 11/08/ | freestyle test strips | | | 2020 | | + +--------+ + Encounter Details +--------+--------+ + + + | Date | Type | Department | Care Team | Description | +--------+--------+ + + + | 11/08/ | Refill | Marvin Singer | Orestes Quinn MD | Other (insurance | | 2020 | | [facility] | [address] | switch); Refill | | | | Center at Phys[facility] | [address] [place], | Request (freestyle | | | | [address] | [place] [address] | test strips ) | | | | [address] | [phone] | | | | | Physician's | | | | | | [address] | | | | | | [place], [place] | | | | | | [address] | | | | | | [phone] | | | +--------+--------+ + + + [...] this encounter Miscellaneous Notes Addendum Note - Ovi Bravo MA - 11/10/2019 11:31 AM PDT Addended by: OVI BRAVO MA o n: 11/10/2019 11:31 AM Modules accepted: Orders elephone Encounter - Ovi Bravo MA - 11/10/2019 11:31 AM PDTIncoming refill request received from pt via inb ound call. Pended refill request for freestyle lite strips and routed to to review. Last Appointment in [facility] was on 09/25/17 at 3:33 pm with Orestes Quinn MD. Next Appointment in [facility] is on 11/22/19 at 10:10 am with Orestes Quinn MD. elephone Encounter - Irwin Regis siddiqi - 11/10/2019 9:53 AM PDTPt has new yared, OHP plus. Needs Rx for freest yle test strips Sterling Monique : 2000 Last Appointment in [facility] was on 09/25/17 at 3:33 pm with Orestes Quinn MD. Next Appointment in [facility] is on 12/23/19 at 1:15 pm with Orestes Quinn MD. Medication: Blood Sugar Diagnostic (FREESTYLE LITE STRIPS) miscellaneous (misc) strip Dose: 10 to 15 times a day (bad management) Quantity: 3 month Additional Medication: No Pharmacy Updated: [facility][id number] [place] [address] Hours: 9am-7pm Mon-fri / 9am-6pm Sat / 10am-5pm Sun E-Prescribing: Yes E-Prescribing Control Substances: Yes Prescription Routing: Retail order: Fax or call in to pharmacy Patient/caller advised of department's 72 hour turnaround for refill requests Patient states it is ok to leave confidential message on his answering machine. elephone Encounter - Jada Escalona MA - 11/09/2019 4:46 PM PDTPlease see PA encounter for test strips regardi ng this matter. ele phone Encounter - Lester York - 11/09/2019 11:44 AM PDTEmployee of [employer] insurance called and said that pt is not covered by [employer] insurance any more. She stated that we faxed a for m to them, but they cannot do anything since the pt is not covered under them. She states we need to find out correct insurance and fax it there. She disconnected the call prior to me asking for name and number. d ocumented in this encounter Plan of Treatment Not on filedocumented as of this encounter Visit Diagnoses Not on filedocumented in this encounter"
--- OUTSIDE RECORDS SUMMARY | ~2020-04-12 | XMS | Encounter Summary ---
Demographics + + + | Address | [address] | | | [place] [address] | + + + | Home Phone | | + + + | Preferred Language | Unknown | + + + | Marital Status | Single | + + + | Confucianist Affiliation | Unknown | + + + [...] Team Providers + +------+ + | Care Aeronautical Inspector Name | Role | Phone | + +------+ + | Lexx Schrader DO | PCP | | + +------+ + Reason for Visit + +--------+ + | Reason | Onset | Comments | | | Date | | + +--------+ + | Refill Request | 07/21/ | Novolog FlexPen | | | 2019 | | + +--------+ + Encounter Details +--------+--------+ + + + | Date | Type | Department | Care Team | Description | +--------+--------+ + + + | 07/21/ | Refill | Marvin Singer | Orestes Quinn MD | Refill Request | | 2019 | | [facility] | [address] | (Novolog FlexPen) | | | | Center at [facility] | [facility], | | | | | [address] | [place] [address] | | | | | [address] | [phone] | | | | | Physician's | | | | | | [address] | | | | | | [place], [place] | | | | | | [address] | | | | | | [phone] | | | +--------+--------+ + + + [...] Telephone Encounter - Yamile Garrison MA - 07/21/2019 12:39 PM PSTRouted to provider and viry gary. Last Appointment in [facility] was on 09/25/17 at 3:41 pm with Orestes Quinn MD. elephone Encounter - Donell Ruiz - 07/21/2019 11:11 AM PSTRobert Mario Monique : 2000 Last Appointment in [facility] was on 09/25/17 at 3:41 pm with Orestes Quinn MD. No future appointments scheduled in Endocrinology, Diabetes & Metabolism. Medication: Novolog FlexPen Dose: 150 units daily Quantity: 1 month Additional Medication: No Pharmacy Updated: [facility] #[id number] [address] [address] Hours: 9am-7pm Mon-thu / 9am-6pm Sat / 11am-4pm Sun E-Prescribing: Yes E-Prescribing Control Substances: Yes Prescription Routing: Retail order: Fax or call in to pharmacy Marcy CASTLE Group: URGENT pt is out of insulin Pt declined to schedule at this time, he said he will try to find a provider closer to home . But he is out of insulin and has been for several days, so this is urgent. documented in this encount er Plan of Treatment Not on filedocumented as of this encounter Visit Diagnoses Not on filedocumented in this encounter"
[~2020-04-12 01:48] MED LIST: ACCU-CHEK SMAR1 EACH MISC; BASAGLAR K100 UNIT/1 SUB-Q; CLONIDINE HCL0.1 MG PO; GLUCAGON EMERGEN1 MG INJ; HUMALOG100 UNITS/ IV; HYOSCYAMINE0.125 M1 SL; INSULIN SYRING1 EA30 MISC; LANTUS100 UNITS/ SUB-Q; NOVOLOG100 UNIT/2 SUB-Q; TRAZODONE HCL100 MG PO; ZOFRAN4 MG PO
--- OUTSIDE RECORDS SUMMARY | 2020-04-12 01:50 | XMS ---
PreManage Notification: BRAYDEN PHIPPS Security Suggestion Clerk Events No recent Security Events currently on file CRITERIA MET - [facility] - Has Care Guidelines CARE PROVIDERS Lexx Schrader [facility] Current PHONE: [phone] OMID CORDOVA Community Health Worker 05/25/2019-Current PHONE: [phone] ADITI HAN Internal Medicine: Pulmonary Disease 11/16/2019-Current PHONE: Unknown Marj has no Care Guidelines for this patient. Care History Medical/Surgical 11/16/2019 [facility] Patient has new patient establish care televisit with Dr. Noe on 11/24/2019.\ T\nbsp; 11/16/2019 [facility] - Patient is currently established with [facility]. If patient is seen in the ED during business hours. Please contact CHWs at [facility]. Care Recommendation: If this patient has had 5 or more Emergency Department visits in the last 12 months.\T\nbsp; Patient will require education on the scope and purpose of the ED as an acute care provider not a Primary Care Provider and should not be utilized for chronic conditions.\T\nbsp; These are guidelines and the provider should exercise clinical judgment when providing care. E.D. VISIT COUNT (12 MO.) [address] TOTAL 5 NOTE: Visits indicate total known visits. ED/UCC VISIT TRACKING (12 MO.) 04/12/2020 01:48 [facility] [place] TYPE: Emergency COMPLAINT: - MEDICAL CLEARANCE 11/15/2019 08:21 ИВАН Bui [place] TYPE: Emergency COMPLAINT: - HIGH BLOOD SUGAR DIAGNOSES: - Type 1 diabetes mellitus without complications - Nicotine dependence, unspecified, uncomplicated 10/22/2019 09:29 [facility] [place] TYPE: Emergency DIAGNOSES: - Homelessness - Hyperkalemia - Other psychoactive substance abuse, uncomplicated - Patient's other noncompliance with medication regimen - HYPERGLYCEMIA - Type 1 diabetes mellitus with ketoacidosis without coma 05/24/2019 18:34 [email or web address] [place] TYPE: Emergency DIAGNOSES: - Other stimulant abuse, uncomplicated - 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 - ALTERED MENTAL STATUS - 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 - Hyperglycemia, unspecified 05/24/2019 04:20 [facility] [place] TYPE: Emergency DIAGNOSES: - 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
[2020-04-12] MEDS ORDERED: SUBOXONE 8 MG-1 EAC1 SL ×2 (02:06→02:07)
[2020-04-12] MEDS ORDERED: ABILIFY10 MG PO (02:07)
[2020-04-12] MEDS ORDERED: NEURONTIN600 MG PO (02:08)
== END 2020-04-12 04:27 | disposition home or self-care (01) ==
LOC: ED 01:48
DX: S11.91XA Laceration without foreign body of unspecified part of neck, initial encounter (principal); E10.9 Type 1 diabetes mellitus without complications; F17.200 Nicotine dependence, unspecified, uncomplicated; Z79.4 Long term (current) use of insulin; Z79.899 Other long term (current) drug therapy; X78.1XXA Intentional self-harm by knife, initial encounter
CPT/HCPCS: 80053; 80176; 81001; 84443; 85025; 90471; 90715; 99283-25; G0480

== ENCOUNTER 2020-08-18 10:37 | Emergency (ER) | payer OTHER ==
[~2020-08-18] VITALS: Ht 175.3 cm; Wt 68.0 kg
[~2020-08-18 10:37] MED LIST changes: +ABILIFY10 MG PO; +NEURONTIN600 MG PO; +SUBOXONE 8 MG-1 EAC1 SL
--- OUTSIDE RECORDS SUMMARY | 2020-08-18 10:40 | XMS ---
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 Care History Medical/Surgical 04/12/2020 [facility] Patient did not show up for last two appointments with PCP Dr. Noe - most recent on 04/11/2020.\T\nbsp; Phone number on file is for DIPTI.\T\nbsp; 11/16/2019 [facility] Patient has new patient establish care televisit with Dr. Noe on 11/24/2019.\ T\nbsp; 11/16/2019 [facility] - Patient is currently established with [facility]. If patient is seen in the ED during business hours. Please contact CHWs at [facility]. Care Recommendation: If this patient has had [...] providing care. E.D. VISIT COUNT (12 MO.) [facility] 3 [facility]. TOTAL 4 NOTE: Visits indicate total known visits. 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 - Type 1 diabetes mellitus without complications 11/15/2019 08:21 [facility] [place] TYPE: Emergency COMPLAINT: - HIGH BLOOD SUGAR DIAGNOSES: - Type 1 diabetes mellitus without complications - Nicotine dependence, unspecified, uncomplicated 10/22/2019 09:29 [facility] [place] TYPE: Emergency DIAGNOSES: - Homelessness - Hyperkalemia - Other psychoactive substance abuse, uncomplicated - Patient's other noncompliance with medication regimen - HYPERGLYCEMIA - Type 1 diabetes mellitus with ketoacidosis without coma INPATIENT VISIT TRACKING (12 MO.) 10/22/2019 09:29 [facility] [place] TYPE: Medical Surgical DIAGNOSES: - Patient's other noncompliance with medication regimen - Hyperkalemia - Homelessness - Other psychoactive substance abuse, uncomplicated - Type 1 diabetes mellitus with ketoacidosis without coma [email or web address]
[2020-08-18] MEDS ORDERED: NORCO 5-325 TA1 EACH PO (14:19)
[2020-08-18] MEDS ORDERED: BACTRIM DS TAB1 EACH PO (14:19)
== END 2020-08-18 15:49 | disposition home or self-care (01) ==
LOC: ED 10:37
DX: L02.414 Cutaneous abscess of left upper limb (principal); E10.65 Type 1 diabetes mellitus with hyperglycemia; F17.200 Nicotine dependence, unspecified, uncomplicated; Z79.899 Other long term (current) drug therapy; Z79.4 Long term (current) use of insulin
CPT/HCPCS: 10060; 80053; 81001; 83605; 85025; 99283-25; J0692; J1170; J3370; J7030; J7060

== ENCOUNTER 2021-06-06 04:20 | Observation (INO) | payer OTHER ==
[~2021-06-06] VITALS: Ht 175.3 cm; Wt 55.8 kg
[~2021-06-06 04:20] MED LIST changes: +BACTRIM DS TAB1 EACH PO; +NORCO 5-325 TA1 EACH PO
--- OUTSIDE RECORDS SUMMARY | 2021-06-06 04:22 | XMS ---
PreManage Notification: BRAYDEN PHIPPS Security Cassandra Developer Events No recent Security Events currently on file CRITERIA MET - [facility] - Has Care Guidelines CARE PROVIDERS OMID CORDOVA Community Health Worker 05/25/2019-Current PHONE: [phone] ADITI HAN Internal Medicine: Pulmonary Disease 11/16/2019-Current PHONE: Unknown Marj has no Care Guidelines for this patient. Care History Medical/Surgical 04/12/2020 [facility] Patient did not show up for last two appointments with PCP Dr. Noe - most recent on 04/11/2020.\T\nbsp; Phone number on file is for [employer].\T\nbsp; 11/16/2019 [facility] Patient has new patient establish care televisit with Dr. Noe on 11/24/2019.\ T\nbsp; 11/16/2019 [facility] - Patient is currently established with [facility]. If patient is seen in the ED during business hours. Please contact [facility] at [facility]. Care Recommendation: If this patient has had [...] care. E.D. VISIT COUNT (12 MO.) 1 [employer] 2 ИВАН Espinoza TOTAL 3 NOTE: Visits indicate total known visits. ED/UCC VISIT TRACKING (12 MO.) 06/06/2021 04:20 [facility] [place] TYPE: Emergency COMPLAINT: - DIABETIC ISSUES 04/10/2021 19:14 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
[2021-06-06] MEDS ORDERED: INSULIN AS100 UNIT/3 SUB-Q ×2 (13:41→17:27)
[2021-06-06] MEDS ORDERED: INSULIN SYRING1 EA30 MISC (17:28)
[2021-06-06] MEDS ORDERED: BASAGLAR K100 UNIT/1 SUB-Q (17:28)
[2021-06-06] MEDS ORDERED: FREESTYLE LITE1 EAC1 TD (17:29)
[2021-06-06] MEDS ORDERED: FREESTYLE FREE1 EAC1 MISC (17:30)
[2021-06-06] MEDS ORDERED: [UNRECOGNIZED DRUG - OTHER] MISC (17:30)
[2021-06-06] MEDS ORDERED: GABAPENTIN300 MG PO (17:53)
[2021-06-06] MEDS ORDERED: GLUCAGON EMERGEN1 MG INJ (18:02)
[2021-06-06] MEDS ORDERED: [UNRECOGNIZED DRUG - OTHER] SUB-Q (18:10)
--- NOTE | 2021-06-06 20:23 | EKG ---
[facility] [address] [facility] [place], [place] [address] Signed Normal sinus rhythm Early repolarization Normal ECG No previous ECGs available Confirmed by ÁNGEL KASPER DO ([id number]) on 06/06/2021 8:23:09 PM Electronically Signed By: ÁNGEL KASPER DO 06/06/212022 PATIENT NAME: DESIREBRAYDEN Electrocardiogram DATE OF : [birth year] PHYSICIAN: ÁNGEL KASPER DO REPORT #: [id number] REPORT IS CONFIDENTIAL AND NOT TO BE RELEASED WITHOUT AUTHORIZATION
== END 2021-06-06 18:40 | disposition home or self-care (01) ==
LOC: ED 04:20 → CCU 04:21
PROVIDERS: ADMIT Student in an Organized Health Care Education/Training Program; ATTEND Student in an Organized Health Care Education/Training Program
DX: E10.69 Type 1 diabetes mellitus with other specified complication (principal); E10.65 Type 1 diabetes mellitus with hyperglycemia; E87.5 Hyperkalemia; G93.41 Metabolic encephalopathy; F17.210 Nicotine dependence, cigarettes, uncomplicated; F15.90 Other stimulant use, unspecified, uncomplicated; Z79.4 Long term (current) use of insulin; Z20.822 Contact with and (suspected) exposure to COVID-19
CPT/HCPCS: 80048; 80053; 81001; 82010; 82803; 85025; 93005; 93010; A9270; C9803; G0378; J1815; J7030; J7042; U0003